=== PATIENT | male | born 1960 | race Caucasian/White ===

== ENCOUNTER 2017-01-17 09:57 | Inpatient (IN) | payer OTHER, MEDICARE ==
[~2017-01-17] VITALS: Ht 190.5 cm; Wt 103.9 kg
[~2017-01-17 09:57] MED LIST: ALBUTEROL0.09 MG/A1 INH; FLOMAX(MONOGRA0.4 MG PO; FOLIC ACID1 M1 PO; LIDODERM 5% PAT1 PAT EXT; LORAZEPAM1 M1 PO; MAG-OX 400400 MG PO; METOPROLOL TART25 M1 PO; MULTIPLE VITAM1 EAC2 PO; NALTREXONE50 MG PO; NATURE'S BLEND100 M3 PO; NEURONTIN300 M1 PO; NEXIUM 40MG40 MG PO; PRILOSEC OTC20 M1 PO; TRAZODONE HCL50 M1 PO; Theragran Vitamins PO; VITAB121000 PO; ZOFRAN4 M2 PO
--- NOTE | 2017-01-17 10:05 | NUR ---
56 Y/O MALE C/O "STOMACH SICK" X 2 DAYS, ALSO REQUESTING ALCOHOL DETOX. REPORTS LAST DRINK 12 HOURS AGO; HAS BEEN DRINKING 6-7 BEERS DAILY FOR OVER A WEEK. REPORTS ABDOMINAL PAIN AND N/V/D. SKIN CLAMMY; DIAPHORESIS NOTED. TREMORS NOTED.
[2017-01-17 10:47] VITALS: BP 188/114
--- NOTE | 2017-01-17 10:47 | NUR ---
BLOODWORK, SST,LAV.BLUE,BECK AND PINK TOP TUBES SENT TO LAB.
[2017-01-17 10:51] LABS: ABSOLUTE BASOPHIL COUNT 0 /CUMM (0.0-0.2); ABSOLUTE EOSINOPHIL COUNT 0 /CUMM (0.0-0.7); ABSOLUTE GRANULOCYTE CT 3.9 /CUMM (1.4-6.5); ABSOLUTE LYMPH COUNT 0.4 /CUMM (1.2-3.4); ABSOLUTE MONOCYTE COUNT 0.7 /CUMM (0.10-0.60); BASOPHIL % 0.1 % (0.0-2.0); EOSINOPHIL % 0.1 % (0-5); GRANULOCYTE % 78.1 % (42.2-75.2); HEMATOCRIT 41.3 % (42-52); MEAN CORPUSCULAR HGB CONC 34.5 G/DL (33.0-37.0); MEAN CORPUSCULAR VOLUME 95.8 FL (80.0-94.0); MEAN PLATELET VOLUME 6.8 FL (7.4-10.4); PLATELET COUNT 160 /CUMM (130-400); RBC DISTRIBUTION WIDTH 13.6 % (11.5-14.5); RED BLOOD CELL CT 4.31 /CUMM (4.70-6.10); WHITE BLOOD CELL COUNT 4.9 /CUMM (4.8-10.8)
--- NOTE | 2017-01-17 10:59 | NUR ---
MED ORDERED WITH ATIVAN 2MG IV, AND ATIVAN 1MG PO, TOLERATED WELL. PT ASKING FOR "SOMETHING FOR MY STOMACH, LAST TIME THEY GAVE IT TO ME IN THE IV". MICHAEL RAPHAEL AWARE.
--- NOTE | 2017-01-17 11:13 | ED PSYCHIATRIC COMPLAINT ---
See Addendum History of Present Illness General Chief Complaint: Nausea, Vomiting, Diarrhea Stated Complaint: NVD, ?DETOX Source: patient Exam Limitations: no limitations Vital Signs & Intake/Output Vital Signs & Intake/Output Vital Signs Date Time Temp Pulse Resp B/P Pulse O2 O2 Flow FiO2 Ox Delivery Rate 01/17 1107 97 20 189/99 97 Room Air Room Air 01/17 1049 96 Room Air Room Air 01/17 1047 97.1 112 20 188/114 01/17 1045 97.1 112 20 188/114 96 Room Air Room Air 01/17 0959 96.3 122 16 95 Room Air Allergies Coded Allergies: NO KNOWN ALLERGIES (NO) (02/20/11) Reconcile Medications Albuterol Sulfate (Proair Hfa) 90 MCG HFA.AER.AD 2 PUF INH Q4-6 PRN PRN BREATHING PROBLEMS (Reported) Cyanocobalamin (Vitamin B-12) 1,000 MCG TABLET 1 TAB PO DAILY SUPPLEMENT ( Reported) Folic Acid 1 MG TABLET 1 TAB PO DAILY SUPPLEMENT (Reported) Gabapentin (Neurontin) 300 MG CAPSULE 1 CAP PO TID PAIN (Reported) Metoprolol Tartrate 25 MG TABLET 1 TAB PO DAILY HEART (Reported) Multivitamin (Multiple Vitamins) 1 EACH TABLET 1 TAB PO DAILY SUPPLEMENT ( Reported) Omeprazole Magnesium (Prilosec Otc) 20 MG TABLET.DR 1 TAB PO DAILY GERD Tamsulosin HCl (Flomax) 0.4 MG CAP.ER.24H 1 CAP PO DAILY PROSTATE (Reported) Thiamine HCl (B-1) 100 MG TABLET 1 TAB PO DAILY SUPPLEMENT (Reported) Trazodone HCl 50 MG TABLET 1 TAB PO DAILY DEPRESSION (Reported) Triage Note: 56 Y/O MALE REQUESTING ALCOHOL DETOX. REPORTS LAST DRINK 12 HOURS AGO; HAS BEEN DRINKING 6-7 BEERS DAILY FOR OVER A WEEK. REPORTS ABDOMINAL PAIN AND N/V/D. SKIN CLAMMY; DIAPHORESIS NOTED. TREMORS NOTED. Triage Nurses Notes Reviewed? yes Onset: Abrupt Duration: day(s):, constant, getting worse Timing: recent history Severity: moderate HPI: 56-year-old male comes into emergency room with complaints of nausea vomiting shaky. Patient reports that he has been drinking alcohol again for the past 3 weeks. Patient feels that he is going through withdrawal. Last drink yesterday. History of seizure withdrawal as well as DTs. Denies any chest pain. Sweaty. Patient also complains of some upper abdominal pain. Sharp. (MICHAEL GUTIERREZ) Past History Travel History Traveled to [place] past 21 day No Medical History Any Pertinent Medical History? see below for history Neurological: delerium tremens, seizure Cardiovascular: hypertension Respiratory: COPD, emphysema, alveolar proteinosis acute respiratory distress syndrome requiring intubation aspiration pneumonia Gastrointestinal: colitis, pancreatitis, GI bleed NOS Hepatic: hepatitis C, cirrhosis, previously reported Renal: acute renal failure, previously reported Musculoskeletal: falls, rib fractures Psychiatric: alcohol dependence, substance abuse, cocaine abuse Endocrine: NONE Blood Disorders: anemia Cancer(s): head/neck cancer, ? 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 No (MICHAEL GUTIERREZ) Review of Systems Review of Systems Constitutional: Reports: no symptoms. EENTM: Reports: no symptoms. Respiratory: Reports: no symptoms. Cardiovascular: Reports: no symptoms. GI: Reports: see HPI. Genitourinary: Reports: no symptoms. Musculoskeletal: Reports: no symptoms. Skin: Reports: no symptoms. Neurological/Psychological: Reports: see HPI. Hematologic/Endocrine: Reports: no symptoms. Immunologic/Allergic: Reports: no symptoms. All Other Systems: Reviewed and Negative (MICHAEL GUTIERREZ) Physical Exam Physical Exam General Appearance: well developed/nourished, mild distress Head: atraumatic Eyes: Bilateral: normal appearance, EOMI. Ears, Nose, Throat: normal ENT inspection, hearing grossly normal Neck: normal inspection, supple Respiratory: no respiratory distress Cardiovascular: regular rate/rhythm, tachycardia Gastrointestinal: soft, tenderness Extremities: normal range of motion Neurological/Psychiatric: awake, alert Appearance/Memory/Insight: appropriate insight Behavoir/Eye Contact/Speech: cooperative Thoughts/Hallucinations: no apparent hallucination Skin: intact, normal color, warm/dry SAD PERSONS Done? patient not suicidal (MICHAEL GUTIERREZ) Progress Differential Diagnosis: dementia, drug intoxication, drug overdose, drug withdrawal, electrolyte abnormality, encephalitis, hypoglycemia, hypothyroidism, IC hem/mass/tumor, meningitis, pancreatitis Plan of Care: Orders Procedure Date/time Status EKG 01/18 0800 Active PHOSPHORUS 01/18 0600 Active MAGNESIUM 01/18 0600 Active HEPATIC FUNCTION PANEL 01/18 0600 Active BASIC ELECTROLYTES PLUS BUN&CR 01/18 0600 Active Heart Healthy Diet 01/17 D Active TROPONIN LEVEL 01/17 1800 Active EKG 01/17 1800 Active Admit to inpatient 01/17 1251 Active Pathway - chart 01/17 1246 Active Code Status 01/17 1246 Active Patient Data 01/17 1151 Active Pathway - chart 01/17 1141 Active CIWA 01/17 1024 Active URINE DRUGS OF ABUSE 01/17 1024 Active TROPONIN LEVEL 01/17 1024 Complete LIPASE 01/17 1024 Complete ETHANOL 01/17 1024 Complete COMPREHENSIVE METABOLIC PANEL 01/17 1024 Complete CBC WITHOUT DIFFERENTIAL 01/17 1024 Complete AMYLASE 01/17 1024 Complete EKG 01/17 1024 Active TRC EVALUATION (GEN) 01/17 UNK Active House Staff 01/17 UNK Active VTE Mechanical Prophylaxis 01/17 UNK Active Vital Signs 01/17 UNK Active Hemoccult 01/17 UNK Active Current Medications Sig/Berta Start time Last Medication Dose Stop Time Status Admin Lorazepam 0.5 MG ONCE 01/22 0000 AC (Ativan) 01/22 0001 Lorazepam 0.5 MG Q6 01/21 0600 AC (Ativan) 01/21 2359 Lorazepam 0.5 MG ONCE ONE 01/20 1800 AC (Ativan) 01/20 1801 Lorazepam 1 MG Q6H 01/20 0000 AC (Ativan) 01/20 1201 Lorazepam 1.5 MG Q12H 01/19 0600 AC (Ativan) 01/19 1801 Lorazepam 1 MG Q12H 01/19 0000 AC (Ativan) 01/19 1201 Lorazepam 2 MG ONCE ONE 01/18 1800 AC (Ativan) 01/18 1801 Cyanocobalamin 1,000 MCG DAILY 01/18 1000 AC (Vitamin B12) Folic Acid 1 MG DAILY 01/18 1000 AC (Folic Acid) Multivitamins 1 TAB DAILY 01/18 1000 AC (Theragran Vitamins) Thiamine HCl 100 MG DAILY 01/18 1000 AC (Vitamin B1) Trazodone HCl 50 MG DAILY 01/18 1000 AC (Desyrel) Lorazepam 1.5 MG Q6H 01/18 0000 AC (Ativan) 01/18 1201 Senna/Docusate Sodium 2 TAB AT BEDTIME PRN 01/17 1300 AC (Senokot S) Acetaminophen 650 MG Q6P PRN 01/17 1245 AC (Tylenol) Gabapentin 300 MG TID 01/17 1245 AC (Neurontin) Metoprolol Tartrate 25 MG DAILY 01/17 1245 AC (Lopressor) Ondansetron HCl 4 MG Q6P PRN 01/17 1245 AC (Zofran) Tamsulosin HCl 0.4 MG DAILY 01/17 1245 AC (Flomax) Pantoprazole Sodium 40 MG DAILY 01/17 1243 AC (Protonix) Lorazepam 2 MG Q6 01/17 1200 AC (Ativan) 01/17 2358 Lactated Ringer's 1,000 ML ONCE ONE 01/17 1145 AC (Lactated Ringers) 01/17 1544 Lorazepam 2 MG Q2P PRN 01/17 1145 AC (Ativan) Lorazepam 1 MG Q2P PRN 01/17 1145 AC (Ativan) Laboratory Tests 01/17/17 1418: Methadone Screen Pending, Barbiturate Screen Pending, Ur Phencyclidine Scrn Pending, Amphetamines Screen Pending, U Benzodiazepines Scrn Pending, Urine Cocaine Screen Pending, Urine Cannabis Screen Pending 01/17/17 1040: Anion Gap 17 H, Estimated GFR > 60, BUN/Creatinine Ratio 21.4, Glucose 116 H, Calcium 10.1, Total Bilirubin 1.2, AST 206 H, ALT 127 H, Alkaline Phosphatase 103, Troponin I < 0.01, Total Protein 9.2 H, Albumin 4.9, Globulin 4.3 H, Albumin/Globulin Ratio 1.1, Amylase 81, Lipase 500 H, CBC w Diff NO MAN DIFF REQ, RBC 4.31 L, MCV 95.8 H, MCH 33.0 H, RDW 13.6, MPV 6.8 L, Gran % 78.1 H , Lymphocytes % 7.6 L, Monocytes % 14.1 H, Eosinophils % 0.1, Basophils % 0.1, Absolute Granulocytes 3.9, Absolute Lymphocytes 0.4 L, Absolute Monocytes 0.7 H, Absolute Eosinophils 0, Absolute Basophils 0, PUBS MCHC 34.5, Serum Alcohol < 10.0 Initial ED EKG: normal intervals, normal p-waves, normal sinus rhythm, rate (92) (MICHAEL GUTIERREZ) Departure Departure Disposition: STILL A PATIENT Condition: Stable Clinical Impression Primary Impression: Alcohol withdrawal Secondary Impressions: Pancreatitis Referrals: NIKKI CARLSON (PCP/Family) Departure Forms: Customer Survey General Discharge Information Admission Note Spoke With: YANCY TILLMAN,IVONNE Alcohol Withdrawl Admission ED Alcohol Detox Admission d/t: CIWA Score >15, DTs/Seizure w/i last year Comments: Patient hypertensive. Tachycardic. (MICHAEL GUTIERREZ) PA/CAMPAIGN SPECIALIST Co-Sign Statement Statement: ED Attending supervision documentation- [] I saw and evaluated the patient. I have also reviewed all the pertinent lab results and diagnostic results. I agree with the findings and the plan of care as documented in the PA's/CAMPAIGN SPECIALIST's documentation. [X] I have reviewed the ED Record and agree with the PA's/CAMPAIGN SPECIALIST's documentation. [] Additions or exceptions (if any) to the PAs/CAMPAIGN SPECIALIST's note and plan are summarized below: [] (JANUARY RIOS DO) Critical Care Note Critical Care Note Critical Care Time: 30-74 min (MICHAEL GUTIERREZ)
--- NOTE | 2017-01-17 11:21 | NUR ---
MED WITH ZOFRAN 4MG IV AND PEPCID 20MG IV, TOLERATED WELL, PT NAPPING COMFORTABLY AT THIS TIME, EASILY AROUSABLE.
[2017-01-17] MEDS ORDERED: LEXAPRO20 M1 PO (11:27)
[2017-01-17] MEDS ORDERED: VITAMIN B-121000 MC3 PO (11:29)
[2017-01-17] MEDS ORDERED: PROAIR HFA8.5 GM INH (11:29)
[2017-01-17] MEDS ORDERED: MAGNESIUM400 MG PO (11:31)
[2017-01-17] MEDS ORDERED: FLOMAX0.4 M1 PO (11:33)
[2017-01-17] MEDS ORDERED: B-1100 MG PO (11:34)
--- NOTE | 2017-01-17 11:56 | NUR ---
PHARMACY CALLED FOR BANANA BAG, IV FOLIC ACID AND MVI NOT AVAILABLE IN [facility].
--- NOTE | 2017-01-17 12:07 | NUR ---
PT RESTING MORE COMFORTABLY, SLEEPING IN LONG NAPS, NO FURTHER N/V OR ANXIETY NOTED. STEVE NEGRETE AT BEDSIDE FOR EKG.
--- NOTE | 2017-01-17 12:14 | NUR ---
EKG DONE. HOUSE STAFF AT BEDSIDE FOR EVAL.
--- NOTE | 2017-01-17 12:25 | NUR ---
BANANA BAG INFUSING AT 125ML/HR WITHOUT DIFFICULTY AT THIS TIME. HOUSE STAFF REMAINS AT BEDSIDE.
[2017-01-17 13:00] VITALS: BP 181/98
--- NOTE | 2017-01-17 13:51 | History & Physical ---
KENNEDY TILLMAN,TYLER 01/17/17 1336: General Information and HPI MD Statement: I have seen and personally examined FABI TAYLOR and documented this H&P. The patient is a 56 year old M who presented with a patient stated chief complaint of [nausea, vomiting, abdominal pain and requesting alcohol detox]. 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 Patient was discharged from [facility] in October 2016 after treated for alcohol detox and hematemesis thought to be secondary to gastritis. Patient restarted binge drinking alcohol in December and has been drinking 8-9 beers daily and 2-3 shots of vodka daily. His last drink was yesterday morning 10 AM. Since yesterday morning he started having persistent nausea with 12-13 episode of streak of blood containing vomiting associated with epigastric pain. He also complained of chest pain and subcostal pain which she attributed to his extensive retching due to vomiting. This morning he also started having difficulty with breathing and noted very weak so his son brought him to ER for further evaluation. On evaluation in ER patient denies any active chest pain, shortness of breath but continues to have epigastric pain with persistent nausea and vomiting. She also complained of persistent sweating and tremulousness but denies any visual/tactile/ auditory hallucination. In ER his vitals were T 97.1, HR 97, RR 20, BP 189/99, O2 sat 97% on room air. He was given 2 mg IV Ativan and 1 mg oral Ativan and also received IV PPI and Zofran. Patient sees Dr. Rojsa for his lung disease. Allergies/Medications Allergies: Coded Allergies: NO KNOWN ALLERGIES (NO) (02/20/11) Home Med list Albuterol Sulfate (Proair Hfa) 90 MCG HFA.AER.AD 2 PUF INH Q4-6 PRN PRN BREATHING PROBLEMS (Reported) Cyanocobalamin (Vitamin B-12) 1,000 MCG TABLET 1 TAB PO DAILY SUPPLEMENT ( Reported) Folic Acid 1 MG TABLET 1 TAB PO DAILY SUPPLEMENT (Reported) Gabapentin (Neurontin) 300 MG CAPSULE 1 CAP PO TID PAIN (Reported) Metoprolol Tartrate 25 MG TABLET 1 TAB PO DAILY HEART (Reported) Multivitamin (Multiple Vitamins) 1 EACH TABLET 1 TAB PO DAILY SUPPLEMENT ( Reported) Omeprazole Magnesium (Prilosec Otc) 20 MG TABLET.DR 1 TAB PO DAILY GERD Tamsulosin HCl (Flomax) 0.4 MG CAP.ER.24H 1 CAP PO DAILY PROSTATE (Reported) Thiamine HCl (B-1) 100 MG TABLET 1 TAB PO DAILY SUPPLEMENT (Reported) Trazodone HCl 50 MG TABLET 1 TAB PO DAILY DEPRESSION (Reported) Compliance With Home Meds: FAIR Past History Travel History Traveled to [place] past 21 day No Medical History Neurological: delerium tremens, seizure Cardiovascular: hypertension Respiratory: COPD, emphysema, alveolar proteinosis acute respiratory distress syndrome requiring intubation aspiration pneumonia Gastrointestinal: colitis, pancreatitis, GI bleed NOS Hepatic: alcoholic hepatitis Musculoskeletal: falls, rib fractures Psychiatric: alcohol dependence, substance abuse, cocaine abuse Endocrine: NONE Blood Disorders: anemia Cancer(s): ? 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 Ambulation: independent, cane, walker, non-ambulatory IADLs Independent: shopping, housework, finances, food prep, telephone, transportation , medication admin. Review of Systems Review of Systems Constitutional: Reports: weakness. Denies: chills, fever. EENTM: Denies: visual changes. Cardiovascular: Denies: chest pain, edema, orthopena, palpitations, peripheral edema. Respiratory: Reports: cough. Denies: short of breath, sputum production. GI: Reports: abdominal pain, diarrhea, nausea, vomiting. Genitourinary: Denies: dysuria. Musculoskeletal: Denies: back pain. Skin: Denies: rash. Neurological/Psychological: Denies: confusion, dementia, headache. Exam & Diagnostic Data Last 24 Hrs of Vital Signs/I&O Vital Signs Date Time Temp Pulse Resp B/P Pulse O2 O2 Flow FiO2 Ox Delivery Rate 01/17 1107 97 20 189/99 97 Room Air Room Air 01/17 1049 96 Room Air Room Air 01/17 1047 97.1 112 20 188/114 01/17 1045 97.1 112 20 188/114 96 Room Air Room Air 01/17 0959 96.3 122 16 95 Room Air Intake & Output 01/17 1600 01/17 0800 01/17 0000 Intake Total Output Total Balance Patient 228 lb Weight Physical Exam General Appearance Alert, Oriented X3, Cooperative, No Acute Distress Skin No Rashes HEENT Atraumatic, PERRLA, EOMI, Mucous Membr. moist/pink Neck Supple, No JVD Lymphatic Cervical nl Cardiovascular Regular Rate, Normal S1, Normal S2, No Murmurs Lungs Clear to Auscultation, Normal Air Movement Abdomen Normal Bowel Sounds, Soft, No Tenderness Neurological Normal Speech, Strength at 5/5 X4 Ext, Normal Tone, Sensation Intact, Cranial Nerves 3-12 NL Extremities No Edema Vascular Normal Pulses, Pulses Symmetrical Last 24 Hrs of Labs/Humberto: Laboratory Tests 01/17/17 1040: Anion Gap 17 H, Estimated GFR > 60, BUN/Creatinine Ratio 21.4, Glucose 116 H, Calcium 10.1, Total Bilirubin 1.2, AST 206 H, ALT 127 H, Alkaline Phosphatase 103, Troponin I < 0.01, Total Protein 9.2 H, Albumin 4.9, Globulin 4.3 H, Albumin/Globulin Ratio 1.1, Amylase 81, Lipase 500 H, CBC w Diff NO MAN DIFF REQ, RBC 4.31 L, MCV 95.8 H, MCH 33.0 H, RDW 13.6, MPV 6.8 L, Gran % 78.1 H , Lymphocytes % 7.6 L, Monocytes % 14.1 H, Eosinophils % 0.1, Basophils % 0.1, Absolute Granulocytes 3.9, Absolute Lymphocytes 0.4 L, Absolute Monocytes 0.7 H, Absolute Eosinophils 0, Absolute Basophils 0, PUBS MCHC 34.5, Serum Alcohol < 10.0 Diagnostic Data EKG Results NSR at 92, left axis deviation, no ST-T changes, QTC 471 Assessment/Plan Assessment: This is 56-year-old man with past medical history of alcohol abuse with most recent admission in October 2016 for alcohol detox, alcohol related withdrawal seizure, DTs, hypertension, 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 patient has been drinking 8-9 beers daily and 2-3 shots of vodka and his olast drink was yesterday morning, currently experiencing sweats, tremulousness. 1. Alcohol withdrawl - Admit to GM - Watch for DT - Start ativan taper and as per [facility] protocol - banana bag with MVI, folate, b12, thiamine - Patient educated to quit etoh 2. Alcoholic hepatitis - Noted elevated LFt suggestive of ETOH hepatitis - no hx of gallstone or RUQ pain - will repeat LFT in am if remains high or trending up will consider RUQ US - avoid high dose tylenol 3. Acute gastritis - Start IV PPI - Zofran as needed for nausea - Keep NPO and advance diet gradually 4. HTN - Continue metoprolol 25 ng daily 5. Depression/insomnia - continue trazodone 6. BPH - Continue Flomax 7. dvt PX - mechanical As Ranked By This Provider Problem List: 1. ALCOHOL WITHDRAWAL 2. Abdominal pain 3. Depression Core Measures/Miscellaneous Acute Coronary Syndrome ACS Diagnosis: No Cerebrovascular Accident CVA/TIA Diagnosis: No Congestive Heart Failure CHF Diagnosis: No Venous Thromboembolism VTE Risk Factors: Age > 40 [facility] prophylaxis d/t: No contraindications No VTE Pharm Prophylaxis d/t: Active bleeding VTE Diagnosis: No VTE Type: NONE VTE Confirmed by (Test): NONE Severe Sepsis Severe Sepsis Present: No Septic Shock Septic Shock Present: No Miscellaneous Documentation Attending Case Discussed With: CARLY MOORE M.D Primary Care Physician: NIKKI CRALSON Patient sees these Specialists pulmonary - Dr. Rojas Level of Patient Care: General Medicine CARLY MOORE MD 01/17/17 1443: Attending MD Review Statement Attending Statement Attending Statement: examined this patient, discuss w/resident/PA/PROPULSION ENGINEER, agreed w/resident/PA/PROPULSION ENGINEER, reviewed EMR data (avail), discussed with nursing, amended to note Attending Assessment/Plan: 56-year-old male with history of alcohol abuse presents to the emergency room today complaining of nausea vomiting abdominal pain and alcohol withdrawal symptoms. Last alcohol intake was yesterday. He reports alcohol intake due to persistent nausea vomiting. He has a long history of alcohol abuse and has been through rehabilitation programs in the past. At this point he states that he is willing to attempt stopping further alcohol intake. His CIWA was as high as 15 emergency room and he does have history of alcohol withdrawal seizures. Based on this he was referred to the inpatient medical service for further management. He received a total of 3 mg of Ativan so far in the emergency room. On examination he is well-developed, not agitated, tremulous. Heart sounds are regular. Lungs are clear to auscultation bilaterally. Abdomen is soft with mild tenderness in the epigastric region. He has no peripheral edema. He has no significant of chronic liver disease on exam. Laboratory data shows transaminitis. Images studies in October showed hepatic steatosis. His constellation of symptoms are consistent with alcohol withdrawal. Laboratory data is suggestive of alcoholic hepatitis his abdominal discomfort and mildly elevated lipase levels are probably due to mild alcoholic pancreatitis. Recommendations: -Admit to the inpatient medical service. -Hydrate aggressively with lD5 actated Ringer's at 1 25 mL an hour -Repeat serum chemistry in a.m. including magnesium level. -Provide benzodiazepine therapy with Ativan 2 mg orally every 4 hours around-the -clock. Provide additional cord rate with Ativan 2 mg IV when necessary elevated CIWA score. Recommend aggressive therapy for the patient due to impending delirium tremens. -Keep nothing by mouth and provided with antiemetic therapy. -Once nausea vomiting as well as abdominal pain resolves may resume diet. -DVT prophylaxis with subcutaneous heparin. -If no improvement will obtain right upper quadrant sonogram to rule out biliary obstruction. -
--- NOTE | 2017-01-17 14:51 | NUR ---
MED ORDERED WITH PROTONIX 40MG IV,TOLERATED WELL. MED WITH LOPRESSOR 25MG PO AND NEURONTIN 300MG PO, TOLERATED WELL. PHARMACY CALLED FOR FLOMAX.
--- NOTE | 2017-01-17 14:51 | Admission Certification ---
Admission Certification Certification Statement - As attending physician, I certify that at the time of - admission, based on clinical presentation, severity of - symptoms, need for further diagnostic testing and - therapeutic interventions, and risk of adverse outcomes - without in-hospital treatment, in my clinical assessment, - this patient requires an acute hospital stay for a minimum - of two nights or longer. I have also considered psychsocial - factors such as support system, advanced age, financial - issues, cognitive issues, and failed out-patient treatments, - past re-admission history, safety of patient, and lack of - compliance as applicable. Specific rationale supporting this admission is: Admit to the inpatient medical service for management of impending delirium tremens.
--- NOTE | 2017-01-17 14:57 | NUR ---
PT "STARTING TO FEEL JITTERY AGAIN", MED WITH ATIVAN 2MG IV, TOLERATED WELL.
[2017-01-17 15:04] VITALS: BP 166/90
--- NOTE | 2017-01-17 16:03 | NUR ---
PT GOING TO ROOM 234-1.
[2017-01-17 16:43] VITALS: BP 146/86
--- NOTE | 2017-01-17 16:50 | NUR ---
IV PLACED BY RN PAT NOTED ON LEFT HAND, NOT RIGHT HAND.
--- NOTE | 2017-01-17 16:52 | NUR ---
REPORT CALLED. DISTRIBUTION CALLED.
--- NOTE | 2017-01-17 17:01 | NUR ---
ONE VALUABLE ENVELOPE AND TWO BELONGING BAGS SENT WITH THE PT
--- NOTE | 2017-01-17 17:03 | NUR ---
FABI TAYLOR Nurse Note by: RUBEN LUCIO I agree with the SASH FINISHER findings/evaluation of this patient's condition. Entered by: RUBEN LUCIO Date: 01/17/17 Time: 2732
[2017-01-17 17:31] VITALS: BP 145/82
--- NOTE | 2017-01-17 17:39 | NUR ---
ADMISSION NOTE- PT ARRIVED TO FLOOR AT THIS TIME MIN ASSIST X 1 TO TRANSFER FROM STRETCHER TO BED, TREMORS, PT ANXIOUS AND C/O "FEELING SO SHAKY" MEDICATED WITH 2MG IV ATIVAN AT THIS TIME PER CIWA. ORIENTED X 3, ON 2L PER PATIENTS REQUEST, VSS, PROVIDED WITH URINAL, ORIENTED TO ROOM AND USE OF CALL [facility] SYSTEM TAKING IN PO FLUIDS AND EATING A SANDWICH AT THIS TIME, DENIES NAUSEA, C/O PAIN TO BILATERAL KNEES, "I ALWAYS HAVE IT", RIGHT WORSE THAN LEFT, +CMS, PT'S OWN BRACES IN PLACE. INSTRUCTED TO USE [facility] IF NEED TO AMBULATE. LBM THIS MORNING "DIARRHEA", SKIN INTACT. ADMITS TO DRINKING 9-10 BEERS EVERY DAY, " WELL A FEW SHOTS OF VOKDA, AND SOMETIMES A BLOODY PATRICIO" STATES LAST DRINK WAS "YESTERDAY MORNING". WILL CONTINUE TO MONITOR.
--- NOTE | 2017-01-17 18:44 | NUR ---
THIS NURSE HEARD PT STATING TO UTILIZATION SPECIALIST [employer] "HI, YEAH IM GOING TO HANG MYSELF IN THE BATHROOM" PT LAUGHING AND STATED "IM JUST KIDDING" DENIES SI/HI, EDUCATED PT NOT TO MAKE STATEMENTS LIKE THIS UNLESS HE IS TRULY FEELING SUICIDAL. CALL PLACED TO INFORMATION CLERK BROKERAGE. OBTAINED ORDER FOR SITTER AT THIS TIME. WILL CONTINUE TO MONITOR
[2017-01-17 21:26] VITALS: BP 128/68; BP 140/80
--- NOTE | 2017-01-17 23:37 | NUR ---
PT ASSISTED WITH USE OF URINAL, SPILLED URINE ON BED AND UNDERWEAR, BED CHANGE DONE AND INCT CARE PROVIDED, URINE IS DARK KAIT AND FOUL SMELLING, PLATE MAKER ZINC MADE AWARE. ALSO, GROIN IS RED, NO OPEN AREAS, REQUESTING ORDER FOR NYSTATIN POWDER. PT DODSON RECEIVED A TOTAL OF 7MG IV ATIVAN THIS SHIFT, ALONG WITH SCHEDULED PO DOSES. PLATE MAKER ZINC MADE AWARE. REPORT OFF TO ONCOMING NURSE AT THIS TIME. PT IS CURRENTLY CALM AND COOPERATIVE/ SLEEPING ON AND OFF.
[2017-01-18] VITALS (8 sets, daily range): BP systolic 120–202; BP diastolic 78–123
--- NOTE | 2017-01-18 07:53 | PN- Housestaff ---
KENNEDY TILLMAN,TYLER 01/18/17 0752: Subjective Follow-up For: Alcohol withdrawal Alcoholic hepatitis Acute gastritis Complaints: complains of epigastric pain after trying coffee this morning Subjective: Patient is comfortably lying in bed. Still noted having excessive sweating and tremulousness. But denies any visual/tactile or auditory hallucination. Nausea has improved with nausea medication. Had one episode of blurred streak containing vomiting yesterday afternoon. Denies any further chest pain. Complains of mild shortness of breath with light yellow colored sputum production. Denies fever, chills. Review of Systems Constitutional: Denies: chills, fever. EENTM: Denies: visual changes. Cardiovascular: Denies: chest pain, orthopena, palpitations. Respiratory: Reports: cough, short of breath, sputum production. Gastrointestinal: Reports: abdominal pain, nausea. Denies: diarrhea, vomiting. Genitourinary: Denies: dysuria. Musculoskeletal: Denies: back pain. Skin: Denies: rash. Neurological/Psychological: Reports: anxiety. Denies: confusion. Objective Last 24 Hrs of Vital Signs/I&O Vital Signs Date Time Temp Pulse Resp B/P Pulse O2 O2 Flow FiO2 Ox Delivery Rate 01/18 0639 97.2 84 20 162/100 97 Nasal 2.0L Cannula 01/18 0200 97.6 89 20 150/90 96 Nasal 2.0L Cannula 01/18 0000 Nasal 2.0L Cannula 01/176 97.3 95 20 140/80 97 01/17 2028 99 Nasal 4.0L Cannula 01/18 2024 Nasal 4.0L Cannula 01/17 1731 98.2 95 20 145/82 98 01/17 1643 96.9 89 20 146/86 01/17 1635 96.9 89 18 146/86 99 Nasal 2.0L Cannula 01/17 1629 96.9 96 18 146/86 01/17 1504 97.4 101 18 166/90 01/17 1502 101 18 166/90 95 Room Air Room Air 01/17 1400 101 18 166/90 01/17 1300 97.2 118 20 181/98 01/17 1300 97.2 118 18 181/98 94 Room Air Room Air 01/17 1107 97 20 189/99 97 Room Air Room Air 01/17 1049 96 Room Air Room Air 01/17 1047 97.1 112 20 188/114 01/17 1045 97.1 112 20 188/114 96 Room Air Room Air 01/17 0959 96.3 122 16 95 Room Air Intake & Output 01/18 1600 01/18 0800 01/18 0000 Intake Total 800 Output Total Balance 800 Intake, Oral 800 Patient 230 lb Weight Physical Exam General Appearance: Alert, Oriented X3, Cooperative, No Acute Distress Skin: No Rashes HEENT: Atraumatic, PERRLA, EOMI, Mucous Membr. moist/pink Neck: Supple, No JVD Cardiovascular: Regular Rate, Normal S1, Normal S2, No Murmurs Lungs: Clear to Auscultation, Normal Air Movement Abdomen: Normal Bowel Sounds, Soft, No Tenderness Neurological: Normal Speech, Normal Tone, Sensation Intact Extremities: No Edema Vascular: Normal Pulses, Pulses Symmetrical Current Medications: Current Medications Sig/Berta Start time Last Medication Dose Route Stop Time Status Admin Acetaminophen 650 MG Q6P PRN 01/17 1245 AC PO Albuterol Sulfate 3 ML Q4P PRN 01/17 2045 AC INH Cyanocobalamin 1,000 MCG DAILY 01/18 1000 AC PO Cyanocobalamin/ 1 BAG DAILY 01/17 1141 DC 01/17 Thiamine/Pyridoxine IV 01/19 1759 1224 Dextrose/Water 1,000 ML Dextrose/Lactated 1,000 ML .Q10H 01/17 1830 AC 01/18 Ringer's IV 0653 Dextrose/Sodium 1,000 ML Q8H 01/17 1530 DC Chloride IV Famotidine 0 .STK-MED ONE 01/17 1120 DC IV Famotidine 20 MG ONCE ONE 01/17 1115 DC 01/17 IV 01/17 1116 1121 Folic Acid 1 MG DAILY 01/18 1000 AC PO Gabapentin 0 .STK-MED ONE 01/17 1440 DC PO Gabapentin 300 MG TID 01/17 1245 AC 01/17 PO 2155 Lactated Ringer's 1,000 ML ONCE ONE 01/17 1145 CAN IV 01/17 1544 Lorazepam 0.5 MG ONCE 01/22 0000 DC IV 01/22 0001 Lorazepam 0.5 MG Q6 01/21 0600 DC IV 01/21 2359 Lorazepam 0.5 MG ONCE ONE 01/20 1800 DC IV 01/20 1801 Lorazepam 1 MG Q6H 03/18 0000 DC IV 01/20 1201 Lorazepam 1.5 MG Q6 01/19 1800 AC PO 01/20 1201 Lorazepam 1.5 MG Q12H 01/19 0600 DC IV 01/19 1801 Lorazepam 1 MG Q12H 01/19 0000 DC IV 01/19 1201 Lorazepam 2 MG ONCE ONE 01/18 1800 DC IV 01/18 1801 Lorazepam 2 MG Q6 01/18 1800 AC PO 01/19 1201 Lorazepam 1.5 MG Q6H 01/18 0000 CAN IV 01/18 1201 Lorazepam 2 MG Q4 01/17 1800 DC IV Lorazepam 2 MG Q4 01/17 1800 AC 01/18 PO 01/18 1401 0652 Lorazepam 0 .STK-MED ONE 01/17 1457 DC .ROUTE Lorazepam 2 MG Q6 01/17 1200 DC 01/17 IV 01/17 2358 1456 Lorazepam 2 MG ONCE 01/17 1145 DC IV 01/17 1146 Lorazepam 2 MG Q2P PRN 01/17 1145 AC 01/17 IV 1937 Lorazepam 1 MG Q2P PRN 01/17 1145 AC 01/17 IV 1937 Lorazepam 2 MG ONE ONE 01/17 1100 DC 01/17 IV 01/17 1101 1058 Lorazepam 1 MG ONE ONE 01/17 1100 DC 01/17 PO 01/17 1101 1058 Lorazepam 0 .STK-MED ONE 01/17 1056 DC PO Lorazepam 0 .STK-MED ONE 01/17 1056 DC .ROUTE Metoprolol Tartrate 0 .STK-MED ONE 01/17 1438 DC PO Metoprolol Tartrate 25 MG DAILY 01/17 1245 AC 01/17 PO 1400 Multivitamins 1 TAB DAILY 01/18 1000 AC PO Nystatin 1 JUDITH TIDPRN PRN 01/17 2345 AC TOP Ondansetron HCl 4 MG Q6P PRN 01/17 1245 AC IV Ondansetron HCl 0 .STK-MED ONE 01/17 1120 DC .ROUTE Ondansetron HCl 4 MG ONCE ONE 01/17 1115 DC 01/17 IV 01/17 1116 1121 Pantoprazole Sodium 0 .STK-MED ONE 01/17 1438 DC IV Pantoprazole Sodium 40 MG DAILY 01/17 1243 AC 01/17 IV 1400 Senna/Docusate Sodium 2 TAB AT BEDTIME PRN 01/17 1300 AC PO Tamsulosin HCl 0.4 MG DAILY 01/17 1245 AC 01/17 PO 1629 Thiamine HCl 100 MG DAILY 01/18 1000 AC PO Trazodone HCl 50 MG DAILY 01/18 1000 AC PO Last 24 Hrs of Lab/Humberto Results Last 24 Hrs of Labs/Mics: Laboratory Tests 01/18/17 0625: Sodium Pending, Potassium Pending, Chloride Pending, Carbon Dioxide Pending, Anion Gap Pending, BUN Pending, Creatinine Pending, BUN/Creatinine Ratio Pending , Phosphorus Pending, Magnesium Pending, Total Bilirubin Pending, Direct Bilirubin Pending, AST Pending, ALT Pending, Alkaline Phosphatase Pending, Total Protein Pending, Albumin Pending 01/17/172006: Troponin I < 0.01 01/17/17 1418: Urine Opiates Screen < 100.00, Methadone Screen < 40, Barbiturate Screen < 60, Ur Phencyclidine Scrn < 6.00, Amphetamines Screen < 100, U Benzodiazepines Scrn < 85, Urine Cocaine Screen 275, Urine Cannabis Screen < 5.00 01/17/17 1040: Anion Gap 17 H, Estimated GFR > 60, BUN/Creatinine Ratio 21.4, Glucose 116 H, Calcium 10.1, Total Bilirubin 1.2, AST 206 H, ALT 127 H, Alkaline Phosphatase 103, Troponin I < 0.01, Total Protein 9.2 H, Albumin 4.9, Globulin 4.3 H, Albumin/Globulin Ratio 1.1, Amylase 81, Lipase 500 H, CBC w Diff NO MAN DIFF REQ, RBC 4.31 L, MCV 95.8 H, MCH 33.0 H, RDW 13.6, MPV 6.8 L, Gran % 78.1 H , Lymphocytes % 7.6 L, Monocytes % 14.1 H, Eosinophils % 0.1, Basophils % 0.1, Absolute Granulocytes 3.9, Absolute Lymphocytes 0.4 L, Absolute Monocytes 0.7 H, Absolute Eosinophils 0, Absolute Basophils 0, PUBS MCHC 34.5, Serum Alcohol < 10.0 Orders CIWA Score (last 24 hrs): 20/12/8/0////4 Assessment/Plan Assessment: This is 56-year-old man with past medical history of alcohol abuse with most recent admission in October 2016 for alcohol detox, alcohol related withdrawal seizure, DTs, hypertension, 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 patient has been drinking 8-9 beers daily and 2-3 shots of vodka and his olast drink was yesterday morning, currently experiencing sweats, tremulousness. 1. Alcohol withdrawl - Maximum CIWA score was 31 yesterday night but this morning CIWA came down to 3 -4 - Watch for DT -Continue ativan taper and as per CIWA protocol - banana bag with MVI, folate, b12, thiamine - Social work consult 2. Sucideal ideation - patient expressed thought of hanging himself last evening. Sitter was placed. - This morning patient denies any SI, HI or any severe depression - Will consult psychiatry for clearance prior to removing sitter 3. Alcoholic hepatitis - Noted elevated LFt suggestive of ETOH hepatitis - no hx of gallstone or RUQ pain - repeat LFT pending if remains high or trending up will consider RUQ US - avoid high dose tylenol 4. Acute gastritis -Continue IV PPI - Zofran as needed for nausea - Stool guaiac -May consider to advance diet to regular diet in the afternoon if patient symptom improves. Patient insist to resume regular diet 5. Hyponatremia - ?beer potomania - will recheck BEP in am 6. HTN - Continue metoprolol 25 mg daily - Noted elevated blood pressure likely due to withdrawal, will monitor 7. Depression/insomnia - continue trazodone 8. BPH - Continue Flomax 9. dvt PX - mechanical Problem List: 1. ALCOHOL WITHDRAWAL 2. Abdominal pain 3. Alcohol abuse 4. ALVEOLAR PROTEINOSIS Pain Ratin Pain Location: Epigastric Pain Goal: Pain 4 or less Pain Plan: Tylenol Tomorrow's Labs & Rationales: CBC, LFT DVT/Prophylaxis: mechanical TERESA TILLMAN,CARLY 01/18/17 1044: Attending MD Review Statement Attending Statement Attending MD Statement: examined this patient, discuss w/resident/PA/TRIMMER HELPER, agreed w/resident/PA/TRIMMER HELPER, reviewed EMR data (avail), discussed with nursing, discussed with case mgmt, amended to note Attending Assessment/Plan: Patient seen and examined. This morning he is calm and not in any acute distress. He is only very mildly tremulous. Yesterday however he CIWA was as high as 35. He required a total of 12 mg of when necessary Ativan in addition to standing oral dose. He remains he to eat and had a regular diet this morning. He reports only mild nausea and abdominal discomfort. Denied any overt pain or vomiting. On examination abdomen is soft without tenderness. Laboratory data shows more significant hyponatremia today Problems: 1. Alcohol withdrawal syndrome 2. Transaminitis; likely alcohol-related 3. Hypoosmotic hyponatremia 4. Mild pancreatitis 5. Elevated blood pressure today. 6. Suicide ideation overnight. Recommendations: -Continue Ativan 2 mg orally every 4 hours today CIWA protocol. -If his CIWA is improving tomorrow his Ativan dose may be weaned down -Continue IV hydration. -Change IV fluids to normal saline at 100 mL an hour. Repeat serum chemistry this afternoon. -Monitor blood pressure closely. If still elevated begin patient on amlodipine 5 mg orally daily. -Patient made comments about suicide ideation to staff overnight. A sitter was placed. This morning he reports that it was just a joke. Psychiatric consult has been ordered.
--- NOTE | 2017-01-18 09:58 | NUR ---
PT'S BP NOTED TO BE 184/102 AT THIS TIME. BP MEDICATIONS GIVEN PER EMAR. PATIENT DENIES SYMPTOMS. DENIES HEADACHE, N/V OR SHOULDER PAIN. STATES THAT HE "FEEL FINE". DR. MOORE NOTIFIED. WILL RECHECK BP IN 1 HOUR. WILL CONT TO MONITOR
--- NOTE | 2017-01-18 14:06 | Cons- Psychiatry ---
Psychiatric Consult Date of Consult: 01/18/17 Reason for Consult: Patient expressed suicidal ideation last evening. History of Present Illness: Identifying Info: The patient is a 56 year old Male CC: Today the patient identifies diarrhea, stomachache and nausea. In the emergency room patient requested alcohol detox. HPI: To ER with chief complaint of 2 days history of persistent nausea with blood containing vomiting, epigastric abdominal pain. Patient reports drinking 8 cans of beer, and 6 "shots" of vodka (in two large "bloody durga's) every evening. States he restarted drinking after discharge from rehab this past October 2016. 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 -Inpatient: [facility] inpatient substance abuse rehabilitation in 2014, as per history. [facility], Alcoholism treatment program in [place], [place], in October 2016, as per patient. Family Psych History: Patient reports mother and father both had depression. Patient reports that his sister has mental health problems, with more than one psychiatric admissions. Substance History: Patient reports distant history of cocaine and marijuana abuse. Currently alcohol abuse. -Treatment: [facility] inpatient substance abuse rehabilitation in 2014, as per history. [facility], Alcoholism treatment program in [place], [place], in October 2016, as per patient. Family Substance History: Reports maternal uncle and paternal uncle both were alcoholics. Social: Currently . 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 Abuse/Trauma: Denies Current Home Psychotropic Medications: Denies Current Hospital Psychotropic Medications: Trazodone for sleep. Lorazepam for alcohol detox. Allergies: Coded Allergies: NO KNOWN ALLERGIES (NO) (02/20/11) Current Medications: Med Acetaminophen 650 MG PO Q6P PRN 01/17/17 1245 Albuterol Sulfate 3 ML INH Q4P PRN 01/17/17 2045 Cyanocobalamin 1,000 MCG PO DAILY 01/18/17 1000 Folic Acid 1 MG PO DAILY 01/18/17 1000 Gabapentin 300 MG PO TID 01/17/17 1245 Lorazepam 2 MG IV Q2P PRN 01/17/17 1145 Lorazepam 1 MG IV Q2P PRN 01/17/17 1145 Lorazepam 2 MG PO Q4 01/17/17 1800 Lorazepam 2 MG PO Q6 01/18/17 1800 Lorazepam 1.5 MG PO Q6 01/19/17 1800 Metoprolol Tartrate 25 MG PO DAILY 01/17/17 1245 Multivitamins 1 TAB PO DAILY 01/18/17 1000 Nystatin 1 JUDITH TOP TIDPRN PRN 01/17/17 2345 Ondansetron HCl 4 MG IV Q6P PRN 01/17/17 1245 Pantoprazole Sodium 40 MG IV DAILY 01/17/17 1243 Senna/Docusate Sodium 2 TAB PO AT BEDTIME PRN 01/17/17 1300 Sodium Chloride 1,000 ML IV Q10H 01/18/17 1115 Tamsulosin HCl 0.4 MG PO DAILY 01/17/17 1245 Thiamine HCl 100 MG PO DAILY 01/18/17 1000 Trazodone HCl 50 MG PO DAILY 01/18/17 1000 Med *DC Dextrose/Lactated Ringer's 1,000 ML IV .Q10H 01/17/17 1830 Dextrose/Sodium Chloride 1,000 ML IV Q8H 01/17/17 1530 Lorazepam 2 MG IV Q6 01/17/17 1200 Lorazepam 2 MG IV ONCE ONE 01/18/17 1800 Lorazepam 1 MG IV Q12H 01/19/17 0000 Lorazepam 1.5 MG IV Q12H 01/19/17 0600 Lorazepam 1 MG IV Q6H 01/20/17 0000 Lorazepam 0.5 MG IV ONCE ONE 01/20/17 1800 Lorazepam 0.5 MG IV Q6 01/21/17 0600 Lorazepam 0.5 MG IV ONCE 01/22/17 0000 Lorazepam 2 MG IV Q4 01/17/17 1800 Past History Past Medical History Neurological: delerium tremens, seizure Cardiovascular: hypertension Respiratory: COPD, emphysema, alveolar proteinosis acute respiratory distress syndrome requiring intubation aspiration pneumonia Gastrointestinal: colitis, pancreatitis, GI bleed NOS Hepatic: alcoholic hepatitis Musculoskeletal: falls, rib fractures Psychiatric: alcohol dependence, substance abuse, cocaine abuse Endocrine: NONE Blood Disorders: anemia Cancer(s): ? 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 lives with family, ambulatory. Psychiatric Treatment History Diagnosis: Bipolar Disorder, written in past psych consult notes notes. Unsure who diagnosed it and when . patient unaware or poor history- not clear about his own medical records. (The diagnosis of bipolar disorder was discounted by Mary Llanos APRN, during her visit with the patient on 02/13/2013 for similar presentation - Chemo Rendon APRN, 12/18/2014) Risk Factors: substance abuse, poor impulse control, male Assessment/Plan Mental Status Orientation: Confused, Current situation, Person, Place, Situation Affect: Blunted Speech: Delayed Neuro-vegetative: Concentration Poor Mental Status Exam: Mental Status Exam Presentation/Appearance: Cooperative with evaluation. Hospital garb. Orientation: Oriented to person, place, time and situation, with prompting. This is delayed. Sensorium: Awake and alert, although somewhat confused. Eye contact: Appropriate Affect: Somewhat blunted but congruent with stated mood Mood: "I'm happy" Depression: Denies Anxiety: Denies Thought Content: - Denies SI/HI, AH/VH, PI. States and also believes he will not kill himself. - Denies Hopeless/Helpless Thoughts Thought Process: Speech: Speech is somewhat slurred. Goal directed with prompting. Answers to questions delayed period Judgment: Poor Insight: Poor Cognition: Patient's memory, attention and concentration appear intact, however slow and delayed. Brief ROS Gait: In bed, observed Sleep: Reports sleeping at night Appetite: Reports average appetite Energy:. Energetic at time of this interview Lab Results: Laboratory Tests 01/18 01/18 01/17 01/17 1300 0625 2006 1418 Chemistry Sodium (137 - 145 mmol/L) Cancelled 129 L Potassium (3.5 - 5.1 mmol/L) Cancelled 3.8 Chloride (98 - 107 mmol/L) Cancelled 88 L Carbon Dioxide (22 - 30 mmol/L) Cancelled 31 H Anion Gap (5 - 16) Cancelled 10 BUN (9 - 20 mg/dL) Cancelled 16 Creatinine (0.7 - 1.2 mg/dL) Cancelled 0.7 Estimated GFR (>60 ml/min) > 60 BUN/Creatinine Ratio (7 - 25 %) Cancelled 22.9 Serum Osmolality (285 - 295 MOSM/KG) 271 L Phosphorus (2.5 - 4.5 mg/dL) 3.0 Magnesium (1.6 - 2.3 mg/dL) 1.6 Total Bilirubin (0.2 - 1.3 mg/dL) 0.9 Direct Bilirubin (< 0.4 mg/dL) 0.5 H AST (17 - 59 U/L) 238 H ALT (21 - 72 U/L) 132 H Alkaline Phosphatase (< 127 U/L) 87 Troponin I (<0.11 ng/ml) < 0.01 Total Protein (6.3 - 8.2 g/dL) 7.6 Albumin (3.5 - 5.0 g/dL) 4.0 Toxicology Urine Opiates Screen (>2000 NG/ML) < 100.00 Methadone Screen (>300 NG/ML) < 40 Barbiturate Screen (>200 NG/ML) < 60 Ur Phencyclidine Scrn (>25 NG/ML) < 6.00 Amphetamines Screen (>1000 NG/ML) < 100 U Benzodiazepines Scrn (>200 NG/ML) < 85 Urine Cocaine Screen (>300 NG/ML) 275 Urine Cannabis Screen (>50 NG/ML) < 5.00 Urines Urine Osmolality (300 - 1000 MOSM/KG) 837 / 1040 Chemistry Sodium (137 - 145 mmol/L) 134 L Potassium (3.5 - 5.1 mmol/L) 3.9 Chloride (98 - 107 mmol/L) 88 L Carbon Dioxide (22 - 30 mmol/L) 29 Anion Gap (5 - 16) 17 H BUN (9 - 20 mg/dL) 15 Creatinine (0.7 - 1.2 mg/dL) 0.7 Estimated GFR (>60 ml/min) > 60 BUN/Creatinine Ratio (7 - 25 %) 21.4 Glucose (65 - 99 mg/dL) 116 H Calcium (8.4 - 10.2 mg/dL) 10.1 Total Bilirubin (0.2 - 1.3 mg/dL) 1.2 AST (17 - 59 U/L) 206 H ALT (21 - 72 U/L) 127 H Alkaline Phosphatase (< 127 U/L) 103 Troponin I (<0.11 ng/ml) < 0.01 Total Protein (6.3 - 8.2 g/dL) 9.2 H Albumin (3.5 - 5.0 g/dL) 4.9 Globulin (1.9 - 4.2 gm/dL) 4.3 H Albumin/Globulin Ratio (1.1 - 2.2 %) 1.1 Amylase (30 - 110 U/L) 81 Lipase (23 - 300 U/L) 500 H Hematology CBC w Diff NO MAN DIFF REQ WBC (4.8 - 10.8 /CUMM) 4.9 RBC (4.70 - 6.10 /CUMM) 4.31 L Hgb (14.0 - 18.0 G/DL) 14.2 Hct (42 - 52 %) 41.3 L MCV (80.0 - 94.0 FL) 95.8 H MCH (27.0 - 31.0 PG) 33.0 H RDW (11.5 - 14.5 %) 13.6 Plt Count (130 - 400 /CUMM) 160 MPV (7.4 - 10.4 FL) 6.8 L Gran % (42.2 - 75.2 %) 78.1 H Lymphocytes % (20.5 - 51.1 %) 7.6 L Monocytes % (1.7 - 9.3 %) 14.1 H Eosinophils % (0 - 5 %) 0.1 Basophils % (0.0 - 2.0 %) 0.1 Absolute Granulocytes (1.4 - 6.5 /CUMM) 3.9 Absolute Lymphocytes (1.2 - 3.4 /CUMM) 0.4 L Absolute Monocytes (0.10 - 0.60 /CUMM) 0.7 H Absolute Eosinophils (0.0 - 0.7 /CUMM) 0 Absolute Basophils (0.0 - 0.2 /CUMM) 0 PUBS MCHC (33.0 - 37.0 G/DL) 34.5 Toxicology Serum Alcohol (<10 MG/DL) < 10.0 Diffential Diagnosis: Alcohol use disorder, chronic. Rule out mood disorder. Impression: This 56-year-old male, currently complaining of diarrhea, stomach cramps and nausea. At this time on a EtOH/Ativan withdrawal protocol. This consult was requested after patient made suicidal comments last night. Patient presents as friendly and receptive to psychiatric evaluation. Patient has been seen here numerous times for similar presentation since at least 2008. Last inpatient stay was in December 2014. In the past patient has experienced extreme DTs, has been intubated, in the context of alcohol withdrawal. During our interview this afternoon, the patient denied any suicidal ideation or intent. States he had been "joking." One-to-one sitter in attendance at this time. During our interview, the patient was constantly fidgeting, apparently without intent, at his IV. It appeared that he was inadvertently trying to take off the gauze wrap which had been placed around it for protection, and to take out his IV. Patient was redirected without problem. Provisional Treatment Plan: 1. At this time the patient I believe is not at risk for self-harm or suicide. Patient states and also believes that he will not kill himself. He is not in need of one-to-one sitter for suicidal ideation. He is however a potential fall risk, and he is at risk for dislodging his IV. 2. Continue Ativan/EtOH detox protocol. 3. Continue vitamin supplementation. 4. If patient is agreeable to psychiatric treatment, will refer to IOP. We will continue to follow. Thank you for including psychiatry in this case.
--- NOTE | 2017-01-18 16:13 | Discharge Summary ---
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 In ER patient found very tremulous significant of sweating but patient had no visual/tactile/auditory hallucination. On arrival his vitals were T 97.1, HR 97, RR 20, BP 189/99, O2 sat 97% on room air. On physical exam patient was alert oriented 3 in no acute distress, HEENT PERRLA EOMI, neck supple, heart S1-S2 normal without murmur, lungs clear on auscultation, abdomen soft with mild epigastric tenderness without guarding or rigidity, no peripheral edema, no focal gross neuro deficit. Labs were significant for hyponatremia with sodium of 134, anion gap of 17, AST 206, ALT 127, alkaline phosphatase 103 and lipase of 500. EKG revealed normal sinus rhythm at rate of 92 with left axis deviation without any acute ST-T changes, QTc 471 Patient admitted to general medicine floor and then transferred to ICU and then back to [facility]. Patient chose to leave AMA on 02/06 . The following problems were addressed during course of hospital stay. 1. Alcohol dependence - Patient admitted to general medicine floor. On day of admission patient noted very tremulous and sweating with significant anxiety with max CIWA score of 31. Patient received around 12 mg of IV Ativan on day of admission. He was started on scheduled Ativan which was slowly tapered in combination with Ativan per CIWA protocol. He was also started on multivitamin, folate, thiamine, vitamin B12 all supplements. Pt was then transferred to ICU due to requiring Ativan drip. His symptoms gradually improved and was transferred back to [facility]. call worker person consult sought for further option of outpatient alcohol rehabilitation, however patient left AMA before plans were finalized. 2. Alcoholic hepatitis Patient noted having the range elevated LFTs suggestive of alcoholic hepatitis, LFTs were trended and showed a declining pattern 3. Acute gastritis On admission patient complained of epigastric pain with episode of blood- streaked vomiting. He was started on IV PPI and antidiabetic medication and gradually switched over to oral PPI. His diet was advance slowly as tolerated.. Patient advised to refrain from alcohol. 4. Hyponatremia Patient noted hyponatremia initially thought to be secondary to beer per to beth. His sodium level went down to 129, serum and urine osmolality was done and noted high urine osmolality with low serum osmolality suspicious for SIADH. Patient started on normal saline and his sodium level gradually improved with no longer requiring fluid in subsequent days. 5. Hypertension Patient noted elevated blood pressure on admission which was thought to be secondary to his withdrawal symptoms. He was maintain on his home dose metoprolol 25 mg daily and his blood pressure remained well controlled. 6. Depression and thought of SI On day of admission patient mentioned to one of the house staff that he wants to hang himself. Due to concern of suicidal ideation patient was monitored closely with one to one sitter. Psychiatry evaluation sought who after evaluating the patient confirmed that patient is no danger to himself or others. Sitter removed and patient maintain on his trazodone. 7. BPH Continued his home dose Flomax. 8. DVT prophylaxis Patient kept on mechanical DVT prophylaxis due to concern of upper GI bleed/ gastritis at the beginning but later started on subcutaneous heparin. Disposition: Pt left AMA Allergies: Coded Allergies: NO KNOWN ALLERGIES (NO) (02/20/11) Disposition Summary Disposition Principal Diagnosis: 1. Alcohol dependence/withdrawal 2. Alcoholic hepatitis 3. Acute gastritis 4. Hyponatremia Additional Diagnosis: 1. Hypertension 2. BPH Discharge Disposition: home or self care Discharge Instructions General Discharge Information Code Status: Full Code Patient's Diet: Heart healthy Patient's Activity: As tolerated Follow-Up Instructions/Appts: Please follow-up with primary care physician Within a week of discharge. Medications at Discharge Discharge Medications: Continue taking these medications: Gabapentin (Neurontin) 300 MG CAPSULE 1 Capsule ORAL THREE TIMES DAILY Comments: TAKEN 44 AT 10AM Metoprolol Tartrate (Metoprolol Tartrate) 25 MG TABLET 1 Tablet ORAL DAILY Comments: TAKEN 44 10AM Folic Acid (Folic Acid) 1 MG TABLET 1 Tablet ORAL DAILY Comments: TAKEN 44 AT 10AM Trazodone HCl (Trazodone HCl) 50 MG TABLET 1 Tablet ORAL DAILY Multivitamin (Multiple Vitamins) 1 EACH TABLET 1 Tablet ORAL DAILY Comments: TAKEN 02/06 AT 10AM Omeprazole Magnesium (Prilosec Otc) 20 MG TABLET.DR 1 Tablet ORAL DAILY Qty = 30 Comments: TAKEN 02/06 AT 0600 Albuterol Sulfate (Proair Hfa) 90 MCG HFA.AER.AD 2 Puff Inhale through mouth EVERY 4-6 HOURS NEEDED as needed for BREATHING PROBLEMS Cyanocobalamin (Vitamin B-12) 1,000 MCG TABLET 1 Tablet ORAL DAILY Comments: TAKEN 02/06 AT 10AM Tamsulosin HCl (Flomax) 0.4 MG CAP.ER.24H 1 Capsule ORAL DAILY Comments: TAKEN 02/06 AT 10AM Thiamine HCl (B-1) 100 MG TABLET 1 Tablet ORAL DAILY Comments: TAKEN 02/06 AT 10AM Copies To: NIKKI CARLSON Attending MD Review Statement Documenting Attending: CARLY MOORE M.D
[2017-01-19] VITALS (13 sets, daily range): BP systolic 115–202; BP diastolic 72–123
--- NOTE | 2017-01-19 00:14 | NUR ---
PT V AGITATED AT 2350. TAKING CLOTHES OFF. GETTING HIS BELONGINGS TOGETHER. PEEING ON THE FLOOR. APPEARS CONFUSED. BP 202/123 HR 89 T 97.7 RR 22 SPO2 94% RA. SECURITY CALLED. HOG TENDER NAE CALLED. ORDER #7 CALLED. IV ATIVAN 2MG GIVEN. CIWA SCORE 18. PT HELPED INTO Ó[place]AR [place]AT. HELPED TO BED. CONTINUOUS OBSERVATION MONITOR AT BEDSIDE. PER HOG TENDER, IF PT IS NOT RELAXED AND AGITATED AGAIN, HALDOL TO BE GIVEN. PT RESTING IN BED. WILL CONTINUE TO MONITOR.
--- NOTE | 2017-01-19 01:15 | NUR ---
PT AGITATED AND CONFUSED AGAIN. UNDRESSED. URINATED ON THE BATHROOM FLOOR AND ROOM. SECURITY CALLED. CALLED BLASTING ENTRYMAN NAE TO CHANGE PO HALDOL TO IM HALDOL. 2MG IM HALDOL ADMINISTERED. DRESSED AND HELPED TO BED. BP 186/102 HR 96 SPO2 95% RA. AFEBRILE. CONT OB MONITOR AT BEDSIDE. WILL MONITOR.
--- NOTE | 2017-01-19 01:40 | NUR ---
IV FLUIDS STOPPED AT THIS TIME B/C OF PT'S AGITATION. TITLE ABSTRACTOR NAE UPDATED.
--- NOTE | 2017-01-19 03:00 | NUR ---
PT V AGITATED AND CONFUSED. UNDRESSED HIMSELF. URINATED ON THE FLOOR. TRYING TO LEAVE THE ROOM. ORDER #7 CALLED. HELPED PT BACK TO BED. BP 186/102. NO NEW ORDERS AT THIS TIME. MEDICAL REVIEW SPECIALIST NAE SAID IF THE BP KEEPS GOING UP, THEN THE PT WILL BE TRANSFERRED TO ICU FOR ATIVAN DRIP. SCIENTIFIC WRITER UPDATED.
--- NOTE | 2017-01-19 04:29 | NUR ---
PT TRANSFERRED TO ICU IN RM 112. MEDS, CHART AND BELONGINGS SENT WITH THE PT.
--- NOTE | 2017-01-19 04:35 | Event Note ---
Event Note Event Note: Pt was significantly agitated had two order 7s called. Requried escalating doses of ativan and had BP at 180s/120s. Over span of 3 hrs he got 2mg po ativan, 6mg IV ativan and 2mg Haldol. Continued to be agitated. Transferred to ICU around 4 am for ativan drip. I spoke with next of kin (mother) and offered updates/ answered any questions.
--- NOTE | 2017-01-19 05:43 | NUR ---
PT TRANSFERRED FROM [address] [place] [address] A 56 YEAR OLD MALE FOR ETOH, DETOX. PT WAS VERY COMBATIVE AND AGGRESSIVE DESPITE SEVERAL DOSES OF ATIVAN AND HALDOL. UNABLE TO PUT ON RESTRAINTS THE PATIENT WOULD RIP IT OFF. ATIVAN 50MG IN 500ML D5W ATARTED AT 5MG/H. PT IS SLEEPING AT THE MOMENT. INCONTINENT OF URINE, KEPT CLEAN AND DRY. SITTER AT BEDSIDE FOR SAFETY.
--- NOTE | 2017-01-19 08:45 | Patient Discharge Instructions ---
Discharge Instructions General Discharge Information You were seen/treated for: Alcohol withdrawal Alcoholic hepatitis Acute gastritis Hyponatremia Watch for these problems: Tremors, anxiety, confusion Right-sided abdominal pain Special Instructions: Please follow-up with primary care physician within a week of discharge. Your have left against medical attention despite our concerns that it may pose a danger to your health. Please check with you primary care physician regarding setting you up with outpatient intensive psych program Diet Recommended Diet: Heart Healthy Activity Additional ACTIVITY Info: As tolerated Acute Coronary Syndrome Inclusion Criteria At DC or during hospital stay patient has or had the following: ACS DIAGNOSIS No Discharge Core Measures Meds if any: Prescribed or Continued at Discharge Meds if any: NOT Prescribed or Continued at Discharge Congestive Heart Failure Inclusion Criteria At DC or during hospital stay patient has or had the following: CHF DIAGNOSIS No Discharge Core Measures Meds if any: Prescribed or Continued at Discharge Meds if any: NOT Prescribed or Continued at Discharge Cerebrovascular accident Inclusion Criteria At DC or during hospital stay patient has or had the following: CVA/TIA Diagnosis No Discharge Core Measures Meds if any: Prescribed or Continued at Discharge Meds if any: NOT Prescribed or Continued at Discharge Venous thromboembolism Inclusion Criteria VTE Diagnosis No VTE Type NONE VTE Confirmed by (Test) NONE Discharge Core Measures - Per Current guidelines, there needs to be overlap - treatment for the first 5 days of Warfarin therapy. - If discharged on Warfarin prior to 5 days of - overlap therapy, the patient will need to be - assessed for post discharge needs including - *Post discharge parental anticoagulation - *Warfarin and/or parental anticoagulation education - *Follow up date to check INR post discharge At least 5 days overlap therapy as Inpatient No Meds if any: Prescribed or Continued at Discharge Note: Overlap Therapy is Warfarin and Anticoagulant Meds if any: NOT Prescribed or Continued at Discharge
--- NOTE | 2017-01-19 10:01 | Cons- CRCU ---
TANIA ALBRECHT 01/19/17 1000: General Information and HPI Consulting Request Date of Consult: 01/19/17 Requested By: Dr luu Reason for Consult: Alcohol withdrawal Source of Information: patient, old records Exam Limitations: clinical condition History of Present Illness: Mr. 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 He stayed sober for a month or 2 after being discharge in October, ever he started drinking again in December, has been drinking 8-9 beers daily and 2-3 shots of vodka, last drink was on the morning of 01/17/2017 He was afebrile in the emergency department, tachycardic at 97, respiratory rate 20, blood pressure 189/99, he was 97% saturating on room air and his EKG showed normal sinus rhythm at 92, left axis deviation, no ST-T wave changes, QTC of 471. He was admitted to the general medicine floor initially for alcohol withdrawal with IV Ativan taper per [facility] protocol, banana bag, multivitamin thiamine folate and B12 along with IV PPI for acute gastritis. On 01/19/2017 order manager around 4 AM patient was significantly agitated, two order #7 were called, he continued to require escalating doses of Ativan secondary to alcohol withdrawal, he continued to be hypertensive 180s over 120, he recieved 8-9 mg ativan within a span of 3 hours and therefore was transferred to ICU for increased need of Ativan requiring an Ativan drip. Allergies/Medications Allergies: Coded Allergies: NO KNOWN ALLERGIES (NO) (02/20/11) Home Med List: Albuterol Sulfate (Proair Hfa) 90 MCG HFA.AER.AD 2 PUF INH Q4-6 PRN PRN BREATHING PROBLEMS (Reported) Cyanocobalamin (Vitamin B-12) 1,000 MCG TABLET 1 TAB PO DAILY SUPPLEMENT ( Reported) Folic Acid 1 MG TABLET 1 TAB PO DAILY SUPPLEMENT (Reported) Gabapentin (Neurontin) 300 MG CAPSULE 1 CAP PO TID PAIN (Reported) Metoprolol Tartrate 25 MG TABLET 1 TAB PO DAILY HEART (Reported) Multivitamin (Multiple Vitamins) 1 EACH TABLET 1 TAB PO DAILY SUPPLEMENT ( Reported) Omeprazole Magnesium (Prilosec Otc) 20 MG TABLET.DR 1 TAB PO DAILY GERD Tamsulosin HCl (Flomax) 0.4 MG CAP.ER.24H 1 CAP PO DAILY PROSTATE (Reported) Thiamine HCl (B-1) 100 MG TABLET 1 TAB PO DAILY SUPPLEMENT (Reported) Trazodone HCl 50 MG TABLET 1 TAB PO DAILY DEPRESSION (Reported) Current Medications: Current Medications Sig/Berta Start time Last Medication Dose Route Stop Time Status Admin Acetaminophen 650 MG Q6P PRN 01/17 1245 AC PO Albuterol Sulfate 3 ML Q4P PRN 01/17 2045 AC INH Cyanocobalamin 1,000 MCG DAILY 01/18 1000 AC 01/19 PO 0915 Dextrose/Lactated 1,000 ML .Q10H 01/17 1830 DC 01/18 Ringer's IV 0653 Folic Acid 1 MG DAILY 01/18 1000 AC 01/19 PO 0915 Gabapentin 300 MG TID 01/17 1245 AC 01/19 PO 0915 Haloperidol 2 MG ONCE ONE 01/19 0115 DC 01/19 IM 01/19 0116 0105 Haloperidol 0.5 MG FOUR TIMES A DAY PRN 01/19 0015 DC PO Heparin Sodium 5,000 UNIT Q8 01/19 0600 AC 01/19 (Porcine) SC 0618 Lorazepam 0.5 MG ONCE 01/22 0000 DC IV 01/22 0001 Lorazepam 0.5 MG Q6 01/21 0600 DC IV 01/21 2359 Lorazepam 0.5 MG ONCE ONE 01/20 1800 DC IV 01/20 1801 Lorazepam 1 MG Q6H 01/20 0000 DC IV 01/20 1201 Lorazepam 1.5 MG Q6 01/19 1800 AC PO 01/20 1201 Lorazepam 50 MG Q7H 01/19 1015 AC Dextrose/Water 500 ML IV Lorazepam 1.5 MG Q12H 01/19 0600 DC IV 01/19 1801 Lorazepam 50 MG Q24H 01/19 0430 DC 01/19 Dextrose/Water 500 ML IV 0458 Lorazepam 2 MG ONE ONE 01/19 0430 DC 01/19 IV 01/19 0431 0458 Lorazepam 2 MG Q4 01/19 0200 DC PO Lorazepam 1 MG Q12H 01/19 0000 DC IV 01/19 1201 Lorazepam 2 MG ONCE ONE 01/18 1800 DC IV 01/18 1801 Lorazepam 2 MG Q6 01/18 1800 DC 01/18 PO 01/19 1201 2328 Lorazepam 2 MG Q4 01/17 1800 DC 01/18 PO 01/18 1401 1310 Lorazepam 2 MG Q2P PRN 01/17 1145 AC 01/19 IV 0159 Lorazepam 1 MG Q2P PRN 01/17 1145 AC 01/18 IV 1751 Magnesium Oxide 400 MG DAILY 01/18 1558 AC 01/19 PO 0915 Metoprolol Tartrate 25 MG DAILY 01/17 1245 AC 01/19 PO 0915 Multivitamins 1 TAB DAILY 01/18 1000 AC 01/19 PO 0915 Nystatin 1 JUDITH TIDPRN PRN 01/17 2345 AC 01/19 TOP 0915 Omeprazole 40 MG DAILY AC 01/19 0700 AC PO Ondansetron HCl 4 MG Q6P PRN 01/17 1245 DC IV Pantoprazole Sodium 40 MG DAILY 01/17 1243 DC 01/18 IV 0922 Patient Medication 1 ED .STK-MED ONE 01/18 1425 UT Teaching ED 01/18 1426 Senna/Docusate Sodium 2 TAB AT BEDTIME PRN 01/17 1300 AC PO Sodium Chloride 1,000 ML Q10H 01/18 1115 AC 01/18 IV 2237 Tamsulosin HCl 0.4 MG DAILY 01/17 1245 AC 01/19 PO 0915 Thiamine HCl 100 MG DAILY 01/18 1000 AC 01/19 PO 0915 Trazodone HCl 50 MG DAILY 01/18 1000 AC 01/19 PO 0914 Review of Systems Review of Systems Constitutional: Reports: diaphoresis. Denies: chills, fever, malaise, weakness, unexplained weight loss. EENTM: Reports: no symptoms. Cardiovascular: Denies: chest pain, edema, orthopena, palpitations. Respiratory: Reports: no symptoms. GI: Reports: abdominal pain, nausea, vomiting. Genitourinary: Reports: no symptoms. Musculoskeletal: Reports: no symptoms. Skin: Reports: no symptoms. Neurological/Psychological: Reports: confusion. Hematologic/Endocrine: Reports: no symptoms. All Other Systems: Reviewed and Negative Past History Travel History Traveled to [place] past 21 day No Medical History Blood Transfusion Hx: No Neurological: delerium tremens, seizure Cardiovascular: hypertension Respiratory: COPD, emphysema, alveolar proteinosis acute respiratory distress syndrome requiring intubation aspiration pneumonia Gastrointestinal: colitis, pancreatitis, GI bleed NOS Hepatic: alcoholic hepatitis Musculoskeletal: falls, rib fractures Psychiatric: alcohol dependence, substance abuse, cocaine abuse Endocrine: NONE Blood Disorders: anemia Cancer(s): ? Lung CA, previously MARGIN ANALYST/Reproductive: genital warts, previously reported Surgical History Surgical History: APPENDECTOMY Family History Relations & Conditions If Any: MOTHER FH: CAD (coronary artery disease) FATHER FH: lung cancer Psychosocial History Where Do You Live? Home Services at Home: None Smoking Status: Former Smoker Functional Ability ADLs Independent: dressing, eating, toileting, bathing. Ambulation: independent, cane, walker, non-ambulatory IADLs Independent: shopping, housework, finances, food prep, telephone, transportation , medication admin. ECHO Results (as available) Date of last Echo 03/19/12 EF% 60 Exam & Diagnostic Data Last 24 Hrs of Vital Signs/I&O Vital Signs Date Time Temp Pulse Resp B/P Pulse O2 O2 Flow FiO2 Ox Delivery Rate 01/19 1000 98.6 100 18 173/96 01/19 0915 100 170/100 01/19 0915 100 170/100 01/19 0800 98.6 100 25 170/100 01/19 0800 98 Nasal 4.0L Cannula 01/19 0800 98.6 100 25 170/100 99 Nasal 4.0L Cannula 01/19 0527 97.7 94 22 160/90 01/19 0527 96 Room Air 01/19 0325 98.3 97 20 190/110 97 Room Air 01/19 0126 96 186/102 95 Room Air 01/19 0100 98.0 96 22 186/102 01/19 0008 97.7 89 22 202/123 94 Room Air 01/19 0000 188/123 01/18 2355 97.7 89 22 202/123 01/18 2224 97.7 106 22 160/100 95 Room Air 01/18 2048 94 Room Air 01/18 1505 99 Nasal 2.0L Cannula 01/18 1424 98.8 80 20 130/78 98 01/18 1220 98.4 86 18 178/100 01/18 1117 98.7 66 20 120/80 96 Intake & Output 01/19 1600 01/19 0800 01/19 0000 Intake Total 290 600 Output Total Balance 290 600 Intake, IV 50 400 Intake, Oral 240 200 Number 1 Bowel Movements Physical Exam General Appearance: sedated, intoxicated Head: atraumatic, normal appearance Eyes: Bilateral: PERRL. Ears, Nose, Throat: normal pharynx Neck: normal inspection, supple Respiratory: normal breath sounds, chest non-tender, no respiratory distress Cardiovascular: regular rate/rhythm Peripheral Pulses: 2+ radial (R), 2+ radial (L) Gastrointestinal: normal bowel sounds, soft Back: normal inspection Extremities: normal inspection, no edema Neurologic/Psych: no motor/sensory deficits Cranial Nerves: patient sedated not tested Reflexes: 2+: bicep (R), bicep (L), knee (R), knee (L). Skin: intact, normal color Lymphatic: no anterior cervical desirae Last 48 Hrs of Labs/Humberto: Laboratory Tests 01/18/17 1455: Anion Gap 11, Estimated GFR > 60, BUN/Creatinine Ratio 15.0 01/18/17 1300: Sodium Cancelled, Potassium Cancelled, Chloride Cancelled, Carbon Dioxide Cancelled, Anion Gap Cancelled, BUN Cancelled, Creatinine Cancelled, BUN/ Creatinine Ratio Cancelled 01/18/17 0625: Anion Gap 10, Estimated GFR > 60, BUN/Creatinine Ratio 22.9, Serum Osmolality 271 L, Phosphorus 3.0, Magnesium 1.6, Total Bilirubin 0.9, Direct Bilirubin 0.5 H, AST 238 H, ALT 132 H, Alkaline Phosphatase 87, Total Protein 7.6, Albumin 4.0 01/17/172006: Troponin I < 0.01 01/17/17 1418: Urine Opiates Screen < 100.00, Methadone Screen < 40, Barbiturate Screen < 60, Ur Phencyclidine Scrn < 6.00, Amphetamines Screen < 100, U Benzodiazepines Scrn < 85, Urine Cocaine Screen 275, Urine Cannabis Screen < 5.00, Urine Osmolality 837 Diagnostic Data EKG Results EKG Results NSR at 92, left axis deviation, no ST-T changes, QTC 471 CXR Results none Assessment/Plan Impression/Plan: In summary this is a 56-year-old man with past medical history of alcohol abuse, previous alcohol withdrawal seizure,delirium tremens,hypertension was admitted to general medicine floor for alcohol intoxication, however he was transferred to critical care unit after one day of admission due to increased need of Ativan requirement secondary to severe agitation, tachycardia, sweating, tremulousness. Morning the patient in critical care unit continues to be afebrile, he is still sedated, he is afebrile, pulse of 100, respiration of 18, blood pressure around 173/100 mmHg. Problem list along with assessment and plan #1 Alcohol withdrawal. * Continue IV Ativan drip per protocol. * Continue to maintain aspiration precautions. * Continue to keep the patient nothing by mouth. * Patient received IV banana bag while in the emergency department, will change to PO multivitamin thiamine and folate. * continue to monitor CIWa scores. * Taper Ativan as CIWas improve per protocol. #2. Alcoholic hepatitis * Noted elevated LFt suggestive of ETOH hepatitis * No hx of gallstone or RUQ pain * Please avoid high dose tylenol #3. Acute gastritis * Continue IV PPI * Zofran as needed for nausea * diet advanced, tolareted well. 4. HTN * Continue metoprolol 25 ng daily 5. Depression/insomnia * continue trazodone 6. BPH * Continue Flomax 7. Dvt PX -mechanical Problem List: 1. ALCOHOL WITHDRAWAL 2. Full code status 3. DVT prophylaxis Consult Acknowledgment - Thank you for your consult request. COLTON TILLMAN,Jasper MALIK 01/19/17 1033: Assessment/Plan Other Findings/Comments: I have personally seen and examined the patient and agree with the resident's assessment as above. The patient is a 56-year-old male with a past medical history significant for alcohol abuse with recurrent admissions for withdrawal. The patient has a history of alcohol-related withdrawal seizures, delirium tremens, hypertension, history of alveolar proteinosis, pancreatitis, and alcoholic hepatitis. The patient was admitted on 01/17/2017 with nausea, blood- streaked vomiting, weakness and shortness of breath. The patient was worked up and found to have transaminitis, alcohol withdrawal, hepatic steatosis and mild pancreatitis. There is no report of increased bleeding. The patient was evaluated by psychiatry for possible suicidal ideation. The patient was initially admitted to the general medical floor, noting that he has required escalating doses of Ativan. The patient's blood pressure has been running high as well. He was transferred to the ICU where he was started on an Ativan drip. The patient is currently confused and not able to offer complaints. He remains on an Ativan drip at 7 mg per hour in attempt to better control his CIWA scores. Impression: 1. EtOH withdrawal - CIWA scores remain elevated and the patient is currently being managed on an Ativan drip. 2. EtOH hepatitis and mild pancreatitis. 3. Uncontrolled hypertension related to EtOH withdrawal. 4. Blood streaked vomitus, without evidence of active GI bleeding, secondary to acute gastritis. 5. Depression and suicidal ideation - one-to-one sitter in place. Psychiatry following. 6. BPH, on Flomax. 7. Hyponatremia secondary to beer mahendra-beth. Plan: * Continue Ativan drip for control of CIWA scores. * Avoid oversedation. * Continue multivitamin, thiamine and folate. * Maintain the patient on strict aspiration precautions. * Continue one-to-one sitter. * Will follow psychiatry's recommendations. * Start clonidine for alcohol withdrawal and hypertension. * Continue metoprolol. * Continue all supportive care. Will monitor in ICU. Consult Acknowledgment - Thank you for your consult request.
--- NOTE | 2017-01-19 11:41 | NUR ---
RESUMED PT CARE AT 729. PT ALERT AND AGITATED, ATTEMPTING TO CLIMB OUT OF BED AND PULL AT LINES. HE REMAINS ON AN ATIVAT GTT, CURRENTLY AT 7MG PER HOUR, WITH 2 2MG BOLUSES SINCE 729 FOR ELEVATED CIWA OF 20 AND SAS SCORE OF 5/6. BP WAS ELEVATED 170/100, ST 100-120'S PT CURRENTLY IS SAS OF 3 AND SLEEPING, HR 84, BP 140-150'S. PT HAS ON A LIZ AND SBW RESTRAINTS AND A SITTER AT THE BEDSIDE. SAFETY HAS BEEN MAINTAINED. FREQUENT CIRCULATION/HYGIENE/TOLIELETING AND FOOD OFFERING. PT ABLE TO TAKE BREAKFAST AND MORNING PO MEDS.
--- NOTE | 2017-01-19 15:34 | NUR ---
Referral received yesterday via electronic computerized mill mill recorder. This patient is 56 year old man, admitted to the hospital on 01/17/17 for a voluntary ETOH Detox. Patient known to me from multiple admissions for ETOH related issues. Patient was placed on the CIWA for observation of withdrawal symptoms and was transferred to the CRCU and an ativan drip initiated. I will follow patients progress and meet with patient to assess his interest and motivation in aftercare.
--- NOTE | 2017-01-19 18:26 | NUR ---
SWELLING AND EDEMA NOTED TO R ARM. R ARM IV DC'D AND R ARM US OBTAINED.
--- NOTE | 2017-01-19 20:26 | ULTRASOUND REPORT ---
EXAMINATION: DOPPLER VENOUS ULTRASOUND UPPER EXTREMITY, LEFT CLINICAL INFORMATION: Upper extremity edema. COMPARISON: None. TECHNIQUE: Grayscale, Doppler and spectral analysis of the upper extremity and neck was performed. FINDINGS: There is no evidence for a deep venous thrombosis within the visualized upper extremity and neck veins. There is normal flow, compression and augmentation. IMPRESSION: Unremarkable examination. Specifically, no evidence for DVT.
[2017-01-20] VITALS (7 sets, daily range): BP systolic 140–180; BP diastolic 72–94
[2017-01-20 05:57] LABS: ABSOLUTE BASOPHIL COUNT 0.1 /CUMM (0.0-0.2); ABSOLUTE EOSINOPHIL COUNT 0.1 /CUMM (0.0-0.7); ABSOLUTE GRANULOCYTE CT 3.7 /CUMM (1.4-6.5); ABSOLUTE LYMPH COUNT 0.9 /CUMM (1.2-3.4); ABSOLUTE MONOCYTE COUNT 0.7 /CUMM (0.10-0.60); EOSINOPHIL % 1.7 % (0-5); GRANULOCYTE % 67.4 % (42.2-75.2); MEAN CORPUSCULAR HGB CONC 33.9 G/DL (33.0-37.0); MEAN CORPUSCULAR VOLUME 97.4 FL (80.0-94.0); MEAN PLATELET VOLUME 7.9 FL (7.4-10.4); PLATELET COUNT 140 /CUMM (130-400); RBC DISTRIBUTION WIDTH 13.8 % (11.5-14.5); RED BLOOD CELL CT 3.63 /CUMM (4.70-6.10); WHITE BLOOD CELL COUNT 5.6 /CUMM (4.8-10.8)
[2017-01-20 06:04] LABS: HEMATOCRIT 35.4 % (42-52)
--- NOTE | 2017-01-20 08:46 | PN- Resident CRCU ---
Subjective HPI/CRCU Issues: Patient seen and examined this morning. He was lying in bed in no acute distress but continuously trying to move for which he was placed on Ryan and bilateral soft wrist restraints. Confused, not oriented to time space person, remains on 5 L of nasal cannula oxygen satting in high 90s. Remains on Ativan drip now running at 15. CIWA in the last 24 hours have been 4.8.9.12. 24 Hour Events: no Acute overnight events Objective Vital Signs & I&O Last 8 Hrs of Vitals and I&O: Laboratory Tests 01/20/17 1230: Urine Color YEL, Urine Clarity CLEAR, Urine pH 6.0, Ur Specific [place] <= 1.005 , Urine Protein NEG, Urine Ketones NEG, Urine Nitrite NEG, Urine Bilirubin NEG, Urine Urobilinogen 0.2, Ur Leukocyte Esterase NEG, Ur Microscopic EXAM NOT REQUIRED, Urine Hemoglobin NEG, Urine Glucose NEG 01/20/17 0445: Anion Gap 9, Estimated GFR > 60, Glucose 98, Calcium 9.2, Phosphorus 4.4, Magnesium 1.4 L, Total Bilirubin 0.9, AST 396 H, ALT 242 H, Albumin 4.0, CBC w Diff NO MAN DIFF REQ, RBC 3.63 L, MCV 97.4 H, MCH 33.0 H, RDW 13.8, MPV 7.9 , Gran % 67.4, Lymphocytes % 16.5 L, Monocytes % 13.4 H, Eosinophils % 1.7, Basophils % 1.0, Absolute Granulocytes 3.7, Absolute Lymphocytes 0.9 L, Absolute Monocytes 0.7 H, Absolute Eosinophils 0.1, Absolute Basophils 0.1, PUBS MCHC 33.9 Microbiology 01/20 1230 URINE ROUT: Urine Culture - RECD Vital Signs Date Time Temp Pulse Resp B/P Pulse O2 O2 Flow FiO2 Ox Delivery Rate 01/20 1357 98 Nasal 5.0L Cannula 01/20 1200 97 Nasal 5.0L Cannula 01/20 0800 97 Nasal 5.0L Cannula 01/20 0400 97.8 96 26 149/87 01/20 0400 97 Nasal 5.0L Cannula 01/20 0200 97.3 94 24 150/82 01/20 0000 97.3 108 24 140/72 01/20 0000 97.3 108 24 140/72 97 Nasal 4.0L Cannula 01/20 0000 97 Nasal 4.0L Cannula 01/19 2200 97.4 78 21 115/74 01/20 2000 97.4 94 26 134/72 01/20 2000 97 Nasal 4.0L Cannula 01/19 1854 98 Nasal 4.0L Cannula 01/19 1800 98.0 91 16 124/72 01/19 1600 97.1 80 23 168/95 01/19 1600 97.1 80 23 168/95 96 Nasal 4.0L Cannula 01/19 1600 96 Nasal 4.0L Cannula 01/19 1552 74 135/89 Intake & Output 01/20 1600 01/20 0800 01/20 0000 Intake Total 1482 950 Output Total Balance 1482 950 Intake, IV 1482 710 Intake, Oral 240 Exam General Appearance: well developed/nourished, lethargic Head: atraumatic Respiratory: normal breath sounds Cardiovascular: regular rate/rhythm Gastrointestinal: normal bowel sounds Extremities: normal inspection, no edema Current Medications: Current Medications Sig/Berta Start time Last Medication Dose Route Stop Time Status Admin Acetaminophen 650 MG Q6P PRN 01/17 1245 AC PO Albuterol Sulfate 3 ML Q4P PRN 01/17 2045 AC 01/19 INH 1847 Clonidine 0.1 MG DAILY 01/19 1430 AC 01/19 PO 1552 Cyanocobalamin 1,000 MCG DAILY 01/18 1000 AC 01/19 PO 0915 Cyanocobalamin/ 1 BAG ONCE ONE 01/20 1100 AC Thiamine/Pyridoxine IV 01/20 1859 Dextrose/Water 1,000 ML Folic Acid 1 MG DAILY 01/18 1000 AC 01/19 PO 0915 Gabapentin 300 MG TID 01/17 1245 AC 01/19 PO 1552 Heparin Sodium 5,000 UNIT Q8 01/19 0600 AC 01/20 (Porcine) SC 0649 Hydralazine HCl 25 MG ONCE ONE 01/20 1315 CAN IV 01/20 1500 Hydralazine HCl 10 MG ONCE ONE 01/20 1315 DC 01/20 IV 01/20 1316 1323 Lorazepam 0.5 MG ONCE 01/22 0000 DC IV 01/22 0001 Lorazepam 0.5 MG Q6 01/21 0600 DC IV 01/21 2359 Lorazepam 0.5 MG ONCE ONE 01/20 1800 DC IV 01/20 1801 Lorazepam 1 MG Q6H 01/20 0000 DC IV 03/18 1201 Lorazepam 100 MG Q12H 01/19 1700 AC 01/20 Dextrose/Water 1,000 ML IV 0649 Lorazepam 2 MG Q2P PRN 01/17 1145 AC 01/19 IV 1100 Lorazepam 1 MG Q2P PRN 01/17 1145 AC 01/18 IV 1751 Magnesium Oxide 400 MG DAILY 01/18 1558 AC 01/19 PO 0915 Magnesium Sulfate 1 GM Q2H 01/20 1115 AC 01/20 Dextrose/Water 100 ML IV 01/20 1514 1323 Magnesium Sulfate 2 GM ONCE ONE 01/20 1100 CAN Dextrose/Water 250 ML IV 01/20 1459 Metoprolol Tartrate 25 MG DAILY 01/17 1245 AC 01/19 PO 0915 Multivitamins 1 TAB DAILY 01/18 1000 AC 01/19 PO 0915 Nystatin 1 JUDITH TIDPRN PRN 01/17 2345 AC 01/19 TOP 0915 Omeprazole 40 MG DAILY AC 01/19 0700 AC PO Senna/Docusate Sodium 2 TAB AT BEDTIME PRN 01/17 1300 AC PO Sodium Chloride 1,000 ML Q10H 01/18 1115 AC 01/20 IV 0500 Tamsulosin HCl 0.4 MG DAILY 01/17 1245 AC 01/19 PO 0915 Thiamine HCl 100 MG DAILY 01/18 1000 AC 01/19 PO 0915 Trazodone HCl 50 MG DAILY 01/18 1000 AC 01/19 PO 0914 Impression/Plan Impression/Problem List Impression: Mr. 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 He stayed sober for a month or 2 after being discharge in October, ever he started drinking again in December, has been drinking 8-9 beers daily and 2-3 shots of vodka, last drink was on the morning of 01/17/2017 He was afebrile in the emergency department, tachycardic at 97, respiratory rate 20, blood pressure 189/99, he was 97% saturating on room air and his EKG showed normal sinus rhythm at 92, left axis deviation, no ST-T wave changes, QTC of 471. He was admitted to the general medicine floor initially for alcohol withdrawal with IV Ativan taper per CIWA protocol, banana bag, multivitamin thiamine folate and B12 along with IV PPI for acute gastritis. 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 We're currently managing for the following conditions: #1 Alcohol withdrawal. * Continue IV Ativan drip per protocol. * Continue to maintain aspiration precautions. * IV banana bag . * continue to monitor CIWa scores .CIWA is in the past 24 hours have been 4.8.9.12. * Taper Ativan as CIWas improve per protocol. * Continue sitter as patient gets very agitated time to time * Continue [place] and soft bilateral wrist restraints #2. Alcoholic hepatitis * Noted elevated LFt suggestive of ETOH hepatitis * No hx of gallstone or RUQ pain * Please avoid high dose tylenol #3. Acute gastritis * Continue IV PPI * Zofran as needed for nausea * diet advanced, tolareted well. 4. HTN * Continue metoprolol 25 ng daily * Clonidine 0.1 mg daily started 5. Depression/insomnia * continue trazodone 6. BPH * Continue Flomax 7. Dvt PX -mechanical Problem List: 1. ALCOHOL WITHDRAWAL 2. Depression 3. Full code status 4. Alcoholic hepatitis Pain Ratin Tomorrow's Labs & Rationales: ICU bundle for lites monitoring Plan DVT/Prophylaxis: mechanical Code Status: Full Code
--- NOTE | 2017-01-20 11:48 | PN- CRCU ---
Subjective HPI/Critical Care Issues: pt seen and examined agitated restrained on ativan 11 confused combative hypertensive Objective Current Medications: Current Medications Sig/Berta Start time Last Medication Dose Route Stop Time Status Admin Acetaminophen 650 MG Q6P PRN 01/17 1245 AC PO Albuterol Sulfate 3 ML Q4P PRN 01/17 2045 AC 01/19 INH 1847 Clonidine 0.1 MG DAILY 01/19 1430 AC 01/19 PO 1552 Cyanocobalamin 1,000 MCG DAILY 01/18 1000 AC 01/19 PO 0915 Cyanocobalamin/ 1 BAG ONCE ONE 01/20 1100 AC Thiamine/Pyridoxine IV 01/20 1859 Dextrose/Water 1,000 ML Folic Acid 1 MG DAILY 01/18 1000 AC 01/19 PO 0915 Gabapentin 300 MG TID 01/17 1245 AC 01/19 PO 1552 Heparin Sodium 5,000 UNIT Q8 01/19 0600 AC 01/20 (Porcine) SC 0649 Lorazepam 0.5 MG ONCE 01/22 0000 DC IV 01/22 0001 Lorazepam 0.5 MG Q6 01/21 0600 DC IV 01/21 2359 Lorazepam 0.5 MG ONCE ONE 01/20 1800 DC IV 01/20 1801 Lorazepam 1 MG Q6H 01/20 0000 DC IV 01/20 1201 Lorazepam 100 MG Q12H 01/19 1700 AC 01/20 Dextrose/Water 1,000 ML IV 0649 Lorazepam 50 MG Q7H 01/19 1015 DC 01/19 Dextrose/Water 500 ML IV 1140 Lorazepam 2 MG Q2P PRN 01/17 1145 AC 01/19 IV 1100 Lorazepam 1 MG Q2P PRN 01/17 1145 AC 01/18 IV 1751 Magnesium Oxide 400 MG DAILY 01/18 1558 AC 01/19 PO 0915 Magnesium Sulfate 1 GM Q2H 01/20 1115 AC Dextrose/Water 100 ML IV 01/20 1514 Magnesium Sulfate 2 GM ONCE ONE 01/20 1100 CAN Dextrose/Water 250 ML IV 01/20 1459 Metoprolol Tartrate 25 MG DAILY 01/17 1245 AC 01/19 PO 0915 Multivitamins 1 TAB DAILY 01/18 1000 AC 01/19 PO 0915 Nystatin 1 JUDITH TIDPRN PRN 01/17 2345 AC 01/19 TOP 0915 Omeprazole 40 MG DAILY AC 01/19 0700 AC PO Senna/Docusate Sodium 2 TAB AT BEDTIME PRN 01/17 1300 AC PO Sodium Chloride 1,000 ML Q10H 01/18 1115 AC 01/20 IV 0500 Tamsulosin HCl 0.4 MG DAILY 01/17 1245 AC 01/19 PO 0915 Thiamine HCl 100 MG DAILY 01/18 1000 AC 01/19 PO 0915 Trazodone HCl 50 MG DAILY 01/18 1000 AC 01/19 PO 0914 Vital Signs & I&O Last 24 Hrs of Vitals and I&O: Vital Signs Date Time Temp Pulse Resp B/P Pulse O2 O2 Flow FiO2 Ox Delivery Rate 01/20 0400 97.8 96 26 149/87 01/20 0400 97 Nasal 5.0L Cannula 01/20 0200 97.3 94 24 150/82 01/20 0000 97.3 108 24 140/72 01/20 0000 97.3 108 24 140/72 97 Nasal 4.0L Cannula 01/20 0000 97 Nasal 4.0L Cannula 01/19 2200 97.4 78 21 115/74 01/20 2000 97.4 94 26 134/72 01/19 2000 97 Nasal 4.0L Cannula 01/19 1854 98 Nasal 4.0L Cannula 01/19 1800 98.0 91 16 124/72 01/19 1600 97.1 80 23 168/95 01/19 1600 97.1 80 23 168/95 96 Nasal 4.0L Cannula 01/19 1600 96 Nasal 4.0L Cannula 01/19 1552 74 135/89 01/19 1259 96 Nasal 4.0L Cannula 01/19 1200 98.6 90 24 152/93 01/19 1200 96 Nasal 4.0L Cannula Intake & Output 01/20 1600 01/20 0800 01/20 0000 Intake Total 1482 950 Output Total Balance 1482 950 Intake, IV 1482 710 Intake, Oral 240 Exam Other Physical Findings: gen arousable, confused heent ncat cvs s1, s2, tachycardic lungs transmitted airways abd soft bs+ ext without edema Results Last 24 Hrs of Lab Results: Laboratory Tests 01/20/17 0445: Anion Gap 9, Estimated GFR > 60, Glucose 98, Calcium 9.2, Phosphorus 4.4, Magnesium 1.4 L, Total Bilirubin 0.9, AST 396 H, ALT 242 H, Albumin 4.0, CBC w Diff NO MAN DIFF REQ, RBC 3.63 L, MCV 97.4 H, MCH 33.0 H, RDW 13.8, MPV 7.9 , Gran % 67.4, Lymphocytes % 16.5 L, Monocytes % 13.4 H, Eosinophils % 1.7, Basophils % 1.0, Absolute Granulocytes 3.7, Absolute Lymphocytes 0.9 L, Absolute Monocytes 0.7 H, Absolute Eosinophils 0.1, Absolute Basophils 0.1, PUBS MCHC 33.9 Impression/Plan Impression/Plan Impression/Plan: Impression 56 year old man - etoh withdrwawal and dependence - hypomagnesemia - acute gastritis - etoh hepatitis - hyponatremia Plan - increase ativan to 12mg/hr - convert meds to IV, banana bag, etc - monitor electrolytes and replete mag, phos, k to normal - monitor lfts - 1:1 sitter, restraints - DVT prophylaxis at all times TTS 40 min Code Status: Full Code
--- NOTE | 2017-01-20 20:34 | RADIOLOGY REPORT ---
EXAMINATION: CHEST 1 VIEW CLINICAL INFORMATION: Aspiration pneumonia. COMPARISON: 12/17/2014. TECHNIQUE: An AP view of the chest is provided. FINDINGS: The cardiac silhouette is not enlarged. The mediastinal and hilar contours are unremarkable. There are neither pleural effusions nor pneumothoraces. There are no consolidations. There is mild elevation of the right hemidiaphragm. The osseous structures are unremarkable. IMPRESSION: No evidence for acute airspace disease.
[2017-01-21] VITALS (10 sets, daily range): BP systolic 154–193; BP diastolic 75–100
--- NOTE | 2017-01-21 08:38 | PN- Resident CRCU ---
Subjective HPI/CRCU Issues: Pt seen this am, sedated with ativan drip at 15. On restrains, appear to be sleeping comfortably, snoring. Sitter at bedside. Noted sodium 131, K 3.9, mag 1.7. Will give iv mag sulfate and banana bag. High BP this am, gave early dose of metoprolol. Objective Vital Signs & I&O Last 8 Hrs of Vitals and I&O: Intake & Output 01/21 1600 01/21 0800 01/21 0000 Intake Total 19790 Output Total 1400 1950 Balance 580 190 Intake, IV 1979 2139 Output, Urine 1400 1950 Patient 103.873 kg Weight Laboratory Tests 01/21 01/20 0640 1230 Chemistry Sodium (137 - 145 mmol/L) 131 L Potassium (3.5 - 5.1 mmol/L) 3.9 Chloride (98 - 107 mmol/L) 94 L Carbon Dioxide (22 - 30 mmol/L) 28 Anion Gap (5 - 16) 9 BUN (9 - 20 mg/dL) 5 L Creatinine (0.7 - 1.2 mg/dL) 0.5 L Estimated GFR (>60 ml/min) > 60 Glucose (65 - 99 mg/dL) 110 H Calcium (8.4 - 10.2 mg/dL) 9.3 Phosphorus (2.5 - 4.5 mg/dL) 3.8 Magnesium (1.6 - 2.3 mg/dL) 1.7 Total Bilirubin (0.2 - 1.3 mg/dL) 1.1 AST (17 - 59 U/L) 277 H ALT (21 - 72 U/L) 219 H Albumin (3.5 - 5.0 g/dL) 3.8 Urines Urine Color (YEL,AMB,STR) YEL Urine Clarity (CLEAR) CLEAR Urine pH (5.0 - 8.0) 6.0 Ur Specific [place] (1.001 - 1.035) <= 1.005 Urine Protein (NEG,<30 MG/DL) NEG Urine Ketones (NEG) NEG Urine Nitrite (NEG) NEG Urine Bilirubin (NEG) NEG Urine Urobilinogen (0.1 - 1.0 EU/dl) 0.2 Ur Leukocyte Esterase (NEG) NEG Ur Microscopic EXAM NOT REQUIRED Urine Hemoglobin (NEG) NEG Urine Glucose (N MG/DL) NEG Laboratory Tests 01/21/17 0640: Anion Gap 9, Estimated GFR > 60, Glucose 110 H, Calcium 9.3, Phosphorus 3.8, Magnesium 1.7, Total Bilirubin 1.1, AST 277 H, ALT 219 H, Albumin 3.8 01/20/17 1230: Urine Color YEL, Urine Clarity CLEAR, Urine pH 6.0, Ur Specific [place] <= 1.005 , Urine Protein NEG, Urine Ketones NEG, Urine Nitrite NEG, Urine Bilirubin NEG, Urine Urobilinogen 0.2, Ur Leukocyte Esterase NEG, Ur Microscopic EXAM NOT REQUIRED, Urine Hemoglobin NEG, Urine Glucose NEG Microbiology Date/Time Procedure - Status Source Growth 01/20 1230 Urine Culture - RES URINE ROUT Exam General Appearance: sedated Respiratory: normal breath sounds, no respiratory distress Cardiovascular: regular rate/rhythm Gastrointestinal: normal bowel sounds Extremities: no edema Current Medications: Current Medications Sig/Berta Start time Last Medication Dose Route Stop Time Status Admin Acetaminophen 650 MG Q6P PRN 01/17 1245 AC PO Albuterol Sulfate 3 ML Q4P PRN 01/17 2045 AC 01/19 INH 1847 Clonidine 0.1 MG DAILY 01/19 1430 AC 01/19 PO 1552 Cyanocobalamin 1,000 MCG DAILY 01/18 1000 DC 01/19 PO 0915 Cyanocobalamin/ 1 BAG ONCE ONE 01/21 1015 AC 01/21 Thiamine/Pyridoxine IV 01/21 1814 1138 Sodium Chloride 1,000 ML Cyanocobalamin/ 1 BAG ONCE ONE 01/20 1100 DC 01/20 Thiamine/Pyridoxine IV 01/20 1859 1519 Dextrose/Water 1,000 ML Folic Acid 1 MG DAILY 01/18 1000 DC 01/19 PO 0915 Gabapentin 300 MG TID 01/17 1245 AC 01/19 PO 1552 Heparin Sodium 5,000 UNIT Q8 01/19 0600 AC 01/21 (Porcine) SC 0541 Hydralazine HCl 10 MG ONCE ONE 01/20 1915 DC 01/20 IV 01/20 191 1911 Hydralazine HCl 25 MG ONCE ONE 01/20 1315 CAN IV 01/20 1500 Hydralazine HCl 10 MG ONCE ONE 01/20 1315 DC 01/20 IV 01/20 1316 1323 Lorazepam 0.5 MG ONCE 01/22 0000 DC IV 01/22 0001 Lorazepam 0.5 MG Q6 01/21 0600 DC IV 01/21 2359 Lorazepam 0.5 MG ONCE ONE 01/20 1800 DC IV 01/20 1801 Lorazepam 100 MG Q12H 01/19 1700 AC 01/21 Dextrose/Water 1,000 ML IV 1137 Lorazepam 2 MG Q2P PRN 01/17 1145 AC 01/19 IV 1100 Lorazepam 1 MG Q2P PRN 01/17 1145 AC 01/18 IV 1751 Magnesium Oxide 400 MG DAILY 01/18 1558 AC 01/19 PO 0915 Magnesium Sulfate 1 GM ONCE ONE 01/21 1015 AC 01/21 Dextrose/Water 100 ML IV 01/21 1414 1138 Magnesium Sulfate 1 GM Q2H 01/20 1115 DC 01/20 Dextrose/Water 100 ML IV 01/20 1514 1323 Metoprolol Tartrate 7.5 MG Q6 01/20 1800 AC 01/21 IV 1139 Metoprolol Tartrate 5 MG ONCE ONE 01/20 1545 DC 01/20 IV 01/20 1546 1542 Metoprolol Tartrate 25 MG DAILY 01/17 1245 DC 01/19 PO 0915 Multivitamins 1 TAB DAILY 01/18 1000 DC 01/19 PO 0915 Nystatin 1 JUDITH TIDPRN PRN 01/17 2345 AC 01/19 TOP 0915 Omeprazole 40 MG DAILY AC 01/19 0700 AC PO Potassium Chloride 10 MEQ ONCE ONE 01/20 1515 DC 01/20 IV 01/20 1516 1511 Senna/Docusate Sodium 2 TAB AT BEDTIME PRN 01/17 1300 AC PO Sodium Chloride 1,000 ML Q10H 01/18 1115 AC 01/21 IV 0015 Tamsulosin HCl 0.4 MG DAILY 01/17 1245 AC 01/19 PO 0915 Thiamine HCl 100 MG DAILY 01/18 1000 DC 01/19 PO 0915 Trazodone HCl 50 MG DAILY 01/18 1000 AC 01/19 PO 0914 Impression/Plan Impression/Problem List Impression: Mr. 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 He stayed sober for a month or 2 after being discharge in October, ever he started drinking again in December, has been drinking 8-9 beers daily and 2-3 shots of vodka, last drink was on the morning of 01/17/2017 He was afebrile in the emergency department, tachycardic at 97, respiratory rate 20, blood pressure 189/99, he was 97% saturating on room air and his EKG showed normal sinus rhythm at 92, left axis deviation, no ST-T wave changes, QTC of 471. He was admitted to the general medicine floor initially for alcohol withdrawal with IV Ativan taper per CIWA protocol, banana bag, multivitamin thiamine folate and B12 along with IV PPI for acute gastritis. On 01/19/2017 soft sugar cutter around 4 AM patient was significantly agitated, two order #7 were called, he continued to require escalating doses of Ativan secondary to alcohol withdrawal, he continued to be hypertensive 180s over 120, he recieved 8-9 mg ativan within a span of 3 hours and therefore was transferred to ICU for increased need of Ativan requiring an Ativan drip. We're currently managing for the following conditions: #1 Alcohol withdrawal * Continue IV Ativan drip per protocol. * Continue to maintain aspiration precautions. * IV banana bag * Continue to monitor CIWa scores * Taper Ativan as CIWas improve per protocol. * Continue sitter as patient gets very agitated time to time * Continue [place] and soft bilateral wrist restraints #2. Alcoholic hepatitis * Noted elevated LFt suggestive of ETOH hepatitis * No hx of gallstone or RUQ pain * Please avoid high dose tylenol #3. Acute gastritis * Continue IV PPI * Zofran as needed for nausea * diet advanced to heart healthy, tolareted well. 4. HTN * Continue lopressor IV 7.5 Q6 while patient sedated on ativan * Resume metoprolol 25 mg daily when able * Continue clonidine 0.1 mg daily PO 5. Depression/insomnia * continue trazodone 6. BPH * Continue Flomax 7. Dvt PX -mechanical and heparin SC Problem List: 1. ALCOHOL WITHDRAWAL Pain Ratin Tomorrow's Labs & Rationales: CBC and ICU bundle for electrolyte abnormalities, dropping h/h on heparin Plan DVT/Prophylaxis: mechanical, pharmacological Code Status: Full Code
--- NOTE | 2017-01-21 09:54 | PN- CRCU ---
Subjective HPI/Critical Care Issues: pt seen and examined on ativan drip 15/hr no events lethargic ros difficult to obtain given sedation Objective Current Medications: Current Medications Sig/Berta Start time Last Medication Dose Route Stop Time Status Admin Acetaminophen 650 MG Q6P PRN 01/17 1245 AC PO Albuterol Sulfate 3 ML Q4P PRN 01/17 2045 AC 01/19 INH 1847 Clonidine 0.1 MG DAILY 01/19 1430 AC 01/19 PO 1552 Cyanocobalamin 1,000 MCG DAILY 01/18 1000 DC 01/19 PO 0915 Cyanocobalamin/ 1 BAG ONCE ONE 01/20 1100 DC 01/20 Thiamine/Pyridoxine IV 01/20 1859 1519 Dextrose/Water 1,000 ML Folic Acid 1 MG DAILY 01/18 1000 DC 01/19 PO 0915 Gabapentin 300 MG TID 01/17 1245 AC 01/19 PO 1552 Heparin Sodium 5,000 UNIT Q8 01/19 0600 AC 01/21 (Porcine) SC 0541 Hydralazine HCl 10 MG ONCE ONE 01/20 1915 DC 01/20 IV 01/20 1916 1911 Hydralazine HCl 25 MG ONCE ONE 01/20 1315 CAN IV 01/20 1500 Hydralazine HCl 10 MG ONCE ONE 01/20 1315 DC 01/20 IV 01/20 1316 1323 Lorazepam 0.5 MG ONCE 01/22 0000 DC IV 01/22 0001 Lorazepam 0.5 MG Q6 01/21 0600 DC IV 01/21 2359 Lorazepam 0.5 MG ONCE ONE 01/20 1800 DC IV 01/20 1801 Lorazepam 100 MG Q12H 01/19 1700 AC 01/20 Dextrose/Water 1,000 ML IV 2153 Lorazepam 2 MG Q2P PRN 01/17 1145 AC 01/19 IV 1100 Lorazepam 1 MG Q2P PRN 01/17 1145 AC 01/18 IV 1751 Magnesium Oxide 400 MG DAILY 01/18 1558 AC 01/19 PO 0915 Magnesium Sulfate 1 GM Q2H 01/20 1115 DC 01/20 Dextrose/Water 100 ML IV 01/20 1514 1323 Magnesium Sulfate 2 GM ONCE ONE 01/20 1100 CAN Dextrose/Water 250 ML IV 01/20 1459 Metoprolol Tartrate 7.5 MG Q6 01/20 1800 AC 01/21 IV 0543 Metoprolol Tartrate 5 MG ONCE ONE 01/20 1545 DC 01/20 IV 01/20 1546 1542 Metoprolol Tartrate 25 MG DAILY 01/17 1245 DC 01/19 PO 0915 Multivitamins 1 TAB DAILY 01/18 1000 DC 01/19 PO 0915 Nystatin 1 JUDITH TIDPRN PRN 01/17 2345 AC 01/19 TOP 0915 Omeprazole 40 MG DAILY AC 01/19 0700 AC PO Potassium Chloride 10 MEQ ONCE ONE 01/20 1515 DC 01/20 IV 01/20 1516 1511 Senna/Docusate Sodium 2 TAB AT BEDTIME PRN 01/17 1300 AC PO Sodium Chloride 1,000 ML Q10H 01/18 1115 AC 01/21 IV 0015 Tamsulosin HCl 0.4 MG DAILY 01/17 1245 AC 01/19 PO 0915 Thiamine HCl 100 MG DAILY 01/18 1000 DC 01/19 PO 0915 Trazodone HCl 50 MG DAILY 01/18 1000 AC 01/19 PO 0914 Vital Signs & I&O Last 24 Hrs of Vitals and I&O: Vital Signs Date Time Temp Pulse Resp B/P Pulse O2 O2 Flow FiO2 Ox Delivery Rate 01/21 0800 99.0 100 22 182/100 01/21 0600 98.0 98 25 193/100 01/21 0543 102 193/100 01/21 0400 98.0 100 26 178/95 01/21 0400 94 Nasal 2.0L Cannula 01/21 0200 98.2 96 25 161/83 01/21 0000 98.2 88 26 154/90 01/21 0000 97 Nasal 2.0L Cannula 01/20 2352 98.2 88 23 154/90 94 Nasal 2.0L Cannula 01/20 2336 98 174/108 01/20 2200 98.0 100 25 180/93 01/20 2100 98 Nasal 2.0L Cannula 01/20 2000 98.0 94 26 168/94 01/20 2000 97 Nasal 2.0L Cannula 01/20 1733 174/86 01/20 1600 97 Nasal 5.0L Cannula 01/20 1600 97.8 79 22 163/78 97 Nasal 5.0L Cannula 01/20 1542 163/78 01/20 1357 98 Nasal 5.0L Cannula 01/20 1200 97 Nasal 5.0L Cannula Intake & Output 01/21 1600 01/21 0800 01/21 0000 Intake Total 19790 Output Total 1400 1950 Balance 580 190 Intake, IV 1979 2139 Output, Urine 1400 1950 Patient 229 lb Weight Exam Other Physical Findings: gen arousable, confused heent ncat cvs s1, s2, tachycardic lungs transmitted airways abd soft bs+ ext without edema Results Last 24 Hrs of Lab Results: Laboratory Tests 01/21/17 0640: Anion Gap 9, Estimated GFR > 60, Glucose 110 H, Calcium 9.3, Phosphorus 3.8, Magnesium 1.7, Total Bilirubin 1.1, AST 277 H, ALT 219 H, Albumin 3.8 01/20/17 1230: Urine Color YEL, Urine Clarity CLEAR, Urine pH 6.0, Ur Specific [place] <= 1.005 , Urine Protein NEG, Urine Ketones NEG, Urine Nitrite NEG, Urine Bilirubin NEG, Urine Urobilinogen 0.2, Ur Leukocyte Esterase NEG, Ur Microscopic EXAM NOT REQUIRED, Urine Hemoglobin NEG, Urine Glucose NEG Impression/Plan Impression/Plan Impression/Plan: Impression 56 year old man - etoh withdrwawal and dependence - hypomagnesemia - acute gastritis - etoh hepatitis - hyponatremia Plan - continue ativan drip to ciwa protocol on 15/hr now - po meds converted to iv, banana bag, etc - monitor electrolytes and replete mag, phos, k to normal - monitor lfts - 1:1 sitter, restraints - DVT prophylaxis at all times TTS 35 min Code Status: Full Code
--- NOTE | 2017-01-21 16:15 | NUR ---
PT BP 180/100 PT GIVEN IV LOPRESSOR, WILL CONT TO MON.
--- NOTE | 2017-01-21 18:06 | NUR ---
PT BP 183/88, IV HYDRALAZINE 5MG GIVEN, MD AWARE, WILL CONT TO MON
--- NOTE | 2017-01-21 19:04 | NUR ---
PT BP 198/98 IV LOPRESSOR GIVEN PER MD, WILL CONT TO MON.
--- NOTE | 2017-01-21 22:04 | RADIOLOGY REPORT ---
EXAMINATION: XR PORTABLE CHEST CLINICAL INFORMATION: Cough, swallowing, fever COMPARISON: 01/20/2017 TECHNIQUE: Portable portable AP view of the chest was obtained. FINDINGS: The cardiac silhouette is grossly stable compared to prior. There is persistent prominence of the upper mediastinum likely related to supine positioning. There is enlargement of the hilar structures bilaterally. There there are numerous small airspace opacities involving the left lung, new compared to prior. There is prominence of the pulmonary vascularity bilaterally. Patchy opacities are also noted at the right lung base. The right upper lobe appears well aerated. IMPRESSION: Findings suspicious for multifocal pneumonia. Superimposed pulmonary edema is likely.
--- NOTE | 2017-01-21 23:00 | NUR ---
PT HAD TEMP OF 101.8. MD NOTIFIED. PT BARAJAS CULTURED AND GIVEN IV TYLENOL WITH GOOD EFFECT. PT OBTUNDED BEGINING TO TITRATE ATIVAN DOWN. CHEST XRAY DONE. MDS AWARE. LUNGS DIMINISHED WITH SCATTERED WHEEZES. PT HAS CONGESTED NON-PRODUCTIVE COUGH PULSE OX 95% WITH 2L NC. PT BP REMAINS ELEVATED. CATAPRES PATCH PLACED AND WILL CONTINUE TO MEDICATE WITH IV LOPRESSOR.
[2017-01-22] VITALS (11 sets, daily range): BP systolic 137–190; BP diastolic 67–100
--- NOTE | 2017-01-22 04:00 | NUR ---
PT HAS INCREASED CONGESTTION. RESPIRATORY THERAPIST CALLED PT SUCTIONED ORALLY. MD AWARE OF PT LEVEL OF CONCIOUSNESS, CONTINUING TITRATION DOWN OF ATIVAN. AWARE.
[2017-01-22 04:58] LABS: ABSOLUTE BASOPHIL COUNT 0 /CUMM (0.0-0.2); ABSOLUTE EOSINOPHIL COUNT 0 /CUMM (0.0-0.7); ABSOLUTE LYMPH COUNT 0.8 /CUMM (1.2-3.4); BASOPHIL % 0.4 % (0.0-2.0); EOSINOPHIL % 0.2 % (0-5); GRANULOCYTE % 68.2 % (42.2-75.2); HEMATOCRIT 34.8 % (42-52); MEAN CORPUSCULAR HGB 33.1 PG (27.0-31.0); MEAN CORPUSCULAR VOLUME 97.4 FL (80.0-94.0); MEAN PLATELET VOLUME 7.3 FL (7.4-10.4); RBC DISTRIBUTION WIDTH 13.8 % (11.5-14.5); RED BLOOD CELL CT 3.57 /CUMM (4.70-6.10)
[2017-01-22 05:05] LABS: PLATELET COUNT 227 /CUMM (130-400); WHITE BLOOD CELL COUNT 8.8 /CUMM (4.8-10.8)
--- NOTE | 2017-01-22 09:44 | PN- CRCU ---
Subjective HPI/Critical Care Issues: The patient remains on an Ativan drip at 11 mg per hour. He is unresponsive to tactile stimuli. He remains intermittently hypertensive. He has had a fever over the past 24 hours, which has improved at the present time. He currently has 6 bands with a WBC count of 8.8. He has required deep suction for foote secretions. Objective Current Medications: Current Medications Sig/Berat Start time Last Medication Dose Route Stop Time Status Admin Acetaminophen 1,000 MG ONCE ONE 01/21 2030 DC 01/21 N/A 1 UNIT IV 01/22 2044 2114 Acetaminophen 650 MG Q6P PRN 01/17 1245 AC PO Albuterol Sulfate 3 ML Q4P PRN 01/17 204 AC 01/21 INH 1642 Ampicillin Sodium/ 1,500 MG Q6 01/21 2359 AC 01/22 Sulbactam Sodium IV 0542 Sodium Chloride 100 ML Clonidine 1 PAT Q168 01/21 2008 AC 01/21 TOP 2113 Clonidine 0.1 MG DAILY 01/19 1430 DC 01/19 PO 1552 Cyanocobalamin/ 1 BAG ONCE ONE 01/21 1015 DC 01/21 Thiamine/Pyridoxine IV 01/21 1814 1138 Sodium Chloride 1,000 ML Gabapentin 300 MG TID 01/17 1245 AC 01/19 PO 1552 Heparin Sodium 5,000 UNIT Q8 01/19 0600 AC 01/22 (Porcine) SC 0543 Hydralazine HCl 5 MG ONCE ONE 01/21 1930 DC 01/21 IV 01/21 193 1926 Hydralazine HCl 5 MG ONCE ONE 01/21 1815 DC 01/21 IV 01/21 181 1805 Lorazepam 0.5 MG ONCE 01/22 0000 DC IV 01/22 0001 Lorazepam 100 MG Q12H 01/19 1700 AC 01/22 Dextrose/Water 1,000 ML IV 0035 Lorazepam 2 MG Q2P PRN 01/17 1145 AC 01/19 IV 1100 Lorazepam 1 MG Q2P PRN 01/17 1145 AC 01/18 IV 1751 Magnesium Oxide 400 MG DAILY 01/18 1558 AC 01/19 PO 0915 Magnesium Sulfate 1 GM ONCE ONE 01/22 0700 AC 01/22 Dextrose/Water 100 ML IV 01/22 1059 0753 Magnesium Sulfate 1 GM ONCE ONE 01/21 1015 DC 01/21 Dextrose/Water 100 ML IV 01/21 1414 1138 Metoprolol Tartrate 7.5 MG ONCE ONE 01/21 1915 DC 01/21 IV 01/21 1916 1904 Metoprolol Tartrate 7.5 MG Q6 01/20 1800 AC 01/22 IV 0542 Nystatin 1 JUDITH TIDPRN PRN 01/17 2345 AC 01/19 TOP 0915 Omeprazole 40 MG DAILY AC 01/19 0700 AC PO Potassium Chloride 10 MEQ ONCE ONE 01/22 0700 DC 01/22 IV 01/22 0701 0753 Senna/Docusate Sodium 2 TAB AT BEDTIME PRN 01/17 1300 AC PO Sodium Chloride 1,000 ML Q20H 01/21 1800 DC 01/21 IV 1755 Sodium Chloride 1,000 ML Q10H 01/18 1115 DC 01/21 IV 1142 Tamsulosin HCl 0.4 MG DAILY 01/17 1245 AC 01/19 PO 0915 Trazodone HCl 50 MG DAILY 01/18 1000 AC 01/19 PO 0914 Vital Signs & I&O Last 24 Hrs of Vitals and I&O: Vital Signs Date Time Temp Pulse Resp B/P Pulse O2 O2 Flow FiO2 Ox Delivery Rate 01/22 0837 96 Nasal 2.0L Cannula 01/22 0600 98.9 84 26 174/84 01/22 0542 94 180/94 01/22 0400 98.9 92 28 01/22 0355 96 Nasal 2.0L Cannula 01/22 0350 98 Nasal 2.0L Cannula 01/22 0200 100.7 98 93 174/76 01/22 0036 110 172/82 01/22 0000 100.7 110 24 190/82 01/22 0000 100.7 110 24 190/82 91 Nasal 2.0L Cannula 01/22 0000 93 Nasal 2.0L Cannula 01/21 2245 100.7 01/21 2200 100.8 116 28 165/75 01/21 2114 101.8 01/21 2113 101.8 124 171/77 01/22 2000 101.8 120 26 187/86 01/22 2000 96 Nasal 2.0L Cannula 01/21 1904 198/98 01/21 1643 96 Nasal 2.0L Cannula 01/21 1633 180/100 01/21 1600 96 Nasal 2.0L Cannula 01/21 1600 98.7 100 24 180/100 97 Nasal 2.0L Cannula 01/21 1400 98.1 99 30 170/80 01/21 1230 99 Nasal 2.0L Cannula 01/21 1200 98.1 96 31 158/80 01/21 1200 94 Nasal 2.0L Cannula 01/21 1139 108 175/84 Intake & Output 01/22 1600 01/22 0800 01/22 0000 Intake Total 1082 1655 Output Total 820 1540 Balance 262 115 Intake, IV 1082 1655 Intake, Oral 0 0 Intake, Tube 0 Feeding Number 0 0 Bowel Movements Output, Urine 820 1540 Physical Exam General Appearance Unresponsive, No Distress HEENT Atraumatic, PERRLA Neck Supple, No JVD Lymphatic Cervical nl Cardiovascular Regular Rate, Normal S1, Normal S2, No Murmurs Lungs Clear to Auscultation, Normal Air Movement Abdomen Normal Bowel Sounds, Soft, No Tenderness Extremities No Edema Results Last 24 Hrs of Lab Results: Laboratory Tests 01/22/17 0425: Anion Gap 10, Estimated GFR > 60, Glucose 121 H, Calcium 9.0, Phosphorus 3.7, Magnesium 1.6, Total Bilirubin 1.1, AST 156 H, ALT 169 H, Albumin 3.6, CBC w Diff MAN DIFF ORDERED, RBC 3.57 L, MCV 97.4 H, MCH 33.1 H, RDW 13.8, MPV 7.3 L, Gran % 68.2, Lymphocytes % 8.9 L, Monocytes % 22.3 H, Eosinophils % 0.2, Basophils % 0.4, Absolute Granulocytes 6.0, Segmented Neutrophils 66, Band Neutrophils 6 H, Absolute Lymphocytes 0.8 L, Lymphocytes 5 L, Monocytes 22 H , Absolute Monocytes 2.0 H, Absolute Eosinophils 0, Absolute Basophils 0, Metamyelocytes 1, Platelet Estimate ADEQUATE, Ovalocytes 1+, PUBS MCHC 34.0 Impression/Plan Impression/Plan Impression/Plan: 1. ETOH withdrawl with decreased responsiveness due to IV Ativan. 2. Aspiration pneumonia, on Unasyn. 3. ETOH hepatitis. 4. Uncontrolled hypertension. 5. Acute gastritis. 6. BPH - on Flomax. Recommendations: * Wean Ativan down, patient needs to have good control of ETOH withdrawl, however we need to avoid oversedation. * Send sputum for culture. * Continue Unasyn empirically. * TRC for nebulizer treatments and suctioning. * Continue electrolyte replacement. * Continue metoprolol and clonidine. Can increase clonidine to get better BP control. * Continue DVT prophylaxis. * Continue all supportive care. Code Status: Full Code
--- NOTE | 2017-01-22 10:27 | PN- Resident CRCU ---
Subjective HPI/CRCU Issues: Patient seen and examined this morning, he was lying in bed in no acute distress , sedated on Ativan drip weaned down to 3 mg/h, remains on soft bilateral restraints, overnight he was started on Unasyn after chest x-ray finding suspicious of aspiration pneumonia and had a fever of 101.8, magnesium and potassium replace this a.m., have ordered TRC and respiratory cultures, will continue to him of Ativan drip. Objective Vital Signs & I&O Last 8 Hrs of Vitals and I&O: Laboratory Tests 01/22/17 0425: Anion Gap 10, Estimated GFR > 60, Glucose 121 H, Calcium 9.0, Phosphorus 3.7, Magnesium 1.6, Total Bilirubin 1.1, AST 156 H, ALT 169 H, Albumin 3.6, CBC w Diff MAN DIFF ORDERED, RBC 3.57 L, MCV 97.4 H, MCH 33.1 H, RDW 13.8, MPV 7.3 L, Gran % 68.2, Lymphocytes % 8.9 L, Monocytes % 22.3 H, Eosinophils % 0.2, Basophils % 0.4, Absolute Granulocytes 6.0, Segmented Neutrophils 66, Band Neutrophils 6 H, Absolute Lymphocytes 0.8 L, Lymphocytes 5 L, Monocytes 22 H , Absolute Monocytes 2.0 H, Absolute Eosinophils 0, Absolute Basophils 0, Metamyelocytes 1, Platelet Estimate ADEQUATE, Ovalocytes 1+, PUBS MCHC 34.0 Microbiology 01/22 1026 LOWER RESP: Respiratory Culture - ORD 01/22 1026 LOWER RESP: Gram Stain - ORD 01/21 2100 BLOOD: Blood Culture - RES 01/21 2050 BLOOD: Blood Culture - RES 01/21 2045 URINE ROUT: Urine Culture - RES Vital Signs Date Time Temp Pulse Resp B/P Pulse O2 O2 Flow FiO2 Ox Delivery Rate 01/22 1204 102 176/94 01/22 1200 99.2 98 20 176/92 01/22 1200 98 Nasal 2.0L Cannula 01/22 1000 91 24 171/83 01/22 0837 96 Nasal 2.0L Cannula 01/22 0800 98.7 91 24 160/88 01/22 0800 98.7 91 24 160/88 96 Nasal 2.0L Cannula 01/22 0800 98 Nasal 2.0L Cannula 01/22 0600 98.9 84 26 174/84 01/22 0542 94 180/94 01/22 0400 98.9 92 28 01/22 0355 96 Nasal 2.0L Cannula 01/22 0350 98 Nasal 2.0L Cannula 01/22 0200 100.7 98 93 174/76 01/22 0036 110 172/82 01/22 0000 100.7 110 24 190/82 01/22 0000 100.7 110 24 190/82 91 Nasal 2.0L Cannula 01/22 0000 93 Nasal 2.0L Cannula 01/21 2245 100.7 01/21 2200 100.8 116 28 165/75 01/21 2114 101.8 01/21 2113 101.8 124 171/77 01/22 2000 101.8 120 26 187/86 01/21 2000 96 Nasal 2.0L Cannula 01/21 1904 198/98 01/21 1643 96 Nasal 2.0L Cannula 01/21 1633 180/100 01/21 1600 96 Nasal 2.0L Cannula 01/21 1600 98.7 100 24 180/100 97 Nasal 2.0L Cannula Intake & Output 01/22 1600 01/22 0800 01/22 0000 Intake Total 1082 1655 Output Total 820 1540 Balance 262 115 Intake, IV 1082 1655 Intake, Oral 0 0 Intake, Tube 0 Feeding Number 0 0 Bowel Movements Output, Urine 820 1540 Exam General Appearance: well developed/nourished IV Drips IV Drips: Ativan, banana bag Nutrition Nutrition: NPO Current Medications: Current Medications Sig/Berta Start time Last Medication Dose Route Stop Time Status Admin Acetaminophen 1,000 MG ONCE ONE 01/21 2030 DC 01/21 N/A 1 UNIT IV 01/22 2044 2114 Acetaminophen 650 MG Q6P PRN 01/17 1245 AC PO Albuterol Sulfate 3 ML Q4P PRN 01/17 204 AC 01/21 INH 1642 Ampicillin Sodium/ 1,500 MG Q6 01/21 2359 AC 01/22 Sulbactam Sodium IV 0542 Sodium Chloride 100 ML Clonidine 1 PAT Q168 01/21 2008 AC 01/21 TOP 2113 Clonidine 0.1 MG DAILY 01/19 1430 DC 01/19 PO 1552 Cyanocobalamin/ 1 BAG ONCE ONE 01/21 1015 DC 01/21 Thiamine/Pyridoxine IV 01/21 1814 1138 Sodium Chloride 1,000 ML Gabapentin 300 MG TID 01/17 1245 AC 01/19 PO 1552 Heparin Sodium 5,000 UNIT Q8 01/19 0600 AC 01/22 (Porcine) SC 0543 Hydralazine HCl 5 MG ONCE ONE 01/21 1930 DC 01/21 IV 01/21 193 1926 Hydralazine HCl 5 MG ONCE ONE 01/21 1815 DC 01/21 IV 01/21 181 1805 Lorazepam 0.5 MG ONCE 01/22 0000 DC IV 01/22 0001 Lorazepam 100 MG Q12H 01/19 1700 AC 01/22 Dextrose/Water 1,000 ML IV 0035 Lorazepam 2 MG Q2P PRN 01/17 1145 AC 01/19 IV 1100 Lorazepam 1 MG Q2P PRN 01/17 1145 AC 01/18 IV 1751 Magnesium Oxide 400 MG DAILY 01/18 1558 AC 01/19 PO 0915 Magnesium Sulfate 1 GM ONCE ONE 01/22 0700 AC 01/22 Dextrose/Water 100 ML IV 01/22 1059 0753 Magnesium Sulfate 1 GM ONCE ONE 01/21 1015 DC 01/21 Dextrose/Water 100 ML IV 01/21 1414 1138 Metoprolol Tartrate 7.5 MG ONCE ONE 01/21 1915 DC 01/21 IV 01/21 1916 1904 Metoprolol Tartrate 7.5 MG Q6 01/20 1800 AC 01/22 IV 0542 Nystatin 1 JUDITH TIDPRN PRN 01/17 2345 AC 01/19 TOP 0915 Omeprazole 40 MG DAILY AC 01/19 0700 AC PO Potassium Chloride 10 MEQ ONCE ONE 01/22 0700 DC 01/22 IV 01/22 0701 0753 Senna/Docusate Sodium 2 TAB AT BEDTIME PRN 01/17 1300 AC PO Sodium Chloride 1,000 ML Q20H 01/21 1800 DC 01/21 IV 1755 Sodium Chloride 1,000 ML Q10H 01/18 1115 DC 01/21 IV 1142 Tamsulosin HCl 0.4 MG DAILY 01/17 1245 AC 01/19 PO 0915 Trazodone HCl 50 MG DAILY 01/18 1000 AC 01/19 PO 0914 Antibiotics Antibiotic: unasyn Day #: 1 IV/PO? IV Impression/Plan Impression/Problem List Impression: Mr. 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 He stayed sober for a month or 2 after being discharge in October, ever he started drinking again in December, has been drinking 8-9 beers daily and 2-3 shots of vodka, last drink was on the morning of 01/17/2017 He was afebrile in the emergency department, tachycardic at 97, respiratory rate 20, blood pressure 189/99, he was 97% saturating on room air and his EKG showed normal sinus rhythm at 92, left axis deviation, no ST-T wave changes, QTC of 471. He was admitted to the general medicine floor initially for alcohol withdrawal with IV Ativan taper per CIWA protocol, banana bag, multivitamin thiamine folate and B12 along with IV PPI for acute gastritis. On 01/19/2017 neurology hospitalist around 4 AM patient was significantly agitated, two order #7 were called, he continued to require escalating doses of Ativan secondary to alcohol withdrawal, he continued to be hypertensive 180s over 120, he recieved 8-9 mg ativan within a span of 3 hours and therefore was transferred to ICU for increased need of Ativan requiring an Ativan drip. We're currently managing for the following conditions: Aspiration pneumonia; Overnight patient oxygen saturation went down, spiked a fever 11.6, chest x-ray was done which showed evidence of aspiration pneumonia, patient was started on Unasyn. We'll monitor patient closely for fever, white count, will continue with TRC as needed and oxygen supplementation as needed. #1 Alcohol withdrawal. * Continue wean off IV Ativan as tolerated. * Continue to maintain aspiration precautions. * IV banana bag . * continue to monitor CIWa scores .CIWA is in the past 24 hours have been 4.4.5.6. * Taper Ativan as CIWas improve per protocol. * Continue sitter as patient gets very agitated time to time * Continue [place] and soft bilateral wrist restraints #2. Alcoholic hepatitis * Noted elevated LFt suggestive of ETOH hepatitis * No hx of gallstone or RUQ pain * Please avoid high dose tylenol 3. Acute gastritis * Continue IV PPI * Zofran as needed for nausea * diet advanced, tolareted well. 4. HTN * Continue metoprolol 7.5 mg every 6 IV * Continue clonidine patch, 5. Depression/insomnia * continue trazodone 6. BPH * Continue Flomax 7. Dvt PX -mechanical Problem List: 1. Alcohol dependency 2. Alcoholic hepatitis 3. DVT prophylaxis 4. Full code status 5. Aspiration pneumonia Pain Ratin Tomorrow's Labs & Rationales: ICU bundle for lites monitoring CBC for WBC monitoring in setting of aspiration pneumonia Plan DVT/Prophylaxis: mechanical, pharmacological Code Status: Full Code
--- NOTE | 2017-01-22 10:37 | NUR ---
Patient is obtunded will occasionally open eyes with a sternal rub. Does not follow commands and is currently non-verbal. Ativan gtt was turned down to 8mg/hr at 0805 and is now down to 3mg/hr per Dr. Catalan's order. Soft bilateral wrist restraints in place and a 1:1 sitter is at the bedside. NSR-ST on tele monitor. HR= 80-90's. SBP: 160-170's. + pulses. On 2L nc, lungs rhonchourous, wheezey and diminished. He was deep suctioned by respiratory this morning for moderate amounts of thick foote sputum- O2 sats are stable 96-99%. Abdomen is soft and non tender with + bowel sounds. NPO at this time due to level of consciousness. Sant[place] in place draining clear williams colored urine with good output. Skin is intact with trace generalized edema noted. LUE appears more swollen than the right most likely related to an old IV infiltrate. No s/s of pain are currently noted. IV abx per order. Will continue to closely monitor patient.
--- NOTE | 2017-01-22 17:00 | NUR ---
Patient is sedated, arousable to verbal stimuli and will respond to name, speech is garbled. Able to move all extremities and will occasionally follow commands. Ativan gtt was placed on hold earlier this morning due to LOC, but was restarted per Dr. Bullock's order at 1415 and is now infusing at 2mg/hr. SAS currently a 3. 1:1 sitter remains at the bedside and soft bilateral wrist restraints in place. Vitals have remained stable and pt is receiving IV lopressor every 6 hours per order. Will continue to closely monitor patient.
[2017-01-23] VITALS (8 sets, daily range): BP systolic 158–189; BP diastolic 78–99
[2017-01-23 04:08] LABS: ABSOLUTE BASOPHIL COUNT 0.1 /CUMM (0.0-0.2); ABSOLUTE EOSINOPHIL COUNT 0.1 /CUMM (0.0-0.7); ABSOLUTE GRANULOCYTE CT 5.5 /CUMM (1.4-6.5); ABSOLUTE LYMPH COUNT 0.7 /CUMM (1.2-3.4); ABSOLUTE MONOCYTE COUNT 1.8 /CUMM (0.10-0.60); BASOPHIL % 0.9 % (0.0-2.0); EOSINOPHIL % 1.5 % (0-5); GRANULOCYTE % 66.8 % (42.2-75.2); HEMATOCRIT 36.1 % (42-52); MEAN CORPUSCULAR HGB 32.8 PG (27.0-31.0); MEAN CORPUSCULAR HGB CONC 33.3 G/DL (33.0-37.0); MEAN CORPUSCULAR VOLUME 98.4 FL (80.0-94.0); MEAN PLATELET VOLUME 7.7 FL (7.4-10.4); PLATELET COUNT 256 /CUMM (130-400); RBC DISTRIBUTION WIDTH 13.6 % (11.5-14.5); RED BLOOD CELL CT 3.67 /CUMM (4.70-6.10); WHITE BLOOD CELL COUNT 8.2 /CUMM (4.8-10.8)
--- NOTE | 2017-01-23 07:26 | PN- Resident CRCU ---
Subjective HPI/CRCU Issues: Patient seen and examined this morning. He was lying in bed in no acute distress. He remains on Ativan drip running at 5 mg per hour, since he was withdrawing last night. No other episodes of fever, the pressure has been adequately controlled, remains on Unasyn for aspiration pneumonia, will get a follow-up chest x-ray today. We'll replete lites. Objective Vital Signs & I&O Last 8 Hrs of Vitals and I&O: Laboratory Tests 01/29/17 0600: Anion Gap 11, Estimated GFR > 60, BUN/Creatinine Ratio 15.0, Magnesium 1.6, CBC w Diff NO MAN DIFF REQ, RBC 3.74 L, MCV 98.0 H, MCH 32.7 H, RDW 13.3, MPV 7.5 , Gran % 68.0, Lymphocytes % 17.1 L, Monocytes % 11.7 H, Eosinophils % 2.4, Basophils % 0.8, Absolute Granulocytes 5.7, Absolute Lymphocytes 1.4, Absolute Monocytes 1.0 H, Absolute Eosinophils 0.2, Absolute Basophils 0.1, PUBS MCHC 33.3 Vital Signs Date Time Temp Pulse Resp B/P Pulse O2 O2 Flow FiO2 Ox Delivery Rate 01/29 1258 96 Nasal 2.0L Cannula 01/29 1200 97.6 80 18 154/90 95 Nasal 2.0L Cannula 01/29 0800 Nasal 2.0L Cannula 01/29 0800 98.0 96 24 150/100 96 Nasal 2.0L Cannula 01/29 0600 80 18 158/88 01/29 0400 97.7 84 24 134/70 96 Nasal 2.0L Cannula 01/29 0200 98.2 90 26 144/82 01/29 0000 88 18 162/88 01/29 0000 98.3 96 22 160/82 95 Nasal 2.0L Cannula 01/29 0000 96 Nasal 2.0L Cannula 01/29 2000 98.8 101 20 190/102 01/29 2000 98.2 96 22 190/102 96 Room Air 2.0L 01/28 1708 102 28 01/28 1600 95 Nasal 2.0L Cannula 01/28 1600 97.8 110 25 126/78 96 Nasal 2.0L Cannula Intake & Output 01/29 1600 01/29 0800 01/29 0000 Intake Total 1000 600 225 Output Total 700 650 850 Balance 300 -50 -625 Intake, IV 600 600 225 Intake, Oral 400 Number 1 Bowel Movements Output, Urine 700 650 850 Intake & Output 01/29 1600 Intake Total 1000 Output Total 700 Balance 300 Intake, IV 600 Intake, Oral 400 Number 1 Bowel Movements Output, Urine 700 Exam General Appearance: well developed/nourished Current Medications: Current Medications Sig/Berta Start time Last Medication Dose Route Stop Time Status Admin Acetaminophen 650 MG Q6P PRN 01/17 1245 AC PO Albuterol Sulfate 3 ML Q4P PRN 01/17 2045 AC 01/27 INH 1234 Clonidine 1 PAT Q168 01/26 1039 AC 01/26 TOP 1238 Folic Acid 1 MG DAILY 01/26 1830 AC 01/29 PO 0824 Gabapentin 300 MG TID 01/17 1245 AC 01/29 PO 0824 Heparin Sodium 5,000 UNIT Q8 01/19 0600 AC 01/29 (Porcine) SC 1414 Hydralazine HCl 10 MG TID PRN 01/26 1045 AC 01/28 PO 0741 Lorazepam 2 MG Q12 01/29 1000 DC PO Lorazepam 2 MG 0600,1800 01/29 0845 AC PO Lorazepam 2 MG Q8 01/26 1400 DC 01/29 PO 0526 Lorazepam 2 MG Q2P PRN 01/24 1545 AC 01/29 IV 1414 Lorazepam 1 MG Q2P PRN 01/24 1545 AC 01/29 IV 0327 Magnesium Oxide 400 MG 2200 01/29 2200 AC PO 01/30 2201 Magnesium Oxide 400 MG 1600 01/29 1600 AC PO 01/29 1601 Magnesium Oxide 400 MG BID 01/29 1000 DC 01/29 PO 01/29 2201 0824 Magnesium Oxide 400 MG DAILY 01/18 1558 AC 01/28 PO 0913 Metoprolol Succinate 25 MG DAILY 01/26 1032 AC 01/29 PO 0824 Multivitamins 1 TAB DAILY 01/26 1830 AC 01/29 PO 0824 Omeprazole 40 MG DAILY AC 01/19 0700 AC 01/29 PO 0549 Polyethylene Glycol 17 GM DAILY 01/28 1712 AC 01/29 PO 0824 Senna/Docusate Sodium 2 TAB AT BEDTIME PRN 01/17 1300 AC 01/28 PO 0333 Sodium Chloride 1,000 ML Q13H 01/24 1330 AC 01/29 IV 0700 Tamsulosin HCl 0.4 MG DAILY 01/17 1245 AC 01/29 PO 0824 Thiamine HCl 100 MG DAILY 01/26 1830 AC 01/29 PO 0824 Trazodone HCl 50 MG DAILY 01/18 1000 AC 01/29 PO 0824 Vancomycin HCl 1,500 MG Q24H 01/26 1600 DC 01/28 Dextrose/Water 250 ML IV 01/28 2300 1653 Impression/Plan Impression/Problem List Impression: Mr. 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 He stayed sober for a month or 2 after being discharge in October, ever he started drinking again in December, has been drinking 8-9 beers daily and 2-3 shots of vodka, last drink was on the morning of 01/17/2017 He was afebrile in the emergency department, tachycardic at 97, respiratory rate 20, blood pressure 189/99, he was 97% saturating on room air and his EKG showed normal sinus rhythm at 92, left axis deviation, no ST-T wave changes, QTC of 471. He was admitted to the general medicine floor initially for alcohol withdrawal with IV Ativan taper per [facility] protocol, banana bag, multivitamin thiamine folate and B12 along with IV PPI for acute gastritis. 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 We're currently managing for the following conditions: #Aspiration pneumonia; (01/22/17) patient oxygen saturation went down, spiked a fever 11.6, chest x-ray was done which showed evidence of aspiration pneumonia, patient was started on Unasyn. We'll monitor patient closely for fever, white count, will continue with TRC as needed and oxygen supplementation as needed. #Alcohol withdrawal. * Continue wean off IV Ativan as tolerated. * Continue to maintain aspiration precautions. * IV banana bag . * continue to monitor CIWa scores .CIWA is in the past 24 hours have been 4.4.5.6. * Taper Ativan as CIWas improve per protocol. * Continue sitter as patient gets very agitated time to time * Continue [place] and soft bilateral wrist restraints #Alcoholic hepatitis * Noted elevated LFt suggestive of ETOH hepatitis * No hx of gallstone or RUQ pain * Please avoid high dose tylenol #Acute gastritis * Continue IV PPI * Zofran as needed for nausea * diet advanced, tolareted well. #HTN * Continue metoprolol 7.5 mg every 6 IV * Continue clonidine patch, #Depression/insomnia * continue trazodone #BPH * Continue Flomax #Dvt PX -mechanical Problem List: 1. Aspiration pneumonia 2. Alcohol intoxication Pain Ratin Tomorrow's Labs & Rationales: ICU bundle for lytes monitoring CBC for WBC monitoring in setting of aspiration pneumonia Plan DVT/Prophylaxis: mechanical, pharmacological Code Status: Full Code
--- NOTE | 2017-01-23 07:46 | PN- CRCU ---
Subjective HPI/Critical Care Issues: The patient was agitated overnight, requiring additional restraints for his safety. The Ativan drip was increased to improve his withdrawal symptoms. The patient is currently lethargic but arousable. He is confused and not following commands but moving all extremities independently. He is intermittently hypertensive however his blood pressure is better controlled overall. Objective Current Medications: Current Medications Sig/Berta Start time Last Medication Dose Route Stop Time Status Admin Acetaminophen 650 MG Q6P PRN 01/17 1245 AC PO Albuterol Sulfate 3 ML Q4P PRN 01/17 2045 AC 01/22 INH 1620 Ampicillin Sodium/ 1,500 MG Q6 01/21 2359 AC 01/23 Sulbactam Sodium IV 0520 Sodium Chloride 100 ML Clonidine 1 PAT Q168 01/22 2008 AC 01/21 TOP 2113 Gabapentin 300 MG TID 01/17 1245 AC 01/19 PO 1552 Heparin Sodium 5,000 UNIT Q8 01/19 0600 AC 01/23 (Porcine) SC 0520 Lorazepam 100 MG Q12H 01/19 1700 AC 01/22 Dextrose/Water 1,000 ML IV 2346 Lorazepam 2 MG Q2P PRN 01/17 1145 AC 01/19 IV 1100 Lorazepam 1 MG Q2P PRN 01/17 1145 AC 01/18 IV 1751 Magnesium Oxide 400 MG DAILY 01/18 1558 AC 01/19 PO 0915 Magnesium Sulfate 1 GM ONCE ONE 01/23 0730 AC Dextrose/Water 100 ML IV 01/23 1129 Magnesium Sulfate 1 GM .STK-MED ONE 01/22 0746 DC IM 01/22 0747 Magnesium Sulfate 1 GM ONCE ONE 01/22 0700 DC 01/22 Dextrose/Water 100 ML IV 01/22 1059 0753 Metoprolol Tartrate 7.5 MG Q6 01/20 1800 AC 01/23 IV 0521 Nystatin 1 JUDITH TIDPRN PRN 01/17 2345 AC 01/19 TOP 0915 Omeprazole 40 MG DAILY AC 01/19 0700 AC PO Potassium Chloride 10 MEQ ONCE ONE 01/22 1045 DC 01/22 IV 01/22 1046 1256 Senna/Docusate Sodium 2 TAB AT BEDTIME PRN 01/17 1300 AC PO Tamsulosin HCl 0.4 MG DAILY 01/17 1245 AC 01/19 PO 0915 Trazodone HCl 50 MG DAILY 01/18 1000 AC 01/19 PO 0914 Vital Signs & I&O Last 24 Hrs of Vitals and I&O: Vital Signs Date Time Temp Pulse Resp B/P Pulse O2 O2 Flow FiO2 Ox Delivery Rate 01/23 0600 98.4 82 23 173/82 01/23 0521 94 180/96 01/23 0400 98.4 90 24 174/94 01/23 0400 97 Nasal 2.0L Cannula 01/23 0200 98.0 84 25 189/99 01/23 0000 98.0 92 24 158/94 01/23 0000 98.0 92 24 158/94 97 Nasal 2.0L Cannula 01/23 0000 99 Nasal 2.0L Cannula 01/22 2344 84 150/84 01/22 2200 98.2 82 20 137/67 01/23 2000 98.2 92 25 180/100 01/22 2000 98 Nasal 2.0L Cannula 01/22 1824 98 178/78 01/22 1800 90 20 173/75 01/22 1627 97 Nasal 2.0L Cannula 01/22 1600 98.1 104 24 158/80 01/22 1600 98.1 104 24 158/80 98 Nasal 2.0L Cannula 01/22 1600 99 Nasal 2.0L Cannula 01/22 1400 106 24 150/92 01/22 1204 102 176/94 01/22 1200 99.2 98 20 176/92 01/22 1200 98 Nasal 2.0L Cannula 01/22 1000 91 24 171/83 01/22 0837 96 Nasal 2.0L Cannula 01/22 0800 98.7 91 24 160/88 01/22 0800 98.7 91 24 160/88 96 Nasal 2.0L Cannula 01/22 0800 98 Nasal 2.0L Cannula Intake & Output 01/23 0800 01/23 0000 01/22 1600 Intake Total 491 262 570 Output Total 800 500 650 Balance -309 -238 -80 Intake, IV 491 262 570 Output, Urine 800 500 650 Physical Exam General Appearance Arousable, but somnolent HEENT Atraumatic, PERRLA Neck Supple, No JVD Cardiovascular Regular Rate, Normal S1, Normal S2, No Murmurs Lungs Few scattered ronchi heard bilaterally Abdomen Normal Bowel Sounds, Soft, No Tenderness Extremities No Edema Results Last 24 Hrs of Lab Results: Laboratory Tests 01/23/17 0340: Anion Gap 9, Estimated GFR > 60, Glucose 93, Calcium 9.3, Phosphorus 2.9, Magnesium 1.6, Total Bilirubin 1.3, AST 114 H, ALT 137 H, Albumin 3.6, CBC w Diff MAN DIFF ORDERED, RBC 3.67 L, MCV 98.4 H, MCH 32.8 H, RDW 13.6, MPV 7.7, Gran % 66.8, Lymphocytes % 8.8 L, Monocytes % 22.0 H, Eosinophils % 1.5, Basophils % 0.9, Absolute Granulocytes 5.5, Segmented Neutrophils 65, Band Neutrophils 2, Absolute Lymphocytes 0.7 L, Lymphocytes 13 L, Monocytes 16 H, Absolute Monocytes 1.8 H, Eosinophils 2, Absolute Eosinophils 0.1, Basophils 2, Absolute Basophils 0.1, Platelet Estimate ADEQUATE, Polychromasia 1+, Ovalocytes FEW, PUBS MCHC 33.3, Fld Total RBCs Counted 100 Last 24 Hrs of Micro Results: Cultures are currently negative to date. Impression/Plan Impression/Plan Impression/Plan: 1. ETOH withdrawl on IV Ativan drip at 5 mg per hour. 2. Aspiration pneumonia, on Unasyn. 3. ETOH hepatitis. 4. Uncontrolled hypertension. 5. Acute gastritis. 6. BPH - on Flomax. Recommendations: * Change the patient to NPO. * Maintain the patient on strict aspiration precautions. * Swallowing evaluation when more awake. * NS to be started to equal 75 ml/hour in total. * Restart banana bag. * Begin empiric high-dose thiamine protocol. * Follow up sputum for culture. * Continue Unasyn empirically. * Check a follow up CXR. * TRC for nebulizer treatments and suctioning. * Continue electrolyte replacement. * Continue metoprolol and clonidine. Can increase clonidine to get better BP control. * Continue DVT prophylaxis. * Continue all supportive care. Code Status: Full Code
--- NOTE | 2017-01-23 08:23 | RADIOLOGY REPORT ---
EXAMINATION: XR PORTABLE CHEST CLINICAL INFORMATION: Follow-up aspiration pneumonia. COMPARISON: Chest x-ray 01/21/2017. TECHNIQUE: Portable AP 80 degree semierect view of the chest was obtained. FINDINGS: The patient is rotated to the right. The lung zarco are well-expanded bilaterally. There are patchy areas of opacification at the bases bilaterally, more prominent on the left which appear improved compared to the prior study. No new focal consolidation is demonstrated. The central pulmonary vasculature is less prominent compared to the prior study. The cardiac silhouette is normal. There are no pleural effusions. There are no acute osseous findings. IMPRESSION: 1. There has been interval improvement in the opacification at the left greater than right lower zones. 2. There has been interval decrease in the prominence of the central pulmonary vasculature.
--- NOTE | 2017-01-23 10:32 | NUR ---
@0800-PT DROWSY/AROUS. SAS 3. ATIVAN GTT INFUSING AT 5MG/HR. NO FOLLOWING COMMANDS. PUPILS EQUAL AND REACTIVE. JETER BUT NOT FOLLOWING COMMANDS. 1:1 SITTER REMAINS AT BEDSIDE. LIZ AND BILAT WRISTS RESTRAINTS REMAIN IN PLACE. CONT ON 2LNC. O2SAT 95%. RHONCHI/WHEEZES AUSCULTATED. MOUTH CARE PROVIDED AND YANKOR SUCTION PRN FOR SRAVANI PRODUCTIVE COUGH. CXR DONE AT BEDSIDE AT THIS TIME. NST ST HR 80-90S. BP 160-180 SYSTOLIC. CONT ON IVP LOPRESSOR 7.5MG Q6HRS. PT NPO DUE TO SEDATION. GARBLED SPEECH AT TIMES. IVF STARTED NS INFUSING AY 75ML/HR. BANANA BAG TO BE REORD. WILL INFUSE WHEN ARRIVES FROM PHARMACY. NO BM NOTED X 6 DAYS-WILL OBTAIN ORDER FOR SUPP. ABD SOFT, HYPOACTIVE BS. + FLATUS. MAX IN PLACE WITH KAIT CLOUDY URINE. URINE OSM AND LYTES SENT TO LAB THIS AM ORD. SKIN INTACT WITH TRACE BLE EDEMA AND FUNGAL RASH TO PERIAREA-NYSTATIN POWDER APPLIED. MAG BOLUS 1GM INFUSING AT THIS TIME FOR MAG 1.6-REPEAT LABS ORD FOR 6PM. PT TO START ON IV THIAMINE Q8HRS WHEN ARRIVES FROM PHARMACY. CONT TO MONITOR CLOSELY. CALL NELLY MOORE.
--- NOTE | 2017-01-23 10:33 | NUR ---
Continue to monitor patients status as it relates to his ETOH Detox. Patient remains in CRCU on an ativan drip, which has been titrated down and increased again. Will continue to follow to better assess possible aftercare plans.
--- NOTE | 2017-01-23 13:08 | NUR ---
@1200-ATIVAN GTT CURRENTLY INFUSING AT 4MG/HR. CIWA4-6. SAS 3-4. SITTER RENEWED. RESTRAINTS RENEWED. PT HAD BM ON BEDPAN AFTER SUPP. ANOTHER IV SITE ESTABLISHED. BANANA BAG INFUSING. CONT TO MONITOR, CALL NELLY MOORE.
[2017-01-24] VITALS: BP 184/80
[2017-01-24 02:00] VITALS: BP 191/97
[2017-01-24 05:09] LABS: ABSOLUTE BASOPHIL COUNT 0 /CUMM (0.0-0.2); ABSOLUTE EOSINOPHIL COUNT 0.2 /CUMM (0.0-0.7); ABSOLUTE GRANULOCYTE CT 3.4 /CUMM (1.4-6.5); ABSOLUTE MONOCYTE COUNT 1.3 /CUMM (0.10-0.60); BASOPHIL % 0.6 % (0.0-2.0); EOSINOPHIL % 3.4 % (0-5); GRANULOCYTE % 57.5 % (42.2-75.2); HEMATOCRIT 35.9 % (42-52); MEAN CORPUSCULAR HGB 32.7 PG (27.0-31.0); MEAN CORPUSCULAR HGB CONC 33.4 G/DL (33.0-37.0); MEAN CORPUSCULAR VOLUME 97.8 FL (80.0-94.0); MEAN PLATELET VOLUME 7.7 FL (7.4-10.4); PLATELET COUNT 352 /CUMM (130-400); RBC DISTRIBUTION WIDTH 13.5 % (11.5-14.5); RED BLOOD CELL CT 3.67 /CUMM (4.70-6.10); WHITE BLOOD CELL COUNT 5.9 /CUMM (4.8-10.8)
--- NOTE | 2017-01-24 07:48 | PN- Resident CRCU ---
Subjective HPI/CRCU Issues: patient seen and examined, lying in bed in no acute distress, remains on ativan drip at 3mg/hr, will wean off as tolerated, Tmax of 99.1 in last 24hrs, Blood pressure has been elevated, hydralazine added to current bp regimen. Sputum culture has grow staph, patient given one dose of vanco, will follow sensitivities. Objective Vital Signs & I&O Last 8 Hrs of Vitals and I&O: Laboratory Tests 01/24/17 0425: Anion Gap 8, Estimated GFR > 60, Glucose 91, Calcium 9.4, Phosphorus 3.6, Magnesium 1.5 L, Total Bilirubin 0.9, AST 93 H, ALT 108 H, Albumin 3.5, CBC w Diff NO MAN DIFF REQ, RBC 3.67 L, MCV 97.8 H, MCH 32.7 H, RDW 13.5, MPV 7.7, Gran % 57.5, Lymphocytes % 16.2 L, Monocytes % 22.3 H, Eosinophils % 3.4, Basophils % 0.6, Absolute Granulocytes 3.4, Absolute Lymphocytes 1.0 L, Absolute Monocytes 1.3 H, Absolute Eosinophils 0.2, Absolute Basophils 0, PUBS MCHC 33.4 01/23/17 1818: Anion Gap 8, Estimated GFR > 60, Glucose 94, Calcium 9.3, Phosphorus 3.4, Magnesium 1.6, Total Bilirubin 1.1, AST 96 H, ALT 118 H, Albumin 3.5 Vital Signs Date Time Temp Pulse Resp B/P Pulse O2 O2 Flow FiO2 Ox Delivery Rate 01/24 1206 164/86 01/24 1200 94 Nasal 2.0L Cannula 01/24 1003 89 171/82 01/24 0801 85 200/90 01/24 0800 98.8 87 21 200/90 94 Nasal 2.0L Cannula 01/24 0800 94 Nasal 2.0L Cannula 01/24 0620 88 170/88 01/24 0400 94 Nasal 2.0L Cannula 01/24 0200 99.1 88 19 191/97 01/24 0000 99.1 84 26 184/80 01/24 0000 99.1 84 26 184/80 98 Nasal 2.0L Cannula 01/24 0000 97 Nasal 2.0L Cannula 01/23 2339 88 174/90 01/23 2200 99.0 84 23 169/90 01/23 2027 96 Nasal 2.0L Cannula 01/24 2000 99.0 82 21 180/78 01/24 2000 96 Nasal 2.0L Cannula 01/23 1807 95 195/90 01/24 1600 98.2 86 24 170/90 94 Nasal 2.0L Cannula 01/24 1600 93 Nasal 2.0L Cannula 01/23 1410 Nasal 2.0L Cannula Intake & Output 01/24 1600 01/24 0800 01/24 0000 Intake Total 1010 1211 Output Total 1450 2200 Balance -440 -989 Intake, IV 1010 1211 Output, Urine 1450 2200 Exam General Appearance: well developed/nourished, no apparent distress, sedated Head: atraumatic Neck: normal inspection, supple Respiratory: scattered ronchi b/l Cardiovascular: regular rate/rhythm Gastrointestinal: normal bowel sounds Extremities: normal inspection IV Drips IV Drips: Ativan Current Medications: Current Medications Sig/Berta Start time Last Medication Dose Route Stop Time Status Admin Acetaminophen 650 MG Q6P PRN 01/17 1245 AC PO Albuterol Sulfate 3 ML Q4P PRN 01/17 2045 AC 01/22 INH 1620 Ampicillin Sodium/ 1,500 MG Q6 01/21 2359 AC 01/24 Sulbactam Sodium IV 1206 Sodium Chloride 100 ML Clonidine 0.2 MG 0800 01/25 0800 CAN PO Clonidine 2 PAT Q168 01/24 1000 AC 01/24 TOP 1003 Clonidine 1 PAT Q168 01/21 2008 DC 01/21 TOP 01/28 1001 2113 Cyanocobalamin/ 1 BAG DAILY 01/23 1000 AC 01/24 Thiamine/Pyridoxine IV 01/25 1759 1003 Sodium Chloride 1,000 ML Gabapentin 300 MG TID 01/17 1245 AC 01/19 PO 1552 Heparin Sodium 5,000 UNIT Q8 01/19 0600 AC 01/24 (Porcine) SC 0620 Hydralazine HCl 10 MG ONCE ONE 01/24 0800 DC 01/24 IV 01/24 0801 0801 Hydralazine HCl 10 MG Q6 PRN 01/24 0800 AC IV Lorazepam 100 MG Q24H 01/24 0000 AC 01/23 Dextrose/Water 1,000 ML IV 2340 Lorazepam 100 MG Q12H 01/19 1700 DC 01/22 Dextrose/Water 1,000 ML IV 2346 Lorazepam 2 MG Q2P PRN 01/17 1145 DC 01/19 IV 1100 Lorazepam 1 MG Q2P PRN 01/17 1145 DC 01/18 IV 1751 Magnesium Oxide 400 MG DAILY 01/18 1558 AC 01/19 PO 0915 Magnesium Sulfate 1 GM ONCE ONE 01/24 0815 DC Dextrose/Water 100 ML IV 01/24 1214 Magnesium Sulfate 1 GM ONCE ONE 01/24 0815 DC 01/24 Dextrose/Water 100 ML IV 01/24 1214 1002 Magnesium Sulfate 1 GM ONCE ONE 01/24 0800 DC 01/24 Dextrose/Water 100 ML IV 01/26 0959 0801 Metoprolol Tartrate 7.5 MG Q6 01/20 1800 AC 01/24 IV 1206 Nystatin 1 JUDITH TIDPRN PRN 01/17 2345 AC 01/19 TOP 0915 Omeprazole 40 MG DAILY AC 01/19 0700 AC PO Senna/Docusate Sodium 2 TAB AT BEDTIME PRN 01/17 1300 AC PO Sodium Chloride 1,000 ML ONCE ONE 01/23 0900 DC 01/23 IV 01/23 2219 0911 Tamsulosin HCl 0.4 MG DAILY 01/17 1245 AC 01/19 PO 0915 Thiamine HCl 500 MG Q8H 01/23 0900 AC 01/24 Sodium Chloride 100 ML IV 01/26 0202 0850 Trazodone HCl 50 MG DAILY 01/18 1000 AC 01/19 PO 0914 Vancomycin HCl 1,500 MG ONCE ONE 01/24 0945 DC 01/24 Dextrose/Water 250 ML IV 01/24 1124 1124 Vancomycin HCl 1,000 MG ONCE ONE 01/24 0930 CAN Dextrose/Water 250 ML IV 01/24 1029 Impression/Plan Impression/Problem List Impression: Mr. 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 He stayed sober for a month or 2 after being discharge in October, ever he started drinking again in December, has been drinking 8-9 beers daily and 2-3 shots of vodka, last drink was on the morning of 01/17/2017 He was afebrile in the emergency department, tachycardic at 97, respiratory rate 20, blood pressure 189/99, he was 97% saturating on room air and his EKG showed normal sinus rhythm at 92, left axis deviation, no ST-T wave changes, QTC of 471. He was admitted to the general medicine floor initially for alcohol withdrawal with IV Ativan taper per CIWA protocol, banana bag, multivitamin thiamine folate and B12 along with IV PPI for acute gastritis. 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 We're currently managing for the following conditions: #Aspiration pneumonia; (01/22/17) patient oxygen saturation went down, spiked a fever 11.6, chest x-ray was done which showed evidence of aspiration pneumonia, patient on Unasyn, one dose of vancomycin given today as sputum cx grew staph, will follow sensitivities. We'll monitor patient closely for fever, white count, will continue with TRC as needed and oxygen supplementation as needed. #Alcohol withdrawal. * Continue wean off IV Ativan as tolerated. * Continue to maintain aspiration precautions. * IV banana bag . * continue to monitor CIWa scores .CIWA is in the past 24 hours have been 4.4.6.10 * Taper Ativan as CIWas improve per protocol. * Continue sitter as patient gets very agitated time to time * Continue [place] and soft bilateral wrist restraints #Alcoholic hepatitis * Noted elevated LFt suggestive of ETOH hepatitis * No hx of gallstone or RUQ pain * Please avoid high dose tylenol #Acute gastritis * Continue IV PPI * Zofran as needed for nausea * diet advanced, tolareted well. #HTN * Continue metoprolol 7.5 mg every 6 IV * Continue clonidine patch, #Depression/insomnia * continue trazodone #BPH * Continue Flomax #Dvt PX -mechanical Problem List: 1. ALCOHOL WITHDRAWAL 2. Aspiration pneumonia Pain Ratin Tomorrow's Labs & Rationales: ICU bundle for lytes monitoring CBC for wbc moitoring Plan DVT/Prophylaxis: mechanical, pharmacological Code Status: Full Code
[2017-01-24 08:00] VITALS: BP 200/90
--- NOTE | 2017-01-24 08:43 | PN- CRCU ---
Subjective HPI/Critical Care Issues: The patient is lethargic but arousable. His Ativan drip has been decreased to 3 mg/hr. He remains intermittently hypertensive. Hydralazine has been given this morning to reduce the blood pressure. He remains on 3 lpm. There were no overnight events. Objective Current Medications: Current Medications Sig/Berta Start time Last Medication Dose Route Stop Time Status Admin Acetaminophen 650 MG Q6P PRN 01/17 1245 AC PO Albuterol Sulfate 3 ML Q4P PRN 01/17 2045 AC 01/22 INH 1620 Ampicillin Sodium/ 1,500 MG Q6 01/21 2359 AC 01/24 Sulbactam Sodium IV 0620 Sodium Chloride 100 ML Bisacodyl 10 MG ONCE ONE 01/23 0930 DC 01/23 NM 01/23 0931 1018 Clonidine 0.2 MG 0800 01/25 0800 CAN PO Clonidine 2 PAT Q168 01/24 1000 AC TOP Clonidine 1 PAT Q168 01/21 2008 DC 01/21 TOP 01/28 1001 2113 Cyanocobalamin/ 1 BAG DAILY 01/23 1000 CAN Thiamine/Pyridoxine IV Dextrose/Water 1,000 ML Cyanocobalamin/ 1 BAG DAILY 01/23 1000 AC 01/23 Thiamine/Pyridoxine IV 01/25 1759 1018 Sodium Chloride 1,000 ML Gabapentin 300 MG TID 01/17 1245 AC 01/19 PO 1552 Heparin Sodium 5,000 UNIT Q8 01/19 0600 AC 01/24 (Porcine) SC 0620 Hydralazine HCl 10 MG ONCE ONE 01/24 0800 DC 01/24 IV 01/24 0801 0801 Hydralazine HCl 10 MG Q6 PRN 01/24 0800 AC IV Lorazepam 100 MG Q24H 01/24 0000 AC 01/23 Dextrose/Water 1,000 ML IV 2340 Lorazepam 100 MG Q12H 01/19 1700 DC 01/22 Dextrose/Water 1,000 ML IV 2346 Lorazepam 2 MG Q2P PRN 01/17 1145 AC 01/19 IV 1100 Lorazepam 1 MG Q2P PRN 01/17 1145 AC 01/18 IV 1751 Magnesium Oxide 400 MG DAILY 01/18 1558 AC 01/23 PO 0912 Magnesium Sulfate 1 GM ONCE ONE 01/24 0815 AC Dextrose/Water 100 ML IV 01/24 1214 Magnesium Sulfate 1 GM ONCE ONE 01/24 0815 AC Dextrose/Water 100 ML IV 01/24 1214 Magnesium Sulfate 1 GM ONCE ONE 01/24 0800 DC 01/24 Dextrose/Water 100 ML IV 01/26 0959 0801 Magnesium Sulfate 1 GM ONCE ONE 01/23 0730 DC 01/23 Dextrose/Water 100 ML IV 01/23 1129 0806 Metoprolol Tartrate 7.5 MG Q6 01/20 1800 AC 01/24 IV 0620 Nystatin 1 JUDITH TIDPRN PRN 01/17 2345 AC 01/19 TOP 0915 Omeprazole 40 MG DAILY AC 01/19 0700 AC PO Senna/Docusate Sodium 2 TAB AT BEDTIME PRN 01/17 1300 AC PO Sodium Chloride 1,000 ML ONCE ONE 01/23 0900 DC 01/23 IV 01/23 2219 0911 Sodium Chloride 1,000 ML ONCE ONE 01/23 0845 CAN IV 01/23 1644 Tamsulosin HCl 0.4 MG DAILY 01/17 1245 AC 01/19 PO 0915 Thiamine HCl 500 MG Q8H 01/23 0900 AC 01/24 Sodium Chloride 100 ML IV 01/26 0202 0130 Trazodone HCl 50 MG DAILY 01/18 1000 AC 01/19 PO 0914 Vital Signs & I&O Last 24 Hrs of Vitals and I&O: Vital Signs Date Time Temp Pulse Resp B/P Pulse O2 O2 Flow FiO2 Ox Delivery Rate 01/24 0801 85 200/90 01/24 0800 98.8 87 21 200/90 94 Nasal 2.0L Cannula 01/24 0800 94 Nasal 2.0L Cannula 01/24 0620 88 170/88 01/24 0400 94 Nasal 2.0L Cannula 01/24 0200 99.1 88 19 191/97 01/24 0000 99.1 84 26 184/80 01/24 0000 99.1 84 26 184/80 98 Nasal 2.0L Cannula 01/24 0000 97 Nasal 2.0L Cannula 01/23 2339 88 174/90 01/23 2200 99.0 84 23 169/90 01/237 96 Nasal 2.0L Cannula 01/23 2000 99.0 82 21 180/78 01/23 2000 96 Nasal 2.0L Cannula 01/23 1807 95 195/90 01/23 1600 98.2 86 24 170/90 94 Nasal 2.0L Cannula 01/23 1600 93 Nasal 2.0L Cannula 01/23 1410 Nasal 2.0L Cannula 01/23 1200 93 Nasal 2.0L Cannula 01/23 1136 93 158/74 01/23 0907 97 Nasal 2.0L Cannula Intake & Output 01/24 1600 01/24 0800 01/24 0000 Intake Total 1010 1211 Output Total 1450 2200 Balance -440 -989 Intake, IV 1010 1211 Output, Urine 1450 2200 Physical Exam General Appearance arousable, but somnolent HEENT atraumatic, PERRLA Neck Supple, No JVD Cardiovascular Regular Rate, Normal S1, Normal S2, No Murmurs Lungs Few scattered ronchi heard bilaterally Abdomen Normal Bowel Sounds, Soft, No Tenderness Extremities No Edema Results Last 24 Hrs of Lab Results: Laboratory Tests 01/24/17 0425: Anion Gap 8, Estimated GFR > 60, Glucose 91, Calcium 9.4, Phosphorus 3.6, Magnesium 1.5 L, Total Bilirubin 0.9, AST 93 H, ALT 108 H, Albumin 3.5, CBC w Diff NO MAN DIFF REQ, RBC 3.67 L, MCV 97.8 H, MCH 32.7 H, RDW 13.5, MPV 7.7, Gran % 57.5, Lymphocytes % 16.2 L, Monocytes % 22.3 H, Eosinophils % 3.4, Basophils % 0.6, Absolute Granulocytes 3.4, Absolute Lymphocytes 1.0 L, Absolute Monocytes 1.3 H, Absolute Eosinophils 0.2, Absolute Basophils 0, PUBS MCHC 33.4 01/23/17 1818: Anion Gap 8, Estimated GFR > 60, Glucose 94, Calcium 9.3, Phosphorus 3.4, Magnesium 1.6, Total Bilirubin 1.1, AST 96 H, ALT 118 H, Albumin 3.5 01/23/17 1030: Urine Osmolality 779, Ur Random Creatinine 169.7, Ur Random Sodium 144 H, Ur Random Potassium 26.0, Fraction Sodium Excret 0.4 Last 24 Hrs of Micro Results: Sputum culture positive for Staph aureus, sensitivity pending. Diagnostic Data CXR Findings: 1. There has been interval improvement in the opacification at the left greater than right lower zones. 2. There has been interval decrease in the prominence of the central pulmonary vasculature. Impression/Plan Impression/Plan Impression/Plan: 1. ETOH withdrawl on IV Ativan drip, down to 3 mg per hour. 2. Aspiration pneumonia, sputum positive for staph aureus. 3. ETOH hepatitis. 4. Uncontrolled hypertension. 5. Acute gastritis. 6. BPH - on Flomax. Recommendations: * The patient should remain NPO, on aspiration precautions. * Swallowing evaluation when more awake. * NS to be continued to equal 75 ml/hour in total. * Continue banana bag. * Complete high-dose thiamine protocol. * Follow-up sensitivity of sputum culture. * Give 1 dose of vancomycin today. * Will adjust antibiotics once sensitivity of the staph aureus is known. * TRC to continue. * Continue electrolyte replacement. * Continue metoprolol and clonidine patch. Clonidine 0.2 mg one given daily with holding parameters. * Add IV hydralazine 10 mg q 6 hours as needed. * Continue DVT prophylaxis. * Continue to monitor in the CRCU. Code Status: Full Code
--- NOTE | 2017-01-24 10:31 | NUR ---
@0800-PT DROWSY/AROUS. FOLLOWS SOME COMMANDS. ATIVAN GTT CONT, TITRATED TO 3MG FROM 4MG FOR SAS 3. 1:1 SITTER CONT WITH LIZ AND BILAT WRIST RESTRAINTS. CONT ON NC 2L. O2SAT 95%. RHONCHI AUSCULTATED-NASOPHARNGEAL SUCTIONED AND YANKOR SUCTIONED. PROD SRAVANI COUGH. NSR/ST. HR 90S. BP 200/90 THIS AM-MEDICATED WITH HYDRALAZINE 10MG IVP. CLONIDINE PATCH DOSE TO BE INCREASED TODAY TO 2 PATCHES, AWAITING ORDER. CONT NPO. ABD DISTENDED/SOFT. MAX IN PLACE WITH ADEQUATE OUTPUT. SKIN INTACT, TRACE GEN EDEMA. IV MAG INFUSING FOR MAG 1.5-TO RECIEVE TOTAL OF 2 GRAMS. CONT TO MONITOR CLOSELY. CALL [facility] WITHIN REACH.
--- NOTE | 2017-01-24 10:35 | NUR ---
@1000-ATIVAN GTT TITRATED DOWN TO 1MG FROM 2MG. PT COMFORTABLE AT THIS TIME. CONT TO MONITOR CLOSELY. IV THIAMINE INFUSING ORD. IV VANCO X 1 ORD, WILL ADMINISTER WHEN ARRIVES FROM PHARMACY.
--- NOTE | 2017-01-24 13:16 | NUR ---
@1200-ATIVAN GTT TITRATED TO OFF AT THIS TIME. PT RESTING COMF IN BED. IV ABX INFUSING. IV BANANA BAG INFUSING. HOUSESTAFF TO REASSESS NEED FOR CONT IVF AFTER COMPLETION OF BANANA BAG. CONT TO MONITOR CLOSELY. CALL [facility] WITHIN REACH.
[2017-01-24 16:00] VITALS: BP 170/78
[2017-01-25] VITALS (11 sets, daily range): BP systolic 138–192; BP diastolic 79–100
[2017-01-25 05:36] LABS: ABSOLUTE BASOPHIL COUNT 0.1 /CUMM (0.0-0.2); ABSOLUTE EOSINOPHIL COUNT 0.2 /CUMM (0.0-0.7); ABSOLUTE GRANULOCYTE CT 4.1 /CUMM (1.4-6.5); ABSOLUTE MONOCYTE COUNT 1.4 /CUMM (0.10-0.60); BASOPHIL % 1.5 % (0.0-2.0); GRANULOCYTE % 60.5 % (42.2-75.2); MEAN CORPUSCULAR HGB 32.5 PG (27.0-31.0); MEAN CORPUSCULAR HGB CONC 33.2 G/DL (33.0-37.0); MEAN CORPUSCULAR VOLUME 97.7 FL (80.0-94.0); MEAN PLATELET VOLUME 7.3 FL (7.4-10.4); PLATELET COUNT 421 /CUMM (130-400); RBC DISTRIBUTION WIDTH 13.4 % (11.5-14.5); RED BLOOD CELL CT 3.68 /CUMM (4.70-6.10); WHITE BLOOD CELL COUNT 6.7 /CUMM (4.8-10.8)
--- NOTE | 2017-01-25 08:28 | PN- Resident CRCU ---
Subjective HPI/CRCU Issues: Patient seen and examined this morning. He was lying in bed in no acute distress, arousable and alert but confused. Ativan drip was stopped yesterday, he is on schedule Ativan 2 mg every 6 hours long with when necessary Ativan per [facility] protocol. He passed a bedside swallow eval, diet was advanced. We'll see how he tolerates, blood pressure has been in systolic blood 160s and 170. MAXIMUM TEMPERATURE 99 overnight. 24 Hour Events: No acute overnight events. Objective Vital Signs & I&O Last 8 Hrs of Vitals and I&O: Laboratory Tests 01/25/17 0500: Anion Gap 9, Estimated GFR > 60, Glucose 88, Calcium 9.5, Phosphorus 4.1, Magnesium 1.5 L, Total Bilirubin 0.9, AST 101 H, ALT 108 H, Albumin 3.4 L, CBC w Diff MAN DIFF ORDERED, RBC 3.68 L, MCV 97.7 H, MCH 32.5 H, RDW 13.4, MPV 7.3 L, Gran % 60.5, Lymphocytes % 14.8 L, Monocytes % 20.2 H, Eosinophils % 3.0, Basophils % 1.5, Absolute Granulocytes 4.1, Segmented Neutrophils 74, Absolute Lymphocytes 1.0 L, Lymphocytes 12 L, Monocytes 11 H, Absolute Monocytes 1.4 H, Eosinophils 1, Absolute Eosinophils 0.2, Basophils 2, Absolute Basophils 0.1, Platelet Estimate INCREASED, Normochromic RBCs VERIFIED, Ovalocytes FEW, PUBS MCHC 33.2, Fld Total RBCs Counted 100 Vital Signs Date Time Temp Pulse Resp B/P Pulse O2 O2 Flow FiO2 Ox Delivery Rate 01/25 1236 88 22 138/93 01/25 1200 Nasal 2.0L Cannula 01/25 1200 98.8 84 20 160/80 01/25 1132 95 Nasal 2.0L Cannula 01/25 1110 86 151/84 01/25 1000 90 18 157/93 01/25 0925 105 140/103 01/25 0820 95 180/100 01/25 0800 Nasal 2.0L Cannula 01/25 0800 99.0 93 18 180/100 01/25 0800 99.0 93 18 180/100 93 Nasal 2.0L Cannula 01/25 0400 97 Nasal 2.0L Cannula 01/25 0000 96 Nasal 2.0L Cannula 01/25 0000 98.3 98 19 160/100 97 Nasal 2.0L Cannula 01/24 2000 97 Nasal 2.0L Cannula 01/24 1755 100 172/80 01/24 1641 94 Nasal 2.0L Cannula 01/24 1600 94 Nasal 2.0L Cannula 01/24 1600 98.8 78 22 170/78 95 Nasal 2.0L Cannula 01/24 1540 87 175/87 01/24 1518 Nasal 2.0L Cannula Intake & Output 01/25 1600 01/25 0800 01/25 0000 Intake Total 1030 Output Total 1300 Balance -270 Intake, IV 1030 Intake, Oral 0 Number 0 Bowel Movements Output, Urine 1300 Exam General Appearance: well developed/nourished, no apparent distress Head: atraumatic Respiratory: b/l scattered rocnchi Cardiovascular: regular rate/rhythm Gastrointestinal: normal bowel sounds, soft Extremities: normal inspection, no edema Current Medications: Current Medications Sig/Berta Start time Last Medication Dose Route Stop Time Status Admin Acetaminophen 650 MG Q6P PRN 01/17 1245 AC PO Albuterol Sulfate 3 ML Q4P PRN 01/17 2045 AC 01/22 INH 1620 Ampicillin Sodium/ 1,500 MG Q6 01/21 2359 AC 01/25 Sulbactam Sodium IV 1110 Sodium Chloride 100 ML Clonidine 2 PAT Q168 01/24 1000 AC 01/24 TOP 1003 Cyanocobalamin/ 1 BAG DAILY 01/23 1000 AC 01/25 Thiamine/Pyridoxine IV 01/25 1759 0858 Sodium Chloride 1,000 ML Gabapentin 300 MG TID 01/17 1245 AC 01/25 PO 0925 Heparin Sodium 5,000 UNIT Q8 01/19 0600 AC 01/25 (Porcine) SC 0513 Hydralazine HCl 10 MG Q6 PRN 01/24 0800 AC 01/25 IV 0820 Lorazepam 2 MG Q6 01/25 1200 AC 01/25 IV 1111 Lorazepam 2 MG Q4 01/24 1815 DC 01/25 IV 0513 Lorazepam 2 MG Q2P PRN 01/24 1545 AC IV Lorazepam 1 MG Q2P PRN 01/24 1545 AC 01/25 IV 1235 Lorazepam 100 MG Q24H 01/24 0000 DC 01/23 Dextrose/Water 1,000 ML IV 2340 Magnesium Oxide 400 MG DAILY 01/18 1558 AC 03/17 PO 0915 Magnesium Sulfate 1 GM ONCE ONE 01/25 0830 DC 01/25 Dextrose/Water 100 ML IV 01/25 1229 1041 Magnesium Sulfate 1 GM ONCE ONE 01/25 0830 DC 01/25 Dextrose/Water 100 ML IV 01/25 1229 0827 Metoprolol Tartrate 7.5 MG Q6 01/20 1800 AC 01/25 IV 1110 Nystatin 1 JUDITH TIDPRN PRN 01/17 2345 DC 01/19 TOP 0915 Omeprazole 40 MG DAILY AC 01/19 0700 AC PO Senna/Docusate Sodium 2 TAB AT BEDTIME PRN 01/17 1300 AC PO Sodium Chloride 1,000 ML Q13H 01/24 1330 AC 01/25 IV 0200 Tamsulosin HCl 0.4 MG DAILY 01/17 1245 AC 01/25 PO 0925 Thiamine HCl 500 MG Q8H 01/23 0900 AC 01/25 Sodium Chloride 100 ML IV 01/26 0202 0858 Trazodone HCl 50 MG DAILY 01/18 1000 AC 01/25 PO 0926 Vancomycin HCl 1,500 MG DAILY 01/25 1319 AC Dextrose/Water 250 ML IV Antibiotics Antibiotic: vancomycin, unasyn Impression/Plan Impression/Problem List Impression: Mr. 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 He stayed sober for a month or 2 after being discharge in October, ever he started drinking again in December, has been drinking 8-9 beers daily and 2-3 shots of vodka, last drink was on the morning of 01/17/2017 He was afebrile in the emergency department, tachycardic at 97, respiratory rate 20, blood pressure 189/99, he was 97% saturating on room air and his EKG showed normal sinus rhythm at 92, left axis deviation, no ST-T wave changes, QTC of 471. He was admitted to the general medicine floor initially for alcohol withdrawal with IV Ativan taper per CIWA protocol, banana bag, multivitamin thiamine folate and B12 along with IV PPI for acute gastritis. 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 We're currently managing for the following conditions: #Aspiration pneumonia; (01/22/17) patient oxygen saturation went down, spiked a fever 11.6, chest x-ray was done which showed evidence of aspiration pneumonia, patient on Unasyn, one dose of vancomycin given today as sputum cx grew MRSA, will continue vancomycin. We'll monitor patient closely for fever, white count, will continue with TRC as needed and oxygen supplementation as needed. #Alcohol withdrawal. * Off of Ativan drip, have started patient on Ativan 2 mg every 6 hours, will taper as per CIWA * Continue to maintain aspiration precautions. * IV banana bag . * continue to monitor CIWa scores .CIWA is in the past 24 hours have been 4.4.6.10 * Continue sitter as patient gets very agitated time to time * Continue Ryan #Alcoholic hepatitis * Noted elevated LFt suggestive of ETOH hepatitis * No hx of gallstone or RUQ pain * Please avoid high dose tylenol #Acute gastritis * Continue IV PPI * Zofran as needed for nausea * diet advanced, tolareted well. #HTN * Continue metoprolol 7.5 mg every 6 IV * Continue clonidine patch, #Depression/insomnia * continue trazodone #BPH * Continue Flomax #Dvt PX -mechanical Problem List: 1. Aspiration pneumonia 2. Alcohol intoxication Pain Ratin Tomorrow's Labs & Rationales: ICU bundle for lites monitoring CBC for WBC monitoring in setting of infection Plan DVT/Prophylaxis: mechanical, pharmacological Code Status: Full Code
--- NOTE | 2017-01-25 09:03 | PN- CRCU ---
Subjective HPI/Critical Care Issues: The patient is much more awake today but confused. He is not following commands and appears weak. He is intermittently agitated. The patient has been off the Ativan drip since noon yesterday. He has received several pushes of Ativan for control. He continues to be hypertensive although of note, his auto cuff pressures run 20 mmHg higher than manual blood pressures. Overall his blood pressure is better with the increase in clonidine and the current medication regimen. The patient is afebrile. Sputum is positive for MRSA. He is not able to offer complaints. Objective Current Medications: Current Medications Sig/Berta Start time Last Medication Dose Route Stop Time Status Admin Acetaminophen 650 MG Q6P PRN 01/17 1245 AC PO Albuterol Sulfate 3 ML Q4P PRN 01/17 2045 AC 01/22 INH 1620 Ampicillin Sodium/ 1,500 MG Q6 01/21 2359 AC 01/25 Sulbactam Sodium IV 0513 Sodium Chloride 100 ML Clonidine 2 PAT Q168 01/24 1000 AC 01/24 TOP 1003 Cyanocobalamin/ 1 BAG DAILY 01/23 1000 AC 01/24 Thiamine/Pyridoxine IV 01/25 1759 1003 Sodium Chloride 1,000 ML Gabapentin 300 MG TID 01/17 1245 AC 01/19 PO 1552 Heparin Sodium 5,000 UNIT Q8 01/19 0600 AC 01/25 (Porcine) SC 0513 Hydralazine HCl 10 MG Q6 PRN 01/24 0800 AC 01/25 IV 0820 Lorazepam 2 MG Q6 01/25 1200 AC IV Lorazepam 2 MG Q4 01/24 1815 DC 01/25 IV 0513 Lorazepam 2 MG Q2P PRN 01/24 1545 AC IV Lorazepam 1 MG Q2P PRN 01/24 1545 AC 01/24 IV 1540 Lorazepam 100 MG Q24H 01/24 0000 AC 01/23 Dextrose/Water 1,000 ML IV 2340 Lorazepam 2 MG Q2P PRN 01/17 1145 DC 01/19 IV 1100 Lorazepam 1 MG Q2P PRN 01/17 1145 DC 01/18 IV 1751 Magnesium Oxide 400 MG DAILY 01/18 1558 AC 01/19 PO 0915 Magnesium Sulfate 1 GM ONCE ONE 01/25 0830 AC Dextrose/Water 100 ML IV 01/25 1229 Magnesium Sulfate 1 GM ONCE ONE 01/25 0830 AC 01/25 Dextrose/Water 100 ML IV 01/25 1229 0827 Magnesium Sulfate 1 GM ONCE ONE 01/24 0815 DC Dextrose/Water 100 ML IV 01/24 1214 Magnesium Sulfate 1 GM ONCE ONE 01/24 0815 DC 01/24 Dextrose/Water 100 ML IV 01/24 1214 1002 Metoprolol Tartrate 7.5 MG Q6 01/20 1800 AC 01/25 IV 0513 Nystatin 1 JUDITH TIDPRN PRN 01/17 2345 DC 01/19 TOP 0915 Omeprazole 40 MG DAILY AC 01/19 0700 AC PO Senna/Docusate Sodium 2 TAB AT BEDTIME PRN 01/17 1300 AC PO Sodium Chloride 1,000 ML ONCE ONE 01/24 1330 CAN IV 01/25 0249 Sodium Chloride 1,000 ML Q13H 01/24 1330 AC 01/25 IV 0200 Tamsulosin HCl 0.4 MG DAILY 01/17 1245 AC 01/19 PO 0915 Thiamine HCl 500 MG Q8H 01/23 0900 AC 01/25 Sodium Chloride 100 ML IV 01/26 0202 0100 Trazodone HCl 50 MG DAILY 01/18 1000 AC 01/19 PO 0914 Vancomycin HCl 1,500 MG ONCE ONE 01/24 0945 DC 01/24 Dextrose/Water 250 ML IV 01/24 1124 1124 Vancomycin HCl 1,000 MG ONCE ONE 01/24 0930 CAN Dextrose/Water 250 ML IV 01/24 1029 Vital Signs & I&O Last 24 Hrs of Vitals and I&O: Vital Signs Date Time Temp Pulse Resp B/P Pulse O2 O2 Flow FiO2 Ox Delivery Rate 01/25 0820 95 180/100 01/25 0400 97 Nasal 2.0L Cannula 01/25 0000 96 Nasal 2.0L Cannula 01/25 0000 98.3 98 19 160/100 97 Nasal 2.0L Cannula 01/24 2000 97 Nasal 2.0L Cannula 01/24 1755 100 172/80 01/24 1641 94 Nasal 2.0L Cannula 01/24 1600 94 Nasal 2.0L Cannula 01/24 1600 98.8 78 22 170/78 95 Nasal 2.0L Cannula 01/24 1540 87 175/87 01/24 1518 Nasal 2.0L Cannula 01/24 1206 164/86 01/24 1200 94 Nasal 2.0L Cannula 01/24 1100 95 Nasal 2.0L Cannula 01/24 1003 89 171/82 Intake & Output 01/25 1600 01/25 0800 01/25 0000 Intake Total 1030 Output Total 1300 Balance -270 Intake, IV 1030 Intake, Oral 0 Number 0 Bowel Movements Output, Urine 1300 Physical Exam General Appearance arousable, but somnolent, confused HEENT atraumatic, PERRLA Neck Supple, No JVD Cardiovascular Regular Rate, Normal S1, Normal S2, No Murmurs Lungs Few scattered ronchi heard bilaterally Abdomen Normal Bowel Sounds, Soft, No Tenderness Extremities No Edema Results Last 24 Hrs of Lab Results: Laboratory Tests 01/25/17 0500: Anion Gap 9, Estimated GFR > 60, Glucose 88, Calcium 9.5, Phosphorus 4.1, Magnesium 1.5 L, Total Bilirubin 0.9, AST 101 H, ALT 108 H, Albumin 3.4 L, CBC w Diff MAN DIFF ORDERED, RBC 3.68 L, MCV 97.7 H, MCH 32.5 H, RDW 13.4, MPV 7.3 L, Gran % 60.5, Lymphocytes % 14.8 L, Monocytes % 20.2 H, Eosinophils % 3.0, Basophils % 1.5, Absolute Granulocytes 4.1, Segmented Neutrophils 74, Absolute Lymphocytes 1.0 L, Lymphocytes 12 L, Monocytes 11 H, Absolute Monocytes 1.4 H, Eosinophils 1, Absolute Eosinophils 0.2, Basophils 2, Absolute Basophils 0.1, Platelet Estimate INCREASED, Normochromic RBCs VERIFIED, Ovalocytes FEW, PUBS MCHC 33.2, Fld Total RBCs Counted 100 Impression/Plan Impression/Plan Impression/Plan: 1. ETOH withdrawl on IV Ativan drip, down to 3 mg per hour. 2. Aspiration pneumonia, sputum positive for MRSA. 3. ETOH hepatitis. 4. Uncontrolled hypertension. 5. Acute gastritis. 6. BPH - on Flomax. Recommendations: * Attempt swallowing evaluation. * NS to be continued to equal 75 ml/hour in total until patient is able to maintain a diet. * Continue banana bag. * Complete high-dose thiamine protocol. * Continue IV vancomycin for treatment of aspiration pneumonia. * TRC to continue. * Continue electrolyte replacement. * Continue metoprolol and clonidine patch. Clonidine 0.2 mg one given daily with holding parameters. * IV hydralazine 10 mg q 6 hours as needed. * Continue DVT prophylaxis. * Continue to monitor in the CRCU. Code Status: Full Code
--- NOTE | 2017-01-25 15:43 | PN- Psychiatry ---
Assessment/Plan Impression: Patient is a 56-year old male with a history of alcohol use disorder, history of alcohol withdrawal seizures and delirium tremens; and suspected underlying mood disorder. Attempted to interview patient this afternoon. He was observed sleeping soundly in bed. Did not respond to voice. Discussed patient's progress to date with house and nursing staff. Per their reports, patient was intermittently up and confused. Did not sleep much overnight. During that time it was reported that he had asked to go to [employer] and have some beers. On encounter, patient was unable to engage in conversation. He was observed in tigre vest and 2-point soft wrist restraints for intermittent confusion and agitation. CIWA x last 12 hours: [id number]. Suggestion: 1. Continue monitoring patient per CIWA protocol. 2. Continue IV Ativan as ordered for alcohol withdrawal. 3. Continue IV vitamin supplementation. 4. Continue sitter for safety until patient is oriented and redirectable; attempt to minimize use of tigre vest and soft-points restraints as tolerated. Subjective Subjective: Gait: unable to assess Sleep: variable per nursing and staff house reports. Presently asleep. Appetite: unable to assess Objective Last 24 Hrs of Vital Signs/I&O Vital Signs Date Time Temp Pulse Resp B/P Pulse O2 O2 Flow FiO2 Ox Delivery Rate 01/25 1526 Nasal 2.0L Cannula 01/25 1400 98.7 98 20 145/79 01/25 1330 98.6 78 20 149/80 01/25 1236 88 22 138/93 01/25 1200 Nasal 2.0L Cannula 01/25 1200 98.8 84 20 160/80 01/25 1132 95 Nasal 2.0L Cannula 01/25 1110 86 151/84 01/25 1000 90 18 157/93 01/25 0925 105 140/103 01/25 0820 95 180/100 01/25 0800 Nasal 2.0L Cannula 01/25 0800 99.0 93 18 180/100 01/25 0800 99.0 93 18 180/100 93 Nasal 2.0L Cannula 01/25 0400 97 Nasal 2.0L Cannula 01/25 0000 96 Nasal 2.0L Cannula 01/25 0000 98.3 98 19 160/100 97 Nasal 2.0L Cannula 03/22 2000 97 Nasal 2.0L Cannula 01/24 1755 100 172/80 01/24 1641 94 Nasal 2.0L Cannula Intake & Output 01/25 1600 01/25 0800 01/25 0000 Intake Total 1704 1030 Output Total 575 1300 Balance 1129 -270 Intake, IV 1224 1030 Intake, Oral 480 0 Number 0 0 Bowel Movements Output, Urine 575 1300 Physical Exam: Mental Status Exam Presentation/Appearance: patient was alseep, dressed in hospital garb. Orientation: unable to assess due to patient sleeping. Sensorium: unable to assess. Eye contact: none. eyes shut, asleep. Affect: calm Mood: calm Depression: unable to assess Anxiety: unable to assess Thought Content: unable to assess Thought Process: unable to assess Speech: unable to assess Judgment: unable to assess Insight: unable to assess Cognition: unable to assess. Current Medications: Current Medications Sig/Berta Start time Last Medication Dose Route Stop Time Status Admin Acetaminophen 650 MG Q6P PRN 01/17 1245 AC PO Albuterol Sulfate 3 ML Q4P PRN 01/17 2045 AC 01/22 INH 1620 Ampicillin Sodium/ 1,500 MG Q6 01/21 2359 AC 01/25 Sulbactam Sodium IV 1110 Sodium Chloride 100 ML Clonidine 2 PAT Q168 01/24 1000 AC 01/24 TOP 1003 Cyanocobalamin/ 1 BAG DAILY 01/23 1000 AC 01/25 Thiamine/Pyridoxine IV 01/25 1759 0858 Sodium Chloride 1,000 ML Gabapentin 300 MG TID 01/17 1245 AC 01/25 PO 0925 Heparin Sodium 5,000 UNIT Q8 01/19 0600 AC 01/25 (Porcine) SC 1413 Hydralazine HCl 10 MG Q6 PRN 01/24 0800 AC 01/25 IV 0820 Lorazepam 2 MG Q6 01/25 1200 AC 01/25 IV 1111 Lorazepam 2 MG Q4 01/24 1815 DC 01/25 IV 0513 Lorazepam 2 MG Q2P PRN 01/24 1545 IV Lorazepam 1 MG Q2P PRN 01/24 1545 AC 01/25 IV 1235 Lorazepam 100 MG Q24H 01/24 0000 DC 01/23 Dextrose/Water 1,000 ML IV 2340 Magnesium Oxide 400 MG DAILY 01/18 1558 AC 01/19 PO 0915 Magnesium Sulfate 1 GM ONCE ONE 01/25 0830 DC 01/25 Dextrose/Water 100 ML IV 01/25 1229 1041 Magnesium Sulfate 1 GM ONCE ONE 01/25 0830 DC 01/25 Dextrose/Water 100 ML IV 01/25 1229 0827 Metoprolol Tartrate 7.5 MG Q6 01/20 1800 AC 01/25 IV 1110 Nystatin 1 JUDITH TIDPRN PRN 01/17 2345 DC 01/19 TOP 0915 Omeprazole 40 MG DAILY AC 01/19 0700 AC PO Senna/Docusate Sodium 2 TAB AT BEDTIME PRN 01/17 1300 AC PO Sodium Chloride 1,000 ML Q13H 01/24 1330 AC 01/25 IV 0200 Tamsulosin HCl 0.4 MG DAILY 01/17 1245 AC 01/25 PO 0925 Thiamine HCl 500 MG Q8H 01/23 0900 AC 01/25 Sodium Chloride 100 ML IV 01/26 0202 0858 Trazodone HCl 50 MG DAILY 01/18 1000 AC 01/25 PO 0926 Vancomycin HCl 1,500 MG DAILY 01/25 1319 AC Dextrose/Water 250 ML IV Results Last 24 Hrs of Labs/Mics: Laboratory Tests 01/25 0500 Chemistry Sodium (137 - 145 mmol/L) 135 L Potassium (3.5 - 5.1 mmol/L) 3.8 Chloride (98 - 107 mmol/L) 96 L Carbon Dioxide (22 - 30 mmol/L) 30 Anion Gap (5 - 16) 9 BUN (9 - 20 mg/dL) 11 Creatinine (0.7 - 1.2 mg/dL) 0.6 L Estimated GFR (>60 ml/min) > 60 Glucose (65 - 99 mg/dL) 88 Calcium (8.4 - 10.2 mg/dL) 9.5 Phosphorus (2.5 - 4.5 mg/dL) 4.1 Magnesium (1.6 - 2.3 mg/dL) 1.5 L Total Bilirubin (0.2 - 1.3 mg/dL) 0.9 AST (17 - 59 U/L) 101 H ALT (21 - 72 U/L) 108 H Albumin (3.5 - 5.0 g/dL) 3.4 L Hematology CBC w Diff MAN DIFF ORDERED WBC (4.8 - 10.8 /CUMM) 6.7 RBC (4.70 - 6.10 /CUMM) 3.68 L Hgb (14.0 - 18.0 G/DL) 11.9 L Hct (42 - 52 %) 36.0 L MCV (80.0 - 94.0 FL) 97.7 H MCH (27.0 - 31.0 PG) 32.5 H RDW (11.5 - 14.5 %) 13.4 Plt Count (130 - 400 /CUMM) 421 H MPV (7.4 - 10.4 FL) 7.3 L Gran % (42.2 - 75.2 %) 60.5 Lymphocytes % (20.5 - 51.1 %) 14.8 L Monocytes % (1.7 - 9.3 %) 20.2 H Eosinophils % (0 - 5 %) 3.0 Basophils % (0.0 - 2.0 %) 1.5 Absolute Granulocytes (1.4 - 6.5 /CUMM) 4.1 Segmented Neutrophils (42.2 - 75.2 %) 74 Absolute Lymphocytes (1.2 - 3.4 /CUMM) 1.0 L Lymphocytes (20.5 - 51.1 %) 12 L Monocytes (1.7 - 9.3 %) 11 H Absolute Monocytes (0.10 - 0.60 /CUMM) 1.4 H Eosinophils (0 - 5.0 %) 1 Absolute Eosinophils (0.0 - 0.7 /CUMM) 0.2 Basophils (0.0 - 2.0 %) 2 Absolute Basophils (0.0 - 0.2 /CUMM) 0.1 Platelet Estimate (ADEQUATE) INCREASED Normochromic RBCs VERIFIED Ovalocytes FEW PUBS MCHC (33.0 - 37.0 G/DL) 33.2 Other Body Source Fld Total RBCs Counted (%) 100 Thank you for including psychiatry in this case. We will continue to follow. Geraldine Carlos, PHYSICAL SCIENCE TECHNICIAN Pager: [phone]
[2017-01-26] VITALS (13 sets, daily range): BP systolic 134–178; BP diastolic 70–95
--- NOTE | 2017-01-26 00:22 | NUR ---
[id number] DROWSY, AROUSABLE TO VERBAL STIMULI. DISORIENTED TO TIME AND PLACE, CONFUSED. 1:1 SITTER AT BEDSIDE. LIZ VENT ON. ON CIWA SCALE-5. BREATH SOUNDS CLEAR WITH RHONCI AT BASES BILATERALLY. NONPRODUCTIVE COUGH NOTED. NO SOB OR RESP DISTRESS NOTED. MONITOR NSR, NO ECTOPY NOTED. BP-192/100-IV HYDRALAZINE GIVEN-SEE EMAR-SBP DOWN TO 150-160'S. SEE FLOW SHEET FOR VS, 02 SATS, I/O'S. ABD SOFT, NONTENDER, NONDISTENDED, POSITIVE BOWEL SOUNDS. MAX IN PLACE-GOOD URINE OUTPUT OF CLEAR YELLOW URINE. SKIN INTACT.
[2017-01-26 05:00] LABS: ABSOLUTE BASOPHIL COUNT 0 /CUMM (0.0-0.2); ABSOLUTE EOSINOPHIL COUNT 0.2 /CUMM (0.0-0.7); ABSOLUTE GRANULOCYTE CT 4.7 /CUMM (1.4-6.5); ABSOLUTE LYMPH COUNT 0.9 /CUMM (1.2-3.4); ABSOLUTE MONOCYTE COUNT 1.1 /CUMM (0.10-0.60); BASOPHIL % 0.1 % (0.0-2.0); EOSINOPHIL % 3.3 % (0-5); GRANULOCYTE % 67.2 % (42.2-75.2); HEMATOCRIT 34.8 % (42-52); MEAN CORPUSCULAR HGB 32.9 PG (27.0-31.0); MEAN CORPUSCULAR HGB CONC 33.7 G/DL (33.0-37.0); MEAN CORPUSCULAR VOLUME 97.8 FL (80.0-94.0); MEAN PLATELET VOLUME 7.4 FL (7.4-10.4); PLATELET COUNT 467 /CUMM (130-400); RBC DISTRIBUTION WIDTH 13.3 % (11.5-14.5); RED BLOOD CELL CT 3.55 /CUMM (4.70-6.10); WHITE BLOOD CELL COUNT 6.9 /CUMM (4.8-10.8)
--- NOTE | 2017-01-26 07:40 | PN- Resident CRCU ---
Subjective HPI/CRCU Issues: Patient seen and examined this am. Lying comfortably in bed in no acute distress. Afebrile, Blood pressure systolic btw 160-170, remains on lopressor with prn hydralazine. Remains on Unasyn and vancomycin for aspiration PNA. CIWA in last 24 hours have been 12, 11, 12, 15. Ativan tapered to 2mg Q8. will taper as tolerated. Diet has been advanced to regular, tolerating well. 24 Hour Events: No acute overnight event Objective Vital Signs & I&O Last 8 Hrs of Vitals and I&O: Laboratory Tests 01/26/17 0530: Anion Gap 8, Estimated GFR > 60, Glucose 95, Calcium 9.4, Phosphorus 3.5, Magnesium 1.5 L, Total Bilirubin 0.9, AST 112 H, ALT 109 H, Albumin 3.4 L 01/26/17 0440: CBC w Diff NO MAN DIFF REQ, RBC 3.55 L, MCV 97.8 H, MCH 32.9 H, RDW 13.3, MPV 7.4, Gran % 67.2, Lymphocytes % 13.3 L, Monocytes % 16.1 H, Eosinophils % 3.3, Basophils % 0.1, Absolute Granulocytes 4.7, Absolute Lymphocytes 0.9 L, Absolute Monocytes 1.1 H, Absolute Eosinophils 0.2, Absolute Basophils 0, PUBS MCHC 33.7 Vital Signs Date Time Temp Pulse Resp B/P Pulse O2 O2 Flow FiO2 Ox Delivery Rate 01/26 0900 91 Room Air Room Air 01/26 0600 98.5 74 18 178/81 01/26 0511 87 162/92 01/26 0400 98.5 84 20 163/88 01/26 0400 96 Nasal 2.0L Cannula 01/26 0224 80 168/80 01/26 0200 98.7 90 24 169/88 01/26 0017 88 171/95 01/26 0000 98.7 80 28 171/95 01/26 0000 98.7 80 28 176/90 93 Nasal 2.0L Cannula 01/26 0000 93 Nasal 2.0L Cannula 01/25 2200 81 20 164/91 01/25 2115 96 Nasal 2.0L Cannula 01/25 2031 98.3 75 14 192/100 01/26 2000 98.3 75 19 192/100 03/23 2000 95 Nasal 2.0L Cannula 01/25 1816 82 171/83 01/25 1800 74 18 171/83 01/25 1600 Nasal 2.0L Cannula 01/25 1600 98.4 95 20 150/80 01/25 1600 98.4 95 20 150/80 96 Nasal 2.0L Cannula 01/25 1526 Nasal 2.0L Cannula 01/25 1400 98.7 98 20 145/79 01/25 1330 98.6 78 20 149/80 01/25 1236 88 22 138/93 01/25 1200 Nasal 2.0L Cannula 01/25 1200 98.8 84 20 160/80 01/25 1132 95 Nasal 2.0L Cannula 01/25 1110 86 151/84 01/25 1000 90 18 157/93 Intake & Output 01/26 1600 01/26 0800 01/26 0000 Intake Total 837 1269 Output Total 480 1625 Balance 357 -356 Intake, IV 717 1149 Intake, Oral 120 120 Number 0 0 Bowel Movements Output, Urine 480 1625 Exam General Appearance: well developed/nourished, no apparent distress, alert, awake Head: atraumatic Respiratory: normal breath sounds Cardiovascular: regular rate/rhythm Gastrointestinal: normal bowel sounds, soft, non-tender Extremities: normal inspection, no edema Current Medications: Current Medications Sig/Berta Start time Last Medication Dose Route Stop Time Status Admin Acetaminophen 650 MG Q6P PRN 01/17 1245 AC PO Albuterol Sulfate 3 ML Q4P PRN 01/17 2045 AC 01/22 INH 1620 Ampicillin Sodium/ 1,500 MG Q6 01/21 2359 AC 01/26 Sulbactam Sodium IV 0512 Sodium Chloride 100 ML Clonidine 2 PAT Q168 01/24 1000 AC 01/24 TOP 1003 Cyanocobalamin/ 1 BAG DAILY 01/[address] 01/25 Thiamine/Pyridoxine IV 01/25 1759 0858 Sodium Chloride 1,000 ML Gabapentin 300 MG TID 01/17 1245 AC 01/25 PO 2122 Heparin Sodium 5,000 UNIT Q8 01/19 0600 AC 01/26 (Porcine) SC 0512 Hydralazine HCl 10 MG Q6 PRN 01/24 0800 AC 01/26 IV 0224 Lorazepam 2 MG Q8 01/26 1400 AC PO Lorazepam 2 MG Q6 01/25 1200 DC 01/26 IV 0511 Lorazepam 2 MG Q2P PRN 01/24 1545 AC 01/26 IV 0224 Lorazepam 1 MG Q2P PRN 01/24 1545 AC 01/26 IV 0337 Magnesium Oxide 400 MG DAILY 01/18 1558 AC 01/19 PO 0915 Magnesium Sulfate 1 GM ONCE ONE 01/26 0800 AC 01/26 Dextrose/Water 100 ML IV 01/26 1159 0813 Magnesium Sulfate 1 GM ONCE ONE 01/26 0800 AC Dextrose/Water 100 ML IV 01/26 1159 Magnesium Sulfate 1 GM ONCE ONE 01/25 0830 DC 01/25 Dextrose/Water 100 ML IV 01/25 1229 1041 Magnesium Sulfate 1 GM ONCE ONE 01/25 0830 DC 01/25 Dextrose/Water 100 ML IV 01/25 1229 0827 Metoprolol Tartrate 7.5 MG Q6 01/20 1800 AC 01/26 IV 0511 Omeprazole 40 MG DAILY AC 01/19 0700 AC 01/26 PO 0512 Potassium Chloride 20 MEQ BID 01/26 1000 AC 01/26 PO 01/26 2201 0841 Senna/Docusate Sodium 2 TAB AT BEDTIME PRN 01/17 1300 AC PO Sodium Chloride 1,000 ML Q13H 01/24 1330 AC 01/26 IV 0337 Tamsulosin HCl 0.4 MG DAILY 01/17 1245 AC 01/25 PO 0925 Thiamine HCl 500 MG Q8H 01/23 0900 DC 01/26 Sodium Chloride 100 ML IV 01/26 0202 0016 Trazodone HCl 50 MG DAILY 01/18 1000 AC 01/25 PO 0926 Vancomycin HCl 1,500 MG Q24H 01/26 1600 AC Dextrose/Water 250 ML IV Vancomycin HCl 1,500 MG DAILY 01/25 1319 DC 01/25 Dextrose/Water 250 ML IV 1605 Antibiotics Antibiotic: unasyn/vancomycin Results Results: MRSA Cultures: Culture: sputum Impression/Plan Impression/Problem List Impression: Mr. 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 He stayed sober for a month or 2 after being discharge in October, ever he started drinking again in December, has been drinking 8-9 beers daily and 2-3 shots of vodka, last drink was on the morning of 01/17/2017 He was afebrile in the emergency department, tachycardic at 97, respiratory rate 20, blood pressure 189/99, he was 97% saturating on room air and his EKG showed normal sinus rhythm at 92, left axis deviation, no ST-T wave changes, QTC of 471. He was admitted to the general medicine floor initially for alcohol withdrawal with IV Ativan taper per CIWA protocol, banana bag, multivitamin thiamine folate and B12 along with IV PPI for acute gastritis. 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 We're currently managing for the following conditions: #Aspiration pneumonia; (01/22/17) patient oxygen saturation went down, spiked a fever 11.6, chest x-ray was done which showed evidence of aspiration pneumonia, patient on Unasyn, one dose of vancomycin given today as sputum cx grew MRSA, will continue vancomycin. He has been afebrile, white count improving. We'll monitor patient closely for fever, white count, will continue with TRC as needed and oxygen supplementation as needed. #Alcohol withdrawal. * Off of Ativan drip, have started patient on Ativan 2 mg every 8 hours, will taper as per CIWA * Continue to maintain aspiration precautions. * IV banana bag . * continue to monitor CIWa scores. CIWA in last 24 hours have been 12, 11, 12, 15. Ativan tapered to 2mg Q8. will taper as tolerated. * Continue sitter as patient gets very agitated time to time #Alcoholic hepatitis * Noted elevated LFt suggestive of ETOH hepatitis * No hx of gallstone or RUQ pain * Please avoid high dose tylenol #Acute gastritis * Continue IV PPI * Zofran as needed for nausea * diet advanced, tolareted well. #HTN * Continue metoprolol 7.5 mg every 6 IV>>will switch to PO once able to tolerate po intake * Continue clonidine patch. * IV hydralazine 10mg every 6 hrs PRN #Depression/insomnia * continue trazodone #BPH * Continue Flomax #Dvt PX -mechanical Problem List: 1. Aspiration pneumonia 2. Alcohol intoxication Pain Ratin Tomorrow's Labs & Rationales: ICU bundle for lytes monitoring CBC for wbc monitroing Plan DVT/Prophylaxis: mechanical, pharmacological Code Status: Full Code
--- NOTE | 2017-01-26 10:33 | PN- Pulmonary ---
Subjective HPI/Critical Care Issues: The patient is much more awake today. He remains confused although he is trying to converse. He remains off the Ativan drip. He remains on vancomycin for MRSA pneumonia. The patient's blood pressure is better controlled. He is not able to offer complaints. Objective Current Medications: Current Medications Sig/Berta Start time Last Medication Dose Route Stop Time Status Admin Acetaminophen 650 MG Q6P PRN 01/17 1245 AC PO Albuterol Sulfate 3 ML Q4P PRN 01/17 2045 AC 01/22 INH 1620 Ampicillin Sodium/ 1,500 MG Q6 01/21 2359 AC 01/26 Sulbactam Sodium IV 0512 Sodium Chloride 100 ML Clonidine 1 PAT Q168 01/26 1039 UNVr TOP Clonidine 2 PAT Q168 01/24 1000 DC 01/24 TOP 1003 Cyanocobalamin/ 1 BAG DAILY 01/23 1000 DC 01/25 Thiamine/Pyridoxine IV 01/25 1759 0858 Sodium Chloride 1,000 ML Gabapentin 300 MG TID 01/17 1245 AC 01/26 PO 0956 Heparin Sodium 5,000 UNIT Q8 01/19 0600 AC 01/26 (Porcine) SC 0512 Hydralazine HCl 10 MG TID 01/26 1033 AC PO Hydralazine HCl 10 MG Q6 PRN 01/24 0800 DC 01/26 IV 0224 Lorazepam 2 MG Q8 01/26 1400 AC PO Lorazepam 2 MG Q6 01/25 1200 DC 01/26 IV 0511 Lorazepam 2 MG Q2P PRN 01/24 1545 AC 01/26 IV 0224 Lorazepam 1 MG Q2P PRN 01/24 1545 AC 01/26 IV 0337 Magnesium Oxide 400 MG DAILY 01/18 1558 AC 01/19 PO 0915 Magnesium Sulfate 1 GM ONCE ONE 01/26 0800 AC 01/26 Dextrose/Water 100 ML IV 01/26 1159 0813 Magnesium Sulfate 1 GM ONCE ONE 01/26 0800 AC 01/26 Dextrose/Water 100 ML IV 01/26 1159 0956 Magnesium Sulfate 1 GM ONCE ONE 01/25 0830 DC 01/25 Dextrose/Water 100 ML IV 01/25 1229 1041 Magnesium Sulfate 1 GM ONCE ONE 01/25 0830 DC 01/25 Dextrose/Water 100 ML IV 01/25 1229 0827 Metoprolol Succinate 25 MG DAILY 01/26 1032 AC PO Metoprolol Tartrate 7.5 MG Q6 01/20 1800 DC 01/26 IV 0511 Omeprazole 40 MG DAILY AC 01/19 0700 AC 01/26 PO 0512 Potassium Chloride 20 MEQ BID 01/26 1000 AC 01/26 PO 01/26 2201 0841 Senna/Docusate Sodium 2 TAB AT BEDTIME PRN 01/17 1300 AC PO Sodium Chloride 1,000 ML Q13H 01/24 1330 AC 01/26 IV 0337 Tamsulosin HCl 0.4 MG DAILY 01/17 1245 AC 01/26 PO 0956 Thiamine HCl 500 MG Q8H 01/23 0900 DC 01/26 Sodium Chloride 100 ML IV 01/26 0202 0016 Trazodone HCl 50 MG DAILY 01/18 1000 AC 01/26 PO 0956 Vancomycin HCl 1,500 MG Q24H 01/26 1600 AC Dextrose/Water 250 ML IV Vancomycin HCl 1,500 MG DAILY 01/25 1319 DC 01/25 Dextrose/Water 250 ML IV 1605 Vital Signs & I&O Last 24 Hrs of Vitals and I&O: Vital Signs Date Time Temp Pulse Resp B/P Pulse O2 O2 Flow FiO2 Ox Delivery Rate 01/26 0956 103 156/94 01/26 0900 91 Room Air Room Air 01/26 0600 98.5 74 18 178/81 01/26 0511 87 162/92 01/26 0400 98.5 84 20 163/88 01/26 0400 96 Nasal 2.0L Cannula 01/26 0224 80 168/80 01/26 0200 98.7 90 24 169/88 01/26 0017 88 171/95 01/26 0000 98.7 80 28 171/95 01/26 0000 98.7 80 28 176/90 93 Nasal 2.0L Cannula 01/26 0000 93 Nasal 2.0L Cannula 01/25 2200 81 20 164/91 01/255 96 Nasal 2.0L Cannula 01/25 2031 98.3 75 14 192/100 01/26 2000 98.3 75 19 192/100 01/26 2000 95 Nasal 2.0L Cannula 01/25 1816 82 171/83 01/25 1800 74 18 171/83 01/25 1600 Nasal 2.0L Cannula 01/25 1600 98.4 95 20 150/80 01/25 1600 98.4 95 20 150/80 96 Nasal 2.0L Cannula 01/25 1526 Nasal 2.0L Cannula 01/25 1400 98.7 98 20 145/79 01/25 1330 98.6 78 20 149/80 01/25 1236 88 22 138/93 01/25 1200 Nasal 2.0L Cannula 01/25 1200 98.8 84 20 160/80 01/25 1132 95 Nasal 2.0L Cannula 01/25 1110 86 151/84 Intake & Output 01/26 1600 01/26 0800 01/26 0000 Intake Total 837 1269 Output Total 480 1625 Balance 357 -356 Intake, IV 717 1149 Intake, Oral 120 120 Number 0 0 Bowel Movements Output, Urine 480 1625 Physical Exam General Appearance awake, confused, sitting upright in a chair and trying to feed himself HEENT atraumatic, PERRLA Neck Supple, No JVD Cardiovascular Regular Rate, Normal S1, Normal S2, No Murmurs Lungs Few scattered ronchi heard bilaterally Abdomen Normal Bowel Sounds, Soft, No Tenderness Extremities No Edema Results Last 24 Hrs of Lab Results: Laboratory Tests 01/26/17 0530: Anion Gap 8, Estimated GFR > 60, Glucose 95, Calcium 9.4, Phosphorus 3.5, Magnesium 1.5 L, Total Bilirubin 0.9, AST 112 H, ALT 109 H, Albumin 3.4 L 01/26/17 0440: CBC w Diff NO MAN DIFF REQ, RBC 3.55 L, MCV 97.8 H, MCH 32.9 H, RDW 13.3, MPV 7.4, Gran % 67.2, Lymphocytes % 13.3 L, Monocytes % 16.1 H, Eosinophils % 3.3, Basophils % 0.1, Absolute Granulocytes 4.7, Absolute Lymphocytes 0.9 L, Absolute Monocytes 1.1 H, Absolute Eosinophils 0.2, Absolute Basophils 0, PUBS MCHC 33.7 Impression/Plan Impression/Plan Impression/Plan: 1. ETOH withdrawl on IV Ativan drip, down to 3 mg per hour. 2. Aspiration pneumonia, sputum positive for MRSA. 3. ETOH hepatitis. 4. Uncontrolled hypertension. 5. Acute gastritis - improved. 6. BPH - on Flomax. Recommendations: * Continue to follow CIWA protocol. * Convert to PO metoprolol 25 mg twice a day. * Continue clonidine patch. * Give hydralazine as needed for blood pressure control. * High-dose thiamine protocol completed. * Continue IV vancomycin for treatment of aspiration pneumonia - day 3. * TRC to continue. * Continue electrolyte replacement. * Continue DVT prophylaxis. * Continue to monitor in the CRCU, may downgrade tomorrow if the patient's blood pressure is better controlled.
--- NOTE | 2017-01-26 18:10 | Transfer of Care Summary ---
Hospital Course Course Hospital Course: Mr. 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 He stayed sober for a month or 2 after being discharge in October, ever he started drinking again in December, has been drinking 8-9 beers daily and 2-3 shots of vodka, last drink was on the morning of 01/17/2017 He was afebrile in the emergency department, tachycardic at 97, respiratory rate 20, blood pressure 189/99, he was 97% saturating on room air and his EKG showed normal sinus rhythm at 92, left axis deviation, no ST-T wave changes, QTC of 471. He was admitted to the general medicine floor initially for alcohol withdrawal with IV Ativan taper per CIWA protocol, banana bag, multivitamin thiamine folate and B12 along with IV PPI for acute gastritis. 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 We managed him in ICU for the following conditions: #Aspiration pneumonia; (01/22/17) patient oxygen saturation went down, spiked a fever 11.6, chest x-ray was done which showed evidence of aspiration pneumonia, sputum cx grew MRSA, patient complated a 5 day course of Unasyn and vancomycin.. He has been afebrile , white count improving. We'll monitor patient closely for fever, white count, will continue with TRC as needed and oxygen supplementation as needed. #Alcohol withdrawal. * Patient initially started on Ativan drip, weaned off (01/24) , followed by a 2 on taper, have Ativan 2 mg every 12 hours today, please taper as per CIWA. * Continue to maintain aspiration precautions. * IV banana bag and high dose vitamin therapy. * Continue sitter as patient gets very agitated time to time #Alcoholic hepatitis * Noted elevated LFt suggestive of ETOH hepatitis upon admission. * No hx of gallstone or RUQ pain * Please avoid high dose tylenol #Acute gastritis * Continue IV PPI * Zofran as needed for nausea * diet advanced, tolareted well. #HTN * Continue metoprolol 25 mg twice a day. * Continue clonidine patch. * hydralazine 25mg every 6 hrs PRN #Depression/insomnia * continue trazodone #BPH * Continue Flomax #Dvt PX -mechanical # Diet: Patient has followed out done today, recommendation was to keep him on thin chopped. Patient is full code Assessment/Plan: .
--- NOTE | 2017-01-26 18:52 | NUR ---
Continue to follow patients progress as it relates to his detox. Patients ativan drip has been discontinued but is still receiving PRN doses. Met with patient briefly in the presence [facility] Bernardo remained confused; talking about the "democrat" they had last night. While I have not specifically adressed aftercare yet, by history Bernardo minimizes his use and is not motivated for treatment. Will follow to better assess when patients mental status improves.
[2017-01-27] VITALS (14 sets, daily range): BP systolic 140–196; BP diastolic 15–110
--- NOTE | 2017-01-27 03:35 | NUR ---
0000 PATIENT RECEIVED AWAKE AND RESPONSIVE BUT CONFUSED X3, FREQUENT ATTEMPTS TO RE-ORIENT UNSUCCESSFUL AT THIS TIME, RECEIVED ON RA- O2 SAT 87 TO 88%- PLACED ON 2L/MIN O2 VIA NC WITH INCREASE INO2 SAT TO 95%, BREATHE SOUNDS CLEAR BUT DIMINISHED AT BOTH BASES, ABDOMEN SOFT, +BS, MANUAL BP 196/104- DR CHACON IN AND MADE AWARE- PRN HYDRALAZINE DOSE GIVEN, HECTOR IV FOUND TO BE PLUGGED- CATHETER REMOVED,, #20 ABBOCATH INSERTED LH WITHOUT DIFFICULTY, MAX TOGRAVITY WITH LARGE AMTS KAIT-COLORED UO, REQUIRING FREQUENT RE-DIRECTION TO REMAIN IN BED. 1:1 SITTER AT BEDSIDE FOR SAFETY
--- NOTE | 2017-01-27 03:45 | NUR ---
0045 CIWA 8- PRN ATIVAN DOSE GIVEN, COMPLETE BATH AND SKIN CARE GIVEN, ELBOWS REDDENED BUT NO BROKEN AREAS NOTED 0200 PATIENT BECOMING INCREASINGLY RESTLESS, NO LONGER ABLE TO BE REDIRECTED- WANTS TO GET OOB TO LEAVE TO EAT MEATLOAF- FED JUICE AND APPLESAUCE, ABLE TO SWALLOW WITHOUT DIFFICULTY 0215 REMAINS RESTLESS, ATTEMPTING TO CLIMB OOB, HAS PULLED OUT IV- DR PAINTING NOTIFIED AND ATIVAN DOSE GIVEN ORDERED, BILATERAL SOFT WRIST RESTRAINTS PLACED ORDERED
--- NOTE | 2017-01-27 04:51 | NUR ---
PATIENT DROWSY BUT AROUSABLE WITH STIMULI, QUICKLY RETURNS TO SLEEP WHEN STIMULI CEASES
[2017-01-27 05:00] LABS: ABSOLUTE BASOPHIL COUNT 0.1 /CUMM (0.0-0.2); ABSOLUTE EOSINOPHIL COUNT 0.3 /CUMM (0.0-0.7); ABSOLUTE GRANULOCYTE CT 4.5 /CUMM (1.4-6.5); BASOPHIL % 1.6 % (0.0-2.0); EOSINOPHIL % 3.8 % (0-5); GRANULOCYTE % 65.4 % (42.2-75.2); MEAN CORPUSCULAR HGB 32.8 PG (27.0-31.0); MEAN CORPUSCULAR HGB CONC 33.7 G/DL (33.0-37.0); MEAN CORPUSCULAR VOLUME 97.4 FL (80.0-94.0); MEAN PLATELET VOLUME 7.3 FL (7.4-10.4); PLATELET COUNT 487 /CUMM (130-400); RBC DISTRIBUTION WIDTH 13.4 % (11.5-14.5); RED BLOOD CELL CT 3.49 /CUMM (4.70-6.10); WHITE BLOOD CELL COUNT 6.8 /CUMM (4.8-10.8)
--- NOTE | 2017-01-27 08:15 | NUR ---
0600 PATIENT BRIGHTER THIS AM, UNSURE OF PERSON OR PLACE BUT ABLE TO RECALL January, AND ASKING IF TODAY IS THE 24TH OR 25TH, BP 140/80 AT THIS TIME, 1:1 SITTER REMAINS FOR SAFETY, AWAITING AM MD ROUNDS
--- NOTE | 2017-01-27 09:23 | PN- Housestaff ---
Subjective Follow-up For: alcohol withdrawal Subjective: Pt seen today, awake but confused, with incoherent speech. He wanted dawn to be removed but he is still on restrains and still intermittently agitated. Nurse reported that he coughs with thin liquid, hence diet has been changed to chopped and pudding. His mag noted to be 1.4, ordered 2gm mg sulf. K 3.8, ordered kdur X 1. Although his auto BP is documented to be high, his manual is normally 20 points below, and his BP is WNL when he is calm, and tend to be high when he is agitated. Pt will be moved to room 208. However, if BP continues to be an issue, we will send him to tele. Review of Systems Constitutional: Reports: see HPI. Objective Last 24 Hrs of Vital Signs/I&O Vital Signs Date Time Temp Pulse Resp B/P Pulse O2 O2 Flow FiO2 Ox Delivery Rate 01/27 0850 72 180/110 01/27 0800 99.1 72 18 168/110 97 Nasal 2.0L Cannula 01/27 0600 140/80 01/27 0600 140/80 01/27 0400 97.6 76 20 176/96 01/27 0400 97.6 76 20 176/96 96 Nasal 2.0L Cannula 01/27 0230 180/100 01/27 0200 170/98 01/27 0130 85 18 170/98 95 Nasal 2.0L Cannula 01/27 0036 196/104 01/27 0000 99.2 95 18 196/104 01/27 0000 94 Nasal 2.0L Cannula 01/27 0000 99.2 95 18 196/104 88 Room Air 01/26 2000 96 Room Air 01/26 1837 99.5 84 18 160/80 96 Room Air 01/26 1800 78 18 150/74 01/26 1630 80 160/80 01/26 1600 Room Air 01/26 1600 98.5 82 18 140/70 01/26 1414 80 142/78 01/26 1402 80 142/78 01/26 1400 80 20 142/78 01/26 1238 98 150/74 01/26 1224 Nasal 2.0L Cannula 01/26 1200 Room Air 01/26 1200 84 20 134/74 01/26 1000 88 20 149/73 01/26 0956 103 156/94 Intake & Output 01/27 1600 01/27 0800 01/27 0000 Intake Total 925 1060 Output Total 700 1400 Balance 225 -340 Intake, IV 745 700 Intake, Oral 180 360 Number 0 Bowel Movements Output, Urine 700 1400 Physical Exam General Appearance: Alert, incoherent Cardiovascular: Normal S1, Normal S2, No Murmurs Lungs: Clear to Auscultation, Normal Air Movement Abdomen: Soft, No Tenderness Current Medications: Current Medications Sig/Berta Start time Last Medication Dose Route Stop Time Status Admin Acetaminophen 650 MG Q6P PRN 01/17 1245 AC PO Albuterol Sulfate 3 ML Q4P PRN 01/17 2045 AC 01/22 INH 1620 Ampicillin Sodium/ 1,500 MG Q6 01/21 2359 AC 01/27 Sulbactam Sodium IV 0531 Sodium Chloride 100 ML Clonidine 1 PAT Q101/26 1039 AC 01/26 TOP 1238 Clonidine 2 PAT Q168 01/24 1000 DC 01/24 TOP 1003 Folic Acid 1 MG DAILY 01/26 1830 AC 01/27 PO 0850 Gabapentin 300 MG TID 01/17 1245 AC 01/27 PO 0850 Heparin Sodium 5,000 UNIT Q8 01/19 0600 AC 01/27 (Porcine) SC 0531 Hydralazine HCl 10 MG TID PRN 01/26 1045 AC 01/27 PO 0850 Hydralazine HCl 10 MG TID 01/26 1033 DC PO Hydralazine HCl 10 MG Q6 PRN 01/24 0800 DC 01/26 IV 0224 Lorazepam 1 MG ONCE ONE 01/27 0230 DC 01/27 IV 01/27 0231 0221 Lorazepam 2 MG Q8 01/26 1400 AC 01/27 PO 0641 Lorazepam 2 MG Q2P PRN 01/24 1545 AC 01/27 IV 0851 Lorazepam 1 MG Q2P PRN 01/24 1545 AC 01/27 IV 0043 Magnesium Oxide 400 MG DAILY 01/18 1558 AC 01/27 PO 0850 Magnesium Sulfate 1 GM ONCE ONE 01/27 0930 AC Dextrose/Water 100 ML IV 01/27 1029 Magnesium Sulfate 1 GM ONCE ONE 01/27 06 DC 01/27 Dextrose/Water 100 ML IV 01/27 0659 0641 Magnesium Sulfate 1 GM ONCE ONE 01/26 08 DC 01/26 Dextrose/Water 100 ML IV 01/26 1159 0813 Magnesium Sulfate 1 GM ONCE ONE 01/26 0800 DC 01/26 Dextrose/Water 100 ML IV 01/26 1159 0956 Metoprolol Succinate 25 MG DAILY 01/26 1032 AC 01/27 PO 0850 Metoprolol Tartrate 7.5 MG Q6 01/20 1800 DC 01/26 IV 0511 Multivitamins 1 TAB DAILY 01/26 1830 AC 01/27 PO 0850 Omeprazole 40 MG DAILY AC 01/19 0700 AC 01/27 PO 0641 Potassium Chloride 40 MEQ ONCE ONE 01/27 0930 DC PO 01/27 0931 Potassium Chloride 20 MEQ BID 01/26 1000 DC 01/26 PO 01/26 2201 2146 Senna/Docusate Sodium 2 TAB AT BEDTIME PRN 01/17 1300 AC PO Sodium Chloride 1,000 ML Q13H 01/24 1330 AC 01/27 IV 0530 Tamsulosin HCl 0.4 MG DAILY 01/17 1245 AC 01/27 PO 0850 Thiamine HCl 100 MG DAILY 01/26 1830 AC 01/27 PO 0850 Trazodone HCl 50 MG DAILY 01/18 1000 AC 01/27 PO 0851 Vancomycin HCl 1,500 MG Q24H 01/26 1600 AC 01/26 Dextrose/Water 250 ML IV 01/28 2300 1548 Last 24 Hrs of Lab/Humebrto Results Last 24 Hrs of Labs/Mics: Laboratory Tests 01/27/17 0425: Anion Gap 8, Estimated GFR > 60, Glucose 97, Calcium 9.3, Phosphorus 4.3, Magnesium 1.4 L, Total Bilirubin 0.6, AST 125 H, ALT 128 H, Albumin 3.4 L, CBC w Diff NO MAN DIFF REQ, RBC 3.49 L, MCV 97.4 H, MCH 32.8 H, RDW 13.4, MPV 7.3 L, Gran % 65.4, Lymphocytes % 15.0 L, Monocytes % 14.2 H, Eosinophils % 3.8, Basophils % 1.6, Absolute Granulocytes 4.5, Absolute Lymphocytes 1.0 L, Absolute Monocytes 1.0 H, Absolute Eosinophils 0.3, Absolute Basophils 0.1, PUBS MCHC 33.7 Assessment/Plan Assessment: This is 56-year-old man with past medical history of alcohol abuse with most recent admission in October 2016 for alcohol detox, alcohol related withdrawal seizure, DTs, hypertension, 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 patient has been drinking 8-9 beers daily and 2-3 shots of vodka and his olast drink was yesterday morning, currently experiencing sweats, tremulousness. 1. Alcohol withdrawl - Watch for DT - Continue ativan taper and as per [facility] protocol - banana bag with MVI, folate, b12, thiamine - Social work consult 2. Sucideal ideation - patient expressed thought of hanging himself last evening. Sitter was placed. - This morning patient denies any SI, HI or any severe depression - Will consult psychiatry for clearance prior to removing sitter 3. Alcoholic hepatitis - Noted elevated LFt suggestive of ETOH hepatitis - no hx of gallstone or RUQ pain - repeat LFT pending if remains high or trending up will consider RUQ US - avoid high dose tylenol 4. Acute gastritis - Continue IV PPI - Zofran as needed for nausea - Stool guaiac -May consider to advance diet to regular diet in the afternoon if patient symptom improves. Patient insist to resume regular diet 5. Hyponatremia - ?beer potomania - will recheck BEP in am 6. HTN - Continue metoprolol 25 mg daily - added amlodipine 10 mg daily - Noted elevated blood pressure likely due to withdrawal, will monitor 7. Depression/insomnia - continue trazodone 8. BPH - Continue Flomax 9. dvt PX - mechanical Problem List: 1. ALCOHOL WITHDRAWAL Pain Ratin Pain Location: none Pain Goal: Remain pain free Pain Plan: mild pp Tomorrow's Labs & Rationales: BEP and mag for electrolyte abnormalities DVT/Prophylaxis: mechanical, pharmacological
--- NOTE | 2017-01-27 11:28 | PN- Pulmonary ---
Subjective HPI/Critical Care Issues: Pt seen today, awake but confused, with incoherent speech. He wanted dawn to be removed but he is still on restrains and still intermittently agitated. Nurse reported that he coughs with thin liquid, hence diet has been changed to chopped and pudding. His mag noted to be 1.4, ordered 2gm mg sulf. K 3.8, ordered kdur X 1. Although his auto BP is documented to be high, his manual is normally 20 points below, and his BP is WNL when he is calm, and tend to be high when he is agitated. Pt will be moved to room 208. Review of Systems Constitutional: Reports: see HPI. Objective Current Medications: Current Medications Sig/Berta Start time Last Medication Dose Route Stop Time Status Admin Acetaminophen 650 MG Q6P PRN 01/17 1245 AC PO Albuterol Sulfate 3 ML Q4P PRN 01/17 2045 AC 01/22 INH 1620 Amlodipine Besylate 10 MG DAILY 01/27 1130 UNVr PO Ampicillin Sodium/ 1,500 MG Q6 01/21 2359 AC 01/27 Sulbactam Sodium IV 0531 Sodium Chloride 100 ML Clonidine 1 PAT Q168 01/26 1039 AC 01/26 TOP 1238 Folic Acid 1 MG DAILY 01/26 1830 AC 01/27 PO 0850 Gabapentin 300 MG TID 01/17 1245 AC 01/27 PO 0850 Heparin Sodium 5,000 UNIT Q8 01/19 0600 AC 01/27 (Porcine) SC 0531 Hydralazine HCl 10 MG TID PRN 01/26 1045 AC 01/27 PO 0850 Lorazepam 1 MG ONCE ONE 01/27 0230 DC 01/27 IV 01/27 0231 0221 Lorazepam 2 MG Q8 01/26 1400 AC 01/27 PO 0641 Lorazepam 2 MG Q2P PRN 01/24 1545 AC 01/27 IV 0851 Lorazepam 1 MG Q2P PRN 01/24 1545 AC 01/27 IV 1049 Magnesium Oxide 400 MG DAILY 01/18 1558 AC 01/27 PO 0850 Magnesium Sulfate 1 GM ONCE ONE 01/27 0930 DC 01/27 Dextrose/Water 100 ML IV 01/27 1029 1030 Magnesium Sulfate 1 GM ONCE ONE 01/27 0600 DC 01/27 Dextrose/Water 100 ML IV 01/27 0659 0641 Magnesium Sulfate 1 GM ONCE ONE 01/26 0800 DC 01/26 Dextrose/Water 100 ML IV 01/26 1159 0813 Magnesium Sulfate 1 GM ONCE ONE 01/26 0800 DC 01/26 Dextrose/Water 100 ML IV 01/26 1159 0956 Metoprolol Succinate 25 MG DAILY 01/26 1032 AC 01/27 PO 0850 Multivitamins 1 TAB DAILY 01/26 1830 AC 01/27 PO 0850 Omeprazole 40 MG DAILY AC 01/19 0700 AC 01/27 PO 0641 Potassium Chloride 40 MEQ ONCE ONE 01/27 0930 DC 01/27 PO 01/27 0931 1013 Potassium Chloride 20 MEQ BID 01/26 1000 DC 01/26 PO 01/26 2201 2146 Senna/Docusate Sodium 2 TAB AT BEDTIME PRN 01/17 1300 AC PO Sodium Chloride 1,000 ML Q13H 01/24 1330 AC 01/27 IV 0530 Tamsulosin HCl 0.4 MG DAILY 01/17 1245 AC 01/27 PO 0850 Thiamine HCl 100 MG DAILY 01/26 1830 AC 01/27 PO 0850 Trazodone HCl 50 MG DAILY 01/18 1000 AC 01/27 PO 0851 Vancomycin HCl 1,500 MG Q24H 01/26 1600 AC 01/26 Dextrose/Water 250 ML IV 01/28 2300 1548 Vital Signs & I&O Last 24 Hrs of Vitals and I&O: Vital Signs Date Time Temp Pulse Resp B/P Pulse O2 O2 Flow FiO2 Ox Delivery Rate 01/27 1100 178/100 01/27 1000 162/98 01/27 0900 180/110 01/27 0850 72 180/110 01/27 0800 97 Nasal 2.0L Cannula 01/27 0800 99.1 72 18 168/110 97 Nasal 2.0L Cannula 01/27 0600 140/80 01/27 0600 140/80 01/27 0400 97.6 76 20 176/96 01/27 0400 97.6 76 20 176/96 96 Nasal 2.0L Cannula 01/27 0230 180/100 01/27 0200 170/98 01/27 0130 85 18 170/98 95 Nasal 2.0L Cannula 01/27 0036 196/104 01/27 0000 99.2 95 18 196/104 01/27 0000 94 Nasal 2.0L Cannula 01/27 0000 99.2 95 18 196/104 88 Room Air 01/26 2000 96 Room Air 01/26 1837 99.5 84 18 160/80 96 Room Air 01/26 1800 78 18 150/74 01/26 1630 80 160/80 01/26 1600 Room Air 01/26 1600 98.5 82 18 140/70 01/26 1414 80 142/78 01/26 1402 80 142/78 01/26 1400 80 20 142/78 01/26 1238 98 150/74 01/26 1224 Nasal 2.0L Cannula 01/26 1200 Room Air 01/26 1200 84 20 134/74 Intake & Output 01/27 1600 01/27 0800 01/27 0000 Intake Total 925 1060 Output Total 700 1400 Balance 225 -340 Intake, IV 745 700 Intake, Oral 180 360 Number 0 Bowel Movements Output, Urine 700 1400 Impression/Plan Impression/Plan Impression/Plan: 1. ETOH withdrawl on Ativan drip 2. Aspiration pneumonia, sputum positive for MRSA. 3. ETOH hepatitis. 4. Uncontrolled hypertension. 5. Acute gastritis - improved. 6. BPH - on Flomax. Recommendations: * Continue to follow CIWA protocol. * Convert to PO metoprolol 25 mg twice a day. * Continue clonidine patch. * Give hydralazine as needed for blood pressure control. * High-dose thiamine protocol completed. * Continue IV vancomycin for treatment of aspiration pneumonia - day 4 of seven * TRC to continue. Check cxr and will dc unasyn after today * Continue electrolyte replacement. * Continue DVT prophylaxis. * Ok to the floor
--- NOTE | 2017-01-27 22:29 | NUR ---
PT ALERT AND CONFUSED. CIWA SCALE. MAX IN PLACE DRIANING CLEAR YELLOW URINE. ATIVAN TAPER. IV FLUIDS. B/P- 180/100. MD PAINTING AWARE. WILL RECHECK ONE HOUR.
[2017-01-28] VITALS (10 sets, daily range): BP systolic 126–190; BP diastolic 74–110
--- NOTE | 2017-01-28 07:43 | NUR ---
B/P ELEVATED AT 0645- 188/100. MD PAINTING. NEW ORDERS TO CHECK IN ONE HOUR AND ADMINISTER IF ABOVE 180. RECEHECKED- 190/110. MEDICATED WITH PO HYDRALAZINE ORDERED. WILL CONTINUE TO MONITOR.
--- NOTE | 2017-01-28 08:19 | PN- Housestaff ---
MIKHAIL TILLMAN,[facility] 01/28/17 0819: Subjective Follow-up For: alcohol withdrawal Hypertension Subjective: patient seen and examined this morning. He was lying in bed in no acute distress. Offered no complaints. Electrolytes replaced this AM. Blood pressure high this AM. he recievded ativa and metoprolol following which BP was within normal limits, Afebrile, unasyn d/c, vancomycin to cont to complete 5 days course. Review of Systems Constitutional: Reports: no symptoms. Objective Last 24 Hrs of Vital Signs/I&O Laboratory Tests 01/28/17 0440: Anion Gap 7, Estimated GFR > 60, BUN/Creatinine Ratio 14.0, Magnesium 1.5 L Vital Signs Date Time Temp Pulse Resp B/P Pulse O2 O2 Flow FiO2 Ox Delivery Rate 01/28 1145 74 130/84 01/28 1040 79 128/74 01/28 1026 95 Nasal 2.0L Cannula 01/28 0913 83 188/94 01/28 0913 93 188/94 01/28 0912 83 188/94 01/28 0900 83 188/94 01/28 0815 190/110 01/28 0800 Nasal 2.0L Cannula 01/28 0743 79 190/110 01/28 0741 79 190/110 01/28 0645 188/100 01/28 0400 98.0 77 16 164/89 01/28 0400 98.0 77 16 164/97 98 Nasal 2.0L Cannula 01/28 0000 98.0 77 18 160/98 01/28 0000 98.0 77 16 160/98 98 Nasal 2.0L Cannula 01/28 0000 98 Nasal 2.0L Cannula 01/27 2203 96 Nasal 2.0L Cannula 01/27 2200 97.9 75 16 180/100 01/28 2000 98.7 77 18 164/100 01/28 2000 98.7 77 18 164/100 98 Nasal 2.0L Cannula Intake & Output 01/28 1600 01/28 0800 01/28 0000 Intake Total 690 745 420 Output Total 350 1000 1000 Balance 340 -255 -580 Intake, IV 450 625 300 Intake, Oral 240 120 120 Output, Urine 350 1000 1000 Vital Signs Date Time Temp Pulse Resp B/P Pulse O2 O2 Flow FiO2 Ox Delivery Rate 01/28 1145 74 130/84 01/28 1040 79 128/74 01/28 1026 95 Nasal 2.0L Cannula 01/28 0913 83 188/94 01/28 0913 93 188/94 01/28 0912 83 188/94 01/28 0900 83 188/94 01/28 0815 190/110 01/28 0800 Nasal 2.0L Cannula 01/28 0743 79 190/110 01/28 0741 79 190/110 01/28 0645 188/100 01/28 0400 98.0 77 16 164/89 01/28 0400 98.0 77 16 164/97 98 Nasal 2.0L Cannula 01/28 0000 98.0 77 18 160/98 01/28 0000 98.0 77 16 160/98 98 Nasal 2.0L Cannula 01/28 0000 98 Nasal 2.0L Cannula 01/27 2203 96 Nasal 2.0L Cannula 01/270 97.9 75 16 180/100 01/28 2000 98.7 77 18 164/100 01/28 2000 98.7 77 18 164/100 98 Nasal 2.0L Cannula Intake & Output 01/28 1600 01/28 0800 01/28 0000 Intake Total 690 745 420 Output Total 350 1000 1000 Balance 340 -255 -580 Intake, IV 450 625 300 Intake, Oral 240 120 120 Output, Urine 350 1000 1000 Physical Exam General Appearance: Alert, Cooperative, No Acute Distress Cardiovascular: Regular Rate, Normal S1, Normal S2, No Murmurs Lungs: Clear to Auscultation Abdomen: Normal Bowel Sounds, Soft, No Tenderness Extremities: No Clubbing, No Cyanosis, No Edema Current Medications: Current Medications Sig/Berta Start time Last Medication Dose Route Stop Time Status Admin Acetaminophen 650 MG Q6P PRN 01/17 1245 PO Albuterol Sulfate 3 ML Q4P PRN 01/17 2045 AC 01/27 INH 1234 Amlodipine Besylate 10 MG DAILY 01/27 1130 DC 01/28 PO 0913 Ampicillin Sodium/ 1,500 MG Q6 01/21 2359 DC 01/28 Sulbactam Sodium IV 0503 Sodium Chloride 100 ML Clonidine 1 PAT Q168 01/26 1039 AC 01/26 TOP 1238 Folic Acid 1 MG DAILY 01/26 1830 AC 01/28 PO 0913 Gabapentin 300 MG TID 01/17 1245 AC 01/28 PO 0913 Heparin Sodium 5,000 UNIT Q8 01/19 0600 AC 01/28 (Porcine) SC 1303 Hydralazine HCl 10 MG TID PRN 01/26 1045 AC 01/28 PO 0741 Lorazepam 2 MG Q8 01/26 1400 AC 01/28 PO 1303 Lorazepam 2 MG Q2P PRN 01/24 1545 AC 01/27 IV 0851 Lorazepam 1 MG Q2P PRN 01/24 1545 AC 01/28 IV 1517 Magnesium Oxide 400 MG DAILY 01/18 1558 AC 01/28 PO 0913 Magnesium Sulfate 1 GM ONCE ONE 01/28 0700 DC 01/28 Dextrose/Water 100 ML IV 01/28 1059 0712 Metoprolol Succinate 25 MG DAILY 01/26 1032 AC 01/28 PO 0912 Multivitamins 1 TAB DAILY 01/26 1830 AC 01/28 PO 0913 Omeprazole 40 MG DAILY AC 01/19 0700 AC 01/28 PO 0503 Senna/Docusate Sodium 2 TAB AT BEDTIME PRN 01/17 1300 AC 01/28 PO 0333 Sodium Chloride 1,000 ML Q13H 01/24 1330 AC 01/28 IV 0136 Tamsulosin HCl 0.4 MG DAILY 01/17 1245 AC 01/28 PO 0913 Thiamine HCl 100 MG DAILY 01/26 1830 AC 01/28 PO 0912 Trazodone HCl 50 MG DAILY 01/18 1000 AC 01/28 PO 0913 Vancomycin HCl 1,500 MG Q24H 01/26 1600 AC 01/27 Dextrose/Water 250 ML IV 01/28 2300 1522 Last 24 Hrs of Lab/Humberto Results Last 24 Hrs of Labs/Mics: Laboratory Tests 01/28/17 0440: Anion Gap 7, Estimated GFR > 60, BUN/Creatinine Ratio 14.0, Magnesium 1.5 L Assessment/Plan Assessment: This is 56-year-old man with past medical history of alcohol abuse with most recent admission in October 2016 for alcohol detox, alcohol related withdrawal seizure, DTs, hypertension, 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 patient has been drinking 8-9 beers daily and 2-3 shots of vodka and his olast drink was yesterday morning, currently experiencing sweats, tremulousness. 1. Alcohol withdrawl - Watch for DT - Continue ativan taper and as per [facility] protocol - banana bag with MVI, folate, b12, thiamine - Social work consult 2. Sucideal ideation - No repeat SI, patient expressed thought of hanging himself 01/27. Sitter to cont - This morning patient denies any SI, HI or any severe depression - Will consult psychiatry for clearance prior to removing sitter 3. Alcoholic hepatitis - Noted elevated LFt suggestive of ETOH hepatitis - no hx of gallstone or RUQ pain - repeat LFT pending if remains high or trending up will consider RUQ US - avoid high dose tylenol 4. Acute gastritis - Continue IV PPI - Zofran as needed for nausea - Stool guaiac 5. Hyponatremia - ?beer potomania - will recheck BEP in am 6. HTN - Continue metoprolol 25 mg daily - Noted elevated blood pressure likely due to withdrawal, will monitor 7. Depression/insomnia - continue trazodone 8. BPH - Continue Flomax 9. dvt PX - mechanical Problem List: 1. ALCOHOL WITHDRAWAL 2. Aspiration pneumonia Pain Ratin Pain Location: none Pain Goal: Remain pain free Pain Plan: mild pp Tomorrow's Labs & Rationales: bep for lytes monitoring cbc for wbc monitoring in setting of aspiration PNA NASRIN TILLMAN,[facility] 01/28/17 1331: Attending MD Review Statement Attending Statement Attending MD Statement: examined this patient, discuss w/resident/PA/[employer]BING [employer] HEATING MECH[employer]IC, agreed w/resident/PA/[employer]UMBING [employer] HEATING MECHANIC, discussed with family, reviewed EMR data (avail), discussed with nursing, discussed with case mgmt, reviewed images, amended to note Attending Assessment/Plan: Patient seen and examined. Resting comfortably on bed. Does not offer any complaints. CIWA 0-14 in last 24 hours. High blood pressure since morning noted Recommendations: Will continue Ativan as per CIWA protocol. High blood pressure could be because of withdrawal- monitor blood pressure as amlodipine is being added to the medication regimen. Continue antibiotics pneumonia TRC/nebs.
--- NOTE | 2017-01-28 10:15 | RADIOLOGY REPORT ---
EXAMINATION: XR PORTABLE CHEST CLINICAL INFORMATION: Aspiration pneumonia. COMPARISON: Multiple prior studies most recently 01/23/2017 TECHNIQUE: Portable AP 75 degrees upright view of the chest was obtained. FINDINGS: The cardiac silhouette is mildly enlarged. No evidence of pulmonary edema. Mild increased reticular markings are seen in the lower lungs more notable on the left side. No focal consolidation. Biapical pleural thickening is demonstrated. IMPRESSION: Improved lung aeration. Mild increased reticular markings persist at the lung bases, left greater than right side.
--- NOTE | 2017-01-28 15:24 | NUR ---
PT IS ALERT AND ORIENTED TO PERSON AND PLACE. CIWA HAS BEEN HIGH OF 9 THROUGHOUT THE DAY BUT PRESSURES WAS ELEVATED IN THE MORNING. OK PER DR.SAMREEN ELIZONDO TO GIVE ATIVAN AT 0815 DUE TO CONTINUED ELEVATION OF BP 188/94, DESPITE HYDRALAZINE GIVEN BY NIGHT NURSE. ALL AM MEDS GIVEN WELL. BP LATER DECREASED TO 124/78 MANUALLY AT 1040. BP AGAIN TAKEN AT 1145 STAYING STABLE AT 130/84. PO ATIVAN HELPED FOR A FEW HOURS AND AT ABOUT 1500 HE SCORED 9 ON CIWA. 1MG OF IV ATIVAN GIVEN AGAIN AND WAS ALSO REPOSITION. SITTER AT BEDSIDE RESTRAINTS TAKEN OFF TO READJUST. ON PROPERLY AT THIS TIME. SKIN INTACT.
[2017-01-29] VITALS (10 sets, daily range): BP systolic 134–180; BP diastolic 70–100
--- NOTE | 2017-01-29 03:08 | NUR ---
01/28/17 AT 2030 PATIENT WAS AGITATED, ANXIOUS AND DISORIENTED X3. BP 190/102. ATIVAN IV PRN WAS ADMINISTRED. MD Alicia PAINTING WAS NOTIFIED. BP WAS RECHECKED AT 2130 182/92. SCHEDULED ATIVAN PO WAS ADMINISTERED. BP WAS RE-CHECKED AT 2230 162/88. MD Alicia PAINTING WAS NOTIFIED WITH UPDATES. NO FURTHER ACTION WAS GIVEN. PATIENT CALM AND COPORATIVE AT THIS TIME. PATIENT RESTING COMFORTABLY IN BED. WILL CONTINUE TO MONITOR.
[2017-01-29 06:11] LABS: ABSOLUTE BASOPHIL COUNT 0.1 /CUMM (0.0-0.2); ABSOLUTE EOSINOPHIL COUNT 0.2 /CUMM (0.0-0.7); ABSOLUTE GRANULOCYTE CT 5.7 /CUMM (1.4-6.5); ABSOLUTE LYMPH COUNT 1.4 /CUMM (1.2-3.4); BASOPHIL % 0.8 % (0.0-2.0); EOSINOPHIL % 2.4 % (0-5); HEMATOCRIT 36.6 % (42-52); MEAN CORPUSCULAR HGB 32.7 PG (27.0-31.0); MEAN CORPUSCULAR HGB CONC 33.3 G/DL (33.0-37.0); MEAN PLATELET VOLUME 7.5 FL (7.4-10.4); PLATELET COUNT 548 /CUMM (130-400); RBC DISTRIBUTION WIDTH 13.3 % (11.5-14.5); RED BLOOD CELL CT 3.74 /CUMM (4.70-6.10); WHITE BLOOD CELL COUNT 8.4 /CUMM (4.8-10.8)
--- NOTE | 2017-01-29 07:17 | PN- Resident CRCU ---
See Addendum Subjective HPI/CRCU Issues: Patient seen and examined this morning. He was lying in bed in no acute distress. Contiues to be on ativan taper, 2mg Q12 today. CIWA in last 24 hours, 6.0.9, tolaerating PO intake well, finished unasyn and vancomycin for apiration PNA. Cont sitter, continue restrains secondary to agitation, Blood pressure adequately controlled. 24 Hour Events: agitated in am. Objective Vital Signs & I&O Last 8 Hrs of Vitals and I&O: Laboratory Tests 01/29/17 0600: Anion Gap 11, Estimated GFR > 60, BUN/Creatinine Ratio 15.0, Magnesium 1.6, CBC w Diff NO MAN DIFF REQ, RBC 3.74 L, MCV 98.0 H, MCH 32.7 H, RDW 13.3, MPV 7.5 , Gran % 68.0, Lymphocytes % 17.1 L, Monocytes % 11.7 H, Eosinophils % 2.4, Basophils % 0.8, Absolute Granulocytes 5.7, Absolute Lymphocytes 1.4, Absolute Monocytes 1.0 H, Absolute Eosinophils 0.2, Absolute Basophils 0.1, PUBS MCHC 33.3 Vital Signs Date Time Temp Pulse Resp B/P Pulse O2 O2 Flow FiO2 Ox Delivery Rate 01/29 0600 80 18 158/88 01/29 0400 97.7 84 24 134/70 96 Nasal 2.0L Cannula 01/29 0200 98.2 90 26 144/82 01/29 0000 88 18 162/88 01/29 0000 98.3 96 22 160/82 95 Nasal 2.0L Cannula 01/29 0000 96 Nasal 2.0L Cannula 01/29 2000 98.8 101 20 190/102 01/29 2000 98.2 96 22 190/102 96 Room Air 2.0L 01/28 1708 102 28 01/28 1600 95 Nasal 2.0L Cannula 01/28 1600 97.8 110 25 126/78 96 Nasal 2.0L Cannula 01/28 1145 74 130/84 01/28 1040 79 128/74 01/28 1026 95 Nasal 2.0L Cannula Intake & Output 01/29 1600 01/29 0800 01/29 0000 Intake Total 600 225 Output Total 650 850 Balance -50 -625 Intake, IV 600 225 Output, Urine 650 850 Exam General Appearance: well developed/nourished, no apparent distress, alert Head: atraumatic, normal appearance Respiratory: normal breath sounds, lungs clear Cardiovascular: regular rate/rhythm Gastrointestinal: normal bowel sounds, soft, non-tender Extremities: normal inspection, no edema Nutrition Nutrition: P.O. diet Current Medications: Current Medications Sig/Berta Start time Last Medication Dose Route Stop Time Status Admin Acetaminophen 650 MG Q6P PRN 01/17 1245 AC PO Albuterol Sulfate 3 ML Q4P PRN 01/17 2045 AC 01/27 INH 1234 Amlodipine Besylate 10 MG DAILY 01/27 1130 DC 01/28 PO 0913 Clonidine 1 PAT Q168 01/26 1039 AC 01/26 TOP 1238 Folic Acid 1 MG DAILY 01/26 1830 AC 01/29 PO 0824 Gabapentin 300 MG TID 01/17 1245 AC 01/29 PO 0824 Heparin Sodium 5,000 UNIT Q8 01/19 0600 AC 01/29 (Porcine) SC 0526 Hydralazine HCl 10 MG TID PRN 01/26 1045 AC 01/28 PO 0741 Lorazepam 2 MG Q12 01/29 1000 DC PO Lorazepam 2 MG 0600,1800 01/29 0845 AC PO Lorazepam 2 MG Q8 01/26 1400 DC 01/29 PO 0526 Lorazepam 2 MG Q2P PRN 01/24 1545 AC 01/28 IV 2256 Lorazepam 1 MG Q2P PRN 01/24 1545 AC 01/29 IV 0327 Magnesium Oxide 400 MG 2200 01/29 2200 AC PO 01/30 2201 Magnesium Oxide 400 MG 1700 01/29 1700 AC PO Magnesium Oxide 400 MG BID 01/29 1000 DC 01/29 PO 01/29 2201 0824 Magnesium Oxide 400 MG DAILY 01/18 1558 AC 01/28 PO 0913 Magnesium Sulfate 1 GM ONCE ONE 01/28 0700 DC 01/28 Dextrose/Water 100 ML IV 01/28 1059 0712 Metoprolol Succinate 25 MG DAILY 01/26 1032 AC 01/29 PO 0824 Multivitamins 1 TAB DAILY 01/26 1830 AC 01/29 PO 0824 Omeprazole 40 MG DAILY AC 01/19 0700 AC 01/29 PO 0549 Polyethylene Glycol 17 GM DAILY 01/28 1712 AC 01/29 PO 0824 Senna/Docusate Sodium 2 TAB AT BEDTIME PRN 01/17 1300 AC 01/28 PO 0333 Sodium Chloride 1,000 ML Q13H 01/24 1330 AC 01/29 IV 0700 Tamsulosin HCl 0.4 MG DAILY 01/17 1245 AC 01/29 PO 0824 Thiamine HCl 100 MG DAILY 01/26 1830 AC 01/29 PO 0824 Trazodone HCl 50 MG DAILY 01/18 1000 AC 01/29 PO 0824 Vancomycin HCl 1,500 MG Q24H 01/26 1600 DC 01/28 Dextrose/Water 250 ML IV 01/28 2300 1653 Impression/Plan Impression/Problem List Impression: Mr. 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 He stayed sober for a month or 2 after being discharge in October, ever he started drinking again in December, has been drinking 8-9 beers daily and 2-3 shots of vodka, last drink was on the morning of 01/17/2017 He was afebrile in the emergency department, tachycardic at 97, respiratory rate 20, blood pressure 189/99, he was 97% saturating on room air and his EKG showed normal sinus rhythm at 92, left axis deviation, no ST-T wave changes, QTC of 471. He was admitted to the general medicine floor initially for alcohol withdrawal with IV Ativan taper per CIWA protocol, banana bag, multivitamin thiamine folate and B12 along with IV PPI for acute gastritis. On 01/19/2017 hand drawer in helper around 4 AM patient was significantly agitated, two order #7 were called, he continued to require escalating doses of Ativan secondary to alcohol withdrawal, he continued to be hypertensive 180s over 120, he recieved 8-9 mg ativan within a span of 3 hours and therefore was transferred to ICU for increased need of Ativan requiring an Ativan drip. We're currently managing for the following conditions: #Aspiration pneumonia; (01/22/17) patient oxygen saturation went down, spiked a fever 11.6, chest x-ray was done which showed evidence of aspiration pneumonia, patient on Unasyn, one dose of vancomycin given today as sputum cx grew MRSA, will continue vancomycin. He has been afebrile, white count improving. We'll monitor patient closely for fever, white count, will continue with TRC as needed and oxygen supplementation as needed. #Alcohol withdrawal. * Off of Ativan drip, have started patient on Ativan 2 mg every 12 hours, will taper as per CIWA * Continue to maintain aspiration precautions. * IV banana bag . * continue to monitor CIWa scores. CIWA in last 24 hours have been 6.0.9, . Ativan tapered to 2mg Q12. will taper as tolerated. * Continue sitter as patient gets very agitated time to time #Alcoholic hepatitis * Noted elevated LFt suggestive of ETOH hepatitis * No hx of gallstone or RUQ pain * Please avoid high dose tylenol #Acute gastritis * Continue IV PPI * Zofran as needed for nausea * diet advanced, tolareted well. #HTN * Continue metoprolol 25mg BID * Continue clonidine patch. * hydralazine 25mg every 6 hrs PRN #Depression/insomnia * continue trazodone #BPH * Continue Flomax #Dvt PX -mechanical Problem List: 1. Aspiration pneumonia 2. Alcohol withdrawal Pain Ratin Tomorrow's Labs & Rationales: bep for lytes monitoring Plan DVT/Prophylaxis: mechanical, pharmacological Code Status: Full Code
--- NOTE | 2017-01-29 14:15 | NUR ---
Patient increase in restlessness, agitation. CIWA score = 12. Repositioned in bed. Mcgregor and 4 point soft restraints maintained. Medicated with 2 mg IV Ativan per EMAR PRN CIWA scale. Notified Resident and Instructor Of Sociology. 1:1 sitter maintained. Will continue to monitor.
--- NOTE | 2017-01-29 22:00 | NUR ---
MD GUERRERO MADE AWARE B/P 180/100 MANUALLY. PRN PO HYDRALAZINE GIVEN. WILL CONT TO MONITOR.
[2017-01-30] VITALS (17 sets, daily range): BP systolic 152–188; BP diastolic 70–102
--- NOTE | 2017-01-30 07:18 | PN- Housestaff ---
See Addendum Subjective Follow-up For: Alcohol withdrawal Aspiration pneumonia Subjective: Seen and examined this morning. He was lying in bed in no acute distress, not alert or oriented times person, remains on Ativan taper, CIMARYJANE IN last 24-hour 11 ,8,11. He is currently on 2 mg of Ativan by mouth every 12, along with IV Ativan when necessary, she has received 3 mg in the past 24 hours. Has been afebrile, white count stable, no other complaints, tolerating by mouth diet well. Review of Systems Constitutional: Reports: see HPI. Denies: chills, fever. Objective Last 24 Hrs of Vital Signs/I&O Vital Signs Date Time Temp Pulse Resp B/P Pulse O2 O2 Flow FiO2 Ox Delivery Rate 01/30 0530 78 182/100 01/30 0400 97.6 78 18 182/100 01/30 0400 97.8 78 18 182/100 96 Nasal 2.0L Cannula 01/30 0200 97.8 78 18 172/90 01/30 0000 98.9 78 16 178/90 01/30 0000 98.4 78 18 170/90 96 Nasal 2.0L Cannula 01/30 0000 96 Nasal 2.0L Cannula 01/29 2208 95 Nasal 2.0L Cannula 01/29 2200 98.6 78 18 180/100 01/29 2200 78 180/100 01/29 2156 78 180/100 01/29 2000 98.1 88 16 170/90 01/29 1800 97.9 90 26 142/98 01/29 1600 97.9 88 22 142/98 01/29 1600 96 Nasal 2.0L Cannula 01/29 1600 97.9 88 22 142/98 96 Nasal 2.0L Cannula 01/29 1258 96 Nasal 2.0L Cannula 01/29 1200 97.6 80 18 154/90 95 Nasal 2.0L Cannula Intake & Output 01/30 1600 01/30 0800 01/30 0000 Intake Total 700 900 Output Total 1200 650 Balance -500 250 Intake, IV 600 600 Intake, Oral 100 300 Number 0 0 Bowel Movements Output, Urine 1200 650 Physical Exam General Appearance: Alert, No Acute Distress Assessment/Plan Assessment: This is 56-year-old man with past medical history of alcohol abuse with most recent admission in October 2016 for alcohol detox, alcohol related withdrawal seizure, DTs, hypertension, 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 patient has been drinking 8-9 beers daily and 2-3 shots of vodka and his olast drink was yesterday morning, currently experiencing sweats, tremulousness. 1. Alcohol withdrawl - Watch for DT - Continue ativan taper and as per [facility] protocol - banana bag with MVI, folate, b12, thiamine - Social work consult 2. Sucideal ideation - No repeat SI, patient expressed thought of hanging himself 01/27. Sitter to cont - This morning patient denies any SI, HI or any severe depression - Will consult psychiatry for clearance prior to removing sitter 3. Alcoholic hepatitis - Noted elevated LFt suggestive of ETOH hepatitis - no hx of gallstone or RUQ pain - repeat LFT pending if remains high or trending up will consider RUQ US - avoid high dose tylenol 4. Acute gastritis - Continue IV PPI - Zofran as needed for nausea - Stool guaiac 5. Hyponatremia - ?beer potomania - will recheck BEP in am 6. HTN - Continue metoprolol 25 mg daily - Noted elevated blood pressure likely due to withdrawal, will monitor 7. Depression/insomnia - continue trazodone 8. BPH - Continue Flomax 9. dvt PX - mechanical Problem List: 1. ALCOHOL WITHDRAWAL Pain Ratin Pain Location: None Pain Goal: Remain pain free Pain Plan: Mild pain pathway Tomorrow's Labs & Rationales: BEP for lites monitoring
--- NOTE | 2017-01-30 20:15 | NUR ---
Received patient at 0800: oriented to self only and restless/agitated at times. One to one sitter. Ryan and soft upper bilateral restraints in place. No lower restraints in place. Scored on CIWA and given ativan per EMAR. Pulling at lines and trying to get out of restraints. On 2L nasal cannula, no distress, lungs clear. NSR on the monitor 70s-80s. Abdomen soft/distended +BS, dawn in place draining clear yellow urine. Skin intact. 1030: BP-188/110. Given one time of Norvasc 5mg. Pt asymptomatic. Takes meds well w/ apple sauce. 1200: BP rechecked to be 160/80s. Patient resting comfortably. 1200: BP-
[2017-01-31] VITALS (11 sets, daily range): BP systolic 150–180; BP diastolic 74–104
--- NOTE | 2017-01-31 07:29 | PN- Housestaff ---
MIKHAIL TILLMAN,[facility] 01/31/17 0729: Subjective Follow-up For: Alcohol withdrawal Subjective: Patient seen and examined this morning. He was lying in bed in no acute distress. Not oriented to person Blood pressure overnight has been around 170 systolic. Amlodipine added to current blood pressure regimen (clonidine patch, metoprolol, hydralazine) Afebrile, white count stable, no other complaints,. We'll continue with by mouth Ativan 2 mg every 12. Cont with IV Ativan when necessary as per [facility] Review of Systems Constitutional: Reports: see HPI. Objective Last 24 Hrs of Vital Signs/I&O Laboratory Tests 01/31/17 0325: Anion Gap 11, Estimated GFR > 60, BUN/Creatinine Ratio 16.7, Magnesium 1.6 Vital Signs Date Time Temp Pulse Resp B/P Pulse O2 O2 Flow FiO2 Ox Delivery Rate 01/31 0800 97.2 112 20 160/82 01/31 0600 98.1 78 16 170/88 01/31 0400 98.0 82 16 168/88 01/31 0400 98.0 82 18 168/88 96 Nasal 2.0L Cannula 01/31 0329 98.1 78 16 170/98 01/31 0045 78 180/104 01/31 0000 98.6 82 16 180/104 01/31 0000 98.8 78 18 180/104 96 Nasal 2.0L Cannula 01/31 0000 96 Nasal 2.0L Cannula 01/30 2200 98.1 82 18 170/90 01/30 2000 98.0 78 16 168/88 01/30 2000 98.0 78 18 168/88 96 Nasal 2.0L Cannula 01/30 1900 98.0 86 16 160/70 01/30 1800 98.0 87 18 162/72 01/30 1736 82 162/70 01/30 1700 98.7 83 16 162/70 01/30 1600 98.6 78 16 188/102 01/30 1600 95 Nasal 2.0L Cannula 01/30 1559 98.7 83 16 182/102 95 Nasal 2.0L Cannula 01/30 1556 82 182/110 01/30 1400 98.9 88 18 178/90 01/30 1316 84 160/98 01/30 1300 98.9 78 18 170/98 01/30 1223 95 Nasal 2.0L Cannula 01/30 1200 98.9 78 18 168/80 03/28 1200 98.9 79 18 162/88 95 Nasal 2.0L Cannula 01/30 1024 98.7 101 16 170/100 01/30 1014 94 188/110 01/30 1013 92 152/100 01/30 1000 98.7 96 16 168/98 Intake & Output 01/31 1600 01/31 0800 01/31 0000 Intake Total 900 1000 Output Total 2350 1200 Balance -1450 -200 Intake, IV 600 600 Intake, Oral 300 400 Number 0 0 Bowel Movements Output, Urine 2350 1200 Vital Signs Date Time Temp Pulse Resp B/P Pulse O2 O2 Flow FiO2 Ox Delivery Rate 01/31 0800 97.2 112 20 160/82 01/31 0600 98.1 78 16 170/88 01/31 0400 98.0 82 16 168/88 01/31 0400 98.0 82 18 168/88 96 Nasal 2.0L Cannula 01/31 0329 98.1 78 16 170/98 01/31 0045 78 180/104 01/31 0000 98.6 82 16 180/104 01/31 0000 98.8 78 18 180/104 96 Nasal 2.0L Cannula 01/31 0000 96 Nasal 2.0L Cannula 01/30 2200 98.1 82 18 170/90 01/31 2000 98.0 78 16 168/88 01/31 2000 98.0 78 18 168/88 96 Nasal 2.0L Cannula 01/30 1900 98.0 86 16 160/70 01/30 1800 98.0 87 18 162/72 01/30 1736 82 162/70 01/30 1700 98.7 83 16 162/70 01/30 1600 98.6 78 16 188/102 01/30 1600 95 Nasal 2.0L Cannula 01/30 1559 98.7 83 16 182/102 95 Nasal 2.0L Cannula 01/30 1556 82 182/110 01/30 1400 98.9 88 18 178/90 01/30 1316 84 160/98 01/30 1300 98.9 78 18 170/98 01/30 1223 95 Nasal 2.0L Cannula 01/30 1200 98.9 78 18 168/80 01/30 1200 98.9 79 18 162/88 95 Nasal 2.0L Cannula 01/30 1024 98.7 101 16 170/100 01/30 1014 94 188/110 01/30 1013 92 152/100 01/30 1000 98.7 96 16 168/98 Intake & Output 01/31 1600 01/31 0800 01/31 0000 Intake Total 900 1000 Output Total 2350 1200 Balance -1450 -200 Intake, IV 600 600 Intake, Oral 300 400 Number 0 0 Bowel Movements Output, Urine 2350 1200 Physical Exam General Appearance: Alert, No Acute Distress Cardiovascular: Regular Rate, Normal S1, Normal S2, No Murmurs Lungs: Clear to Auscultation, Normal Air Movement Abdomen: Normal Bowel Sounds, Soft Extremities: No Clubbing, No Cyanosis, No Edema Current Medications: Current Medications Sig/Berta Start time Last Medication Dose Route Stop Time Status Admin Acetaminophen 650 MG Q6P PRN 01/17 1245 AC PO Albuterol Sulfate 3 ML Q4P PRN 01/17 2045 AC 01/27 INH 1234 Amlodipine Besylate 5 MG DAILY 01/31 1000 DC PO Amlodipine Besylate 10 MG DAILY 01/31 1000 AC PO Amlodipine Besylate 5 MG DAILY 01/30 1305 DC 01/30 PO 01/30 1306 1316 Amlodipine Besylate 10 MG DAILY 01/30 1130 DC PO Clonidine 1 PAT Q168 01/26 1039 AC 01/26 TOP 1238 Folic Acid 1 MG DAILY 01/26 1830 AC 01/30 PO 1013 Gabapentin 300 MG TID 01/17 1245 AC 01/30 PO 2231 Heparin Sodium 5,000 UNIT Q8 01/19 0600 AC 01/31 (Porcine) SC 0408 Hydralazine HCl 10 MG ONCE ONE 01/30 1545 DC 01/30 IV 01/30 1546 1556 Hydralazine HCl 10 MG TID PRN 01/26 1045 AC 01/31 PO 0045 Lorazepam 2 MG 0600,1800 01/29 0845 AC 01/31 PO 0407 Lorazepam 2 MG Q2P PRN 01/24 1545 AC 01/31 IV 0904 Lorazepam 1 MG Q2P PRN 01/24 1545 AC 01/30 IV 1023 Magnesium Oxide 400 MG BID 01/30 0730 AC 01/30 PO 2231 Metoprolol Succinate 25 MG DAILY 01/26 1032 AC 01/30 PO 1014 Multivitamins 1 TAB DAILY 01/26 1830 AC 01/30 PO 1013 Omeprazole 40 MG DAILY AC 01/19 0700 AC 01/31 PO 0407 Polyethylene Glycol 17 GM DAILY 01/28 1712 01/30 PO 1014 Senna/Docusate Sodium 2 TAB AT BEDTIME PRN 01/17 1300 01/28 PO 0333 Sodium Chloride 1,000 ML Q13H 01/24 1330 01/31 IV 0039 Tamsulosin HCl 0.4 MG DAILY 01/17 1245 01/30 PO 1013 Thiamine HCl 100 MG DAILY 01/26 1830 AC 01/30 PO 1014 Trazodone HCl 50 MG DAILY 01/18 1000 AC 01/30 PO 1012 Last 24 Hrs of Lab/Humberto Results Last 24 Hrs of Labs/Mics: Laboratory Tests 01/31/17 0325: Anion Gap 11, Estimated GFR > 60, BUN/Creatinine Ratio 16.7, Magnesium 1.6 Assessment/Plan Assessment: This is 56-year-old man with past medical history of alcohol abuse with most recent admission in October 2016 for alcohol detox, alcohol related withdrawal seizure, DTs, hypertension, 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 patient has been drinking 8-9 beers daily and 2-3 shots of vodka and his olast drink was yesterday morning, currently experiencing sweats, tremulousness. 1. Alcohol withdrawl - Watch for DT - Continue ativan taper and as per [facility] protocol - banana bag with MVI, folate, b12, thiamine - Social work consult 2. Sucideal ideation - No repeat SI, patient expressed thought of hanging himself 01/27. Sitter to cont - This morning patient denies any SI, HI or any severe depression - Will consult psychiatry for clearance prior to removing sitter 3. Alcoholic hepatitis - Noted elevated LFt suggestive of ETOH hepatitis - no hx of gallstone or RUQ pain - repeat LFT pending if remains high or trending up will consider RUQ US - avoid high dose tylenol 4. Acute gastritis - Continue IV PPI - Zofran as needed for nausea - Stool guaiac 5. Hyponatremia - ?beer potomania - will recheck BEP in am 6. HTN - Continue metoprolol 25 mg daily - Noted elevated blood pressure likely due to withdrawal, will monitor 7. Depression/insomnia - continue trazodone 8. BPH - Continue Flomax 9. dvt PX - mechanical Problem List: 1. ALCOHOL WITHDRAWAL Pain Ratin Pain Location: none Pain Goal: Remain pain free Pain Plan: mild pp Tomorrow's Labs & Rationales: BEP and mag for lites monitoring in setting of Alcohol withdrawal DO ARCE MD 01/31/17 1629: Attending MD Review Statement Attending Statement Attending MD Statement: examined this patient, discuss w/resident/PA/PHYSICS TEACHER, agreed w/resident/PA/PHYSICS TEACHER, reviewed EMR data (avail), discussed with nursing, amended to note Attending Assessment/Plan: The patient was seen and discussed with house staff. The patient remains disoriented and confused with CIWA score being reported 14-16 due to agitation. No tremor. Has been off Ativan drip for some time. He has prolonged delirium and I do not believe this is related to alcohol withdrawal. Discussed with psychiatry and will begin Haldol as recommended with hope of taper of Ativan. For BP will increase Metoprolol and discontinue Clonidine. Consider UNA instead of Hydralazine pending response of BP to Metoprolol and increased dose of Amlodipine (was increased to 10 mg daily this morning).
--- NOTE | 2017-01-31 15:12 | PN- Psychiatry ---
Assessment/Plan Impression: The patient is delirious and would benefit from haldol therapy for agitation and delirium tremens. Please minimize lorazepam scheduled use, but maintain PRN dosing. Suggestion: 1. Continue 1:1 sitter for delirium 2. Please order a current EKG. 3. If EKG does not show arrhythmia or QTc greater than 475 mS, and potassum and magnesium are repleted to the upper portion of the normal range, then start Haldol therapy below. 4. Haldol 1 mg PO every 6 hours for hallucinations/agitation. a. Hold for oversedation or respiratory depression. b. Hold for QTc greater than 475 mS. c. May be increased to 2 mg dosing if needed to calm the patient. 5. Haldol 2 mg PO, if possible, IM if patient unable to take PO, every 8 hours as needed for violent or severe agitation. Hold for QTc greater than 475 mS. 6. Maximum Haldol from all sources 12 mg/24 hours, unless ordered by psychiatry. We will look in on the patient tomorrow. Michael Rendon APRN, Pager [phone] Subjective Subjective: Patient is delirious, endorsing visual hallucinations. He is in soft restraints, and is not intermittently struggling with them. We are unable to conduct an interview with him today. Objective Last 24 Hrs of Vital Signs/I&O Vital Signs Date Time Temp Pulse Resp B/P Pulse O2 O2 Flow FiO2 Ox Delivery Rate 01/31 1333 97.2 104 20 150/80 01/31 1200 97.2 104 20 150/80 Nasal 2.0L Cannula 01/31 1200 97.2 104 29 150/80 01/31 1144 95 Nasal 2.0L Cannula 01/31 1016 97.2 103 20 160/82 01/31 1015 97.2 103 20 160/82 01/31 1015 97.2 103 20 160/82 01/31 1000 97.2 106 18 160/82 01/31 0800 97.2 112 20 160/82 01/31 0800 96 Nasal 2.0L Cannula 01/31 0800 97.2 108 20 160/82 96 Nasal 2.0L Cannula 01/31 0600 98.1 78 16 170/88 01/31 0400 98.0 82 16 168/88 01/31 0400 98.0 82 18 168/ 96 Nasal 2.0L Cannula 01/31 0329 98.1 78 16 170/98 01/31 0045 78 180/104 01/31 0000 98.6 82 16 180/104 01/31 0000 98.8 78 18 180/104 96 Nasal 2.0L Cannula 01/31 0000 96 Nasal 2.0L Cannula 01/30 2200 98.1 82 18 170/90 01/30 2000 98.0 78 16 168/88 01/30 2000 98.0 78 18 168/88 96 Nasal 2.0L Cannula 01/30 1900 98.0 86 16 160/70 01/30 1800 98.0 87 18 162/72 01/30 1736 82 162/70 01/30 1700 98.7 83 16 162/70 01/30 1600 98.6 78 16 188/102 01/30 1600 95 Nasal 2.0L Cannula 01/30 1559 98.7 83 16 182/102 95 Nasal 2.0L Cannula 01/30 1556 82 182/110 Intake & Output 01/31 1600 01/31 0800 01/31 0000 Intake Total 900 1000 Output Total 2350 1200 Balance -1450 -200 Intake, IV 600 600 Intake, Oral 300 400 Number 0 0 Bowel Movements Output, Urine 2350 1200 Current Medications: Current Medications Sig/Berta Start time Last Medication Dose Route Stop Time Status Admin Acetaminophen 650 MG Q6P PRN 01/17 1245 AC PO Albuterol Sulfate 3 ML Q4P PRN 01/17 2045 AC 01/27 INH 1234 Amlodipine Besylate 5 MG DAILY 01/31 1000 DC PO Amlodipine Besylate 10 MG DAILY 01/31 1000 AC 01/31 PO 1015 Clonidine 1 PAT Q168 01/26 1039 AC 01/26 TOP 1238 Folic Acid 1 MG DAILY 01/26 1830 AC 01/31 PO 1016 Gabapentin 300 MG TID 01/17 1245 AC 01/31 PO 1015 Heparin Sodium 5,000 UNIT Q8 01/19 0600 AC 01/31 (Porcine) SC 1445 Hydralazine HCl 10 MG ONCE ONE 01/30 1545 DC 01/30 IV 01/30 1546 1556 Hydralazine HCl 10 MG TID PRN 01/26 1045 AC 01/31 PO 0045 Lorazepam 0.5 MG Q6 01/31 1800 AC PO 02/05 0844 Lorazepam 2 MG 0600,1800 01/29 0845 DC 01/31 PO 0407 Lorazepam 2 MG Q2P PRN 01/24 1545 AC 01/31 IV 1302 Lorazepam 1 MG Q2P PRN 01/24 1545 AC 01/30 IV 1023 Magnesium Oxide 400 MG BID 01/30 0730 AC 01/31 PO 1016 Metoprolol Succinate 50 MG DAILY 02/01 1000 AC PO Metoprolol Succinate 25 MG ONCE ONE 01/31 1230 DC 01/31 PO 01/31 1231 1333 Metoprolol Succinate 25 MG DAILY 01/26 1032 DC 01/31 PO 1015 Multivitamins 1 TAB DAILY 01/26 1830 AC 01/31 PO 1015 Omeprazole 40 MG DAILY AC 01/19 0700 AC 01/31 PO 0407 Polyethylene Glycol 17 GM DAILY 01/28 1712 AC 01/31 PO 1016 Senna/Docusate Sodium 2 TAB AT BEDTIME PRN 01/17 1300 AC 01/28 PO 0333 Sodium Chloride 1,000 ML Q13H 01/24 1330 DC 01/31 IV 0039 Tamsulosin HCl 0.4 MG DAILY 01/17 1245 AC 01/31 PO 1016 Thiamine HCl 100 MG DAILY 01/26 1830 AC 01/31 PO 1015 Trazodone HCl 50 MG DAILY 01/18 1000 AC 01/31 PO 1016 Results Last 24 Hrs of Labs/Mics: Laboratory Tests 01/31 0325 Chemistry Sodium (137 - 145 mmol/L) 134 L Potassium (3.5 - 5.1 mmol/L) 5.1 Chloride (98 - 107 mmol/L) 96 L Carbon Dioxide (22 - 30 mmol/L) 27 Anion Gap (5 - 16) 11 BUN (9 - 20 mg/dL) 10 Creatinine (0.7 - 1.2 mg/dL) 0.6 L Estimated GFR (>60 ml/min) > 60 BUN/Creatinine Ratio (7 - 25 %) 16.7 Magnesium (1.6 - 2.3 mg/dL) 1.6
--- NOTE | 2017-01-31 19:57 | NUR ---
Following patients progress at it relates to his detox. He has been moved out of [facility], but is still receiving PRN doses of ativan around the clock and he remains significantly symptomatic. Follow.
[2017-02-01] VITALS: BP 160/90
[2017-02-01 08:20] VITALS: BP 130/90
--- NOTE | 2017-02-01 08:56 | PN- Housestaff ---
BANDAR LAZO 02/01/17 0855: Subjective Follow-up For: Alcohol withdrawal Agitation Complaints: no complaints Tele-Events Since Last Visit: Normal sinus rhythm, heart rate 83-96, no overnight events were noted. Subjective: Patient was drowsy, and was responsive to verbal stimuli with difficulty. He remained afebrile overnight. Vitals were stable. Blood pressure was slightly elevated. ciwa 12-14, and was "mostly for anxiety. Review of Systems Constitutional: Reports: see HPI. Objective Last 24 Hrs of Vital Signs/I&O Vital Signs Date Time Temp Pulse Resp B/P Pulse O2 O2 Flow FiO2 Ox Delivery Rate 02/01 0847 98 130/90 02/01 0847 98 130/90 02/01 0846 98 130/90 02/01 0820 98.6 98 20 130/90 96 Nasal 2.0L Cannula 02/01 0000 Nasal 2.0L Cannula 02/01 0000 95.0 97 18 160/90 01/31 1827 97.8 99 20 150/86 95 Nasal 2.0L Cannula 01/31 1800 99.3 104 18 158/74 01/31 1736 95 Nasal 2.0L Cannula 01/31 1600 99.3 118 18 154/78 01/31 1600 96 Nasal 2.0L Cannula 01/31 1600 99.3 118 18 154/78 99 Nasal 2.0L Cannula 01/31 1400 97.2 102 18 150/80 01/31 1333 97.2 104 20 150/80 01/31 1200 97.2 104 20 150/80 Nasal 2.0L Cannula 01/31 1200 97.2 104 29 150/80 01/31 1144 95 Nasal 2.0L Cannula 01/31 1016 97.2 103 20 160/82 01/31 1015 97.2 103 20 160/82 01/31 1015 97.2 103 20 160/82 01/31 1000 97.2 106 18 160/82 Intake & Output 02/01 1600 02/01 0800 02/01 0000 Intake Total 15 515 Output Total 750 1850 Balance -735 -1335 Intake, IV 15 35 Intake, Oral 480 Number 1 Bowel Movements Output, Urine 750 1850 Physical Exam General Appearance: No Acute Distress Other Physical Findings: General Exam: AOx0, No acute distress, Skin: No rashes, no breakdown HEENT: PERRLA, EOMI Neck: Supple, No JVD No cervical lymphadenopathy CVS: Reg Rate, Normal S1,S2, No MGR Resp: Normal air entry, no ronchi/rales Abdomen: Soft, No tenderness, Normal Bowel Sounds Neuro: Normal Speech, Strength 5/5 b/l x 4 extremities, Sensation could not be done, CN III-XII COULD NOT BE DONE, Reflexes 2+ Extremities: No cyanosis, pedal edema Current Medications: Current Medications Sig/Berta Start time Last Medication Dose Route Stop Time Status Admin Acetaminophen 650 MG Q6P PRN 01/17 1245 AC PO Albuterol Sulfate 3 ML Q4P PRN 01/17 2045 AC 01/27 INH 1234 Amlodipine Besylate 10 MG DAILY 01/31 1000 AC 02/01 PO 0847 Clonidine 1 PAT Q168 01/26 1039 DC 01/26 TOP 1238 Folic Acid 1 MG DAILY 01/26 1830 AC 02/01 PO 0847 Gabapentin 300 MG TID 01/17 1245 AC 02/01 PO 0846 Haloperidol 1 MG Q6 PRN 01/31 1545 AC 01/31 PO 2226 Heparin Sodium 5,000 UNIT Q8 01/19 0600 AC 02/01 (Porcine) SC 0619 Hydralazine HCl 10 MG TID PRN 01/26 1045 AC 01/31 PO 0045 Lorazepam 0.5 MG Q6 01/31 1800 AC 02/01 PO 02/05 0844 0615 Lorazepam 2 MG 0600,1800 01/29 0845 DC 01/31 PO 0407 Lorazepam 2 MG Q2P PRN 01/24 1545 AC 02/01 IV 0842 Lorazepam 1 MG Q2P PRN 01/24 1545 AC 01/30 IV 1023 Magnesium Oxide 400 MG BID 01/30 0730 AC 02/01 PO 0847 Metoprolol Succinate 50 MG DAILY 02/01 1000 AC 02/01 PO 0846 Metoprolol Succinate 25 MG ONCE ONE 01/31 1230 DC 01/31 PO 01/31 1231 1333 Metoprolol Succinate 25 MG DAILY 01/26 1032 DC 01/31 PO 1015 Multivitamins 1 TAB DAILY 01/26 1830 AC 02/01 PO 0846 Omeprazole 40 MG DAILY AC 01/19 0700 AC 02/01 PO 0614 Polyethylene Glycol 17 GM DAILY 01/28 1712 AC 02/01 PO 0847 Senna/Docusate Sodium 2 TAB AT BEDTIME PRN 01/17 1300 AC 01/28 PO 0333 Sodium Chloride 1,000 ML Q13H 01/24 1330 DC 01/31 IV 0039 Tamsulosin HCl 0.4 MG DAILY 01/17 1245 AC 02/01 PO 0847 Thiamine HCl 100 MG DAILY 01/26 1830 AC 02/01 PO 0846 Trazodone HCl 50 MG DAILY 01/18 1000 AC 02/01 PO 0847 Last 24 Hrs of Lab/Humberto Results Last 24 Hrs of Labs/Mics: Laboratory Tests 02/01/17 0730: Anion Gap 6, Estimated GFR > 60, BUN/Creatinine Ratio 21.4, Magnesium 1.6 Orders CIWA Score (last 24 hrs): 12-14. 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 patient has been drinking 8-9 beers daily and 2-3 shots of vodka and his olast drink was yesterday morning, currently experiencing sweats, tremulousness. 1. Alcohol withdrawl/agitation - Watch for DT - Continue ativan taper, but decrease the frequency and dosage. - banana bag with MVI, folate, b12, thiamine -Symptoms more likely due to delirium. Start Haldol scheduled as well as when necessary dosing as per psychiatry recommendation. Check QTC regularly. 2. Sucideal ideation - No repeat SI, patient expressed thought of hanging himself 01/27. Sitter to cont -Unclear if the patient still has suicidal ideation. -Continue sitter. 3. Alcoholic hepatitis - Noted elevated LFt suggestive of ETOH hepatitis - no hx of gallstone or RUQ pain 4. Acute gastritis - Continue IV PPI - Zofran as needed for nausea - Stool guaiac 5. Hyponatremia - ?beer potomania - will recheck BEP am 6. HTN - Continue metoprolol 25 mg daily -Continue clonidine patch, change in the a.m. 7. Depression/insomnia - continue trazodone 8. BPH - Continue Flomax 9. dvt PX - mechanical Problem List: 1. Abdominal pain Pain Ratin Pain Location: Unable to assess Pain Goal: Pain 4 or less Pain Plan: Tylenol when necessary (patient has liver disease) Tomorrow's Labs & Rationales: Basic electrolyte panel-to monitor for electrolytes. DVT/Prophylaxis: pharmacological (heparin subcutaneous) LEAH ROB MD 02/01/17 1137: Attending MD Review Statement Attending Statement Attending MD Statement: examined this patient, discuss w/resident/PA/ROAD ROLLER OPERATOR, agreed w/resident/PA/ROAD ROLLER OPERATOR, reviewed EMR data (avail) Attending Assessment/Plan: 56M admitted with delirium tremens and alcohol withdrawal delirium, formerly on Ativan drip now on PO taper. Patient remains agitated and delirious. His BP is better controlled. Plan - Discontinue telemetry - Continue Ativan and Haldol per psychiatry - Follow psychiatry recommendations - Change PRN Ativan to PO - Vitamin and electrolyte supplementation - Continue bedside sitter - Continue current anti-hypertensive regimen - Continue home medications - DVT PPx
--- NOTE | 2017-02-01 11:03 | PN- Psychiatry ---
See Addendum Assessment/Plan Impression: The patient is less delirious than yesterday, and after review of CIWA, VS, labs and discussion with the med/nursing team, his current mental status is likely due to benzodiazepine intoxication. He has had an extended stay in the ICU with a lorazepam drip for delirium tremens. Most of his CIWA scoring can be managed with haloperidol, and not lorazepam, but we will reset the standing lorazepam, and minimize PRN lorazepam. Lorazepam last 24 hours as of 1030: Scheduled 1.5 mg + PRN 12 mg = 13.5 mg 13.5 mg - 20% = 10.8 mg the new daily scheduled dosing target, which can be reduced by 20% daily. I will add back the haloperidol we recommended yesterday. Continue to monitor EKG and replete electrolytes, particularly magnesium and potassium. Nursing reports that he has been having visual hallucinations and believed earlier that someone was going to cut off his penis. CIWA from 0800 today: [id number] Mostly anxiety, tremors and sweating; few scores for hallucinations. VS 0820: 130/90, 98HR, 98.6, 20RR, 96% 2LNC EKG 01/31/17 2145: SR 91 bpm, QTc 463 mS. Suggestion: 1. Continue 1:1 sitter for delirium 2. I will order Haldol 2 mg PO every 6 hours for hallucinations/agitation. a. Hold for oversedation or respiratory depression. b. Hold for QTc greater than 475 mS. c. May be increased to 2 mg dosing if needed to calm the patient. 3. Replete magnesium to the upper portion of the normal range. Currently at 1.6. 4. I will order as needed Haldol 2 mg PO, if possible, IM if patient unable to take PO, every 8 hours as needed for violent or severe agitation. Hold for QTc greater than 475 mS. 5. Maximum Haldol from all sources 14 mg/24 hours, unless ordered by psychiatry. 6. Continue CIWA. 7. I will order lorazepam 1 mg PO every 4 hours as needed for HR greater than 100 bpm. 8. I will order lorazepam 1.5 mg PO every 4 hours. We will look in on the patient tomorrow. S. Julieta, ASSISTANT PORTFOLIO MANAGER, Pager [phone] Subjective Subjective: The patient was seen this morning in room 184. 1:1 sitter present; the patient is calm and not pulling on his soft wrist restraints or Ryan vest. He is drowsy, arousable, oriented to name, off by one day, does not know where he is. Objective Last 24 Hrs of Vital Signs/I&O Vital Signs Date Time Temp Pulse Resp B/P Pulse O2 O2 Flow FiO2 Ox Delivery Rate 02/01 0847 98 130/90 02/01 0847 98 130/90 02/01 0846 98 130/90 02/01 0820 98.6 98 20 130/90 96 Nasal 2.0L Cannula 02/01 0000 Nasal 2.0L Cannula 02/01 0000 95.0 97 18 160/90 01/31 1827 97.8 99 20 150/86 95 Nasal 2.0L Cannula 01/31 1800 99.3 104 18 158/74 01/31 1736 95 Nasal 2.0L Cannula 01/31 1600 99.3 118 18 154/78 01/31 1600 96 Nasal 2.0L Cannula 01/31 1600 99.3 118 18 154/78 99 Nasal 2.0L Cannula 01/31 1400 97.2 102 18 150/80 01/31 1333 97.2 104 20 150/80 01/31 1200 97.2 104 20 150/80 Nasal 2.0L Cannula 01/31 1200 97.2 104 29 150/80 01/31 1144 95 Nasal 2.0L Cannula Intake & Output 02/01 1600 02/01 0800 02/01 0000 Intake Total 15 515 Output Total 750 1850 Balance -735 -1335 Intake, IV 15 35 Intake, Oral 480 Number 1 Bowel Movements Output, Urine 750 1850 Current Medications: Current Medications Sig/Berta Start time Last Medication Dose Route Stop Time Status Admin Acetaminophen 650 MG Q6P PRN 01/17 1245 AC PO Albuterol Sulfate 3 ML Q4P PRN 01/17 204 AC 01/27 INH 1234 Amlodipine Besylate 10 MG DAILY 01/31 1000 AC 02/01 PO 0847 Clonidine 1 PAT Q168 01/26 1039 DC 01/26 TOP 1238 Folic Acid 1 MG DAILY 01/26 1830 AC 02/01 PO 0847 Gabapentin 300 MG TID 01/17 1245 AC 02/01 PO 0846 Haloperidol 1 MG Q6 PRN 01/31 1545 AC 01/31 PO 2226 Heparin Sodium 5,000 UNIT Q8 01/19 0600 AC 02/01 (Porcine) SC 0619 Hydralazine HCl 10 MG TID PRN 01/26 1045 AC 01/31 PO 0045 Lorazepam 0.5 MG Q6 01/31 1800 AC 02/01 PO 02/05 0844 0615 Lorazepam 2 MG 0600,1800 01/29 0845 DC 01/31 PO 0407 Lorazepam 2 MG Q2P PRN 01/24 1545 AC 02/01 IV 0842 Lorazepam 1 MG Q2P PRN 01/24 1545 AC 01/30 IV 1023 Magnesium Oxide 400 MG BID 01/30 0730 AC 02/01 PO 0847 Metoprolol Succinate 50 MG DAILY 02/01 1000 AC 02/01 PO 0846 Metoprolol Succinate 25 MG ONCE ONE 01/31 1230 DC 01/31 PO 01/31 1231 1333 Metoprolol Succinate 25 MG DAILY 01/26 1032 DC 01/31 PO 1015 Multivitamins 1 TAB DAILY 01/26 1830 AC 02/01 PO 0846 Omeprazole 40 MG DAILY AC 01/19 0700 AC 02/01 PO 0614 Polyethylene Glycol 17 GM DAILY 01/28 1712 AC 02/01 PO 0847 Senna/Docusate Sodium 2 TAB AT BEDTIME PRN 01/17 1300 AC 01/28 PO 0333 Sodium Chloride 1,000 ML Q13H 01/24 1330 DC 01/31 IV 0039 Tamsulosin HCl 0.4 MG DAILY 01/17 1245 AC 02/01 PO 0847 Thiamine HCl 100 MG DAILY 01/26 1830 AC 02/01 PO 0846 Trazodone HCl 50 MG DAILY 01/18 1000 AC 02/01 PO 0847 Results Last 24 Hrs of Labs/Mics: Laboratory Tests 02/01 730 Chemistry Sodium (137 - 145 mmol/L) 133 L Potassium (3.5 - 5.1 mmol/L) 4.2 Chloride (98 - 107 mmol/L) 93 L Carbon Dioxide (22 - 30 mmol/L) 33 H Anion Gap (5 - 16) 6 BUN (9 - 20 mg/dL) 15 Creatinine (0.7 - 1.2 mg/dL) 0.7 Estimated GFR (>60 ml/min) > 60 BUN/Creatinine Ratio (7 - 25 %) 21.4 Magnesium (1.6 - 2.3 mg/dL) 1.6
[2017-02-01 16:22] VITALS: BP 148/88
[2017-02-01 16:27] VITALS: BP 130/80
[2017-02-01 22:57] VITALS: BP 150/80
--- NOTE | 2017-02-02 05:51 | PN- Housestaff ---
BANDAR LAZO 02/02/17 0550: Subjective Follow-up For: delirium alc detox Complaints: no complaints Tele-Events Since Last Visit: Off telemetry-general medicine floor hold. Subjective: The patient improved compared to yesterday. He was alert, oriented only to place and not to person or time. Sitter in place. Did not have any suicidal ideation upon questioning. Vitals were stable overnight. ciwa above 10. Review of Systems Constitutional: Reports: see HPI. Objective Last 24 Hrs of Vital Signs/I&O Vital Signs Date Time Temp Pulse Resp B/P Pulse O2 O2 Flow FiO2 Ox Delivery Rate 02/02 0000 95 Nasal 2.0L Cannula 02/01 2257 98.1 90 20 150/80 94 Nasal 2.0L Cannula 02/01 1944 93 Nasal 2.0L Cannula 02/01 1739 Nasal 2.0L Cannula 02/01 1627 98.1 95 20 130/80 94 Nasal 2.0L Cannula 02/01 1622 110 148/88 02/01 1600 94 Nasal 2.0L Cannula 02/01 1108 95 Nasal 2.0L Cannula 02/01 0847 98 130/90 02/01 0847 98 130/90 02/01 0846 98 130/90 02/01 0820 98.6 98 20 130/90 96 Nasal 2.0L Cannula 02/01 0800 Nasal 2.0L Cannula Intake & Output 02/02 0800 02/02 0000 02/01 1600 Intake Total 1000 Output Total 550 250 Balance 450 -250 Intake, Oral 1000 Output, Urine 550 250 Physical Exam General Appearance: No Acute Distress Other Physical Findings: General Exam: AAOx1, No acute distress, Skin: No rashes, no breakdown HEENT: PERRLA, EOMI Neck: Supple, No JVD No cervical lymphadenopathy CVS: Reg Rate, Normal S1,S2, No MGR Resp: Normal air entry, no ronchi/rales Abdomen: Soft, No tenderness, Normal Bowel Sounds Neuro: Normal Speech, Strength 5/5 b/l x 4 extremities, Sensation intact, CN III -XII NL, Reflexes 2+ Extremities: No cyanosis, pedal edema, desquamatiion bilateral lower extremities up to the ankle. Current Medications: Current Medications Sig/Berta Start time Last Medication Dose Route Stop Time Status Admin Acetaminophen 650 MG Q6P PRN 01/17 1245 AC PO Albuterol Sulfate 3 ML Q4P PRN 01/17 2045 AC 01/27 INH 1234 Amlodipine Besylate 10 MG DAILY 01/31 1000 AC 02/01 PO 0847 Folic Acid 1 MG DAILY 01/26 1830 AC 02/01 PO 0847 Gabapentin 300 MG TID 01/17 1245 AC 02/01 PO 2206 Haloperidol 1 MG Q6 02/01 1200 AC 02/02 PO 0050 Haloperidol 2 MG Q8P PRN 02/01 1100 AC PO Haloperidol 1 MG Q6 PRN 01/31 1545 DC 01/31 PO 2226 Heparin Sodium 5,000 UNIT Q8 01/19 0600 AC 02/01 (Porcine) SC 2206 Hydralazine HCl 10 MG TID PRN 01/26 1045 AC 01/31 PO 0045 Lorazepam 1.5 MG Q4 02/01 1400 AC 02/02 PO 0200 Lorazepam 1 MG Q6-PRN PRN 02/01 1100 AC 02/01 IV 1622 Lorazepam 0.5 MG Q6 01/31 1800 DC 02/01 PO 02/05 0844 0615 Lorazepam 2 MG Q2P PRN 01/24 1545 DC 02/01 IV 0842 Lorazepam 1 MG Q2P PRN 01/24 1545 DC 01/30 IV 1023 Magnesium Chloride 64 MG BID 02/02 1000 AC PO Magnesium Oxide 400 MG BID 01/30 0730 DC 02/01 PO 0847 Metoprolol Succinate 50 MG DAILY 02/01 1000 AC 02/01 PO 0846 Multivitamins 1 TAB DAILY 01/26 1830 AC 02/01 PO 0846 Omeprazole 40 MG DAILY AC 01/19 0700 AC 02/01 PO 0614 Polyethylene Glycol 17 GM DAILY 01/28 1712 AC 02/01 PO 0847 Senna/Docusate Sodium 2 TAB AT BEDTIME PRN 01/17 1300 AC 01/28 PO 0333 Tamsulosin HCl 0.4 MG DAILY 01/17 1245 AC 02/01 PO 0847 Thiamine HCl 100 MG DAILY 01/26 1830 AC 02/01 PO 0846 Trazodone HCl 50 MG DAILY 01/18 1000 DC 02/01 PO 0847 Last 24 Hrs of Lab/Humberto Results Last 24 Hrs of Labs/Mics: Laboratory Tests 02/01/17 0730: Anion Gap 6, Estimated GFR > 60, BUN/Creatinine Ratio 21.4, Magnesium 1.6 Assessment/Plan Assessment: This is 56-year-old man with past medical history of alcohol abuse with most recent admission in October 2016 for alcohol detox, alcohol related withdrawal seizure, DTs, hypertension, 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 patient has been drinking 8-9 beers daily and 2-3 shots of vodka and his olast drink was yesterday morning, currently experiencing sweats, tremulousness. 1. Alcohol withdrawl/agitation - Watch for DT - Continue ativan taper, but decrease the frequency and dosage. - banana bag with MVI, folate, b12, thiamine -Symptoms more likely due to delirium. Start Haldol scheduled as well as when necessary dosing as per psychiatry recommendation. Check QTC regularly. 2. Sucideal ideation - No repeat SI, patient expressed thought of hanging himself 01/27. Sitter to cont -Unclear if the patient still has suicidal ideation. -Continue sitter. 3. Alcoholic hepatitis - Noted elevated LFt suggestive of ETOH hepatitis - no hx of gallstone or RUQ pain 4. Acute gastritis - Continue IV PPI - Zofran as needed for nausea - Stool guaiac 5. Hyponatremia - will recheck BEP am 6. HTN - Continue metoprolol 25 mg daily -Continue clonidine patch, renew. 7. Depression/insomnia - continue trazodone 8. BPH - Continue Flomax 9. dvt PX - mechanical Problem List: 1. Alcohol withdrawal Pain Ratin Pain Location: In lower extremities Pain Goal: Pain 4 or less Pain Plan: Tylenol when necessary Tomorrow's Labs & Rationales: Basic electrolyte panel-monitor serum electrolytes, low sodium DVT/Prophylaxis: pharmacological [place]ERGIS LEAH TILLMAN 02/02/17 1206: Attending MD Review Statement Attending Statement Attending MD Statement: examined this patient, discuss w/resident/PA/SOW MANAGER, agreed w/resident/PA/SOW MANAGER, reviewed EMR data (avail) Attending Assessment/Plan: 56M admitted with delirium tremens and alcohol withdrawal delirium, formerly on Ativan drip now on PO taper and started on Haldol for delirium. BP is controlled. Patient is more alert today and more coherent. He still remains intermittently agitated. Plan - Discontinue telemetry - Continue Ativan and Haldol per psychiatry - Follow psychiatry recommendations - Vitamin and electrolyte supplementation - Continue bedside sitter - Continue current anti-hypertensive regimen - Continue home medications - DVT PPx
[2017-02-02 08:46] VITALS: BP 130/70
--- NOTE | 2017-02-02 10:35 | PN- Psychiatry ---
Assessment/Plan Impression: 56M admitted 01/17/17 for ETOH detox, and subsequently transferred to the ICU for management of acute alcohol withdrawal on a lorazepam drip, due to delirium tremens. The patient's status improved, he was weaned off the lorazepam drip, and transferred to telemetry on 02/01/17, where he remains on oral lorazepam and haloperidol for confusion. The patient is showing slow but daily improvement in his mental status, but remains delirious. He is asking for a ride to the bank to get his new bank card, and states that his son needs help putting the snowplow on the truck. Nursing feels that the patient is responding well to the Haldol. Lorazepam last 24 hours as of 09: Scheduled 7.5 mg + PRN 1 mg = 8.5 mg total, a reductio from 13.5 mg yesterday. We will not reduce the standing lorazepam today, as his CIWA scores remain elevated. Continue to monitor EKG and replete electrolytes, particularly magnesium and potassium. No visual or auditory hallucinations today, and he no longer mentions that someone was going to cut off his penis. He refers to his groin without specific complaint, and I reoriented him to the presence of the [place], CIWA today from 0600: [id number] CIWA from 0800 01/22/17: [id number] VS 02/01/17 2257: 150/80, 90HR, 98.1, 20RR, 94% 2LNC EKG 01/31/17 2145: SR 91 bpm, QTc 463 mS. 02/02/17: Potsssium 4.2, magnesium 1.6 Suggestion: 1. Continue 1:1 sitter for delirium 2. Continue Haldol 1 mg PO every 6 hours for hallucinations/agitation. a. Hold for oversedation or respiratory depression. b. Hold for QTc greater than 475 mS. c. May be increased to 2 mg dosing if needed to calm the patient. d. As patient clears, please review with oncall psychiatry over the weekend for taper. 3. Replete magnesium to the upper portion of the normal range. Currently at 1.6. 4. Continue Haldol 2 mg PO, if possible, IM if patient unable to take PO, every 8 hours as needed for violent or severe agitation. Hold for QTc greater than 475 mS. 5. Suggested maximum Haldol from all sources 14 mg/24 hours. 6. Continue CIWA monitoring. 7. Continue lorazepam 1 mg PO every 4 hours as needed for HR greater than 100 bpm. 8. Continuer lorazepam 1.5 mg PO every 4 hours. As soon as CIWA scores begin to decrease, please reduce the daily total scheduled dosing by 20% daily as long as the patient is showing improvement. We will revisit the patient on 02/05/17. Please call oncall psychiatry if questions arise over the weekend. Michael Rendon APRN, Pager [phone] Subjective Subjective: 1:[address] Drowsy, but arousable, calm and not struggling with his soft wrist restraints. He is oriented to person, place and day of the week, although he believes the date is the . The patient denies SI/HI Thought content: Denies AVTH, but believes that he needs to go to the bank and that his "son needs help putting the snow plow on." Thought processes are confused, illogical. He reports that the medicine, Haldol, is helping with his confused thinking, but I am not sure he can tell the difference in his medications at this time. He reports he slept well last night. Objective Last 24 Hrs of Vital Signs/I&O Vital Signs Date Time Temp Pulse Resp B/P Pulse O2 O2 Flow FiO2 Ox Delivery Rate 02/02 0846 97.9 97 20 130/70 98 Nasal 2.0L Cannula 02/02 0000 95 Nasal 2.0L Cannula 02/017 98.1 90 20 150/80 94 Nasal 2.0L Cannula 02/01 1944 93 Nasal 2.0L Cannula 02/01 1739 Nasal 2.0L Cannula 02/01 162 98.1 95 20 130/80 94 Nasal 2.0L Cannula 02/01 1622 110 148/88 02/01 1600 94 Nasal 2.0L Cannula 02/01 1108 95 Nasal 2.0L Cannula Intake & Output 02/02 1600 02/02 0800 02/02 0000 Intake Total 400 1000 Output Total 1000 550 Balance -600 450 Intake, Oral 400 1000 Output, Urine 1000 550 Current Medications: Current Medications Sig/Berta Start time Last Medication Dose Route Stop Time Status Admin Acetaminophen 650 MG Q6P PRN 01/17 1245 AC PO Albuterol Sulfate 3 ML Q4P PRN 01/17 2045 AC 01/27 INH 1234 Amlodipine Besylate 10 MG DAILY 01/31 1000 AC 02/01 PO 0847 Folic Acid 1 MG DAILY 01/26 1830 AC 02/01 PO 0847 Gabapentin 300 MG TID 01/17 1245 AC 02/01 PO 2206 Haloperidol 1 MG Q6 02/01 1200 AC 02/02 PO 0627 Haloperidol 2 MG Q8P PRN 02/01 1100 AC PO Haloperidol 1 MG Q6 PRN 01/31 1545 DC 01/31 PO 2226 Heparin Sodium 5,000 UNIT Q8 01/19 0600 AC 02/02 (Porcine) SC 0628 Hydralazine HCl 10 MG TID PRN 01/26 1045 AC 01/31 PO 0045 Lorazepam 1.5 MG Q4 02/01 1400 AC 02/02 PO 0627 Lorazepam 1 MG Q6-PRN PRN 02/01 1100 AC 02/01 IV 1622 Lorazepam 0.5 MG Q6 01/31 1800 DC 02/01 PO 02/05 0844 0615 Lorazepam 2 MG Q2P PRN 01/24 1545 DC 02/01 IV 0842 Lorazepam 1 MG Q2P PRN 01/24 1545 DC 01/30 IV 1023 Magnesium Chloride 64 MG BID 02/02 1000 AC PO Magnesium Oxide 400 MG BID 01/30 0730 DC 02/01 PO 0847 Metoprolol Succinate 50 MG DAILY 02/01 1000 AC 02/01 PO 0846 Multivitamins 1 TAB DAILY 01/26 1830 AC 02/01 PO 0846 Nicotine 14 MG DAILY 02/02 1000 AC TOP Omeprazole 40 MG DAILY AC 01/19 0700 AC 02/02 PO 0627 Polyethylene Glycol 17 GM DAILY 01/28 1712 AC 02/01 PO 0847 Senna/Docusate Sodium 2 TAB AT BEDTIME PRN 01/17 1300 AC 01/28 PO 0333 Tamsulosin HCl 0.4 MG DAILY 01/17 1245 AC 02/01 PO 0847 Thiamine HCl 100 MG DAILY 01/26 1830 AC 02/01 PO 0846 Trazodone HCl 50 MG DAILY 01/18 1000 DC 02/01 PO 0847
[2017-02-02 17:46] VITALS: BP 130/72
[2017-02-02 23:08] VITALS: BP 118/68
[2017-02-03 08:23] VITALS: BP 135/66
--- NOTE | 2017-02-03 08:47 | PN- Housestaff ---
BANDAR LAZO 02/03/17 0845: Subjective Follow-up For: Alcohol withdrawal Delirium Complaints: no complaints Tele-Events Since Last Visit: Gen. hold. Subjective: The patient was comfortable. Did not have any complaints. He was more alert compared to yesterday. Vitals were stable overnight. Review of Systems Constitutional: Reports: see HPI. Objective Last 24 Hrs of Vital Signs/I&O Vital Signs Date Time Temp Pulse Resp B/P Pulse O2 O2 Flow FiO2 Ox Delivery Rate 02/03 0823 98.2 85 20 135/66 95 Room Air 02/03 0000 96 Room Air 02/02 2308 98.3 92 20 118/68 94 Room Air 02/02 1851 100.1 02/02 1746 100.1 99 20 130/72 92 Room Air 02/02 1114 95 Nasal 2.0L Cannula 02/02 1040 97 128/80 02/02 1040 97 128/80 02/02 1040 97 128/80 Intake & Output 02/03 1600 02/03 0800 02/03 0000 Intake Total 240 480 Output Total 350 300 Balance -110 180 Intake, Oral 240 480 Number 1 Bowel Movements Output, Urine 350 300 Physical Exam General Appearance: No Acute Distress Other Physical Findings: General Exam: AAOx2, No acute distress, Skin: No rashes, no breakdown HEENT: PERRLA, EOMI Neck: Supple, No JVD No cervical lymphadenopathy CVS: Reg Rate, Normal S1,S2, No MGR Resp: Normal air entry, no ronchi/rales Abdomen: Soft, No tenderness, Normal Bowel Sounds Neuro: Normal Speech, Strength 5/5 b/l x 4 extremities, Sensation intact, CN III -XII NL, Reflexes 2+ Extremities: No cyanosis, pedal edema Current Medications: Current Medications Sig/Berta Start time Last Medication Dose Route Stop Time Status Admin Acetaminophen 500 MG ONCE ONE 02/02 1800 DC 02/02 PO 02/02 1801 1851 Acetaminophen 650 MG Q6P PRN 01/17 124 AC PO Albuterol Sulfate 3 ML Q4P PRN 01/17 2045 AC 01/27 INH 1234 Amlodipine Besylate 10 MG DAILY 01/31 1000 AC 02/02 PO 1040 Clonidine 1 PAT Q168 02/09 1000 AC TOP Folic Acid 1 MG DAILY 01/26 1830 AC 02/02 PO 1040 Gabapentin 300 MG TID 01/17 1245 AC 02/02 PO 2043 Haloperidol 1 MG Q6 02/01 1200 AC 02/03 PO 0632 Haloperidol 2 MG Q8P PRN 02/01 1100 AC PO Heparin Sodium 5,000 UNIT Q8 01/19 0600 AC 02/03 (Porcine) SC 0631 Hydralazine HCl 10 MG TID PRN 01/26 1045 AC 01/31 PO 0045 Lorazepam 1.5 MG Q4H 02/02 1615 AC 02/03 PO 0324 Lorazepam 1.5 MG Q4 02/01 1400 DC 02/02 PO 1610 Lorazepam 1 MG Q6-PRN PRN 02/01 1100 AC 02/03 IV 0400 Magnesium Chloride 64 MG BID 02/02 1000 AC 02/02 PO 2043 Metoprolol Succinate 50 MG DAILY 02/01 1000 AC 02/02 PO 1040 Multivitamins 1 TAB DAILY 01/26 1830 AC 02/02 PO 1040 Nicotine 14 MG DAILY 02/02 1000 AC 02/02 TOP 1140 Omeprazole 40 MG DAILY AC 01/19 0700 AC 02/03 PO 0632 Polyethylene Glycol 17 GM DAILY 01/28 1712 AC 02/02 PO 1046 Senna/Docusate Sodium 2 TAB AT BEDTIME PRN 01/17 1300 AC 01/28 PO 0333 Tamsulosin HCl 0.4 MG DAILY 01/17 1245 AC 02/02 PO 1040 Thiamine HCl 100 MG DAILY 01/26 1830 AC 02/02 PO 1041 Assessment/Plan Assessment: This is 56-year-old man with past medical history of alcohol abuse with most recent admission in October 2016 for alcohol detox, alcohol related withdrawal seizure, DTs, hypertension, 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 patient has been drinking 8-9 beers daily and 2-3 shots of vodka and his olast drink was yesterday morning, currently experiencing sweats, tremulousness. 1. Alcohol withdrawl/agitation - Watch for DT - Continue ativan taper, but decrease the frequency and dosage. - banana bag with MVI, folate, b12, thiamine -Symptoms more likely due to delirium. Start Haldol scheduled as well as when necessary dosing as per psychiatry recommendation. Check QTC regularly. 2. Sucideal ideation - No repeat SI, patient expressed thought of hanging himself 01/27. Sitter to cont -Unclear if the patient still has suicidal ideation. -Continue sitter. 3. Alcoholic hepatitis - Noted elevated LFt suggestive of ETOH hepatitis - no hx of gallstone or RUQ pain 4. Acute gastritis - Continue IV PPI - Zofran as needed for nausea - Stool guaiac 5. Hyponatremia - will recheck BEP am 6. HTN - Continue metoprolol 25 mg daily -Continue clonidine patch, renew. 7. Depression/insomnia - continue trazodone 8. BPH - Continue Flomax 9. dvt PX - mechanical Problem List: 1. Aspiration pneumonia 2. Pneumonia 3. Alcohol dependency Pain Ratin Pain Location: Could not assess Pain Goal: Pain 4 or less Pain Plan: Tylenol when necessary Tomorrow's Labs & Rationales: C BC, BEP DARRON TILLMAN,[facility] 02/03/17 1602: Attending MD Review Statement Attending Statement Attending MD Statement: examined this patient, discuss w/resident/PA/PLASTICS PLATER, agreed w/resident/PA/PLASTICS PLATER, reviewed EMR data (avail) Attending Assessment/Plan: 56M admitted with delirium tremens and alcohol withdrawal delirium, formerly on Ativan drip now on PO taper and started on Haldol for delirium. BP is controlled. Patient is more alert today and more coherent. He still remains intermittently agitated. Plan - Discontinue telemetry - Continue Ativan and Haldol per psychiatry - Follow psychiatry recommendations - Vitamin and electrolyte supplementation - Continue bedside sitter - Continue current anti-hypertensive regimen - Continue home medications - DVT PPx
[2017-02-03 14:50] VITALS: BP 140/80
--- NOTE | 2017-02-03 15:03 | NUR ---
PT ARRIVED TO FLOOR. VITAL SIGNS ARE STABLE. SLIGHT TREMORS. PT IS ORIENATED TO YEAR AND SELF. LUNGS ARE CLEAR. PT IS ASSIST X1 WITH BED BARAJAS. PT HAS SITTER FOR SI IDEATION. BP 140/80 PULSE 85. PT IS CONFUSED AT TIMES. CONTACT PRECAUTIONS SET UP. CONTINUE TO MONITOR.
[2017-02-03 20:00] VITALS: BP 130/66
[2017-02-03 21:50] VITALS: BP 150/80
[2017-02-03 22:00] VITALS: BP 150/80
[2017-02-03 23:00] VITALS: BP 140/70
[2017-02-04] VITALS (12 sets, daily range): BP systolic 120–160; BP diastolic 68–88
--- NOTE | 2017-02-04 09:11 | PN- Housestaff ---
MARIANA TILLMAN,[facility] 02/04/17 0911: Subjective Follow-up For: Alcohol withdrawal Delirium Subjective: patient was seen and examined this morning, no overnight events, no complaints, wants to be discharged. vital signs are stable, sitter at bedside, restrains were removed. Review of Systems Constitutional: Reports: see HPI. Objective Last 24 Hrs of Vital Signs/I&O Vital Signs Date Time Temp Pulse Resp B/P Pulse O2 O2 Flow FiO2 Ox Delivery Rate 02/04 0855 93 Room Air / 0837 88 130/78 / 0837 88 130/78 / 0836 88 130/78 / 0800 98.9 88 18 130/78 Room Air 04/ 0800 98.9 88 18 130/78 04/ 0736 99.4 85 20 130/72 90 Room Air 04/02 0600 98.9 90 20 128/70 04/02 0447 99.0 88 20 128/68 92 Room Air 04/02 0400 99.0 88 20 128/68 04/02 0200 98.2 80 20 120/76 04/02 0150 98.2 88 20 120/76 92 Room Air 04/02 0000 97.9 98 20 140/80 04/01 2300 97.8 97 20 140/70 04/01 2200 97.6 103 20 150/80 04/01 2150 97.6 97 20 150/80 94 04/01 2100 100 95 Room Air 04/01 2000 98.2 88 20 130/66 04/01 1600 Room Air 04/01 1450 97.5 85 18 140/80 93 Room Air 04/01 1253 95 Room Air Intake & Output 02/04 1600 /02 0800 /02 0000 Intake Total 490 500 Output Total 1400 600 Balance -910 -100 Intake, IV 10 20 Intake, Oral 480 480 Number 2 Bowel Movements Output, Urine 1400 600 Physical Exam General Appearance: Alert, Oriented X3, Cooperative, No Acute Distress Skin: No Rashes, No Breakdown, No Significant Lesion HEENT: Atraumatic, PERRLA, EOMI, Mucous Membr. moist/pink Neck: Supple, No JVD Cardiovascular: Regular Rate, Normal S1, Normal S2, No Murmurs Lungs: Clear to Auscultation, Normal Air Movement Abdomen: Normal Bowel Sounds, Soft, No Tenderness Neurological: Normal Gait, Normal Speech, Strength at 5/5 X4 Ext, Normal Tone, Sensation Intact, Cranial Nerves 3-12 NL, Reflexes 2+ Extremities: No Clubbing, No Cyanosis, No Edema, Normal Pulses Assessment/Plan Assessment: This is 56-year-old man with past medical history of alcohol abuse with most recent admission in October 2016 for alcohol detox, alcohol related withdrawal seizure, DTs, hypertension, 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 patient has been drinking 8-9 beers daily and 2-3 shots of vodka and his olast drink was yesterday morning, currently experiencing sweats, tremulousness. 1. Alcohol withdrawl/agitation - Watch for DT -Ativan 1.5 every 4 oral -Ativan when necessary 1 mg every 6 Continue ativan taper, but decrease the frequency and dosage. -MVI, folate, b12, thiamine -Haloperidol 1 mg every 6 and another dose 2 mg every 8 when necessary for agitation and hallucination and irritability 2. Sucideal ideation - No repeat SI, patient expressed thought of hanging himself 01/27. Sitter to cont -Unclear if the patient still has suicidal ideation. -Continue sitter. 3. Alcoholic hepatitis - Noted elevated LFt suggestive of ETOH hepatitis - no hx of gallstone or RUQ pain 4. Acute gastritis - Continue IV PPI - Zofran as needed for nausea - Stool guaiac 5. Hyponatremia -130, will obtain reccomendation 6. HTN - Continue metoprolol 25 mg daily -Continue clonidine patch, renew. 7. Depression/insomnia - continue trazodone 8. BPH - Continue Flomax 9. dvt PX - mechanical Problem List: 1. ALCOHOL WITHDRAWAL Pain Ratin Pain Location: None Pain Goal: Pain 4 or less Pain Plan: Mild pain pathway Tomorrow's Labs & Rationales: LEAH ESCOBAR MD 02/04/17 1453: Attending MD Review Statement Attending Statement Attending MD Statement: examined this patient, discuss w/resident/PA/STOCKROOM CLERK, agreed w/resident/PA/STOCKROOM CLERK, reviewed EMR data (avail) Attending Assessment/Plan: 56M admitted with delirium tremens and alcohol withdrawal delirium, formerly on Ativan drip now on PO taper and started on Haldol for delirium. BP is controlled. Patient is more alert today and more coherent. He still remains intermittently agitated. Plan - Discontinue telemetry - Continue Ativan and Haldol per psychiatry - Follow psychiatry recommendations - Vitamin and electrolyte supplementation - Continue bedside sitter - Continue current anti-hypertensive regimen - Continue home medications - DVT PPx
[2017-02-05] VITALS (8 sets, daily range): BP systolic 120–160; BP diastolic 60–86
--- NOTE | 2017-02-05 08:14 | PN- Housestaff ---
DEBRA TILLMAN,JAIMIE 02/05/17 0813: Subjective Follow-up For: Alcohol detox Delirium tremens Subjective: Pt is seen and examined at bedside. Sitter is still in place with reports of intermittent confusion and agitation. Patient however denies any side or suicidal ideation, increased anxiety, nightmares, seizures, tremors, chest pain, shortness of breath, fever, chills, abdominal pain, nausea, vomiting or dysuria. He continues to score of 4 on CIWA, and nursing reports intermittent episodes of agitation and confusion requiring continuous sitter for now. Review of Systems Constitutional: Reports: no symptoms. Objective Last 24 Hrs of Vital Signs/I&O Vital Signs Date Time Temp Pulse Resp B/P Pulse O2 O2 Flow FiO2 Ox Delivery Rate 02/05 1000 98.9 99 20 130/84 / 0926 99 130/84 / 0926 99 130/84 / 0925 99 130/84 / 0651 98.4 101 20 120/60 95 Room Air / 0600 97.9 100 16 120/60 02/05 0400 98.0 94 18 140/68 04/ 0000 98.0 92 16 160/80 /02 2209 98.7 92 20 160/88 95 Intake & Output / 1600 / 0800 / 0000 Intake Total 850 240 240 Output Total 600 300 Balance 250 240 -60 Intake, Oral 850 240 240 Number 1 Bowel Movements Output, Urine 600 300 Physical Exam General Appearance: Alert, Oriented X3, Cooperative Other Physical Findings: Skin: No Rashes, No Breakdown, No Significant Lesion HEENT: Atraumatic, PERRLA, EOMI, Mucous Membr. moist/pink Neck: Supple, No JVD Cardiovascular: Regular Rate, Normal S1, Normal S2, No Murmurs Lungs: Clear to Auscultation, Normal Air Movement Abdomen: Normal Bowel Sounds, Soft, No Tenderness Neurological: Normal Gait, Normal Speech, Strength at 5/5 X4 Ext, Normal Tone, Sensation Intact, Cranial Nerves 3-12 NL, Reflexes 2+ Extremities: No Clubbing, No Cyanosis, No Edema, Normal Pulses Current Medications: Current Medications Sig/Berta Start time Last Medication Dose Route Stop Time Status Admin Acetaminophen 650 MG Q6P PRN 01/17 1245 AC PO Albuterol Sulfate 2 PUF Q4P PRN 04/02 1045 AC INH Amlodipine Besylate 10 MG DAILY 01/31 1000 AC 02/05 PO 0926 Clonidine 1 PAT Q168 02/09 1000 AC TOP Folic Acid 1 MG DAILY 01/26 1830 AC 02/05 PO 0925 Gabapentin 300 MG TID 01/17 1245 AC 02/05 PO 0925 Glycerin/Mineral Oil 1 JUDITH TIDPRN PRN 02/05 1130 AC 02/05 TOP 1328 Haloperidol 1 MG Q6 02/01 1200 AC 02/05 PO 1155 Haloperidol 2 MG Q8P PRN 02/01 1100 AC PO Heparin Sodium 5,000 UNIT Q8 01/19 0600 AC 02/05 (Porcine) SC 1328 Hydralazine HCl 10 MG TID PRN 01/26 1045 AC 01/31 PO 0045 Lorazepam 0.5 MG .STK-MED ONE 02/05 0354 DC PO 02/05 0355 Lorazepam 0.5 MG .STK-MED ONE 02/05 0011 DC PO 02/05 0012 Lorazepam 1 MG .STK-MED ONE 02/05 0010 DC PO 02/05 0011 Lorazepam 1.5 MG Q4H 02/02 1615 AC 02/05 PO 1154 Lorazepam 1 MG Q6-PRN PRN 02/01 1100 AC 02/03 IV 2144 Magnesium Chloride 64 MG BID 02/02 1000 AC 02/05 PO 0926 Metoprolol Succinate 50 MG DAILY 02/01 1000 AC 02/05 PO 0926 Multivitamins 1 TAB DAILY 01/26 1830 AC 02/05 PO 0926 Nicotine 14 MG DAILY 02/02 1000 AC 02/05 TOP 0925 Omeprazole 40 MG DAILY AC 01/19 0700 AC 02/05 PO 0524 Polyethylene Glycol 17 GM DAILY 01/28 1712 AC 02/04 PO 0833 Senna/Docusate Sodium 2 TAB AT BEDTIME PRN 01/17 1300 AC 01/28 PO 0333 Tamsulosin HCl 0.4 MG DAILY 01/17 1245 AC 02/05 PO 0925 Thiamine HCl 100 MG DAILY 01/26 1830 AC 02/05 PO 0927 Last 24 Hrs of Lab/Humberto Results Last 24 Hrs of Labs/Mics: Laboratory Tests 02/05/17 1025: Anion Gap 11, Estimated GFR > 60, BUN/Creatinine Ratio 17.1, Serum Osmolality Pending, Magnesium 1.6 Assessment/Plan Assessment: This is 56-year-old man with past medical history of alcohol abuse with most recent admission in October 2016 for alcohol detox, alcohol related withdrawal seizure, DTs, hypertension, 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 patient has been drinking 8-9 beers daily and 2-3 shots of vodka and his last drink was yesterday morning, currently experiencing sweats, tremulousness. 1. Alcohol withdrawl/agitation Patient is more stable compared to previous days with intermittent agitation and confusion. He is still scoring an average of 4 and the CIWA with agitation and tremor being positive. Liver he is stable on Ativan 1.5 every 4 for now. Will switch from sitter to electronic device monitor. Consider tapering Ativan. We'll continue- MVI, folate, b12, thiamine. Patient is also being managed by-Haloperidol 1 mg every 6 and another dose 2 mg every 8 when necessary for agitation and hallucination and irritability. We'll follow psych recommendations with possible anticipated discharge date tomorrow 2. Hyponatremia Working differential include SIADH. Be upper to monitor his own is a possibility for chronic alcohol abuse. Will obtain urine lites to assess if this is SIADH. Continue fluid restritcitons. 3. HTN - Continue metoprolol 25 mg daily -Continue clonidine patch, renew. 4 Depression/insomnia - continue trazodone 5 BPH - Continue Flomax 6. dvt PX - mechanical Problem List: 1. ALCOHOL WITHDRAWAL Pain Ratin Pain Location: none Pain Goal: Remain pain free Pain Plan: per pain path way Tomorrow's Labs & Rationales: BEP-trending hyponatremia ERICK MARIE 02/05/17 1108: Attending MD Review Statement Attending Statement Attending MD Statement: examined this patient, discuss w/resident/PA/JANITOR CARETAKER, agreed w/resident/PA/JANITOR CARETAKER, discussed with family, reviewed EMR data (avail), discussed with nursing, discussed with case mgmt, reviewed images Attending Assessment/Plan: 56M admitted with delirium tremens and alcohol withdrawal delirium, formerly on Ativan drip now on PO taper and started on Haldol for delirium. BP is controlled. aaox 3 oriented. no overnight agitation. more calm. Mild hyponatremia asymptomatic. Plan - Continue Ativan and Haldol per psychiatry - Follow psychiatry recommendations - Vitamin and electrolyte supplementation - Continue bedside sitter, can d/c sitter today - Continue current anti-hypertensive regimen - Continue home medications. - DVT PPx d/c likely tomorrow check repeat sodium, o/p pysch f/u.
--- NOTE | 2017-02-05 10:35 | PN- Psychiatry ---
Assessment/Plan Impression: Identifying Info: A 56-year-old male presents to [facility] emergency department on 01/17/2017 with chief complaint of nausea and vomiting. Subsequently diagnosed with alcohol withdrawal and admitted to medicine. Patient required ICU stay with Ativan drip, now clearer. SUBJECTIVE Patient reports he is feeling well experiencing any symptoms of alcohol withdrawal at present. He does report she would like to leave today but is redirected easily and educated on his Ativan taper. Patient is not agreeable with residential alcohol treatment but would be open to intensive outpatient level of care. Brief ROS Gait: Steady and slow Sleep: Fair Appetite: Adequate OBJECTIVE Mental Status Exam Presentation/Appearance: Cooperative with evaluation. Hospital garb. Sitting in chair. Orientation: x3 Sensorium: Awake and alert Eye contact: Appropriate Affect: Somewhat blunted but congruent with stated mood Mood: Denies any disturbance Depression: Denies Anxiety: Denies Thought Content: - Denies SI/HI, AH/VH, PI. States and also believes they will not kill themselves. - Denies Hopeless/Helpless Thoughts Thought Process: Linear, some perseveratin on d/c Speech: normal tone and rate Judgment: Fair Insight: Fair Cognition: Memory: Endorses ST deficits Attention/Concentration: Fair, gorssly intact Per nursing report patient appears to be greatly improved but still has moments of impulsivity as well as confusion. Nursing feels Ativan is likely contributing to confusion. Per sitter report. Pt has been much more communicative and able to be engaged in coherant conversations. CIWA last 12 hour 4,4,4,4,5. Patient appears to be scoring primarily for confusion and agitation. Scheduled and when necessary Ativan patient has received 13 mg over the past 24 hours. ASSESSMENT 56-year-old male history of severe alcohol use disorder currently presents as calm, cooperative, alert and oriented after extended period of confusion. He would likely benefit from continuing Ativan taper. Due to intermittent impulsivity and confusion he likely requires one-to-one supervision to be continued for safety. Differential diagnosis Delirium due to alcohol withdrawal, clearing Alcohol use disorder, severe Rule out mood disorder vs mood disorder due to alcohol use Suggestion: 1. Please continue the Haldol and trazodone as currently ordered. Consider increasing Haldol to 2 mg q6h if patient agitation worsens. Continue to monitor EKG and electrolytes on this medication. 2. Please advance Ativan taper with the plan to reduce by 20% (2.5-3mg) daily. Including PRNs he has had 13 mg in the past 24 hours. Reccomend continuing current standing order of Ativan 1.5mg q4h and reducing PRN dosing. Plan to reduce standing order further tomorrow. 3. Once patient is closer to discharge we will coordinate with social work to schedule aftercare intake appointment. 4. Please continue CIWA protocol. 5. Please continue sitter. Thank you for including psychiatry in this case we will continue to follow. Subjective Subjective: . Objective Last 24 Hrs of Vital Signs/I&O Current Medications Sig/Berta Start time Last Medication Dose Route Stop Time Status Admin Acetaminophen 650 MG Q6P PRN 01/17 1245 AC PO Albuterol Sulfate 2 PUF Q4P PRN 02/04 1045 AC INH Albuterol Sulfate 3 ML Q4P PRN 01/17 2045 DC 01/27 INH 1234 Amlodipine Besylate 10 MG DAILY 01/31 1000 AC 02/05 PO 0926 Clonidine 1 PAT Q168 02/09 1000 AC TOP Folic Acid 1 MG DAILY 01/26 1830 AC 02/05 PO 0925 Gabapentin 300 MG TID 01/17 1245 AC 02/05 PO 0925 Haloperidol 1 MG Q6 02/01 1200 AC 02/05 PO 0524 Haloperidol 2 MG Q8P PRN 02/01 1100 AC PO Heparin Sodium 5,000 UNIT Q8 01/19 0600 AC 02/05 (Porcine) SC 0524 Hydralazine HCl 10 MG TID PRN 01/26 1045 AC 01/31 PO 0045 Lorazepam 0.5 MG .STK-MED ONE 02/05 0011 DC PO 02/05 0012 Lorazepam 1 MG .STK-MED ONE 02/05 0010 DC PO 02/05 0011 Lorazepam 1.5 MG Q4H 02/02 1615 AC 02/05 PO 0806 Lorazepam 1 MG Q6-PRN PRN 02/01 1100 AC 02/03 IV 2144 Magnesium Chloride 64 MG BID 02/02 1000 AC 02/05 PO 0926 Magnesium Oxide 400 MG ONE ONE 02/04 1200 DC 02/04 PO 02/04 1201 1349 Metoprolol Succinate 50 MG DAILY 02/01 1000 AC 02/05 PO 0926 Multivitamins 1 TAB DAILY 01/26 1830 AC 02/05 PO 0926 Nicotine 14 MG DAILY 02/02 1000 AC 02/05 TOP 0925 Omeprazole 40 MG DAILY AC 01/19 0700 AC 02/05 PO 0524 Polyethylene Glycol 17 GM DAILY 01/28 1712 AC 02/04 PO 0833 Senna/Docusate Sodium 2 TAB AT BEDTIME PRN 01/17 1300 AC 01/28 PO 0333 Tamsulosin HCl 0.4 MG DAILY 01/17 1245 AC 02/05 PO 0925 Thiamine HCl 100 MG DAILY 01/26 1830 AC 02/05 PO 0927 Laboratory Tests 02/05 1025 Chemistry Sodium Pending Potassium Pending Chloride Pending Carbon Dioxide Pending Anion Gap Pending BUN Pending Creatinine Pending BUN/Creatinine Ratio Pending Serum Osmolality Pending Magnesium Pending Vital Signs Date Time Temp Pulse Resp B/P Pulse O2 O2 Flow FiO2 Ox Delivery Rate 02/05 09 99 130/84 / 0926 99 130/84 / 0925 99 130/84 / 0651 98.4 101 20 120/60 95 Room Air / 0600 97.9 100 16 120/60 /03 0400 98.0 94 18 140/68 04/03 0000 98.0 92 16 160/80 04/02 2209 98.7 92 20 160/88 95 04/02 1420 97.3 85 20 134/78 94 Room Air 04/02 1400 97.3 85 20 134/78 04/02 1200 96.5 91 18 130/84 Intake & Output 02/05 1600 02/05 0800 04/ 0000 Intake Total 240 240 Output Total 300 Balance 240 -60 Intake, Oral 240 240 Output, Urine 300
[2017-02-06 02:00] VITALS: BP 140/80
--- NOTE | 2017-02-06 06:27 | PN- Housestaff ---
DEBRA TILLMAN,JAIMIE 02/06/17 0626: Subjective Follow-up For: Alcohol detox Subjective: Pt was seen and examined at [facility]. He still tremulous but denies any suicidal/ homicidal ideation,hallucination,increased anxiet/nightmares, or seizuire activities. He was alert and oriented with intact mentation. He was very eager for discharge. Review of Systems Constitutional: Reports: no symptoms. Objective Last 24 Hrs of Vital Signs/I&O Vital Signs Date Time Temp Pulse Resp B/P Pulse O2 O2 Flow FiO2 Ox Delivery Rate 02/06 0834 140/68 02/06 0834 140/68 02/06 0659 97.8 101 20 140/68 95 / 0200 98.3 102 20 140/80 02/05 2200 98.1 91 20 138/70 02/05 2122 98.1 91 20 138/70 96 Intake & Output 02/06 1600 02/06 0800 02/06 0000 Intake Total 250 490 Output Total 300 Balance 250 190 Intake, IV 10 10 Intake, Oral 240 480 Output, Urine 300 Physical Exam General Appearance: Alert, Cooperative, oriented x2 Skin: No Significant Lesion HEENT: Atraumatic, PERRLA, EOMI, Mucous Membr. moist/pink Cardiovascular: Regular Rate, Normal S1, Normal S2, No Murmurs Lungs: Clear to Auscultation, Normal Air Movement Abdomen: Normal Bowel Sounds, Soft, No Tenderness, No Hepatospenomegaly Extremities: No Clubbing, No Cyanosis, No Edema Current Medications: Current Medications Sig/Berta Start time Last Medication Dose Route Stop Time Status Admin Acetaminophen 650 MG Q6P PRN 01/17 1245 DCD PO Albuterol Sulfate 2 PUF Q4P PRN 02/04 1045 DCD INH Amlodipine Besylate 10 MG DAILY 01/31 1000 DCD 02/06 PO 0834 Clonidine 1 PAT Q168 02/09 1000 DCD TOP Folic Acid 1 MG DAILY 01/26 1830 DCD 02/06 PO 0833 Gabapentin 300 MG TID 01/17 1245 DCD 02/06 PO 0833 Glycerin/Mineral Oil 1 JUDITH TIDPRN PRN 02/05 1130 DCD 02/05 TOP 1328 Haloperidol 1 MG Q6 02/01 1200 DCD 02/06 PO 0517 Haloperidol 2 MG Q8P PRN 02/01 1100 DCD PO Heparin Sodium 5,000 UNIT Q8 01/19 0600 DCD 02/06 (Porcine) SC 0517 Hydralazine HCl 10 MG TID PRN 01/26 1045 DCD 01/31 PO 0045 Lorazepam 1.5 MG Q6 02/06 1200 DCD PO Lorazepam 1.5 MG Q4H 02/02 1615 DC 02/06 PO 0832 Lorazepam 1 MG Q6-PRN PRN 02/01 1100 DCD 02/06 IV 0137 Magnesium Chloride 64 MG BID 02/02 1000 DCD 02/06 PO 0834 Metoprolol Succinate 50 MG DAILY 02/01 1000 DCD 02/06 PO 0834 Multivitamins 1 TAB DAILY 01/26 1830 DCD 02/06 PO 0834 Nicotine 14 MG DAILY 02/02 1000 DCD 02/06 TOP 0834 Omeprazole 40 MG DAILY AC 01/19 0700 DCD 02/06 PO 0517 Patient Medication 1 ED .[facility] 02/06 1350 [facility] ED 02/06 1351 Polyethylene Glycol 17 GM DAILY 01/28 1712 DCD 02/04 PO 0833 Senna/Docusate Sodium 2 TAB AT BEDTIME PRN 01/17 1300 DCD 01/28 PO 0333 Tamsulosin HCl 0.4 MG DAILY 01/17 1245 DCD 02/06 PO 0833 Thiamine HCl 100 MG DAILY 01/26 1830 DCD 02/06 PO 0835 Last 24 Hrs of Lab/Humberto Results Last 24 Hrs of Labs/Mics: Laboratory Tests 02/06/17 0720: Anion Gap 14, Estimated GFR > 60, BUN/Creatinine Ratio 17.5 02/05/175: Ur Random Creatinine 37.5, Ur Random Sodium 34, Ur Random Potassium 11.9, Fraction Sodium Excret 0.5 Assessment/Plan Assessment: This is 56-year-old man with past medical history of alcohol abuse with most recent admission in October 2016 for alcohol detox, alcohol related withdrawal seizure, DTs, hypertension, 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 patient has been drinking 8-9 beers daily and 2-3 shots of vodka. Patient was admitted to [facility] and then transferred to ICU after requiring a significant amount of Ativan, He is now back to [employer]. #Disposition Pt demanded to leave AMA today. Despite numerous counselling against leaving, pt was admant. Counsulted psych who are following michael. Psych assessed patient and determined he was also competent and not with any SI/HI. Pt signed an AMA form and left. Problem List: 1. ALCOHOL WITHDRAWAL 2. ALCOHOL WITHDRAWAL SYNDROME Pain Ratin Pain Location: NONE Pain Goal: Remain pain free Pain Plan: PER PAIN PATHWAY Tomorrow's Labs & Rationales: NONE-LEFT AMA ERICK MARIE 02/06/17 1150: Attending MD Review Statement Attending Statement Attending MD Statement: examined this patient, discuss w/resident/PA/PUBLIC HEALTH MICROBIOLOGIST, agreed w/resident/PA/PUBLIC HEALTH MICROBIOLOGIST, discussed with family, reviewed EMR data (avail), discussed with nursing, discussed with case mgmt, reviewed images Attending Assessment/Plan: 56M admitted with delirium tremens and alcohol withdrawal delirium, formerly on Ativan drip now on PO taper and started on Haldol for delirium. BP is controlled. aaox 3 oriented. no overnight agitation. more calm. Mild hyponatremia asymptomatic improving. Plan - Continue Ativan and Haldol per psychiatry - Follow psychiatry recommendations - Vitamin and electrolyte supplementation - Continue current anti-hypertensive regimen - Continue home medications. - DVT PPx - patient capable of making his own decisions, wish to leave AMA, patient expalined risks/benefits of medical therapy. (including life threatening seizures).
[2017-02-06 06:59] VITALS: BP 140/68
[2017-02-06 08:34] VITALS: BP 140/68
--- NOTE | 2017-02-06 11:21 | NUR ---
PT BECOMING INCREASINGLY AGITATED, WANTS TO LEAVE. DR RICHARDSON AND HEAVENLY FROM PSYCH BOTH SPOKE TO THE PATIENT AND TRIED TO CONVINCE HIM THAT LEAVING AMA WAS NOT IN HIS BEST INTEREST. PT STILL INSISTING ON LEAVING. IV DISCONTINUED, AMA FORM COMPLETED.
--- NOTE | 2017-02-06 11:22 | Event Note ---
Event Note Event Note: SITUATION: Pt wanted to leave AMA. Despite repeated persuasion informing him the need to stay in the hospital and the risk associated with leaving AMA, pt was adamant he wanted to leave. Psych did not have any objection with patient leaving AMA. Attending was notified, pt signed AMA form and left.
--- NOTE | 2017-02-06 11:25 | PN- Psychiatry ---
Assessment/Plan Impression: Identifying Info: A 56-year-old male presents to [facility] emergency department on 01/17/2017 with chief complaint of nausea and vomiting. Subsequently diagnosed with alcohol withdrawal and admitted to medicine. Patient required ICU stay with Ativan drip, now clearer. Staff reports pt would like to leave AMA today. SUBJECTIVE Patient reports he is done drinking and just wants to leave the hospital. He reports he will go to AA and will call if he would like to paticipate in our IOP. Brief ROS Gait: Steady and slow Sleep: Fair Appetite: Adequate OBJECTIVE Mental Status Exam Presentation/Appearance: Cooperative with evaluation. Hospital garb. Sitting in chair. Orientation: x3 Sensorium: Awake and alert Eye contact: Appropriate Affect: Somewhat blunted but congruent with stated mood Mood: Denies any disturbance Depression: Denies Anxiety: Denies Thought Content: - Denies SI/HI, AH/VH, PI. States and also believes they will not kill themselves. - Denies Hopeless/Helpless Thoughts Thought Process: Perseveratin on d/c Speech: normal tone and rate, somewhat dysarthic Judgment: Poor Insight: Fair Cognition: Memory: Endorses ST deficits Attention/Concentration: Fair, grossly intact Capacity assessment The pt is able to communicate a choice between treatment and nontreatment. He verablizes understanding of relevant information, understands the situation and its consequentce especially those of non-treatment including sz and possible , and displays an ability to reason about tretament options. ASSESSMENT 56-year-old male history of severe alcohol use disorder currently presents requesting to leave AMA. He has capacity, is not suicidal, homicidal or gravely disabled. While he would likely benefit from ongoing inpatient tx he does have the right to refuse at this time. Differential diagnosis Alcohol use disorder, severe Delirium due to alcohol withdrawal, resolved Rule out mood disorder vs mood disorder due to alcohol use Suggestion: 1. Please continue trazodone. 2. Please discontinue haldol. 3. Please discontinue benzodiazepines as it may be dangerous for patient with h /o of ETOH use d/o to be discharged on these medications. 4. Please be sure to include in discharge instructions that if pt begins to experience s/s of ETOH withdrawl that he call 911 or go to the emergency department as it may be a life threatening situation. Thank you for including psychiatry in this case we will sign off at this time. Subjective Subjective: . Objective Last 24 Hrs of Vital Signs/I&O Current Medications Sig/Berta Start time Last Medication Dose Route Stop Time Status Admin Acetaminophen 650 MG Q6P PRN 01/17 1245 AC PO Albuterol Sulfate 2 PUF Q4P PRN 02/04 1045 AC INH Amlodipine Besylate 10 MG DAILY 01/31 1000 AC 02/06 PO 0834 Clonidine 1 PAT Q168 02/09 1000 AC TOP Folic Acid 1 MG DAILY 01/26 1830 AC 02/06 PO 0833 Gabapentin 300 MG TID 01/17 1245 AC 02/06 PO 0833 Glycerin/Mineral Oil 1 JUDITH TIDPRN PRN 02/05 1130 AC 02/05 TOP 1328 Haloperidol 1 MG Q6 02/01 1200 AC 02/06 PO 0517 Haloperidol 2 MG Q8P PRN 02/01 1100 AC PO Heparin Sodium 5,000 UNIT Q8 01/19 0600 AC 02/06 (Porcine) SC 0517 Hydralazine HCl 10 MG TID PRN 01/26 1045 AC 01/31 PO 0045 Lorazepam 1.5 MG Q6 02/06 1200 AC PO Lorazepam 1.5 MG Q4H 02/02 1615 DC 02/06 PO 0832 Lorazepam 1 MG Q6-PRN PRN 02/01 1100 AC 02/06 IV 0137 Magnesium Chloride 64 MG BID 02/02 1000 AC 02/06 PO 0834 Metoprolol Succinate 50 MG DAILY 02/01 1000 AC 02/06 PO 0834 Multivitamins 1 TAB DAILY 01/26 1830 AC 02/06 PO 0834 Nicotine 14 MG DAILY 02/02 1000 AC 02/06 TOP 0834 Omeprazole 40 MG DAILY AC 01/19 0700 AC 02/06 PO 0517 Polyethylene Glycol 17 GM DAILY 01/28 1712 AC 02/04 PO 0833 Senna/Docusate Sodium 2 TAB AT BEDTIME PRN 01/17 1300 AC 01/28 PO 0333 Tamsulosin HCl 0.4 MG DAILY 01/17 1245 AC 02/06 PO 0833 Thiamine HCl 100 MG DAILY 01/26 1830 AC 02/06 PO 0835 Vital Signs Date Time Temp Pulse Resp B/P Pulse O2 O2 Flow FiO2 Ox Delivery Rate 02/06 0834 140/68 02/06 0834 140/68 02/06 0659 97.8 101 20 140/68 95 04/ 0200 98.3 102 20 140/80 04/03 2200 98.1 91 20 138/70 04/03 2122 98.1 91 20 138/70 96 04/03 1400 97.5 97 18 122/78 04 1400 97.5 97 18 122/78 95 Room Air Intake & Output 02/06 1600 02/06 0800 04 0000 Intake Total 250 490 Output Total 300 Balance 250 190 Intake, IV 10 10 Intake, Oral 240 480 Output, Urine 300
== END 2017-02-06 12:00 | disposition left against medical advice (07) | DRG 894 ==
LOC: ENRESERVDT → ENRESERVTM → ERH 09:57 → 2NA 12:51 → CRI 12:51 → ERHI 12:51 → 2NA 17:06 → CRI 01-19 04:14 → 1NO 01-31 18:03 → 2NA 02-03 14:50
PROVIDERS: Physician Assistant Medical; Radiology Diagnostic Radiology; Student in an Organized Health Care Education/Training Program; ADMIT Internal Medicine
DX: F10.239 Alcohol dependence with withdrawal, unspecified (principal); J69.0 Pneumonitis due to inhalation of food and vomit; R45.851 Suicidal ideations; K70.10 Alcoholic hepatitis without ascites; E87.1 Hypo-osmolality and hyponatremia; K86.0 Alcohol-induced chronic pancreatitis; E83.42 Hypomagnesemia; F14.10 Cocaine abuse, uncomplicated; I10 Essential (primary) hypertension; Y90.0 Blood alcohol level of less than 20 mg/100 ml; R25.1 Tremor, unspecified; K29.00 Acute gastritis without bleeding; F32.9 Major depressive disorder, single episode, unspecified; N40.0 Benign prostatic hyperplasia without lower urinary tract symptoms; J44.9 Chronic obstructive pulmonary disease, unspecified
CPT/HCPCS: 1NP; 2NAP; 84133; 84300; 87184; CCU; 36415; 80307; 81003; 82436; 82570; 87040; 87070; 87086; 87147; 93005; 93010; 96374; 96375; 99233; G0480; J0131; J0360; J1630; J1644; J2060; J2405; J3370; J3490; J7042; J7060; J7120

== ENCOUNTER 2017-05-09 19:32 | Inpatient (IN) | payer OTHER, MEDICARE ==
[~2017-05-09] VITALS: Ht 190.5 cm; Wt 104.3 kg
[~2017-05-09 19:32] MED LIST changes: +B-1100 MG PO; +FLOMAX0.4 M1 PO; +LEXAPRO20 M1 PO; +MAGNESIUM400 MG PO; +PROAIR HFA8.5 GM INH; +VITAMIN B-121000 MC3 PO
--- NOTE | 2017-05-09 20:52 | ED GENERAL ADULT ---
History of Present Illness General Chief Complaint: General Adult Stated Complaint: ETOH,FEVER,?INFECTION ON BACK Source: patient Exam Limitations: intoxication Vital Signs & Intake/Output Vital Signs & Intake/Output Vital Signs Date Time Temp Pulse Resp B/P B/P Pulse O2 O2 Flow FiO2 Mean Ox Delivery Rate 05/09 2153 96.8 59 20 127/74 97 Room Air 05/09 2122 Room Air 05/098 96.2 67 20 153/83 05/09 1950 96.2 67 20 153/83 95 Room Air ED Intake and Output 05/10 0000 05/09 1200 Intake Total Output Total Balance Patient 229 lb Weight Weight Reported by Patient Measurement Method Allergies Coded Allergies: NO KNOWN ALLERGIES (NO) (02/20/11) Reconcile Medications Albuterol Sulfate (Proair Hfa) 90 MCG HFA.AER.AD 2 PUF INH Q4-6 PRN PRN BREATHING PROBLEMS (Reported) Cyanocobalamin (Vitamin B-12) 1,000 MCG TABLET 1 TAB PO DAILY SUPPLEMENT ( Reported) Folic Acid 1 MG TABLET 1 TAB PO DAILY SUPPLEMENT (Reported) Gabapentin (Neurontin) 300 MG CAPSULE 1 CAP PO TID PAIN (Reported) Metoprolol Tartrate 25 MG TABLET 1 TAB PO DAILY HEART (Reported) Multivitamin (Multiple Vitamins) 1 EACH TABLET 1 TAB PO DAILY SUPPLEMENT ( Reported) Omeprazole Magnesium (Prilosec Otc) 20 MG TABLET.DR 1 TAB PO DAILY GERD Tamsulosin HCl (Flomax) 0.4 MG CAP.ER.24H 1 CAP PO DAILY PROSTATE (Reported) Thiamine HCl (B-1) 100 MG TABLET 1 TAB PO DAILY SUPPLEMENT (Reported) Trazodone HCl 50 MG TABLET 1 TAB PO DAILY DEPRESSION (Reported) Triage Note: PT TO ED REQUESTING ETOH DETOX AND CARE OF ABCESS ON BACK LEFT SHOULDER BLADE AREA. DENIES SI/HI. IS ACTIVELY VOMITTING IN THE WAITING ROOM. DRINKS 6-8 BEERS DAILY. 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 DENIES DRUGS. WENT TO [facility], HAS BEEN TAKING PO ABX FOR APPROX A WEEK. PMH OF SEIZURES WITH ETOH WITHDRAWAL Triage Nurses Notes Reviewed? yes Onset: Abrupt Duration: constant Timing: recent history Severity: severe Severity Numbers: 10 HPI: Patient is a 57-year-old male with past medical history of alcohol related withdrawal seizures, delirium tremens, hypertension,alveolar proteinosis confirmed on lung biospy, pancreatitis, alcoholic hepatitis who presents emergency room saying that he's been drinking constantly in which he does not know how much he drank today where he is requesting alcohol detoxification. Patient does have a history of withdrawal seizures from alcohol Patient also states that he was evaluated last week for concerns of an infection to the left lateral scapular region where he has been compliant with Bactrim. Patient also is complaining of general has abdominal pain and mild nausea. Denies any chest pain fevers chills shortness breath chest pain arm pain jaw pain Patient is able tolerate by mouth however this had poor nutritional intake he reports (FAMILIA KELLOGG) Past History Travel History Traveled to [place] past 21 day No Medical History Any Pertinent Medical History? see below for history Neurological: delerium tremens, seizure Cardiovascular: hypertension Respiratory: COPD, emphysema, alveolar proteinosis acute respiratory distress syndrome requiring intubation aspiration pneumonia Gastrointestinal: colitis, pancreatitis, GI bleed NOS Hepatic: alcoholic hepatitis Musculoskeletal: falls, rib fractures Psychiatric: alcohol dependence, substance abuse, cocaine abuse Endocrine: NONE Blood Disorders: anemia Cancer(s): ? Lung CA, previously CASING FLUID TENDER/Reproductive: genital warts, previously reported History of MRSA: Yes History of VRE: No History of CDIFF: No Influenza Vaccine: 09/05/16 Surgical History Surgical History: APPENDECTOMY Psychosocial History Who do you live with Family Services at Home None What is your primary language Danish Tobacco Use: Current Not Daily ETOH Use: alcoholic Illicit Drug Use: denies illicit drug use Family History Family History, If Any: MOTHER FH: CAD (coronary artery disease) FATHER FH: lung cancer Hx Contributory? No (FAMILIA KELLOGG) Review of Systems Review of Systems Constitutional: Reports: see HPI. EENTM: Reports: no symptoms. Respiratory: Reports: no symptoms. Cardiovascular: Reports: no symptoms. GI: Reports: see HPI, abdominal pain. Genitourinary: Reports: no symptoms. Musculoskeletal: Reports: no symptoms. Skin: Reports: see HPI, erythema. Neurological/Psychological: Reports: no symptoms. Hematologic/Endocrine: Reports: no symptoms. Immunologic/Allergic: Reports: no symptoms. All Other Systems: Reviewed and Negative (FAMILIA KELLOGG) Physical Exam Physical Exam General Appearance: intoxicated Comments: HEENT: Normal EENT exam, extraocular motion intact, no nystagmus. Pupils equally round and reactive to light and accommodation. Nose is atraumatic. External auditory canal and Tympanic membranes clear. Pharynx normal. No swelling or edema. Neck: Supple, no lymphadenopathy, normal range of motion without pain or tenderness Back: Nontender, no CVA tenderness. Cardiovascular: Regular rate and rhythms no murmurs rubs or gallops, normal JVP Respiratory: Chest nontender. No respiratory distress.breath sounds clear to auscultation bilaterally Abdomen: Soft, epigastric point tenderness noted no rebound tenderness no peritoneal signs nondistended, no appreciable organomegaly. Normal bowel sounds. No ascites Extremity: No edema, no calf tenderness to palpation, normal and equal pulses. Neuro: Alert oriented x3, motor sensory normal, Psych: Mood and affect is normal, Core Measures ACS in differential dx? No CVA/TIA Diagnosis: No Severe Sepsis Present: No Septic Shock Present: No Diagram Body: 1) Noted erythema warmth and tenderness with mild maceration superficially (FAMILIA KELLOGG) Progress Differential Diagnoses I considered the following diagnoses in my evaluation of the patient: [ Electrolyte abnormality, alcohol dependency, alcohol dependency, pancreatitis, alcoholic hepatitis] Plan of Care: Orders Procedure Date/time Status Heart Healthy Diet 05/10 B Active ED Holding Orders 05/09 2229 Active Vital Signs 05/09 2229 Active Code Status 05/09 222 Active Admit to inpatient 05/09 222 Active Patient Data 05/09 221 Active Add-on Test (ER Only) 05/09 2202 Active Add-on Test (ER Only) 05/09 2143 Active EKG 05/09 2143 Active Add-on Test (ER Only) 05/09 214 Active Intake & Output 05/09 212 Active TROPONIN LEVEL 05/09 2100 Complete MAGNESIUM 05/09 2100 Complete LYME TITRE 05/09 2100 Active CIWA 05/09 2051 Active URINE DRUGS OF ABUSE 05/09 2051 Active URINALYSIS 05/09 2051 Active LIPASE 05/09 2051 Complete ETHANOL 05/09 2051 Complete COMPREHENSIVE METABOLIC PANEL 05/09 2051 Complete CBC WITHOUT DIFFERENTIAL 05/09 2051 Complete AMYLASE 05/09 2051 Complete Current Medications Sig/Berta Start time Last Medication Dose Stop Time Status Admin Ondansetron HCl 2 MG ONCE ONE 05/09 2330 UNVr 05/09 (Zofran) 05/09 2331 2334 Laboratory Tests 05/09/17 2100: Anion Gap 13, Estimated GFR > 60, BUN/Creatinine Ratio 11.3, Glucose 98, Calcium 8.4, Magnesium 1.7, Total Bilirubin 0.4, AST 198 H, ALT 146 H, Alkaline Phosphatase 93, Troponin I < 0.01, Total Protein 7.7, Albumin 4.4, Globulin 3.3, Albumin/Globulin Ratio 1.3, Amylase 63, Lipase 341 H, CBC w Diff MAN DIFF ORDERED, RBC 3.70 L, MCV 96.2 H, MCH 32.9 H, RDW 13.0, MPV 6.3 L, Gran % 49.1, Lymphocytes % 27.1, Monocytes % 20.4 H, Eosinophils % 2.3, Basophils % 1.1, Absolute Granulocytes 1.4, Segmented Neutrophils 49, Band Neutrophils 1, Absolute Lymphocytes 0.8 L, Lymphocytes 28, Monocytes 15 H, Absolute Monocytes 0.6, Eosinophils 4, Absolute Eosinophils 0.1, Basophils 3 H, Absolute Basophils 0, Platelet Estimate VERIFIED BY SMEAR, Normocytic RBCs VERIFIED, Normochromic RBCs VERIFIED, PUBS MCHC 34.2, Fld Total RBCs Counted 100, Lyme Disease Antibody Pending, Serum Alcohol 393.0 Patient on initial examination shows signs of significant intoxication however patient does have critical findings of hyponatremia. (FAMILIA KELLOGG) Initial ED EKG: normal intervals, normal p-waves, normal QRS complex, 57 BPM, NSR (FAMILIA KELLOGG) Departure Departure Disposition: STILL A PATIENT Condition: Fair Clinical Impression Primary Impression: Hyponatremia Secondary Impressions: Alcohol dependence, Cellulitis of scapular region Referrals: NIKKI CARLSON (PCP/Family) Departure Forms: Customer Survey General Discharge Information Admission Note Sp[facility]: [facility] Documentation of Exam: Documentation of any treatments & extenuating circumstances including Concerns Regarding Discharge (functional status, medication knowledge or non-compliance, living conditions, etc.) that warrant an admission rather than observation: [ Discussed patient with Dr. BOYER who agrees a general medicine admission for concerns of hyponatremia, cellulitis and alcohol dependency. Patient requires IV fluid resuscitation, repeat labs, close monitoring of alcohol withdrawal CIWA scoring and IV antibiotics. Outpatient treatment due to critical findings of hyponatremia would be medically harmful] (FAMILIA KELLOGG) PA/ACUTE CARE PHYSICIAN Co-Sign Statement Statement: ED Attending supervision documentation- [X] I saw and evaluated the patient. I have also reviewed all the pertinent lab results and diagnostic results. I agree with the findings and the plan of care as documented in the PA's/ACUTE CARE PHYSICIAN's documentation. [] I have reviewed the ED Record and agree with the PA's/ACUTE CARE PHYSICIAN's documentation. [] Additions or exceptions (if any) to the PAs/ACUTE CARE PHYSICIAN's note and plan are summarized below: [] (GABRIEL MACKENZIE,JANUARY Vargas) Critical Care Note Critical Care Note Critical Care Time: 30-74 min (ERMELINDA RAPHAEL,FAMILIA)
[2017-05-09 20:58] VITALS: BP 153/83
[2017-05-09 21:23] LABS: ABSOLUTE BASOPHIL COUNT 0 /CUMM (0.0-0.2); ABSOLUTE EOSINOPHIL COUNT 0.1 /CUMM (0.0-0.7); ABSOLUTE GRANULOCYTE CT 1.4 /CUMM (1.4-6.5); ABSOLUTE LYMPH COUNT 0.8 /CUMM (1.2-3.4); ABSOLUTE MONOCYTE COUNT 0.6 /CUMM (0.10-0.60); BASOPHIL % 1.1 % (0.0-2.0); EOSINOPHIL % 2.3 % (0-5); GRANULOCYTE % 49.1 % (42.2-75.2); HEMATOCRIT 35.6 % (42-52); MEAN CORPUSCULAR HGB 32.9 PG (27.0-31.0); MEAN CORPUSCULAR HGB CONC 34.2 G/DL (33.0-37.0); MEAN CORPUSCULAR VOLUME 96.2 FL (80.0-94.0); MEAN PLATELET VOLUME 6.3 FL (7.4-10.4); PLATELET COUNT 158 /CUMM (130-400); WHITE BLOOD CELL COUNT 2.9 /CUMM (4.8-10.8)
--- NOTE | 2017-05-09 22:48 | History & Physical ---
JOJO TILLMAN,[facility] 05/09/17 3017: General Information and HPI MD Statement: I have seen and personally examined FABI TAYOLR and documented this H&P. The patient is a 57 year old M who presented with a patient stated chief complaint of [alcohol withdrawal and abscess of his back]. Source of Information: patient Exam Limitations: intoxication History of Present Illness: Patient is a 57-year-old male with past medical history of substance abuse, DT, alcohol withdrawal seizures, and pancreatitis, who presents requesting etoh detox and treatment for his left upper back abscess. He states that he drinks up to 12 beers a day along with 2-4 shots. His last drink was right before coming to the emergency department. He would was brought by his parents because of vomiting. His last detox was in January. He then started drinking again in 1 month after detox. The patient states that his last alcohol withdrawal seizures was 4-5 years ago. He states he has had 2 instances of alcohol withdrawal seizures in his lifetime. He was recently seen at [place] for his left upper back abscess. He states that he has been taking antibiotics for the past 3 days. He states he was given Bactrim. The patient denies any trauma to his left upper back. But he does state that he was using machine to cut grass or something outside. His thinking was unclear due to his intoxication. Allergies/Medications Allergies: Coded Allergies: NO KNOWN ALLERGIES (NO) (02/20/11) Home Med list Albuterol Sulfate (Proair Hfa) 90 MCG HFA.AER.AD 2 PUF INH Q4-6 PRN PRN BREATHING PROBLEMS (Reported) Cyanocobalamin (Vitamin B-12) 1,000 MCG TABLET 1 TAB PO DAILY SUPPLEMENT ( Reported) Folic Acid 1 MG TABLET 1 TAB PO DAILY SUPPLEMENT (Reported) Gabapentin (Neurontin) 300 MG CAPSULE 1 CAP PO TID PAIN (Reported) Metoprolol Tartrate 25 MG TABLET 1 TAB PO DAILY HEART (Reported) Multivitamin (Multiple Vitamins) 1 EACH TABLET 1 TAB PO DAILY SUPPLEMENT ( Reported) Omeprazole Magnesium (Prilosec Otc) 20 MG TABLET.DR 1 TAB PO DAILY GERD Tamsulosin HCl (Flomax) 0.4 MG CAP.ER.24H 1 CAP PO DAILY PROSTATE (Reported) Thiamine HCl (B-1) 100 MG TABLET 1 TAB PO DAILY SUPPLEMENT (Reported) Trazodone HCl 50 MG TABLET 1 TAB PO DAILY DEPRESSION (Reported) Past History Travel History Traveled to [place] past 21 day No Medical History Neurological: delerium tremens, etoh withdrawal seizures Cardiovascular: hypertension 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 requiring intubation aspiration pneumonia Gastrointestinal: pancreatitis, GI bleed NOS Hepatic: alcoholic hepatitis Psychiatric: alcohol dependence, substance abuse, cocaine Endocrine: NONE Blood Disorders: anemia 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 Ambulation: independent, cane, walker, non-ambulatory IADLs Independent: shopping, housework, finances, food prep, telephone, transportation , medication admin. Review of Systems Review of Systems Constitutional: Reports: chills. Denies: fever. Cardiovascular: Denies: chest pain. GI: Reports: nausea, vomiting. Denies: abdominal pain. Skin: Reports: lesions, rash. Exam & Diagnostic Data Last 24 Hrs of Vital Signs/I&O Vital Signs Date Time Temp Pulse Resp B/P B/P Pulse O2 O2 Flow FiO2 Mean Ox Delivery Rate 05/10 0645 98.4 77 20 130/70 97 Room Air 05/10 0145 98.9 77 18 132/86 97 Room Air 05/10 0104 20 20 146/72 100 Room Air 05/09 2153 96.8 59 20 127/74 97 Room Air 05/09 2122 Room Air 05/09 2058 96.2 67 20 153/83 07/ 1950 96.2 67 20 153/83 95 Room Air Intake & Output 05/10 0800 / 0000 05/09 1600 Intake Total 400 Output Total Balance 400 Intake, IV 250 Intake, Oral 150 Number 0 Bowel Movements Patient 230 lb 229 lb Weight Weight Reported by Patient Reported by Patient Measurement Method Physical Exam General Appearance Alert, Cooperative, No Acute Distress, patient appears intoxicated lying on bed Skin there is a 1 inch diameter ulceration in his upper left back. That is surrounded by a larger 1.5 inch erythema encircling the ulceration. Skin Temp/Moisture Exam: Warm/Dry HEENT Atraumatic, EOMI Cardiovascular Regular Rate, Normal S1, Normal S2 Lungs Clear to Auscultation Abdomen right upper quadrant and epigastric pain., madrigal sign negative Body Front and Back (Adult) 1) Last 24 Hrs of Labs/Humberto: Laboratory Tests 05/10/17 0646: Sodium Pending, Potassium Pending, Chloride Pending, Carbon Dioxide Pending, Anion Gap Pending, BUN Pending, Creatinine Pending, BUN/Creatinine Ratio Pending , Serum Osmolality Pending, Total Bilirubin Pending, Direct Bilirubin Pending, AST Pending, ALT Pending, Alkaline Phosphatase Pending, Total Protein Pending, Albumin Pending 05/09/17 2100: Anion Gap 13, Estimated GFR > 60, BUN/Creatinine Ratio 11.3, Glucose 98, Calcium 8.4, Phosphorus 4.0, Magnesium 1.7, Total Bilirubin 0.4, AST 198 H, ALT 146 H, Alkaline Phosphatase 93, Troponin I < 0.01, Total Protein 7.7, Albumin 4.4, Globulin 3.3, Albumin/Globulin Ratio 1.3, Amylase 63, Lipase 341 H, CBC w Diff MAN DIFF ORDERED, RBC 3.70 L, MCV 96.2 H, MCH 32.9 H, RDW 13.0, MPV 6.3 L, Gran % 49.1, Lymphocytes % 27.1, Monocytes % 20.4 H, Eosinophils % 2.3, Basophils % 1.1, Absolute Granulocytes 1.4, Segmented Neutrophils 49, Band Neutrophils 1, Absolute Lymphocytes 0.8 L, Lymphocytes 28, Monocytes 15 H, Absolute Monocytes 0.6, Eosinophils 4, Absolute Eosinophils 0.1, Basophils 3 H, Absolute Basophils 0, Platelet Estimate VERIFIED BY SMEAR, Normocytic RBCs VERIFIED, Normochromic RBCs VERIFIED, PUBS MCHC 34.2, Fld Total RBCs Counted 100 , Lyme Disease Antibody Pending, Serum Alcohol 393.0 Assessment/Plan Assessment: Patient is a 57-year-old male with past medical history of substance abuse, DT, alcohol withdrawal seizures, and pancreatitis, who presents requesting etoh detox and treatment for his left upper back abscess. As Ranked By This Provider Problem List: 1. ALCOHOL WITHDRAWAL Assessment/Plan The patient is a 57-year-old male with a past history of alcohol abuse currently requesting alcohol detox. We will begin with patient with a normal saline banana bag and then switched to IV normal saline. We will place him on CIWA protocol and give Ativan 2 mg every q6 by mouth. We will monitor for delirium tremens. We will also prescribe a multivitamin, folate, B12, and thiamine. We will order Zofran for the patient when necessary as needed since he has vomited. We will also placed patient on Protonix for alcoholic gastritis. Social work consult will be placed. -Continue normal saline banana bag and switched to IV normal saline -Continue CIWA protocol and ativan 2mg q6 -Monitor for DT -Continue multivitamin, folate, B12, thiamine -Zofran prn -Social work follow-up -Continue patient on pantoprazole 40 mg IV daily 2. Transaminitis Assessment/Plan The patient had an AST of 196, AST 146, and ALP 93. The transaminitis may be due to chronic alcohol abuse. However it does not fit the classic 2:1 AST to a ALT ratio. We will continue to monitor his symptoms since he complains of right upper quadrant pain although the Madrigal sign was negative. If his transaminases remain elevated we may consider an ultrasound to rule out any pathology. -repeat LFTs in AM 3. Hyponatremia Assessment/Plan The patient's sodium was 120. In the setting of his chronic alcohol abuse, this is most likely be a beer potomania. Caution should be taken to avoid rapidly correcting his sodium due to the risk of central pontine myelinolysis. We will also check the urine and serum osmolality to r/o AMADOR. -correct Na+ <9meq/L in a 24/hr period -Follow-up urine and serum osmolality 4. HTN (hypertension) Assessment/Plan The patient has a history of hypertension, we will continue him on his home medications. -Continue metoprolol 25 mg daily 5. Neuropathic pain Assessment/Plan Patient history of neuropathic pain. We'll continue his home medication. -Continue gabapentin 300 mg by mouth 3 times a day 6. BPH (benign prostatic hyperplasia) Assessment/Plan The patient has a history of BPH. We will continue his tamsulosin. -Continue tamsulosin 0.4 mg by mouth daily 7. Cellulitis and abscess of buttock Assessment/Plan The patient described to us that he had a abscess in his upper left back. He was seen at [place] and was given Bactrim for which she took for 3 days. On examination I saw a 1 inch diameter ulceration surrounded by a 1.5 erythema encircling this ulceration. We will begin treatment for cellulitis with Unasyn. -Continue Unasyn 8. Medication management Assessment/Plan The patient states that he has his medications at both the [facility] in [place] and the [facility] in [place]. We will need to confirm his medications. -Please confirm patient's medications 9. DVT prophylaxis Assessment/Plan Lovenox 10. Full code status Core Measures/Miscellaneous Acute Coronary Syndrome ACS Diagnosis: No Cerebrovascular Accident CVA/TIA Diagnosis: No Congestive Heart Failure CHF Diagnosis: No VTE (View Protocol) VTE Risk Factors: Acute medical illness, Age > 40 No [facility] VTE prophylaxis d/t: No contraindications No VTE Pharm Prophylaxis d/t: No contraindications VTE Diagnosis: No VTE Type: NONE VTE Confirmed by (Test): NONE Sepsis (View Protocol) Severe Sepsis Present: No Septic Shock Septic Shock Present: No Miscellaneous Documentation Attending Case Discussed With: RODRIGO [facility]YER [facility] Primary Care Physician: NIKKI CARLSON Patient sees these Specialists NA Level of Patient Care: General Medicine SARAH TILLMAN,[facility] 05/10/17 0242: Resident Review Statement Resident Statement: examined this patient, discussed with internal controls consultant, agreed with internal controls consultant Other Findings: Mr Taylor is a 57-year-old gentleman with multiple admissions for alcohol detox who presents to the emergency department [facility] requesting detoxification and in addition to complaining of left sided shoulder skin ulcer. Patient states that he was recently seen at [facility] where he was started on by mouth antibiotics he was given Bactrim for cellulitis. States that these have not helped. Patient states that pain is currently 10 out of 10 in severity and describes his shoulder as a burning sensation. He also reports that wound may have been purulent and prior to coming and says that his mother found that it did have some evidence of clear discharge. In addition to the above the patient also requests alcohol detoxification stating multiple times throughout the clinical encounter "that he feels that his too old to drink." Patient states that he drinks between 6-8 beers on a daily basis however can drink up to 12 beers. He also reports between 3-4 shots on a daily basis. 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 He states since being discharged from the hospital he was sober for 4 weeks, however subsequently began drinking again. Mr. Taylor does state he has a history of alcohol withdrawal seizures. He was brought in by his parents. Review of systems: he denied any fever, did endorse occasional chills. He also endorsed nausea and vomiting and had 2 episodes of vomitus while in the waiting room at the emergency department. Vomitus did not contain any blood or bile. Vitals temperature 96.2, pulse 67, respiratory rate 20, heart rate 95, blood pressure 152/83. HEENT: extraocular motion intact, no nystagmus. Pupils equally round and reactive to light and accommodation. Nose is atraumatic. External auditory canal and Tympanic membranes clear. Pharynx normal. No swelling or edema. Neck: Supple, no lymphadenopathy, normal range of motion without pain or tenderness Back: Nontender, Right CVA Tenderness Cardiovascular: Regular rate and rhythms no murmurs rubs or gallops. Respiratory: CTA Abdomen: Soft, nontender, Slightly nondistended, no appreciable organomegaly. Normal bowel sounds. No ascites, no rebound or guarding. Extremity: No edema, no calf tenderness to palpation, normal and equal pulses. Neuro: Alert oriented to person and place, motor sensory normal, cranial nerves II through XII grossly intact. Patient was pleasant and appears mildly intoxicated, he was in no acute distress. Skin: Left Shoulder Ulcer, Approximately 5 cm X 5 cm, tender, no discharge, surrounding erythema. Labs: evident for white cell count of 2.9, H&H of 12.2 and 35.6 respectively. Platelets 158. Sodium 120, potassium 5.5, BUN: 9.0 creatinine 0.8. AST 198, ALT 146. Lipase 341. Alcohol level 393. Assessment and plan This is a 57-year-old gentleman with past medical history of alcohol abuse with most recent admission in January 2017 which presented to the emergency department complaining of left shoulder pain and requesting to be assisted with alcohol detoxification. Left left shoulder pain likely due to cellulitis. Due to the fact that the patient did not complete antibiotic course. We will begin the patient on Unasyn. Will provide adequate coverage for anaerobes. Repeat CBC in a.m. Acute Alcohol Withdrawal Banana bag subsequently to be followed by IV normal saline. Patient appeared euvolemic on examination. We will begin the patient on CIWA as per protocol. Also given scheduled Ativan 2 mg by mouth every 6 hrs. Monitor for delirium tremens within the first 48-72 hours. Frequent reorientation. Multivitamin, folate, B12, thiamine. IV Zofran 2 mg every 6 when necessary May consider the addition of naltrexone and the patient to reduce pleasure sensation behind alcohol. This may assist the patient in cessation for long- term alcohol use. Keep Magnesium > 2 Phosphorus: Pending. Transaminitis. Likely due to extensive history of alcohol use. No right upper quadrant pain noted. Madrigal sign was negative. Repeat LFTs in a.m. Hold off on any imaging studies. If remain elevated may consider abdominal ultrasound to rule out any pathology. Hyponatremia Patient is a history of being hyponatremic chronically. This episode might be due to dehydration. BEP IN am. Ensure rapid correction does not occur. > 8 Meq in 24 hours. History of hypertension Continue metoprolol 25 mg daily. History of pain. Continue gabapentin in a.m. History of BPH Continue tamsulosin in a.m. History of mood disorder. May continue trazodone in a.m. *Confirm medications in a.m. 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 Diet keep nothing by mouth for now. We will advance the diet as tolerated. DVT Prophylaxis: Lovenox. Code Full code MERLIN TILLMAN, [facility] 05/10/17 0251: Attending Review Statement Attending Statement Attending MD Statement: examined this patient, discuss w/resident/PA/DAIRY DEPARTMENT MANAGER, agreed w/resident/PA/DAIRY DEPARTMENT MANAGER Attending Assessment/Plan: 57 yo M ex-smoker, with h/o alcohol dependence, alcohol withdrawal seizures, DT' s, COPD, alveolar proteinosis, HTN, polysubstance abuse, ARDS requiring intubation, ischemic colitis, pancreatitis, most recently admitted to [place] ( January 2017) for alcohol detox and left AMA, returns today requesting alcohol detox. C/o nausea and vomiting. He reports being sober for 1 month but resumed drinking (drinks 12 pack beers and multiple shots). Denies drug use. He denies SI or HI. He was diagnosed with a left upper back cellulitis that was being treated with Bactrim (as prescribed by [facility] [place]). He denies trauma but reports he may have sustained tick bites. Vitals stable. Exam: awake, alert, oriented, face flushed, appears intoxicated. Tremors+. Chest b/l clear, Heart S1S2 regular, Abd soft, RUQ tenderness, Madrigal' s negative. LE: no edema. Back: Left upper back 5 x 5 cm diffuse area of erythema with induration, no fluctuance, no discharge. Labs: WBC 2.9, band 1, macrocytic anemia, Plt 158, Na 120 (baseline 129-135), K 5.5, AST 198, ALT 146, trop neg, lipase 341. Alcohol 393. EKG: SR. 1. Alcohol withdrawal, impending DT's. GM admit, [facility] protocol, IV ativan per [facility], PO ativan 2 mg Q6, banana bag, replete electrolytes. Social work consult. 2. Alcoholic gastritis and transaminitis. Clear liquid diet, until he is able to take PO. IV PPI. IV fluids. Trend LFTs. Negative Hep panel (2016). 3. Hyponatremia. ?dry to euvolemic status. Check serum and urine osmolality. Gentle hydration. Recheck sodium in AM. 4. Left upper back cellulitis. Blood cultures, initiate IV Unasyn. Local wound care. DVT ppx Lovenox. Full code.
[2017-05-10 01:45] VITALS: BP 132/86
--- NOTE | 2017-05-10 02:51 | Admission Certification ---
Admission Certification Certification Statement - As attending physician, I certify that at the time of - admission, based on clinical presentation, severity of - symptoms, need for further diagnostic testing and - therapeutic interventions, and risk of adverse outcomes - without in-hospital treatment, in my clinical assessment, - this patient requires an acute hospital stay for a minimum - of two nights or longer. I have also considered psychsocial - factors such as support system, advanced age, financial - issues, cognitive issues, and failed out-patient treatments, - past re-admission history, safety of patient, and lack of - compliance as applicable. Specific rationale supporting this admission is: Alcohol withdrawal, hyponatremia, back cellulitis.
[2017-05-10 06:45] VITALS: BP 130/70
--- NOTE | 2017-05-10 07:50 | PN- Housestaff ---
BANDAR LAZO 05/10/17 0745: Subjective Follow-up For: - Alcohol use/detox - hyponatremia Complaints: no complaints Subjective: Pt was comfortable. He was sleeping in the bed, when I walked into his room. Stated that he had pain in the upper back from the wound in the back. Vitals were stable overnight, and he remained afebrile. Review of Systems Constitutional: Reports: see HPI. Objective Last 24 Hrs of Vital Signs/I&O Vital Signs Date Time Temp Pulse Resp B/P B/P Pulse O2 O2 Flow FiO2 Mean Ox Delivery Rate 05/10 0645 98.4 77 20 130/70 97 Room Air 05/10 0145 98.9 77 18 132/86 97 Room Air 05/10 0104 20 20 146/72 100 Room Air 05/09 2153 96.8 59 20 127/74 97 Room Air 05/09 2122 Room Air 05/09 2058 96.2 67 20 153/83 07/05 1950 96.2 67 20 153/83 95 Room Air Intake & Output 05/10 0800 05/10 0000 05/09 1600 Intake Total 400 Output Total Balance 400 Intake, IV 250 Intake, Oral 150 Number 0 Bowel Movements Patient 230 lb 229 lb Weight Weight Reported by Patient Reported by Patient Measurement Method Physical Exam General Appearance: Alert Other Physical Findings: General Exam: AAOx3, No acute distress, Skin: No rashes, superficial ulcer on the dosal surface on the upper back( lateral side) size [id number], with erythema associated around [id number]. Serosanguinous discharge. No purulent discharge. HEENT: PERRLA, EOMI Neck: Supple, No JVD No cervical lymphadenopathy CVS: Reg Rate, Normal S1,S2, No MGR Resp: Normal air entry, no ronchi/rales Abdomen: Soft, No tenderness, Normal Bowel Sounds Neuro: Normal Speech, Strength 5/5 b/l x 4 extremities, Sensation intact, CN III -XII NL, Reflexes 2+ Extremities: No cyanosis, pedal edema 1+ Current Medications: Current Medications Sig/Berta Start time Last Medication Dose Route Stop Time Status Admin Ampicillin Sodium/ 1,500 MG Q6H 05/10 0300 AC Sulbactam Sodium IV Sodium Chloride 100 ML Ampicillin Sodium/ 1,500 MG Q6 05/10 0025 DC 05/10 Sulbactam Sodium IV 0307 Sodium Chloride 100 ML Ampicillin Sodium/ 0 .STK-MED ONE 05/09 2156 DC Sulbactam Sodium .ROUTE Ampicillin Sodium/ 1,500 MG ONCE ONE 05/09 2145 DC 05/09 Sulbactam Sodium IV 05/09 Sodium Chloride 100 ML Cyanocobalamin 1,000 MCG DAILY 05/10 1000 AC PO Cyanocobalamin/ 1 BAG ONCE ONE 05/10 0030 AC 05/10 Thiamine/Pyridoxine IV 05/10 0829 0500 Sodium Chloride 1,000 ML Enoxaparin Sodium 40 MG DAILY 05/10 1000 AC SC Folic Acid 1 MG DAILY 05/10 1000 AC PO Gabapentin 300 MG TID 05/10 1000 AC PO Ketorolac 0 .STK-MED ONE 05/09 2156 DC Tromethamine .ROUTE Ketorolac 30 MG ONCE ONE 05/09 2145 DC 05/09 Tromethamine IV 05/09 2146 225 Lorazepam 2 MG Q6 05/10 0600 AC 05/10 PO 0500 Lorazepam See Dose Q1P PRN 05/10 0030 AC 05/10 Insts (1) IV 0208 Metoprolol Succinate 25 MG DAILY 05/10 1000 AC PO Multivitamins 1 TAB DAILY 05/10 1000 AC Therapeutic PO Ondansetron HCl 2 MG Q6 PRN 05/10 0430 AC IV Ondansetron HCl 0 .STK-MED ONE 05/09 2342 DC .ROUTE Ondansetron HCl 2 MG ONCE ONE 05/09 2330 DC 05/09 IV 05/09 233 233 Ondansetron HCl 0 .STK-MED ONE 05/09 2156 DC .ROUTE Ondansetron HCl 4 MG ONCE ONE 05/09 2145 DC 05/09 IV 05/09 2146 225 Pantoprazole Sodium 40 MG DAILY 05/10 0030 AC 05/10 IV 0208 Sodium Chloride 1,000 ML BOLUS ONE 05/09 2145 DC 05/09 IV 05/09 2244 225 Tamsulosin HCl 0.4 MG DAILY 05/10 1000 AC PO Dose Instructions: (1)Lorazepam: See admin criteria Last 24 Hrs of Lab/Humberto Results Last 24 Hrs of Labs/Mics: Laboratory Tests 05/10/17 0646: Sodium Pending, Potassium Pending, Chloride Pending, Carbon Dioxide Pending, Anion Gap Pending, BUN Pending, Creatinine Pending, BUN/Creatinine Ratio Pending , Serum Osmolality Pending, Total Bilirubin Pending, Direct Bilirubin Pending, AST Pending, ALT Pending, Alkaline Phosphatase Pending, Total Protein Pending, Albumin Pending 05/09/17 2100: Anion Gap 13, Estimated GFR > 60, BUN/Creatinine Ratio 11.3, Glucose 98, Calcium 8.4, Phosphorus 4.0, Magnesium 1.7, Total Bilirubin 0.4, AST 198 H, ALT 146 H, Alkaline Phosphatase 93, Troponin I < 0.01, Total Protein 7.7, Albumin 4.4, Globulin 3.3, Albumin/Globulin Ratio 1.3, Amylase 63, Lipase 341 H, CBC w Diff MAN DIFF ORDERED, RBC 3.70 L, MCV 96.2 H, MCH 32.9 H, RDW 13.0, MPV 6.3 L, Gran % 49.1, Lymphocytes % 27.1, Monocytes % 20.4 H, Eosinophils % 2.3, Basophils % 1.1, Absolute Granulocytes 1.4, Segmented Neutrophils 49, Band Neutrophils 1, Absolute Lymphocytes 0.8 L, Lymphocytes 28, Monocytes 15 H, Absolute Monocytes 0.6, Eosinophils 4, Absolute Eosinophils 0.1, Basophils 3 H, Absolute Basophils 0, Platelet Estimate VERIFIED BY SMEAR, Normocytic RBCs VERIFIED, Normochromic RBCs VERIFIED, PUBS MCHC 34.2, Fld Total RBCs Counted 100 , Lyme Disease Antibody Pending, Serum Alcohol 393.0 Assessment/Plan Assessment: Mr. De La Cruz is a 57-year-old man with a past history of alcoholic dependence, alcohol withdrawal seizures, COPD, previous smoker, polysubstance abuse, previous intubation, pancreatitis, several hospital admissions for alcohol detox is being evaluated for alcohol detox. As per the patient, he has heavy alcohol use, 12 pack beers with multiple shots of vodka. No suicidal intent or homicidal ideation. Recent diagnosis of cellulitis of upper back, which he attributes it to a possible fall/injury to the back after yard work treated with Bactrim only. At the time of admission, vitals-temp 96.2, VT 67, RR 20, BP 153/83, 95 % RA. Lab findings indicated leukopenia W BC 2.9, hemoglobin 12.2, platelets 158. Sodium 120--->128. Serum osmolality was slightly elevated 307. But urine osmolality, urine lites were not done at the time of admission. (Ordered this a.m., but no urine sample was collected in the ED). Potassium 5.5, chloride 84, bicarbonate 23, BUN 9, serum creatinine 0.8. Abnormal hepatic panel-AST 198, ALT 146, alkaline phosphatase 93 (likely because of alcohol use), first set of cardiac enzyme-troponin I less than 0.01. Total bilirubin 0.4. Urine toxicology, was not done, but serum alcohol was high-393. Differential diagnosis: #1 alcohol detox #2 hyponatremia secondary to alcohol use or dehydration. Below is the problem list and plan: 1. Alcohol withdrawl- Pt was started on alcohol detox protocol, which is CIWA, Ativan as per CIWA protocol, and the schedule Ativan 2 mg every 6h. The patient had alcohol withdrawal seizures in the past, and continue to monitor patient closely. Continue thiamine. #2 hyponatremia-likely because of dehydration. Sodium improved from 120---> 128 , and would recheck sodium in the a.m. Patient would like to increase by mouth intake. Advance diet. Continue to monitor closely. Discussed with the attending, and ordered labs only AM. #3 elevated liver enzymes-likely because of alcohol use. Continue to monitor closely. Alkaline phosphatase within normal limits. #4 DVT prophylaxis-pharmacological. Problem List: 1. Abdominal pain 2. Cellulitis and abscess of buttock 3. HTN (hypertension) 4. Hyponatremia 5. Transaminitis 6. Cellulitis of scapular region Pain Ratin Pain Location: shoulder region Pain Goal: Pain 4 or less Pain Plan: tylenol prn Tomorrow's Labs & Rationales: cbc bep ERICK MARIE 05/10/17 1021: Attending MD Review Statement Attending Statement Attending MD Statement: examined this patient, discuss w/resident/PA/FREIGHT ADJUSTER, agreed w/resident/PA/FREIGHT ADJUSTER, discussed with family, reviewed EMR data (avail), discussed with nursing, discussed with case mgmt, reviewed images, amended to note Attending Assessment/Plan: 57 o/m with alcohol withdrawal gen/med hold on tele, vitals stable, hyponatremia on gentle hydration, electrolytes monitoring, CIWA as per protocol. Transfer patient if bed available
[2017-05-10 14:56] VITALS: BP 172/84
[2017-05-10 23:00] VITALS: BP 138/90; BP 162/90
[2017-05-11 01:00] VITALS: BP 168/98
--- NOTE | 2017-05-11 06:58 | PN- Housestaff ---
BANDAR LAZO 05/11/17 0658: Subjective Follow-up For: Alcohol detox Hyponatremia Cellulitis of upper back Tele-Events Since Last Visit: Normal sinus rhythm, no overnight events were noted. Subjective: He was comfortable this morning. Did not have any complaints. No fever, shortness of breath, chest pain were noted. He was motivated to complete the alcohol detox, during this admission. Vitals were stable overnight. He remained afebrile. During the day, he fell rolling out of his bed in his sleep. Did not have any head injury or any other parts of the body. CAT scan of the head was done, which did not reveal any bleeding/acute pathology. Did not have any prodromal symptoms, lightheadedness or dizziness before the fall or after. Vitals were stable at that time. He did not have any complaints. Explained to him about the event, and he did not have any concerns. Informed the attending physician. Review of Systems Constitutional: Reports: see HPI. Objective Last 24 Hrs of Vital Signs/I&O Vital Signs Date Time Temp Pulse Resp B/P B/P Pulse O2 O2 Flow FiO2 Mean Ox Delivery Rate 05/11 0100 88 18 168/98 07/ 2300 106 138/90 07/ 2300 98.9 98 18 162/90 97 Room Air 05/10 1456 99.1 100 20 172/84 94 Room Air 05/10 1234 77 130/70 07/06 1234 77 130/70 Intake & Output 07 0800 07/07 0000 07/06 1600 Intake Total 1542 225 8924 Output Total 5092 513 9437 Balance 50 150 -525 Intake, IV 100 100 875 Intake, Oral 950 850 600 Number 1 0 Bowel Movements Output, Urine 8953 443 5787 Physical Exam General Appearance: Alert Other Physical Findings: General Exam: AAOx3, No acute distress, Skin: No rashes, superficial ulcer on the dosal surface on the upper back( lateral side) size [id number], with erythema associated around [id number]. Serosanguinous discharge. No purulent discharge. HEENT: PERRLA, EOMI Neck: Supple, No JVD No cervical lymphadenopathy CVS: Reg Rate, Normal S1,S2, No MGR Resp: Normal air entry, no ronchi/rales Abdomen: Soft, No tenderness, Normal Bowel Sounds Neuro: Normal Speech, Strength 5/5 b/l x 4 extremities, Sensation intact, CN III -XII NL, Reflexes 2+ Extremities: No cyanosis, pedal edema 1+ Current Medications: Current Medications Sig/Berta Start time Last Medication Dose Route Stop Time Status Admin Ampicillin Sodium/ 1,500 MG Q6H 05/10 0300 AC 05/11 Sulbactam Sodium IV 0412 Sodium Chloride 100 ML Cyanocobalamin 1,000 MCG DAILY 05/10 1000 AC 05/10 PO 1234 Cyanocobalamin/ 1 BAG ONCE ONE 05/10 0030 DC 05/10 Thiamine/Pyridoxine IV 05/10 0829 0500 Sodium Chloride 1,000 ML Enoxaparin Sodium 40 MG DAILY 05/10 1000 AC 05/10 SC 1234 Folic Acid 1 MG DAILY 05/10 1000 AC 05/10 PO 1233 Gabapentin 300 MG TID 05/10 1000 AC 05/10 PO 2210 Lorazepam 2 MG Q6 05/10 0600 AC 05/11 PO 0500 Lorazepam See Dose Q1P PRN 05/10 0030 AC 05/11 Insts (1) IV 0616 Metoprolol Succinate 25 MG DAILY 05/10 1000 AC 05/10 PO 1234 Multivitamins 1 TAB DAILY 05/10 1000 AC 05/10 Therapeutic PO 1233 Ondansetron HCl 2 MG Q6 PRN 05/10 0430 AC IV Pantoprazole Sodium 40 MG DAILY 05/10 0030 AC 05/10 IV 1234 Tamsulosin HCl 0.4 MG DAILY 05/10 1000 AC 05/10 PO 1234 Thiamine HCl 100 MG DAILY 05/10 1615 AC 05/10 PO 1755 Dose Instructions: (1)Lorazepam: See admin criteria Last 24 Hrs of Lab/Humberto Results Last 24 Hrs of Labs/Mics: Laboratory Tests 05/10/17 1800: Sodium Cancelled, Potassium Cancelled, Chloride Cancelled, Carbon Dioxide Cancelled, Anion Gap Cancelled, BUN Cancelled, Creatinine Cancelled, BUN/ Creatinine Ratio Cancelled Microbiology 05/10 1050 BLOOD: Blood Culture - RECD 05/10 1045 BLOOD: Blood Culture - RECD Assessment/Plan Assessment: Mr. De La Cruz is a 57-year-old man with a past history of alcoholic dependence, alcohol withdrawal seizures, COPD, previous smoker, polysubstance abuse, previous intubation, pancreatitis, several hospital admissions for alcohol detox is being evaluated for alcohol detox. As per the patient, he has heavy alcohol use, 12 pack beers with multiple shots of vodka. No suicidal intent or homicidal ideation. Recent diagnosis of cellulitis of upper back, which he attributes it to a possible fall/injury to the back after yard work treated with Bactrim only. Differential diagnosis: #1 alcohol detox #2 hyponatremia secondary to alcohol use or dehydration. Below is the problem list and plan: 1. Alcohol withdrawl- Pt was started on alcohol detox protocol, which is CIWA, Ativan as per CIWA protocol; the schedule Ativan 2 mg every 6h has been changed to 1.5 mg every 6 hourly.. The patient had alcohol withdrawal seizures in the past, and continue to monitor patient closely. Continue thiamine. #2 hyponatremia-likely because of dehydration. Sodium improved from 120---> 128 , and would recheck sodium in the a.m. continue to monitor closely. He apparently drank, 7-10 small bottles of soda overnight. #3 elevated liver enzymes-likely because of alcohol use. Continue to monitor closely. Alkaline phosphatase within normal limits. #4 DVT prophylaxis-pharmacological. Problem List: 1. HTN (hypertension) 2. Hyponatremia 3. Transaminitis 4. Cellulitis of scapular region 5. Neuropathic pain Pain Ratin Pain Location: Lower extremities Pain Goal: Pain 4 or less Pain Plan: Tylenol when necessary Tomorrow's Labs & Rationales: Complete blood count-to monitor for leukopenia. Basic electrolyte panel and liver panel to monitor for worsening kidney function. ERICK MARIE 05/11/17 1423: Attending MD Review Statement Attending Statement Attending MD Statement: examined this patient, discuss w/resident/PA/CIVIL ENGINEERING DESIGNER, agreed w/resident/PA/CIVIL ENGINEERING DESIGNER, discussed with family, reviewed EMR data (avail), discussed with nursing, discussed with case mgmt, reviewed images, amended to note Attending Assessment/Plan: 57 o/m with alcohol withdrawal gen/med hold on tele, vitals stable, hyponatremia on gentle hydration, electrolytes monitoring, CIWA as per protocol. Transfer patient if bed available
[2017-05-11 07:36] VITALS: BP 164/98
[2017-05-11 11:50] VITALS: BP 140/82
--- NOTE | 2017-05-11 12:49 | CT SCAN REPORT ---
EXAMINATION: CT HEAD WITHOUT CONTRAST CLINICAL INFORMATION: Fall. Head trauma. Head hit on floor COMPARISON: Portions of a previous study 04/28/15 TECHNIQUE: Multidetector CT examination of the head is performed without contrast. DLP: 625 mGy-cm FINDINGS: There is no evidence of a recent intracranial hemorrhage or extra-axial collection. The midline structures are nondisplaced. There is mild to moderate prominence of the ventricles, cisterns and sulci greater than expected for the patient's age. There is no evidence of an intra-axial mass. There are no suspicious focal areas of abnormal brain attenuation. The hill-white interface is within normal limits. There is no evidence of acute territorial infarct. There is a mild amount of subcortical white matter low-attenuation in the left frontal region anteriorly. This is unchanged and could be related to remote injury. The paranasal sinuses and mastoids are within normal limits. IMPRESSION: 1. There is no evidence of a recent intracranial hemorrhage. 2. No acute infarct. 3. Volume loss. There may be some mild post traumatic change in the subcortical anterior left frontal region
[2017-05-11 14:59] VITALS: BP 146/80
[2017-05-11 22:21] VITALS: BP 160/80
[2017-05-11 23:45] VITALS: BP 164/84
[2017-05-12] VITALS (7 sets, daily range): BP systolic 120–182; BP diastolic 80–110
--- NOTE | 2017-05-12 06:57 | PN- Housestaff ---
See Addendum Subjective Follow-up For: Alcohol detox Hyponatremia Cellulitis of upper back Tele-Events Since Last Visit: Not on monitor Subjective: Patient seen and examined at bedside. He is upset that he is restraints. He denies any fevers, chills, shortnes sof breath, staes that ehwants to go home. Of note his blood pressure has been elevated. Review of Systems Constitutional: Denies: chills, fever, weakness. Cardiovascular: Denies: chest pain, orthopena, palpitations, peripheral edema. Respiratory: Denies: cough, hemoptysis, short of breath. Gastrointestinal: Denies: abdominal pain, constipation, diarrhea, nausea, vomiting. Genitourinary: Reports: no symptoms. Musculoskeletal: Reports: no symptoms. Neurological/Psychological: Denies: headache, numbness, tingling, tremors. Objective Last 24 Hrs of Vital Signs/I&O Vital Signs Date Time Temp Pulse Resp B/P B/P Pulse O2 O2 Flow FiO2 Mean Ox Delivery Rate 05/12 0656 70 174/98 05/12 0600 98.7 70 20 170/94 /08 0200 80 150/84 / 0045 88 160/82 05/11 2345 88 20 164/84 05/11 2253 63 160/80 / 2221 98.2 83 20 160/80 95 Room Air 05/11 2058 66 120/70 07/07 1459 97.5 80 18 146/80 95 Room Air / 1150 95.0 90 18 140/82 / 1150 97.8 90 18 140/82 95 Room Air 05/11 1031 168/92 05/11 1023 168/92 05/11 1023 168/92 05/11 0736 98.9 71 20 164/98 95 Room Air Intake & Output 05/12 0800 07/08 0000 05/11 1600 Intake Total 400 760 Output Total 688 344 8634 Balance -400 -190 -1000 Intake, IV 10 Intake, Oral 400 750 Number 1 Bowel Movements Output, Urine 171 463 1861 Physical Exam General Appearance: Alert, Oriented X3, Cooperative HEENT: Atraumatic, PERRLA, EOMI, Mucous Membr. moist/pink Neck: Supple, No JVD Cardiovascular: Normal S1, Normal S2, No Murmurs Lungs: Clear to Auscultation, Normal Air Movement Abdomen: Normal Bowel Sounds, Soft, No Tenderness Neurological: Normal Speech, Strength at 5/5 X4 Ext, Normal Tone, Sensation Intact, Cranial Nerves 3-12 NL, Reflexes 2+ Extremities: No Edema Other Physical Findings: Has a 4cm x5cm erythematous area over his left shoulder and back. Current Medications: Current Medications Sig/Berta Start time Last Medication Dose Route Stop Time Status Admin Ampicillin Sodium/ 1,500 MG Q6H 05/10 0300 DC 05/11 Sulbactam Sodium IV 0412 Sodium Chloride 100 ML Cephalexin 500 MG BID 05/11 1000 AC 05/11 PO 2055 Clonidine 0.2 MG BID 05/12 1000 AC 05/12 PO 0656 Clonidine 0.1 MG ONCE ONE 05/115 DC 05/11 PO 05/11 2246 2253 Clonidine 0.1 MG BID 05/11 1000 DC 05/11 PO 2058 Cyanocobalamin 1,000 MCG DAILY 05/10 1000 AC 05/11 PO 1023 Enoxaparin Sodium 40 MG DAILY 05/10 1000 AC 05/11 SC 1023 Folic Acid 1 MG DAILY 05/10 1000 AC 05/11 PO 1031 Gabapentin 300 MG TID 05/10 1000 AC 05/11 PO 2055 Lorazepam 1.5 MG Q6 05/11 1200 AC 05/12 PO 0624 Lorazepam 2 MG Q6 05/10 0600 DC 05/11 PO 0500 Lorazepam See Dose Q1P PRN 05/10 0030 AC 05/12 Insts (1) IV 0243 Metoprolol Succinate 25 MG DAILY 05/10 1000 AC 05/11 PO 1023 Multivitamins 1 TAB DAILY 05/10 1000 AC 05/11 Therapeutic PO 1023 Ondansetron HCl 2 MG Q6 PRN 05/10 0430 AC IV Pantoprazole Sodium 40 MG DAILY 05/10 0030 AC 05/11 IV 1031 Tamsulosin HCl 0.4 MG DAILY 05/10 1000 AC 05/11 PO 1023 Thiamine HCl 100 MG DAILY 05/10 1615 AC 05/11 PO 1023 Dose Instructions: (1)Lorazepam: See admin criteria Last 24 Hrs of Lab/Humberto Results Last 24 Hrs of Labs/Mics: Laboratory Tests 05/12/17 0640: Anion Gap 13, Estimated GFR > 60, BUN/Creatinine Ratio 14.3, CBC w Diff NO MAN DIFF REQ, RBC 4.19 L, MCV 95.9 H, MCH 32.7 H, RDW 13.2, MPV 7.1 L, Gran % 55.6, Lymphocytes % 24.5, Monocytes % 15.9 H, Eosinophils % 2.2, Basophils % 1.8, Absolute Granulocytes 1.9, Absolute Lymphocytes 0.8 L, Absolute Monocytes 0.5, Absolute Eosinophils 0.1, Absolute Basophils 0.1, PUBS MCHC 34.1 Orders CIWA Score (last 24 hrs): 5-12 Assessment/Plan Assessment: Mr. De La Cruz is a 57-year-old man with a past history of alcoholic dependence, alcohol withdrawal seizures, COPD, previous smoker, polysubstance abuse, previous intubation, pancreatitis, several hospital admissions for alcohol detox is being evaluated for alcohol detox. As per the patient, he has heavy alcohol use, 12 pack beers with multiple shots of vodka. No suicidal intent or homicidal ideation. Recent diagnosis of cellulitis of upper back, which he attributes it to a possible fall/injury to the back after yard work treated with Bactrim only. Differential diagnosis: #1 alcohol detox #2 hyponatremia secondary to alcohol use or dehydration. Below is the problem list and plan: 1. Alcohol withdrawl- Pt was started on alcohol detox protocol, which is CIWA, Ativan as per [facility] protocol; the schedule Ativan 1.5 mg every 6h has been changed to 1.0 mg every 6 hourly. The patient had alcohol withdrawal seizures in the past, and continue to monitor patient closely. Continue thiamine. #2 hyponatremia-likely because of dehydration. Sodium improved from 120---> 132 , and would recheck sodium in the a.m. continue to monitor closely. #3 elevated liver enzymes-likely because of alcohol use. Continue to monitor closely. Alkaline phosphatase within normal limits. #4 DVT prophylaxis-pharmacological. Problem List: 1. ALCOHOL WITHDRAWAL Pain Ratin Pain Location: n/a Alt Method for Pain Treatment: Aroma Therapy Pain Goal: Remain pain free Pain Plan: ALTERNATIVE PAIN Tomorrow's Labs & Rationales: BEP - NA LEVELS
[2017-05-12 08:52] LABS: ABSOLUTE BASOPHIL COUNT 0.1 /CUMM (0.0-0.2); ABSOLUTE EOSINOPHIL COUNT 0.1 /CUMM (0.0-0.7); ABSOLUTE GRANULOCYTE CT 1.9 /CUMM (1.4-6.5); ABSOLUTE LYMPH COUNT 0.8 /CUMM (1.2-3.4); ABSOLUTE MONOCYTE COUNT 0.5 /CUMM (0.10-0.60); BASOPHIL % 1.8 % (0.0-2.0); EOSINOPHIL % 2.2 % (0-5); GRANULOCYTE % 55.6 % (42.2-75.2); HEMATOCRIT 40.2 % (42-52); MEAN CORPUSCULAR HGB 32.7 PG (27.0-31.0); MEAN CORPUSCULAR HGB CONC 34.1 G/DL (33.0-37.0); MEAN CORPUSCULAR VOLUME 95.9 FL (80.0-94.0); MEAN PLATELET VOLUME 7.1 FL (7.4-10.4); PLATELET COUNT 176 /CUMM (130-400); RBC DISTRIBUTION WIDTH 13.2 % (11.5-14.5); RED BLOOD CELL CT 4.19 /CUMM (4.70-6.10); WHITE BLOOD CELL COUNT 3.4 /CUMM (4.8-10.8)
[2017-05-13 00:04] VITALS: BP 160/94
[2017-05-13 06:59] VITALS: BP 142/90
--- NOTE | 2017-05-13 08:58 | PN- Housestaff ---
JAVIER TILLMAN,ABBY 05/13/17 0857: Subjective Follow-up For: Alcohol detox Hyponatremia Cellulitis of upper back Complaints: no complaints Tele-Events Since Last Visit: Jaren Subjective: Patient was seen and examined at the bedside. He currently is off restraints. He reports no complaints states that he wants to go home. Review of Systems Constitutional: Reports: no symptoms. EENTM: Reports: no symptoms. Cardiovascular: Reports: no symptoms. Respiratory: Reports: no symptoms. Gastrointestinal: Reports: no symptoms. Genitourinary: Reports: no symptoms. Musculoskeletal: Reports: no symptoms. Skin: Reports: no symptoms. Neurological/Psychological: Reports: no symptoms. Hematologic/Endocrine: Reports: no symptoms. Immunologic/Allergic: Reports: no symptoms. Objective Last 24 Hrs of Vital Signs/I&O Vital Signs Date Time Temp Pulse Resp B/P B/P Pulse O2 O2 Flow FiO2 Mean Ox Delivery Rate 05/13 1545 97.6 78 18 136/92 05/13 1512 97.6 78 18 136/92 96 Room Air 05/13 0836 98.0 75 18 142/90 05/13 0836 98.0 75 18 142/90 05/13 0659 98.0 75 18 142/90 95 Room Air / 0004 160/94 05/12 2224 97.9 75 14 182/110 97 Room Air 05/12 2131 66 184/90 Intake & Output 05/13 1600 /09 0800 07/ 0000 Intake Total 800 600 Output Total 300 800 350 Balance 500 -200 -350 Intake, Oral 800 600 Output, Urine 300 800 350 Physical Exam General Appearance: Alert, Oriented X3, Cooperative, No Acute Distress Skin: No Rashes, No Breakdown, No Significant Lesion Skin Temp/Moisture Exam: Warm/Dry Sepsis Skin Exam (color): Normal for Ethnicity HEENT: Atraumatic, EOMI, Mucous Membr. moist/pink Neck: Supple Lymphatic: Axillary nl (ON) Cardiovascular: Regular Rate (1), Normal S1, Normal S2, No Murmurs, Gallops, Rubs Lungs: Clear to Auscultation Abdomen: Normal Bowel Sounds, Soft, No Tenderness Neurological: Normal Speech (HE IS) Extremities: No Clubbing, No Cyanosis, No Edema Vascular: Normal Pulses Current Medications: Current Medications Sig/Berta Start time Last Medication Dose Route Stop Time Status Admin Cephalexin 500 MG BID 05/11 1000 AC 05/13 PO 0836 Clonidine 0.2 MG BID 05/12 1000 AC 05/13 PO 0836 Cyanocobalamin 1,000 MCG DAILY 05/10 1000 AC 05/13 PO 0837 Enoxaparin Sodium 40 MG DAILY 05/10 1000 AC 05/13 SC 0837 Folic Acid 1 MG DAILY 05/10 1000 AC 05/13 PO 0836 Gabapentin 300 MG TID 05/10 1000 AC 05/13 PO 1717 Lorazepam 1 MG Q8H 05/13 2030 AC PO Lorazepam 1 MG Q6 05/12 1200 DC 05/13 PO 1228 Lorazepam See Dose Q1P PRN 05/10 0030 AC 05/13 Insts (1) IV 0103 Metoprolol Succinate 25 MG DAILY 05/10 1000 AC 05/13 PO 0836 Multivitamins 1 TAB DAILY 05/10 1000 AC 05/13 Therapeutic PO 0836 Ondansetron HCl 2 MG Q6 PRN 05/10 0430 AC IV Pantoprazole Sodium 40 MG DAILY 05/10 0030 AC 05/13 IV 0837 Tamsulosin HCl 0.4 MG DAILY 05/10 1000 AC 05/13 PO 0836 Thiamine HCl 100 MG DAILY 05/10 1615 AC 05/13 PO 0837 Dose Instructions: (1)Lorazepam: See admin criteria Last 24 Hrs of Lab/Humberto Results Last 24 Hrs of Labs/Mics: Laboratory Tests 05/13/17 0745: Anion Gap 11, Estimated GFR > 60, BUN/Creatinine Ratio 16.3, Total Bilirubin 0.9 , Direct Bilirubin 0.4, AST 272 H, ALT 211 H, Alkaline Phosphatase 119, Total Protein 8.3 H, Albumin 4.8 Orders CIWA Score (last 24 hrs): 0 Lines/Diet/Fluids Restraints: none Assessment/Plan Assessment: Mr. De La Cruz is a 57-year-old man with a past history of alcoholic dependence, alcohol withdrawal seizures, COPD, previous smoker, polysubstance abuse, previous intubation, pancreatitis, several hospital admissions for alcohol detox is being evaluated for alcohol detox. Recent diagnosis of cellulitis of upper back, which he attributes it to a possible fall/injury to the back after yard work treated with Bactrim only. #1 alcohol detox #2 hyponatremia secondary to alcohol use or dehydration. #3 cellulitis of the upper back. #4 hypertension Plan 1. Alcohol withdrawl- Pt was started on alcohol detox protocol, which is CIWA, Ativan as per CIWA protocol; the schedule Ativan 1.0 mg every 6 hourly has been changed to every 8 hours by mouth 1 mg. The patient had alcohol withdrawal seizures in the past, and continue to monitor patient closely. Currently see what is 0. Continue thiamine. Clonidine 0.2 mg twice a day by mouth. elevated liver enzymes-likely because of alcohol use. AST is currently 272 and a LT is 211. Alkaline phosphatase 119 total protein 8.3. Continue to monitor closely. #2 hyponatremia-likely because of dehydration. Sodium improved from 120---> 132 , and would recheck sodium in the a.m. continue to monitor closely. #3 cellulitis of the upper back patient is on Keflex 500 mg twice a day by mouth #4 DVT prophylaxis-pharmacological. Problem List: 1. ALCOHOL WITHDRAWAL 2. Cellulitis and abscess of buttock 3. HTN (hypertension) 4. Hyponatremia Pain Ratin Pain Location: Upper back Pain Goal: Pain 4 or less Pain Plan: NA Tomorrow's Labs & Rationales: Monitor sodium levels. Also monitor liver function tests. ERICK MARIE 05/13/17 1045: Attending MD Review Statement Attending Statement Attending MD Statement: examined this patient, discuss w/resident/PA/RECORDER HELPER GRAVITY PROSPECTING, agreed w/resident/PA/RECORDER HELPER GRAVITY PROSPECTING, discussed with family, reviewed EMR data (avail), discussed with nursing, discussed with case mgmt, reviewed images, amended to note Attending Assessment/Plan: 57 o/m with alcohol withdrawal gen/med hold on tele, vitals stable, hyponatremia on gentle hydration improving, electrolytes monitoring, CIWA as per protocol. PO abx for back cellulitis improving. Transfer patient if bed available.
[2017-05-13 15:12] VITALS: BP 136/92
[2017-05-13 15:45] VITALS: BP 136/92
[2017-05-13 21:08] VITALS: BP 190/102
[2017-05-13 22:00] VITALS: BP 156/84
--- NOTE | 2017-05-14 05:40 | PN- Housestaff ---
BANDAR LAZO 05/14/17 0538: Subjective Follow-up For: - Alcohol withdrawl - hypokalemia Complaints: no complaints Subjective: Mr. De La Cruz was comfortable this morning. Did not have any complains. No chest pain, shortness of breath. He was concerned about his fall risk, and wanted to walk. He disliked the idea of fall precautions, and having the alarm attached to his bed. Explained to him about the fall risk, and informed him that a physical therapy evaluation was requested for his unstable gait. He was afebrile overnight. Vitals stable. Blood pressure was slightly elevated , and medication dosages have been adjusted. Review of Systems Constitutional: Reports: see HPI. Objective Last 24 Hrs of Vital Signs/I&O Vital Signs Date Time Temp Pulse Resp B/P B/P Pulse O2 O2 Flow FiO2 Mean Ox Delivery Rate 05/13 2200 156/84 05/13 2108 98.0 75 21 190/102 98 Room Air 05/13 2104 75 190/102 05/13 1545 97.6 78 18 136/92 05/13 1512 97.6 78 18 136/92 96 Room Air / 0836 98.0 75 18 142/90 07/09 0836 98.0 75 18 142/90 07/09 0659 98.0 75 18 142/90 95 Room Air Intake & Output 05/14 0800 05/14 0000 05/13 1600 Intake Total 640 800 Output Total 525 300 Balance 115 500 Intake, Oral 640 800 Output, Urine 525 300 Physical Exam General Appearance: Alert Other Physical Findings: General Exam: AAOx3, No acute distress, Skin: No rashes, superficial ulcer on the dosal surface on the upper back( lateral side) size [id number], with mild erythema associated. No purulent discharge. HEENT: PERRLA, EOMI Neck: Supple, No JVD No cervical lymphadenopathy CVS: Reg Rate, Normal S1,S2, No MGR Resp: Normal air entry, no ronchi/rales Abdomen: Soft, No tenderness, Normal Bowel Sounds Neuro: Normal Speech, Strength 5/5 b/l x 4 extremities, Sensation intact, CN III -XII NL, Reflexes 2+ Extremities: No cyanosis, pedal edema 1+ Current Medications: Current Medications Sig/Berta Start time Last Medication Dose Route Stop Time Status Admin Cephalexin 500 MG BID 05/11 1000 AC 05/13 PO 2104 Clonidine 0.2 MG BID 05/12 1000 AC 05/13 PO 2104 Cyanocobalamin 1,000 MCG DAILY 05/10 1000 AC 05/13 PO 0837 Enoxaparin Sodium 40 MG DAILY 05/10 1000 AC 05/13 SC 0837 Folic Acid 1 MG DAILY 05/10 1000 AC 05/13 PO 0836 Gabapentin 300 MG TID 05/10 1000 AC 05/13 PO 210 Lorazepam 1 MG Q8H 05/13 2030 AC 05/14 PO 0504 Lorazepam 1 MG Q6 05/12 1200 DC 05/13 PO 1228 Lorazepam See Dose Q1P PRN 05/10 0030 AC 05/14 Insts (1) IV 0049 Metoprolol Succinate 25 MG DAILY 05/10 1000 AC 05/13 PO 0836 Multivitamins 1 TAB DAILY 05/10 1000 AC 05/13 Therapeutic PO 0836 Ondansetron HCl 4 MG .STK-MED ONE 05/13 194 DC IM 05/13 1950 Ondansetron HCl 2 MG Q6 PRN 05/10 0430 AC 05/13 IV 1952 Pantoprazole Sodium 40 MG DAILY 05/10 0030 AC 05/13 IV 0837 Tamsulosin HCl 0.4 MG DAILY 05/10 1000 AC 05/13 PO 0836 Thiamine HCl 100 MG DAILY 05/10 1615 AC 05/13 PO 0837 Dose Instructions: (1)Lorazepam: See admin criteria Last 24 Hrs of Lab/Humberto Results Last 24 Hrs of Labs/Mics: Laboratory Tests 05/13/17 0745: Anion Gap 11, Estimated GFR > 60, BUN/Creatinine Ratio 16.3, Total Bilirubin 0.9 , Direct Bilirubin 0.4, AST 272 H, ALT 211 H, Alkaline Phosphatase 119, Total Protein 8.3 H, Albumin 4.8 Assessment/Plan Assessment: Mr. De La Cruz is a 57-year-old man with a past history of alcoholic dependence, alcohol withdrawal seizures, COPD, previous smoker, polysubstance abuse, previous intubation, pancreatitis, several hospital admissions for alcohol detox is being evaluated for alcohol detox. Recent diagnosis of cellulitis of upper back, which he attributes it to a possible fall/injury to the back after yard work treated with Bactrim only. Differential diagnosis: #1 alcohol detox #2 hyponatremia #3 cellulitis #4 hypertension Below is the problem list and plan: 1. Alcohol withdrawl- Pt was started on alcohol detox protocol-CIWA, Ativan as per CIWA protocol; the schedule Ativan 0.5 mg every 8 hourly to be changed to every 12 hours po in the am. The patient had alcohol withdrawal seizures in the past, and continue to monitor patient closely. CIWA 0-8. Continue thiamine. elevated liver enzymes-likely because of alcohol use. Discussed with him about the possible follow-up with his primary care physician about elevated liver enzymes and abstinence from alcohol and would decrease transaminases. #2 hyponatremia-likely due to increased by mouth intake of fluids. Unfortunately, all the lab work was not done to be able to make the diagnosis, at the time of admission. Patient was noted to have several cans of chantel rui, and upon inquiry, informed that he drinks 2-3 gallons of water a day. Encouraged him to watch his by mouth intake. #3 cellulitis of the upper back patient is on Keflex 500 mg twice a day (day 4) by mouth for a total of 10 days. Improving. #4 DVT prophylaxis-pharmacological. Problem List: 1. Cellulitis and abscess of buttock 2. HTN (hypertension) 3. Hyponatremia Pain Ratin Pain Location: upper back Pain Goal: Pain 4 or less Pain Plan: acetaminophen Tomorrow's Labs & Rationales: BEP - to monitor sodium. pt came in with hyponatremia TERESA TILLMAN,[facility] 05/14/17 0949: Attending MD Review Statement Attending Statement Attending MD Statement: examined this patient, discuss w/resident/PA/MECHANICAL DEVELOPMENT ENGINEER, agreed w/resident/PA/MECHANICAL DEVELOPMENT ENGINEER, reviewed EMR data (avail), discussed with nursing, discussed with case mgmt, amended to note Attending Assessment/Plan: Patient seen and examined. Sitting down comfortably in his bed eating breakfast. I observed him ambulating freely around his room without assistance. He did not appear unsteady. He is alert and oriented 3 conversing appropriately. No issues overnight reported by nursing staff. Patient offers no complaints today. He remains afebrile at hemodynamically stable. On examination he is not tremulous or agitated. He has an area of erythema over the left trapezius. It is nontender. There is no discharge. There is no fluctuant area. Recommendations: -Continue benzodiazepine taper. With anticipation of last dose tomorrow. -His serum sodium continues to improve. Repeat serum chemistry in a.m. -Continue Keflex for antibiotic therapy. Complete a total of 10 days of antibiotic therapy. -His blood pressure has been on the higher side this admission. His metoprolol dose has been increased today. Monitor for improvement of blood pressure. Monitor heart rate. -Discontinue clonidine. -Nursing staff reports that he still has a sitter because he tends to be impulsive. This appears unrelated to his alcohol withdrawal. Follow-up recommendations of the physical therapy service.
[2017-05-14 06:36] VITALS: BP 170/108
[2017-05-14 07:57] VITALS: BP 150/80
[2017-05-14 14:21] VITALS: BP 124/80
[2017-05-14] MEDS ORDERED: CEPHALEXIN500 M3 PO (15:09)
[2017-05-14] MEDS ORDERED: ATIVAN0.5 M1 PO (15:09)
--- NOTE | 2017-05-14 15:13 | Patient Discharge Instructions ---
Discharge Instructions General Discharge Information You were seen/treated for: - Alcohol detox -Electrolyte abnormality, decreased sodium level in the blood. Watch for these problems: -Tremors, shakiness, seizures -Chest pain, shortness of breath, palpitations (racing of heart). Special Instructions: #1 please follow-up with your primary care doctor within 1-2 weeks of discharge. #2 please take your medications as prescribed. Acute Coronary Syndrome Inclusion Criteria At DC or during hospital stay patient has or had the following: ACS DIAGNOSIS No Discharge Core Measures Meds if any: Prescribed or Continued at Discharge Meds if any: NOT Prescribed or Continued at Discharge Congestive Heart Failure Inclusion Criteria At DC or during hospital stay patient has or had the following: CHF DIAGNOSIS No Discharge Core Measures Meds if any: Prescribed or Continued at Discharge Meds if any: NOT Prescribed or Continued at Discharge Cerebrovascular accident Inclusion Criteria At DC or during hospital stay patient has or had the following: CVA/TIA Diagnosis No Discharge Core Measures Meds if any: Prescribed or Continued at Discharge Meds if any: NOT Prescribed or Continued at Discharge Venous thromboembolism Inclusion Criteria VTE Diagnosis No VTE Type NONE VTE Confirmed by (Test) NONE Discharge Core Measures - Per Current guidelines, there needs to be overlap - treatment for the first 5 days of Warfarin therapy. - If discharged on Warfarin prior to 5 days of - overlap therapy, the patient will need to be - assessed for post discharge needs including - *Post discharge parental anticoagulation - *Warfarin and/or parental anticoagulation education - *Follow up date to check INR post discharge At least 5 days overlap therapy as Inpatient No Meds if any: Prescribed or Continued at Discharge Note: Overlap Therapy is Warfarin and Anticoagulant Meds if any: NOT Prescribed or Continued at Discharge
--- NOTE | 2017-05-14 15:14 | Discharge Summary ---
Visit Information Visit Dates Admission Date: 05/09/17 Discharge Date: 05/15/17 Hospital Course Course Attending Physician[facility] Primary Care Physician: NIKKI CARLSON Hospital Course: Mr. De La Cruz is a 57-year-old man with a past history of alcoholic dependence, alcohol withdrawal seizures, COPD, previous smoker, polysubstance abuse, previous intubation, pancreatitis, several hospital admissions for alcohol detox is being evaluated for alcohol detox. Recent diagnosis of cellulitis of upper back, which he attributes it to a possible fall/injury to the back after yard work treated with Bactrim only. At the time of admission, vitals-temp 96.2, IA 67, RR 20, BP 153/83, 95 % RA. Lab findings indicated leukopenia W BC 2.9, hemoglobin 12.2, platelets 158. Sodium 120. Serum osmolality was slightly elevated 307. But urine osmolality, urine lites were not done at the time of admission. (Ordered this a.m., but no urine sample was collected in the ED). Potassium 5.5, chloride 84, bicarbonate 23, BUN 9, serum creatinine 0.8. Abnormal hepatic panel-AST 198, ALT 146, alkaline phosphatase 93 (likely because of alcohol use), first set of cardiac enzyme-troponin I less than 0.01. Total bilirubin 0.4. Urine toxicology, was not done, but serum alcohol was high-393. Differential diagnosis: #1 alcohol detox #2 hyponatremia #3 cellulitis #4 hypertension Below is the problem list and plan: 1. Alcohol withdrawl- Pt was started on alcohol detox protocol-CIWA, Ativan was given as per CIWA protocol; and also scheduled Ativan, to taper it gradually. The patient had alcohol withdrawal seizures in the past, and was watched closely in telemetry. CIWA scores remained on the lower side. The pt had a fall while he was sleeping, and stated that the fell off the bed with no injuries. Radiological tests- CT head was unremarkable. He was given thiamine, folate, and mvt. The patient had elevated liver enzymes-likely because of alcohol use. Discussed with him about the possible follow-up with his primary care physician about elevated liver enzymes and abstinence from alcohol and would decrease transaminases. Seemed motivated. #2 hyponatremia-likely due to increased by mouth intake of fluids. Sodium at the time of dischage 132, which was corrected gradually. Unfortunately, all the lab work was not done to be able to make the diagnosis, at the time of admission. Patient was noted to have several cans of chantel rui, and upon inquiry, informed that he drinks 2-3 gallons of water a day. Encouraged him to watch his by mouth intake. #3 cellulitis of the upper back- He was was intitally started on iv angmentin, but continued on Keflex 500 mg twice a day by mouth for a total of 10 days. #4 hypertension- reemained slightly elevated. The dose of metoprol was adjusted. Advised him to be complaint with his meds, and follow up with the PCP. Allergies: Coded Allergies: NO KNOWN ALLERGIES (NO) (02/20/11) Disposition Summary Disposition Principal Diagnosis: Alcohol detox Additional Diagnosis: hyponatremia Discharge Disposition: home or self care Discharge Instructions General Discharge Information Code Status: Full Code Patient's Diet: heart healthy diet Patient's Activity: as tolerated. Follow-Up Instructions/Appts: #1 please follow-up with your primary care doctor within 1-2 weeks of discharge. #2 please take your medications as prescribed. Medications at Discharge Discharge Medications: Stop taking the following medications: Metoprolol Tartrate (Metoprolol Tartrate) 25 MG TABLET ORAL DAILY Continue taking these medications: Gabapentin (Neurontin) 300 MG CAPSULE 1 Capsule ORAL THREE TIMES DAILY Comments: Last Taken: 05/15/17 Time: 0900AM Folic Acid (Folic Acid) 1 MG TABLET 1 Tablet ORAL DAILY Comments: Last Taken: 05/15/17 Time: 0900AM Trazodone HCl (Trazodone HCl) 50 MG TABLET 1 Tablet ORAL DAILY Comments: Last Taken: 05/14/17 Time: 2200PM Multivitamin (Multiple Vitamins) 1 EACH TABLET 1 Tablet ORAL DAILY Comments: Last Taken: 05/15/17 Time: 0900AM Omeprazole Magnesium (Prilosec Otc) 20 MG TABLET.DR 1 Tablet ORAL DAILY Qty = 30 Comments: Last Taken: 05/15/17 Time: 0600AM Albuterol Sulfate (Proair Hfa) 90 MCG HFA.AER.AD 2 Puff Inhale through mouth EVERY 4-6 HOURS NEEDED as needed for BREATHING PROBLEMS Comments: NOT GIVEN IN HOSPITAL Cyanocobalamin (Vitamin B-12) 1,000 MCG TABLET 1 Tablet ORAL DAILY Comments: Last Taken: 05/15/17 Time:0900AM Tamsulosin HCl (Flomax) 0.4 MG CAP.ER.24H 1 Capsule ORAL DAILY Comments: Last Taken: 05/15/17 Time: 0900AM Thiamine HCl (B-1) 100 MG TABLET 1 Tablet ORAL DAILY Comments: Last Taken: 05/15/17 Time: 0900AM Start taking the following new medications: Metoprolol Succ XL (Toprol XL) 25 MG TAB 37.5 Milligram ORAL DAILY Qty = 30 No Refills Instructions: . Comments: Last Taken: 05/15/17 Time: 0900AM Cephalexin (Cephalexin) 500 MG CAPSULE 500 Milligram ORAL TWICE DAILY Qty = 11 No Refills Instructions: PLEASE TAKE YOUR MEDICATION PRESCRIBED Comments: Last Taken: 05/15/17 Time: 0900AM Copies To: NIKKI CARLSON Attending Review Statement Documenting Attending: CARLY MOORE M.D Other Findings: CAT - CT HEAD WO IV CONTRAST 05/11/17 / 1239 1. There is no evidence of a recent intracranial hemorrhage. 2. No acute infarct. 3. Volume loss. There may be some mild post traumatic change in the subcortical anterior left frontal region
[2017-05-14 22:17] VITALS: BP 160/94
--- NOTE | 2017-05-15 06:02 | PN- Housestaff ---
BANDAR LAZO 05/15/17 0601: Subjective Follow-up For: - alcohol detox Subjective: Pt was comfortable. No complaints. Explained to him about the new medication changes. Vitals stable. BP was slightly elevated. Low CIW A scores. Review of Systems Constitutional: Reports: see HPI. Objective Last 24 Hrs of Vital Signs/I&O Vital Signs Date Time Temp Pulse Resp B/P B/P Pulse O2 O2 Flow FiO2 Mean Ox Delivery Rate 05/15 0129 80 170/98 05/14 2217 98.9 69 20 160/94 96 Room Air 05/14 1421 98.2 72 20 124/80 95 Room Air 05/14 1249 152/78 05/14 0945 80 150/80 05/14 0757 80 150/80 05/14 0636 97.7 80 20 170/108 96 05/14 0614 170/108 05/14 0614 170/108 Intake & Output 05/15 0800 05/15 0000 05/14 1600 Intake Total 800 930 Output Total 500 700 Balance 300 230 Intake, IV 30 Intake, Oral 800 900 Number 0 Bowel Movements Output, Urine 500 700 Patient 230 lb Weight Physical Exam General Appearance: No Acute Distress Other Physical Findings: General Exam: AAOx3, No acute distress, Skin: No rashes, superficial ulcer on the dosal surface on the upper back( lateral side), improved. HEENT: PERRLA, EOMI Neck: Supple, No JVD No cervical lymphadenopathy CVS: Reg Rate, Normal S1,S2, No MGR Resp: Normal air entry, no ronchi/rales Abdomen: Soft, No tenderness, Normal Bowel Sounds Neuro: Normal Speech, Strength 5/5 b/l x 4 extremities, Sensation intact, CN III -XII NL, Reflexes 2+ Extremities: No cyanosis, pedal edema 1+ Current Medications: Current Medications Sig/Berta Start time Last Medication Dose Route Stop Time Status Admin Acetaminophen 500 MG Q8P PRN 05/14 2045 AC PO Cephalexin 500 MG BID 05/11 1000 AC 05/14 PO 213 Clonidine 0.2 MG BID 05/12 1000 DC 05/14 PO 0614 Cyanocobalamin 1,000 MCG DAILY 05/10 1000 AC 05/14 PO 09 Enoxaparin Sodium 40 MG DAILY 05/10 1000 AC 05/14 SC 45 Folic Acid 1 MG DAILY 05/10 1000 AC 05/14 PO 0945 Gabapentin 300 MG TID 05/10 1000 AC 05/14 PO 2134 Hydralazine HCl 5 MG ONCE ONE 05/14 2330 DC 05/15 PO 05/14 2331 0129 Lorazepam 0.5 MG BID 05/15 1000 AC PO 05/22 0959 Lorazepam 0.5 MG Q8H 05/14 1230 DC 05/15 PO 05/15 0500 0438 Lorazepam 1 MG Q8H 05/13 2030 DC 05/14 PO 0504 Lorazepam See Dose Q1P PRN 05/10 0030 AC 05/14 Insts (1) IV 0049 Metoprolol Succinate 37.5 MG DAILY 05/15 1000 AC PO Metoprolol Succinate 12.5 MG ONCE ONE 05/14 1000 DC 05/14 PO 05/14 1001 1249 Metoprolol Succinate 25 MG DAILY 05/10 1000 DC 05/14 PO 0614 Multivitamins 1 TAB DAILY 05/10 1000 AC 05/14 Therapeutic PO 0945 Omeprazole 40 MG DAILY AC 05/15 0700 AC 05/15 PO 0438 Ondansetron HCl 2 MG Q6 PRN 05/10 0430 AC 05/13 IV 1952 Pantoprazole Sodium 40 MG DAILY 05/10 0030 DC 05/14 IV 0945 Patient Medication 1 ED .STK-MED ONE 05/14 1402 [place] Teaching ED 05/14 1403 Tamsulosin HCl 0.4 MG DAILY 05/10 1000 AC 05/14 PO 0945 Thiamine HCl 100 MG DAILY 05/10 1615 AC 05/14 PO 0945 Trazodone HCl 50 MG ONE TIME ONE 05/140 DC 05/14 PO 05/14 220 2135 Trazodone HCl 50 MG ONE TIME ONE 05/14 1815 CAN PO 05/14 1816 Dose Instructions: (1)Lorazepam: See admin criteria Last 24 Hrs of Lab/Humberto Results Last 24 Hrs of Labs/Mics: Laboratory Tests 05/14/17 0610: Anion Gap 11, Estimated GFR > 60, BUN/Creatinine Ratio 20.0, Total Bilirubin 0.6 , Direct Bilirubin 0.4, AST 210 H, ALT 193 H, Alkaline Phosphatase 169 H, Total Protein 7.4, Albumin 4.2 Assessment/Plan Assessment: Mr. De La Cruz is a 57-year-old man with a past history of alcoholic dependence, alcohol withdrawal seizures, COPD, previous smoker, polysubstance abuse, previous intubation, pancreatitis, several hospital admissions for alcohol detox is being evaluated for alcohol detox. Recent diagnosis of cellulitis of upper back, which he attributes it to a possible fall/injury to the back after yard work treated with Bactrim only. Differential diagnosis: #1 alcohol detox #2 hyponatremia #3 cellulitis #4 hypertension Below is the problem list and plan: 1. Alcohol withdrawl- Pt was started on alcohol detox protocol-CIWA, Ativan as per [facility] protocol; last two doses of ativan 0.5 mg every 12 hrs. Discussed with him about the possible follow-up with his primary care physician about elevated liver enzymes and abstinence from alcohol and would decrease transaminases. #2 hyponatremia-likely due to increased by mouth intake of fluids. Stable. #3 cellulitis of the upper back patient is on Keflex 500 mg twice a day (day 5) by mouth for a total of 10 days. Improving. #4 DVT prophylaxis-pharmacological. Problem List: 1. ALCOHOL WITHDRAWAL Pain Ratin Pain Location: - back Pain Goal: Pain 4 or less Pain Plan: tylenol Tomorrow's Labs & Rationales: non. pt to be dc'ed TERESA TILLMAN,CARLY 05/15/17 1209: Attending MD Review Statement Attending Statement Attending MD Statement: examined this patient, discuss w/resident/PA/SOFTWARE MANAGER, agreed w/resident/PA/SOFTWARE MANAGER, reviewed EMR data (avail), discussed with nursing, discussed with case mgmt, reviewed images Attending Assessment/Plan: Patient seen and examined. Resting comfortably and not in any acute distress. No overnight issues reported by nursing staff. He remains afebrile and hemodynamically stable. On examination there cellulitis on the back is not worsening. They still some erythema. There is no swelling. There is no tenderness. The CIWA has been 0 and he is tolerating his benzodiazepine taper. At this point in time he is medically stable to be discharged home. He has been advised to follow-up with his primary care provider next week for evaluation of his cellulitis. He has normal dose of Ativan. This afternoon after which he may stop his benzodiazepines. I have advised him to cut down on his alcohol usage and he is in agreement with this. He denies any triggers for alcohol intake but states that he drinks out of habit. He states he feels confident that he will be able to cut down his drinking. 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 I have advised him to engage in any case of heavy machinery or minor labral today as well since he still on benzodiazepine therapy. Have advised him to follow-up with his primary care provider in a week's time to determine what level of work he may return to. He is being discharged on an increased dose of his metoprolol for better control of his blood pressure.
[2017-05-15 06:06] VITALS: BP 158/80
[2017-05-15] MEDS ORDERED: TOPROL XL25 M1 PO ×2 (09:03→09:50)
[2017-05-15 09:04] VITALS: BP 148/78
[2017-05-15] MEDS ORDERED: CEPHALEXIN500 M3 PO (09:50)
== END 2017-05-15 13:05 | DRG 603 ==
LOC: ERH 19:32 → 2NB 22:28 → 1NO 22:28 → ERHI 22:28 → ENRESERV 23:46 → 1NO 05-10 01:10 → 2NB 05-13 15:01 → ENPENDDIS 05-15 11:44 → 2NB 05-15 13:05
PROVIDERS: Internal Medicine Endocrinology, Diabetes & Metabolism; Physician Assistant; ADMIT Student in an Organized Health Care Education/Training Program
DX: L03.312 Cellulitis of back [any part except buttock and flank] (principal); E87.1 Hypo-osmolality and hyponatremia; I10 Essential (primary) hypertension; F10.239 Alcohol dependence with withdrawal, unspecified; G62.9 Polyneuropathy, unspecified; E86.0 Dehydration; Y90.8 Blood alcohol level of 240 mg/100 ml or more; L98.421 Non-pressure chronic ulcer of back limited to breakdown of skin; K29.20 Alcoholic gastritis without bleeding; J44.9 Chronic obstructive pulmonary disease, unspecified; Z87.891 Personal history of nicotine dependence; F19.10 Other psychoactive substance abuse, uncomplicated; W06.XXXA Fall from bed, initial encounter; Y92.230 Patient room in hospital as the place of occurrence of the external cause; R74.0 Nonspecific elevation of levels of transaminase and lactic acid dehydrogenase [LDH]; N40.0 Benign prostatic hyperplasia without lower urinary tract symptoms; Z78.1 Physical restraint status; E87.6 Hypokalemia; A63.0 Anogenital (venereal) warts
CPT/HCPCS: 1NP; 84133; 84300; 86618; ERO; 36415; 80307; 82436; 82570; 87040; 93005; 93010; 97116-GO; 97161-GP; G0480; J1650; J1885; J2405; J3490

== ENCOUNTER 2018-01-02 12:00 | Emergency (ER) | payer OTHER, MEDICARE ==
[~2018-01-02] VITALS: Ht 193 cm; Wt 104.3 kg
[~2018-01-02 12:00] MED LIST changes: +ATIVAN0.5 M1 PO; +BACTRIM DS TAB1 EACH PO; +BACTROBAN15 GM TOP; +CEPHALEXIN500 M3 PO; +KEFLEX500 M1 PO; +TOPROL XL25 M1 PO; +TRAZODONE HCL100 M1 PO; -TRAZODONE HCL50 M1 PO
[2018-01-02 12:01] VITALS: BP 148/81
[2018-01-02] MEDS ORDERED: PANTOPRAZOLE SO40 M1 PO (12:24)
[2018-01-02] MEDS ORDERED: METOPROLOL SUCC25 M1 PO (12:25)
[2018-01-02] MEDS ORDERED: GABAPENTIN300 M2 PO (12:26)
--- NOTE | 2018-01-02 12:37 | ED UPPER/LOWER EXTREMITY COMPL ---
History of Present Illness General Chief Complaint: General Adult Stated Complaint: SWOLLEN ELBOW Source: patient Exam Limitations: no limitations Vital Signs & Intake/Output Vital Signs & Intake/Output Vital Signs Date Time Temp Pulse Resp B/P B/P Pulse O2 O2 Flow FiO2 Mean Ox Delivery Rate 01/02 1201 96.4 78 18 148/81 94 Room Air Room Air ED Intake and Output 01/03 0000 01/02 1200 Intake Total 0 Output Total Balance 0 Intake, Oral 0 Patient 230 lb Weight Weight Reported by Patient Measurement Method Allergies Coded Allergies: NO KNOWN ALLERGIES (NO) (02/20/11) Reconcile Medications Albuterol Sulfate (Proair Hfa) 90 MCG HFA.AER.AD 2 PUF INH Q4-6 PRN PRN BREATHING PROBLEMS (Reported) Cyanocobalamin (Vitamin B-12) 1,000 MCG TABLET 1 TAB PO DAILY SUPPLEMENT ( Reported) Folic Acid 1 MG TABLET 1 TAB PO DAILY SUPPLEMENT (Reported) Gabapentin (Neurontin) 300 MG CAPSULE 1 CAP PO TID PAIN (Reported) Gabapentin 300 MG CAPSULE 1 CAP PO TID UNKNOWN (Reported) Metoprolol Succinate 25 MG TAB 1 TAB PO DAILY HEART (Reported) Multivitamin (Multiple Vitamins) 1 EACH TABLET 1 TAB PO DAILY SUPPLEMENT ( Reported) Mupirocin Calcium (Bactroban) 2 % CREAM..G. 1 JUDITH TOP TID topical infection apply to affected area(s) x 7 days Pantoprazole Sodium 40 MG TABLET.DR 1 TAB PO DAILY GI (Reported) Sulfamethoxazole/Trimethoprim (Bactrim Ds Tablet) 800 MG-160 MG TABLET 1 TAB PO BID infection Tamsulosin HCl (Flomax) 0.4 MG CAP.ER.24H 1 CAP PO DAILY PROSTATE (Reported) Thiamine HCl (B-1) 100 MG TABLET 1 TAB PO DAILY SUPPLEMENT (Reported) Trazodone HCl 100 MG TABLET 1 TAB PO QPM DEPRESSION (Reported) Triage Note: PT TO ED WITH C/O LEFT ELBOW PAIN AND SWELLING, WAS SEEN BY DR WELSH FOR LOWER EXTREMITY CELLULITIS "A COUPLE WEEKS AGO, IT'S BETTER NOW". Triage Nurses Notes Reviewed? yes Onset: Abrupt Duration: day(s): (few) Timing: recent history Severity: mild Pain/Injury Location: Left: Elbow. No Modifying Factors: none HPI: 57 year old male presents to the ER requesting drainage of the swelling from his left elbow. He states that it is swollen and painful. Patien twas here 8 days ago after trip and fall and had negative xrays done. He also states that he is on 2 antibiotics for his leg cellulitis that he was diagnosed with. No fever or chills. Past History Travel History Traveled to [place] past 21 day No Medical History Any Pertinent Medical History? 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 No Review of Systems Review of Systems Constitutional: Denies: chills, fever. EENTM: Reports: no symptoms. Respiratory: Reports: no symptoms. Cardiovascular: Denies: chest pain, palpitations. Gastrointestinal/Abdominal: Reports: no symptoms. Genitourinary: Reports: no symptoms. Musculoskeletal: Reports: joint pain, joint swelling. Skin: Reports: no symptoms. Neurological/Psychological: Reports: no symptoms. Hematologic/Endocrine: Denies: bruising, bleeding. Immunological: Reports: no symptoms. All Other Systems: Reviewed and Negative Physical Exam Physical Exam General Appearance: well developed/nourished, alert, awake, mild distress Head: atraumatic Eyes: Bilateral: PERRL, EOMI. Ears, Nose, Throat: normal pharynx, normal ENT inspection, hearing grossly normal Neck: normal inspection, supple Cardiovascular/Respiratory: regular rate/rhythm Peripheral Pulses: 2+ radial (R), 2+ radial (L) Back: normal inspection Shoulder Left: normal range of motion, normal inspection Shoulder Right: normal range of motion, normal inspection Elbow Left: olecranon bursitis Elbow Right: normal range of motion, normal inspection Hand Left: normal inspection, normal range of motion Hand Right: normal inspection, normal range of motion Neurologic/Tendon: normal sensation, normal motor functions, normal tendon functions Skin: intact, normal color, warm/dry Lymphatic: no anterior cervical desirae Progress Differential Diagnosis: OLECRANON BURSITIS, ALCOHOL DEPENDENCE Plan of Care: LEFT ELBOW OLECRANON BURSA DRAINED Departure Departure Time of Disposition: 1251 Disposition: HOME OR SELF CARE Condition: Stable Clinical Impression Primary Impression: Olecranon bursitis of left elbow Referrals: Unknown (PCP/Family) Additional Instructions: CONTINUE YOUR ANTIBIOTICS PREVIOUSLY DIRECTED FOLLOW UP WITH YOUR OUTPATIENT BLOOD DRAWS RETURN IF WORSE Departure Forms: Customer Survey General Discharge Information Procedures Incision and Drainage Site: NEEDLE ASPIRATION OF LEFT OLECRANON BURSA DRAINAGE (13 ML)
== END 2018-01-02 12:59 ==
LOC: ERH 12:00
DX: M70.22 Olecranon bursitis, left elbow (principal)

== ENCOUNTER 2018-03-11 10:26 | Emergency (ER) | payer OTHER, MEDICARE ==
[~2018-03-11] VITALS: Ht 190.5 cm; Wt 103.4 kg
[~2018-03-11 10:26] MED LIST changes: +GABAPENTIN300 M2 PO; +METOPROLOL SUCC25 M1 PO; +PANTOPRAZOLE SO40 M1 PO
--- NOTE | 2018-03-11 15:28 | ED UPPER/LOWER EXTREMITY COMPL ---
History of Present Illness General Chief Complaint: Lower Extremity Problems Stated Complaint: PER PT CELLULITIS TO GENITALS & LOWER EXTREMITIES Source: patient Exam Limitations: no limitations Vital Signs & Intake/Output Vital Signs & Intake/Output Vital Signs Date Time Temp Pulse Resp B/P B/P Pulse O2 O2 Flow FiO2 Mean Ox Delivery Rate 03/11 1548 98.0 71 15 119/83 99 Room Air 03/11 1330 97.8 77 20 112/50 95 Room Air 03/11 1036 98.8 85 18 100/57 98 Room Air Allergies Coded Allergies: NO KNOWN ALLERGIES (NO) (02/20/11) Triage Note: 57 YO MALE TO TRIAGE C/O ?CELLULITIS TO L LEG, REPORTS "ITS NOT GOING TO MY TESTICLES" Triage Nurses Notes Reviewed? yes Onset: Gradual Duration: constant Timing: recent history Severity: moderate Severity Numbers: 5 HPI: Patient is a 57-year-old male with a past medical history of MRSA cellulitis alcohol abuse , alcohol withdrawal seizures, COPD, previous smoker, polysubstance abuse, previous intubation, pancreatitis, several hospital admissions for alcohol detox who presents emergency room with concerns of a left groin redness skin irritation and itching sensation with the same complaints to his left ankle and left lateral aspect of his lower extremity. Patient denies any specific skin irritant or allergies, denies any fevers discharge shortness of breath and is otherwise without complaints. Patient does state that symptoms feel different than cellulitis previously (Fabienne RAPHAEL,Moy) Reconcile Medications Albuterol Sulfate (Proair Hfa) 90 MCG HFA.AER.AD 2 PUF INH Q4-6 PRN PRN BREATHING PROBLEMS (Reported) Clotrimazole (Lotrimin AF) 1 % CREAM..G. 1 JUDITH TOP TID PRN TINEA apply to affected area(s) Cyanocobalamin (Vitamin B-12) 1,000 MCG TABLET 1 TAB PO DAILY SUPPLEMENT ( Reported) Folic Acid 1 MG TABLET 1 TAB PO DAILY SUPPLEMENT (Reported) Gabapentin (Neurontin) 300 MG CAPSULE 1 CAP PO TID PAIN (Reported) Gabapentin 300 MG CAPSULE 1 CAP PO TID UNKNOWN (Reported) Hydrocortisone 2.5 % CREAM..G. 1 JUDITH TOP TID PRN RASH apply to affected area(s) Metoprolol Succinate 25 MG TAB 1 TAB PO DAILY HEART (Reported) Multivitamin (Multiple Vitamins) 1 EACH TABLET 1 TAB PO DAILY SUPPLEMENT ( Reported) Mupirocin Calcium (Bactroban) 2 % CREAM..G. 1 JUDITH TOP TID topical infection apply to affected area(s) x 7 days Pantoprazole Sodium 40 MG TABLET.DR 1 TAB PO DAILY GI (Reported) Sulfamethoxazole/Trimethoprim (Bactrim Ds Tablet) 800 MG-160 MG TABLET 1 TAB PO BID infection Tamsulosin HCl (Flomax) 0.4 MG CAP.ER.24H 1 CAP PO DAILY PROSTATE (Reported) Thiamine HCl (B-1) 100 MG TABLET 1 TAB PO DAILY SUPPLEMENT (Reported) Trazodone HCl 100 MG TABLET 1 TAB PO QPM DEPRESSION (Reported) (Marvin Llanos DO) Past History Travel History Traveled to [place] past 21 day No Medical History Any Pertinent Medical History? 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 No (Moy Quiroz) Review of Systems Review of Systems Constitutional: Reports: no symptoms. EENTM: Reports: no symptoms. Respiratory: Reports: no symptoms. Cardiovascular: Reports: no symptoms. Gastrointestinal/Abdominal: Reports: no symptoms. Genitourinary: Reports: no symptoms. Musculoskeletal: Reports: no symptoms. Skin: Reports: see HPI, erythema, rash. Neurological/Psychological: Reports: no symptoms. Hematologic/Endocrine: Reports: no symptoms. Immunological: Reports: no symptoms. All Other Systems: Reviewed and Negative (Moy Quiroz) Physical Exam Physical Exam General Appearance: no apparent distress, alert, comfortable Head: atraumatic Eyes: Bilateral: normal appearance. Ears, Nose, Throat: hearing grossly normal Neck: normal inspection Cardiovascular/Respiratory: no respiratory distress Peripheral Pulses: 2+ dorsalis pedis (L) Neurologic/Tendon: normal sensation, normal motor functions, normal tendon functions, responds to pain, no evidence tendon injury Diagram Legs Front/Back 1) Noted dried beefy red erythematous skin rash. 2) Noted dried beefy red erythematous skin rash. 3) Noted dried beefy red erythematous skin rash. (Moy Quiroz) Progress Differential Diagnosis: cellulitis, CHF, compartment syndrome, gout, septic arthritis Plan of Care: Differential diagnosis include eczema tinea Due to history of present illness and exam findings of my differential it is cellulitis however my suspicion is low due to exam findings. Patient is afebrile Due to locations of the scaling dried erythematous rash that most likely the causation is fungal in tinea discussed disposition plan with patient who agrees and has no questions (Moy Quiroz) Departure Departure Disposition: HOME OR SELF CARE Condition: Stable Clinical Impression Primary Impression: Rash Secondary Impressions: Tinea cruris Referrals: Patient Has No Primary Care Dr (PCP/Family) Additional Instructions: As discussed begin the prescription of hydrocortisone cream and mixed with the prescription of Lotrimin and apply to affected areas. If symptoms worsen or if YOU develop new concerning symptom return to emergency ROOM. If no better in 3 days, FOLLOW UP WITH YOUR doctor. Prescriptions are waiting at [facility]. Keep area dry and clean as he can Departure Forms: Customer Survey General Discharge Information Prescriptions: Current Visit Scripts Hydrocortisone 1 JUDITH TOP TID PRN RASH #60 GM apply to affected area(s) Clotrimazole (Lotrimin AF) 1 JUDITH TOP TID PRN TINEA #24 GM apply to affected area(s) (Moy Quiroz) PA/TRANSFILL TECHNICIAN Co-Sign Statement Statement: ED Attending supervision documentation- [] I saw and evaluated the patient. I have also reviewed all the pertinent lab results and diagnostic results. I agree with the findings and the plan of care as documented in the PA's/TRANSFILL TECHNICIAN's documentation. [x] I have reviewed the ED Record and agree with the PA's/TRANSFILL TECHNICIAN's documentation. [] Additions or exceptions (if any) to the PAs/TRANSFILL TECHNICIAN's note and plan are summarized below: [] (Marvin Llanos DO)
[2018-03-11] MEDS ORDERED: LOTRIMIN AF12 GM TOP (15:40)
[2018-03-11] MEDS ORDERED: HYDROCORTISO453.6 G2 TOP (15:40)
[2018-03-11 15:48] VITALS: BP 119/83
[2018-05-20] MEDS ORDERED: CEPHALEXIN500 M3 PO (22:51)
[2018-05-27] MEDS ORDERED: LOTRIMIN AF12 GM TOP (12:37)
[2018-05-27] MEDS ORDERED: HYDROCORTISO453.6 G2 TOP (12:37)
[2018-05-27] MEDS ORDERED: MEDROL4 M2 PO (12:37)
== END 2018-03-11 15:49 ==
LOC: ERH 10:26
DX: R21 Rash and other nonspecific skin eruption (principal); B35.6 Tinea cruris

== ENCOUNTER 2018-05-27 13:51 | Emergency (ER) | payer OTHER, MEDICARE ==
[~2018-05-27 13:51] MED LIST changes: +HYDROCORTISO453.6 G2 TOP; +LOTRIMIN AF12 GM TOP; +MEDROL4 M2 PO
[2018-05-27 14:34] LABS: ABSOLUTE BASOPHIL COUNT 0 /CUMM (0.0-0.2); ABSOLUTE EOSINOPHIL COUNT 0 /CUMM (0.0-0.7); ABSOLUTE GRANULOCYTE CT 3.8 /CUMM (1.4-6.5); ABSOLUTE LYMPH COUNT 0.6 /CUMM (1.2-3.4); ABSOLUTE MONOCYTE COUNT 0.5 /CUMM (0.10-0.60); BASOPHIL % 0.1 % (0.0-2.0); EOSINOPHIL % 0.6 % (0-5); GRANULOCYTE % 75.7 % (42.2-75.2); HEMATOCRIT 30.5 % (42-52); MEAN CORPUSCULAR HGB 34.5 PG (27.0-31.0); MEAN CORPUSCULAR HGB CONC 34.9 G/DL (33.0-37.0); MEAN CORPUSCULAR VOLUME 98.9 FL (80.0-94.0); MEAN PLATELET VOLUME 7.2 FL (7.4-10.4); RBC DISTRIBUTION WIDTH 13.9 % (11.5-14.5); RED BLOOD CELL CT 3.08 /CUMM (4.70-6.10); WHITE BLOOD CELL COUNT 5.1 /CUMM (4.8-10.8)
--- NOTE | 2018-05-27 14:43 | ED GENERAL ADULT ---
History of Present Illness General Chief Complaint: ETOH/Drug Related Complaint Stated Complaint: BIBA FOR PUBLIC INGESTION OF ETOH Source: patient, old records Exam Limitations: no limitations Vital Signs & Intake/Output Vital Signs & Intake/Output Vital Signs Date Time Temp Pulse Resp B/P B/P Pulse O2 O2 Flow FiO2 Mean Ox Delivery Rate 05/27 1454 98.1 118 18 168/86 95 Room Air 05/27 1442 97 Room Air Allergies Coded Allergies: NO KNOWN ALLERGIES (NO) (02/20/11) Reconcile Medications Albuterol Sulfate (Proair Hfa) 90 MCG HFA.AER.AD 2 PUF INH Q4-6 PRN PRN BREATHING PROBLEMS (Reported) Cephalexin 500 MG CAPSULE 1 CAP PO Q6 CELLULITIS Clotrimazole (Lotrimin AF) 1 % CREAM..G. 1 JUDITH TOP TID PRN TINEA apply to affected area(s) Clotrimazole (Lotrimin AF) 1 % CREAM..G. 1 JUDITH TOP BID TINEA apply to affected area(s) Cyanocobalamin (Vitamin B-12) 1,000 MCG TABLET 1 TAB PO DAILY SUPPLEMENT ( Reported) Folic Acid 1 MG TABLET 1 TAB PO DAILY SUPPLEMENT (Reported) Gabapentin (Neurontin) 300 MG CAPSULE 1 CAP PO TID PAIN (Reported) Gabapentin 300 MG CAPSULE 1 CAP PO TID UNKNOWN (Reported) Hydrocortisone 2.5 % CREAM..G. 1 JUDITH TOP TID PRN RASH apply to affected area(s) Hydrocortisone 2.5 % CREAM..G. 1 JUDITH TOP BID INFLAMMATION apply to affected area(s) Magnesium Oxide (Magnesium) 400 MG CAPSULE 1 CAP PO DAILY HYPO MAG Methylprednisolone. (Medrol) 4 MG TAB.DS.PK 1 DP PO AD INFLAMMATION 6 on day 1 then reduce by one tablet daily until gone Metoprolol Succinate 25 MG TAB 1 TAB PO DAILY HEART (Reported) Multivitamin (Multiple Vitamins) 1 EACH TABLET 1 TAB PO DAILY SUPPLEMENT ( Reported) Mupirocin Calcium (Bactroban) 2 % CREAM..G. 1 JUDITH TOP TID topical infection apply to affected area(s) x 7 days Pantoprazole Sodium 40 MG TABLET.DR 1 TAB PO DAILY GI (Reported) Sulfamethoxazole/Trimethoprim (Bactrim Ds Tablet) 800 MG-160 MG TABLET 1 TAB PO BID infection Tamsulosin HCl (Flomax) 0.4 MG CAP.ER.24H 1 CAP PO DAILY PROSTATE (Reported) Thiamine HCl (B-1) 100 MG TABLET 1 TAB PO DAILY SUPPLEMENT (Reported) Trazodone HCl 100 MG TABLET 1 TAB PO QPM DEPRESSION (Reported) Triage Note: 58M SEEN EARLIER TODAY FOR CELLULITIS AND WAS DISCHARGED WITH RX'S. PD WAS CALLED BY [employer] [facility] IN [facility] WHO SAW HIM DRINKING BEERS ON THE SIDEWALK. PT ARRIVES INTOXICATED BUT DOES NOT WANT DETOX. HX SEIZURES AND DT'S. SECURITY AT BEDSIDE FOR WANDING AND CHANGING. DENIES SI/HI Triage Nurses Notes Reviewed? yes Onset: Abrupt Duration: hour(s): (2), constant, continues in ED Timing: recent history Injury Environment: home Severity: moderate, severe No Modifying Factors: none HPI: 58-year-old male history of alcohol dependence brought in by AMBULANCE FOR report OF PUBLIC intoxication. Patient was just seen here several hours prior for a lower extremity rash. Patient was seen by bystanders drinking beers and acting intoxicated in public. He was told by the please see the come to the emergency department or go to retirement. Patient states he drank multiple beers today and drinks daily. He does not want detox. He denies a history of withdrawal seizures. He is not suicidal or homicidal. He has no complaints. He denies drug use no hallucinations. (Roge Hardin) Past History Travel History Traveled to [place] past 21 day No Medical History Any Pertinent Medical History? 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 No (Roge Hardin) Review of Systems Review of Systems Constitutional: Reports: no symptoms. EENTM: Reports: no symptoms. Respiratory: Reports: no symptoms. Cardiovascular: Reports: no symptoms. GI: Reports: no symptoms. Genitourinary: Reports: no symptoms. Musculoskeletal: Reports: no symptoms. Skin: Reports: rash. Neurological/Psychological: Reports: no symptoms. Hematologic/Endocrine: Reports: no symptoms. Immunologic/Allergic: Reports: no symptoms. All Other Systems: Reviewed and Negative (Roge Hardin) Physical Exam Physical Exam General Appearance: well developed/nourished, no apparent distress, alert, awake , intoxicated Head: atraumatic, normal appearance Eyes: Bilateral: normal appearance, PERRL, EOMI. Ears, Nose, Throat: hearing grossly normal Neck: normal inspection, supple, full range of motion Respiratory: normal breath sounds, chest non-tender, no respiratory distress, lungs clear Cardiovascular: regular rate/rhythm, normal peripheral pulses Peripheral Pulses: 2+ radial (R), 2+ radial (L) Gastrointestinal: soft, non-tender Back: normal inspection, normal range of motion Extremities: normal inspection, normal range of motion, no edema Neurologic/Psych: no motor/sensory deficits, awake, alert, oriented x 3, normal gait, normal mood/affect Skin: intact, normal color, warm/dry, rash Comments: Erythematous rash to the bilateral lower extremity see previous note from earlier today Core Measures ACS in differential dx? No CVA/TIA Diagnosis: No Sepsis Present: No Sepsis Focused Exam Completed? No (Roge Hardin) Progress Differential Diagnoses I considered the following diagnoses in my evaluation of the patient: [Alcohol intoxication, alcohol withdrawal, drug intoxication, drug withdrawal] Plan of Care: Orders Procedure Date/time Status Regular Diet 05/27 D Active URINE DRUG SCREEN FOR ER ONLY 05/27 1354 Complete URINALYSIS 05/27 135 Complete MAGNESIUM 05/27 135 Complete ETHANOL 05/27 1354 Complete COMPREHENSIVE METABOLIC PANEL 05/27 1354 Complete CBC WITHOUT DIFFERENTIAL 05/27 1354 Complete Laboratory Tests 05/27/18 1435: Urine Opiates Screen < 100, Methadone Screen 40, Barbiturate Screen < 60, Ur Phencyclidine Scrn < 6.00, Amphetamines Screen < 100, U Benzodiazepines Scrn < 85, Urine Cocaine Screen < 50, Urine Cannabis Screen < 5.00, Urine Color YEL, Urine Clarity CLEAR, Urine pH 6.0, Ur Specific [place] 1.010, Urine Protein 100 H, Urine Ketones NEG, Urine Nitrite NEG, Urine Bilirubin NEG, Urine Urobilinogen 1.0, Ur Leukocyte Esterase NEG, Ur Microscopic SEDIMENT EXAMINED, Urine WBC RARE , Ur Epithelial Cells RARE, Urine Hemoglobin NEG, Urine Glucose NEG 05/27/18 1425: Anion Gap 17 H, Estimated GFR > 60, BUN/Creatinine Ratio 8.3, Glucose 110 H, Calcium 9.0, Magnesium 1.3 L, Total Bilirubin 1.3, AST 263 H, ALT 64, Alkaline Phosphatase 132 H, Total Protein 7.9, Albumin 4.2, Globulin 3.7, Albumin/ Globulin Ratio 1.1, CBC w Diff NO MAN DIFF REQ, RBC 3.08 L, MCV 98.9 H, MCH 34.5 H, MCHC 34.9, RDW 13.9, MPV 7.2 L, Gran % 75.7 H, Lymphocytes % 12.8 L, Monocytes % 10.8 H, Eosinophils % 0.6, Basophils % 0.1, Absolute Granulocytes 3.8, Absolute Lymphocytes 0.6 L, Absolute Monocytes 0.5, Absolute Eosinophils 0 , Absolute Basophils 0, Serum Alcohol 279.0 Patient was brought in by police for evaluation of intoxication in public. Patient is not suicidal or homicidal does not want detox. He is alert and oriented 3. He has a sober ride with him. Basic blood work will be obtained patient will be monitored. Blood work is not significant change from previous his alcohol level is 279. Patient does have a decrease in his magnesium and elevated LFTs consistent with alcohol dependence. Advised patient of the health risks associated with continued alcohol abuse. Patient says his risk he still does not want to detox. He is requesting to be discharged. He is alert and oriented 3 has a steady gait he is not suicidal or homicidal. Patient was given a prescription for magnesium. He is given a list of outpatient detox centers advised to follow-up. He has a sober friend that is at the bedside willing to take him home. Discussed return cautions patient agrees the plan Initial ED EKG: none (Roge Hardin) Departure Departure Disposition: HOME OR SELF CARE Condition: Stable Clinical Impression Primary Impression: Alcohol intoxication Qualifiers: Complication of substance-induced condition: uncomplicated Qualified Code: F10.920 - Alcohol use, unspecified with intoxication, uncomplicated Referrals: Erinn Ayala APRN (PCP/Family) Additional Instructions: FOLLOW UP WITH OUT PATIENT DETOX CENTERS. MAGNSEIUM DIRETCED. RETURN WITH ANY CONCERNS. Departure Forms: Customer Survey General Discharge Information Prescriptions: Current Visit Scripts Magnesium Oxide (Magnesium) 1 CAP PO DAILY #30 CAP (Roge Hardin) PA/FIELD SALES ENGINEER Co-Sign Statement Statement: ED Attending supervision documentation- [] I saw and evaluated the patient. I have also reviewed all the pertinent lab results and diagnostic results. I agree with the findings and the plan of care as documented in the PA's/FIELD SALES ENGINEER's documentation. [X] I have reviewed the ED Record and agree with the PA's/FIELD SALES ENGINEER's documentation. [] Additions or exceptions (if any) to the PAs/FIELD SALES ENGINEER's note and plan are summarized below: [] (Snati Roy DO) Critical Care Note Critical Care Note Critical Care Time: non-applicable (Roge Hardin)
[2018-05-27 14:54] VITALS: BP 168/86
[2018-05-27 14:55] LABS: PLATELET COUNT 195 /CUMM (130-400)
[2018-05-27] MEDS ORDERED: MAGNESIUM400 M1 PO (16:07)
== END 2018-05-27 16:27 ==
LOC: ERH 13:51
PROVIDERS: Physician Assistant Medical
DX: F10.129 Alcohol abuse with intoxication, unspecified (principal)
CPT/HCPCS: 80307; 81001; G0480